=== PATIENT | male | born 1930 | race African-American/Black ===

== ENCOUNTER 2016-06-08 06:58 | Emergency (ER) | payer OTHER ==
[~2016-06-08] VITALS: Ht 185.4 cm; Wt 95.3 kg
[~2016-06-08 06:58] MED LIST: BACITRACIN15 GM TOPIC; BACTRIM DS TAB1 EAC1 ORAL; DOXYCYCLINE MO100 M2 PO; HYDROCHLOROTHIA25 MG ORAL; KERLIX1 EAC2 TP; LEVAQUIN500 MG ORAL; NKM; SILVADENE CREAM50 GM TOPIC; SILVADENE20 GM TP; [UNRECOGNIZED DRUG - SUPPLY] TP
--- NOTE | 2016-06-08 08:21 | Emergency Room Report ---
History of Present Illness General Chief Complaint: Lower Extremity Injury Source: Patient Present Illness HPI Patient presents with complaints of swelling to both of his feet Patient reports that he has a chronic problem with his legs However he would like to have his dressings changed Denies any fevers or chills denies any fall or trauma Denies any chest or shortness of breath He does not recall the exact time when his dressings were changed last Denies any pain at this time Allergies: Coded Allergies: No Known Allergies (Unverified , 10/27/12) Patient History Past Medical History: see triage record Pertinent Family History: none Reviewed Nursing Documentation: PMH: Agreed, PSxH: Agreed Nursing Documentation-PMH Past Medical History: No History, Except For Hx Cardiac Problems: Yes - Chronic lymphedema, Venous stasis ulcer Hx Hypertension: No Hx Pacemaker: No Hx Asthma: No Hx COPD: No Hx Diabetes: No Hx Cancer: No Hx Gastrointestinal Problems: No Hx Dialysis: No Hx Neurological Problems: No Hx Cerebrovascular Accident: No Hx Seizures: No Review of Systems All Other Systems: negative except mentioned in HPI Physical Exam Vital Signs Date Time Temp Pulse Resp B/P Pulse Ox O2 Delivery O2 Flow Rate FiO2 06/08/16 07:48 97.9 65 18 174/102 98 Room Air Sp02 EP Interpretation: reviewed, normal General Appearance: well appearing, no apparent distress Head: normocephalic, atraumatic Eyes: bilateral eye EOMI, bilateral eye PERRL ENT: hearing grossly normal, normal pharynx, TMs + canals normal, uvula midline Neck: full range of motion, supple, no meningismus, no bony tend Respiratory: lungs clear, normal breath sounds, no rhonchi, no respiratory distress, no retraction, no accessory muscle use Cardiovascular #1: normal peripheral pulses, regular rate, rhythm, no edema, no gallop, no JVD, no murmur Gastrointestinal: normal bowel sounds, non tender, soft, no mass, no organomegaly, non-distended, no guarding, no hernia, no pulsatile mass, no rebound Genitourinary: no CVA tenderness Musculoskeletal: other - Patient appears to have venous stasis ulcers, no obvious secondary erythema Neurologic: oriented x3, responsive, 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 nml as tested, motor strength/ tone normal, sensory intact Psychiatric: mood/affect normal Skin: other - Venous stasis ulcers, fairly chronic appearing Medical Decision Making Diagnostic Impression: Primary Impression: Dressing change Additional Impression: Venous stasis ulcer ER Course Patient had dressing changes performed Area appears improved patient was also asking regarding breakfast Had a discussion with them regarding continued close outpatient followup I have previously recommended admission for the patient however he has refused on multiple occasions Patient is very appropriately awake and alert and attentive And reports that he will have continued outpatient followup Last Vital Signs Date Time Temp Pulse Resp B/P Pulse Ox O2 Delivery O2 Flow Rate FiO2 06/08/16 07:48 97.9 65 18 174/102 98 Room Air Status: improved Disposition: HOME, SELF-CARE Condition: Improved Referrals: [facility],REFERRING (PCP) Patient Instructions: Stasis Dermatitis, Venous Stasis or Chronic Venous Insufficiency, Dressing Change Additional Instructions: Patient is provided with the discharge instructions notified to follow up with primary doctor in the next 2-3 days otherwise return to the er with any worsening symptoms. FLORIDA HARRINGTON D.O. Jun 08, 2016 08:21
[2016-06-08 08:39] VITALS: BP 80/80
== END 2016-06-08 09:17 | disposition home or self-care (01) ==
LOC: EMR 07:47
DX: Z48.00 Encounter for change or removal of nonsurgical wound dressing (principal); I89.0 Lymphedema, not elsewhere classified; I83.009 Varicose veins of unspecified lower extremity with ulcer of unspecified site; L97.909 Non-pressure chronic ulcer of unspecified part of unspecified lower leg with unspecified severity
CPT/HCPCS: 99282

== ENCOUNTER 2016-06-12 02:11 | Emergency (ER) | payer OTHER ==
[~2016-06-12] VITALS: Ht 185.4 cm; Wt 95.3 kg
[2016-06-12 02:30] VITALS: BP 122/67
--- NOTE | 2016-06-12 03:09 | Emergency Room Report ---
History of Present Illness General Chief Complaint: General Complaint Source: Patient Present Illness HPI 85 YO M with request for bandage change to ulcers from chronic venous stasis dermatitis. Denies fever/chills, pain. Was here recently for similar complaint / request. Patient states its difficult for him to followup with PMD. Ambulating with cane as per baseline. Denies numbness or weakness to lower extremities. Allergies: Coded Allergies: No Known Allergies (Unverified , 10/27/12) Patient History Past Medical History: other - chrnic venous stasis dermatitis Past Surgical History: none Social History: Denies: alcohol use, drug use, smoking Immunizations: UTD Reviewed Nursing Documentation: PMH: Agreed, PSxH: Agreed Nursing Documentation-PMH Past Medical History: No Stated History Hx Cardiac Problems: Yes - Chronic lymphedema, Venous stasis ulcer Hx Hypertension: No Hx Pacemaker: No Hx Asthma: No Hx COPD: No Hx Diabetes: No Hx Cancer: No Hx Gastrointestinal Problems: No Hx Dialysis: No Hx Neurological Problems: No Hx Cerebrovascular Accident: No Hx Seizures: No Review of Systems All Other Systems: negative except mentioned in HPI Physical Exam Vital Signs Date Time Temp Pulse Resp B/P Pulse Ox O2 Delivery O2 Flow Rate FiO2 06/12/16 02:17 98.1 76 16 120/64 96 Room Air Sp02 EP Interpretation: reviewed, normal General Appearance: normal inspection, well appearing, no apparent distress, alert Head: atraumatic ENT: normal ENT inspection, hearing grossly normal, normal voice Neck: normal inspection, full range of motion, supple, no bony tend Respiratory: normal inspection, lungs clear, normal breath sounds, no respiratory distress, no retraction, no wheezing Cardiovascular #1: regular rate, rhythm, no edema Gastrointestinal: normal inspection, normal bowel sounds, non tender, soft, no guarding, no hernia Genitourinary: no CVA tenderness Musculoskeletal: normal inspection, back normal, normal range of motion, Tasha' s Sign negative Neurologic: normal inspection, alert, responsive, speech normal Psychiatric: normal inspection, judgement/insight normal, mood/affect normal Skin: other - Bilateral lower extremities: hairless, shiny, hardened/ lichenified skin. Multiple areas of ulceration, weeping foul-smelling drainage. Nontender. No focal edema. No overyling erythema or sign of infection. Sensation intact. Motor strength 4/5 bilaterally. Medical Decision Making Diagnostic Impression: Primary Impression: Chronic cutaneous venous stasis ulcer ER Course Multiple ulcerations with underlying CVS dermatitis. VSS. Afebrile. No sign of infection Dressings changed by staff, wounds irrigated and rewrapped with xeroform and kerlex Patient given supplies and instructed how to change dressings at home DC Last Vital Signs Date Time Temp Pulse Resp B/P Pulse Ox O2 Delivery O2 Flow Rate FiO2 06/12/16 02:17 98.1 76 16 120/64 96 Room Air Status: improved Disposition: HOME, SELF-CARE Referrals: [facility],REFERRING (PCP) LUIS DEWITT M.D. Jun 12, 2016 03:09
[2016-06-12 03:16] VITALS: BP 118/70
== END 2016-06-12 03:16 | disposition home or self-care (01) ==
LOC: EMR 02:41
DX: I83.009 Varicose veins of unspecified lower extremity with ulcer of unspecified site (principal)
CPT/HCPCS: 99282

== ENCOUNTER 2016-06-18 22:35 | Emergency (ER) | payer OTHER ==
[~2016-06-18] VITALS: Ht 185.4 cm; Wt 95.3 kg
[2016-06-18 23:15] VITALS: BP 128/65
[2016-06-19] MEDS ORDERED: Bacitracin Oint UD TOPIC ONE (02:00)
[2016-06-19] MEDS ORDERED: BACITRACIN15 GM TOPIC (04:20)
[2016-06-19 04:34] VITALS: BP 136/67
--- NOTE | 2016-06-19 06:55 | Emergency Room Report ---
History of Present Illness General Chief Complaint: General Complaint Source: Patient Present Illness HPI Patient presents requesting dressings for legs. Has chronic ulcers. States they are basically unchanged. Some minimal drainage. Previously in wound care clinic. He states he doesn't want to go there anymore. Denies fever, chills, CP, SOB. Does have some exertional dyspnea. Chronic depression unchanged. 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 Nursing Documentation: PMH: Agreed, PSxH: Agreed Nursing Documentation-PMH Past Medical History: No History, Except For Hx Cardiac Problems: Yes - Chronic lymphedema, Venous stasis ulcer Hx Hypertension: No Hx Pacemaker: No Hx Asthma: No Hx COPD: No Hx Diabetes: No Hx Cancer: No Hx Gastrointestinal Problems: No Hx Dialysis: No Hx Neurological Problems: No Hx Cerebrovascular Accident: No Hx Seizures: No Review of Systems All Other Systems: negative except mentioned in HPI Physical Exam Vital Signs Date Time Temp Pulse Resp B/P Pulse Ox O2 Delivery O2 Flow Rate FiO2 06/18/16 22:53 98.1 65 16 130/62 96 Room Air Sp02 EP Interpretation: reviewed, normal General Appearance: no apparent distress, GCS 15 Head: normocephalic, atraumatic Eyes: bilateral eye PERRL, bilateral eye normal inspection ENT: moist mucus membranes Neck: supple Respiratory: lungs clear, normal breath sounds Cardiovascular #1: regular rate, rhythm, edema - brawney bilat Cardiovascular #2: 2+ radial (R) Gastrointestinal: normal inspection, normal bowel sounds, non tender, no mass, non-distended Musculoskeletal: back normal, gait/station normal - with walker, normal range of motion, no calf tenderness, pelvis stable, Tasha's Sign negative, inflammation, swelling Neurologic: alert, oriented x3, grossly normal Psychiatric: depressed affect Skin: warm/dry, other - venous ulcers bilat. Somewhat improved from my prior exam. Some eschar. No purulent drainage. Medical Decision Making Diagnostic Impression: Primary Impression: Encounter for dressing change or suture removal Additional Impressions: Venous stasis ulcers Refusal of care by patient ER Course Patient with request for dressings. Needs to have eval of labs for infection ( doubt), electrolyte balance, renal function. Patient refuses labs - states for samaritan reasons. Unable to place Kim boots. Antibiotic ointment and dressings applied. Patient stable for outpatient observation and treatment with the limitation of his refusing further evaluation. EKG Diagnostic Results Rate: tachycardiac ST Segments: no acute changes Rhythm Strip Diag. Results EP Interpretation: yes Rhythm: no PVC's, other - possible a flutter with NSSTTW changes, rate 111 Status: improved Disposition: HOME, SELF-CARE Condition: Improved Scripts Bacitracin (Bacitracin) 28.4 Gm Oint...g. 1 APPLIC TOPIC THREE TIMES A DAY, #30 GM Prov: Basim Correa M.D. 06/19/16 Referrals: [facility],REFERRING (PCP) Patient Instructions: Venous Stasis or Chronic Venous Insufficiency Additional Instructions: Follow up with your wound care MD. You refused to have us do labs tonight. Basim Correa M.D. Jun 19, 2016 06:55
--- NOTE | 2016-06-21 08:30 | Diagnostic Imaging Report ---
Indications: Chest pain Technique: Portable AP chest Findings: Comparison: 05/23/15 Cardiac silhouette remains normal in size. Pulmonary vasculature remains within normal limits. Lungs and pleura currently clear. Mild calcification of the aortic arch is again noted. IMPRESSION: No evidence of acute disease, Stable chronic changes as described
== END 2016-06-19 04:34 | disposition home or self-care (01) ==
LOC: EMR 23:20
DX: I83.009 Varicose veins of unspecified lower extremity with ulcer of unspecified site (principal); L97.919 Non-pressure chronic ulcer of unspecified part of right lower leg with unspecified severity; L97.929 Non-pressure chronic ulcer of unspecified part of left lower leg with unspecified severity; I89.0 Lymphedema, not elsewhere classified; Z48.00 Encounter for change or removal of nonsurgical wound dressing
CPT/HCPCS: 71010; 99283

== ENCOUNTER 2016-06-22 17:56 | Emergency (ER) | payer OTHER ==
[~2016-06-22] VITALS: Ht 185.4 cm; Wt 95.3 kg
[2016-06-22 18:20] VITALS: BP 162/65
--- NOTE | 2016-06-22 18:23 | Emergency Room Report ---
History of Present Illness General Chief Complaint: Skin Rash/Abscess Source: Patient Present Illness HPI 85 YOM multiple times visitor to ED for lower extremity dressing change presents with same. Denies fever/chills, abdominal pain, chest pain, SOB, diarrhea, nausea/vomiting. States has been prescribed Abx multiple times in the past but never had Rx filled - states he went to Pharm and they told him they couldnt give Rx until they spoke to the doctor. On patients recent visit, both myself and 2 RNs spent considerable time with patient, changing his dressings, giving him supples to do the same, and instructing him how to care for wounds and drainage. Allergies: Coded Allergies: No Known Allergies (Unverified , 10/27/12) Patient History Past Medical History: see triage record, old chart reviewed Past Surgical History: none Social History: Denies: alcohol use, drug use, smoking Immunizations: UTD Reviewed Nursing Documentation: PMH: Agreed, PSxH: Agreed Nursing Documentation-PMH Past Medical History: No History, Except For Hx Hypertension: No Hx Pacemaker: No Hx Asthma: No Hx COPD: No Hx Diabetes: No Hx Cancer: No Hx Gastrointestinal Problems: No Hx Dialysis: No Hx Neurological Problems: No Hx Cerebrovascular Accident: No Hx Seizures: No Review of Systems All Other Systems: negative except mentioned in HPI Physical Exam Vital Signs Date Time Temp Pulse Resp B/P Pulse Ox O2 Delivery O2 Flow Rate FiO2 06/22/16 18:07 98.4 84 17 162/65 98 Room Air Sp02 EP Interpretation: reviewed, normal General Appearance: normal inspection, well appearing, no apparent distress, alert Head: atraumatic ENT: normal ENT inspection, hearing grossly normal, normal voice Neck: normal inspection, full range of motion, supple, no bony tend Respiratory: normal inspection, lungs clear, normal breath sounds, no respiratory distress, no retraction, no wheezing Cardiovascular #1: regular rate, rhythm, no edema Gastrointestinal: normal inspection, normal bowel sounds, non tender, soft, no guarding, no hernia Genitourinary: no CVA tenderness Neurologic: normal inspection, alert, oriented x3, responsive, 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 Sensation intact. Patient able to move extremities. Appreciable difference of warmth to left leg vs right. Medical Decision Making Diagnostic Impression: Primary Impression: Encounter for dressing change or suture removal Additional Impressions: probable dementia Chronic cutaneous venous stasis ulcer Cellulitis Qualified Codes: L03.818 - Cellulitis of other sites ER Course 85 YOM with dressing change request for chronic venous stasis dermatitis ulcers. ?cellulitis. Vitals normal, afebrile. Apparently multiple attempts in past to tx with Abx, unsuccessful Dressings changed here Will cover with keflex Abx given appreciable diff in warmth of left lower extremity DC home Last Vital Signs Date Time Temp Pulse Resp B/P Pulse Ox O2 Delivery O2 Flow Rate FiO2 06/22/16 18:07 98.4 84 17 162/65 98 Room Air Status: improved Disposition: HOME, SELF-CARE Scripts Cephalexin* (KEFLEX*) 500 Mg Capsule 500 MG ORAL EVERY 6 HOURS for 7 Days, #28 CAP Prov: LUIS DEWITT M.D. 06/22/16 LUIS DEWITT M.D. Jun 22, 2016 18:23
[2016-06-22] MEDS ORDERED: CEPHALEXIN500 MG ORAL (18:32)
[2016-06-22 18:40] VITALS: BP 162/65
== END 2016-06-22 18:45 | disposition home or self-care (01) ==
LOC: EMR 18:43
DX: Z48.00 Encounter for change or removal of nonsurgical wound dressing (principal); I83.008 Varicose veins of unspecified lower extremity with ulcer other part of lower leg; L97.819 Non-pressure chronic ulcer of other part of right lower leg with unspecified severity; L97.829 Non-pressure chronic ulcer of other part of left lower leg with unspecified severity; L03.116 Cellulitis of left lower limb; L03.115 Cellulitis of right lower limb
CPT/HCPCS: 99282

== ENCOUNTER 2016-06-29 22:19 | Emergency (ER) | payer OTHER ==
[~2016-06-29] VITALS: Ht 185.4 cm; Wt 95.3 kg
[~2016-06-29 22:19] MED LIST changes: +CEPHALEXIN500 MG ORAL
[2016-06-29 22:44] VITALS: BP 116/72
--- NOTE | 2016-06-30 02:41 | Emergency Room Report ---
History of Present Illness General Chief Complaint: Skin Rash/Abscess Source: Patient Present Illness HPI 85 YOM presents again with requests for dressing changes. Denies fever/chills. Well known to ED staff for chonic venosus stasis ulcers and dermatitis. Patient was here Jun 18 and for same. Consistently refuses laboratory analysis. I Rxed him Keflex on for suspected Keflex which he did not fill. I and RNs have consistently changed dressings, provided him with materials to do the same, and instruction on how to do so but he refuses to care for own wounds and change dressings. Allergies: Coded Allergies: No Known Allergies (Unverified , 10/27/12) Patient History Past Medical History: see triage record, old chart reviewed Past Surgical History: none Pertinent Family History: none Social History: Denies: alcohol use, drug use, smoking Immunizations: UTD Reviewed Nursing Documentation: PMH: Agreed, PSxH: Agreed Nursing Documentation-PMH Past Medical History: No History, Except For Hx Hypertension: No Hx Pacemaker: No Hx Asthma: No Hx COPD: No Hx Diabetes: No Hx Cancer: No Hx Gastrointestinal Problems: No Hx Dialysis: No Hx Neurological Problems: No Hx Cerebrovascular Accident: No Hx Seizures: No Review of Systems All Other Systems: negative except mentioned in HPI Physical Exam Vital Signs Date Time Temp Pulse Resp B/P Pulse Ox O2 Delivery O2 Flow Rate FiO2 06/29/16 22:24 97.3 72 16 116/72 100 Room Air Sp02 EP Interpretation: reviewed, normal General Appearance: normal inspection, well appearing, no apparent distress, alert Head: atraumatic ENT: normal ENT inspection, hearing grossly normal, normal voice Neck: normal inspection, full range of motion, supple, no bony tend Respiratory: normal inspection, lungs clear, normal breath sounds, no respiratory distress, no retraction, no wheezing Cardiovascular #1: regular rate, rhythm, no edema Gastrointestinal: normal inspection, normal bowel sounds, non tender, soft, no guarding, no hernia Genitourinary: no CVA tenderness Musculoskeletal: normal inspection, back normal, normal range of motion, Tasha' s Sign negative Neurologic: normal inspection, alert, oriented x3, responsive, manager pediatric III-XII nml as tested, motor strength/tone normal, speech normal Psychiatric: normal inspection, judgement/insight normal, mood/affect normal Skin: other - Bilateral chronic venous stasis dermatitis with shiny, hairless legs, hardened skin. Appreciable warmth bilaterall. +1 pitting edema. No abscess or erythema or sign of infection Medical Decision Making Diagnostic Impression: Primary Impression: Chronic cutaneous venous stasis ulcer Additional Impressions: Encounter for dressing change or suture removal Refusal of care by patient ER Course Dressings changed again as per patient request. No acute sign of infection VSS. Afebrile. Low suspicion for systemic illness Likely malingering for jail DC home Last Vital Signs Date Time Temp Pulse Resp B/P Pulse Ox O2 Delivery O2 Flow Rate FiO2 06/29/16 22:44 97.3 80 16 116/72 100 Room Air Status: improved Disposition: HOME, SELF-CARE Referrals: NOT APPLICABLE THIS PATIENT,RE (PCP) LUIS DEWITT M.D. Jun 30, 2016 02:41
[2016-06-30 07:57] VITALS: BP 120/75
== END 2016-06-30 07:57 | disposition home or self-care (01) ==
LOC: EMR 23:34
DX: I83.008 Varicose veins of unspecified lower extremity with ulcer other part of lower leg (principal); Z48.00 Encounter for change or removal of nonsurgical wound dressing
CPT/HCPCS: 99282

== ENCOUNTER 2016-07-25 14:28 | Emergency (ER) | payer OTHER ==
[~2016-07-25] VITALS: Ht 185.4 cm; Wt 95.3 kg
[2016-07-25 15:16] VITALS: BP 194/91
[2016-07-25 16:46] VITALS: BP 184/81
--- NOTE | 2016-07-25 17:47 | Emergency Room Report ---
History of Present Illness General Chief Complaint: Wound Recheck/Suture Removal Source: Medical Record (PONCHO GONZALEZ) Present Illness HPI The patient is an 85-year-old male presenting for dressing change for chronic venous ulcers to both legs. The patient has been seen in this emergency department many times for the same complaint. The patient states that he last change the dressings 3 days prior. The patient denies any pain to this area and denies fever, chills, chest pain, shortness of breath (PONCHO GONZALEZ) Allergies: Coded Allergies: No Known Allergies (Unverified , 10/27/12) Patient History Past Medical History: see triage record Pertinent Family History: none Reviewed Nursing Documentation: PMH: Agreed, PSxH: Agreed (PONCHO GONZALEZ) Nursing Documentation-PMH Hx Hypertension: No Hx Pacemaker: No Hx Asthma: No Hx COPD: No Hx Diabetes: No Hx Cancer: No Hx Gastrointestinal Problems: No Hx Dialysis: No Hx Neurological Problems: No Hx Cerebrovascular Accident: No Hx Seizures: No (PONCHO GONZALEZ) Review of Systems All Other Systems: negative except mentioned in HPI (PONCHO GONZALEZ P.AJosselin) Physical Exam Vital Signs Date Time Temp Pulse Resp B/P Pulse Ox O2 Delivery O2 Flow Rate FiO2 07/25/16 14:30 97.2 54 16 194/91 100 Room Air Sp02 EP Interpretation: reviewed, normal General Appearance: no apparent distress, alert, GCS 15, non-toxic Head: normocephalic, atraumatic Musculoskeletal: back normal, gait/station normal, non-tender, no calf tenderness, swelling - 1+ pitting edema to bilateral lower legs Neurologic: alert, oriented x3, responsive, motor strength/tone normal, SLR negative, sensory intact Psychiatric: judgement/insight normal, memory normal, mood/affect normal, no suicidal/homicidal ideation Skin: other - There are bilateral shallow, irregularly shaped ulcers superior to ankles. Lymphatic: no adenopathy (PONCHO GONZALEZ P.AJosselin) Medical Decision Making PA Attestation Dr. Snow is my supervising physician. Patient management was discussed with my supervising physician (PONCHO GONZALEZAJosselin) Medicare Attestation The history of John Ames has been reviewed and management options for him have been examined and discussed by Kermit Snow. I have personally examined and interviewed the patient. (KERMIT SNOW M.D.) Diagnostic Impression: Primary Impression: Encounter for wound re-check Additional Impressions: Venous stasis ulcer Dressing change ER Course The patient is an 85-year-old male presenting for dressing change of venous ulcers Differential diagnosis considered: Penis ulcer, arterial ulcer, cellulitis, wound infection Physical exam: Afebrile. No apparent distress Bilateral legs: 1+ pitting edema. Shiny skin. Ulceration is shallow and irregular in shape. Nontender. Superior to ankles. Clear drainage. No surrounding erythema. No other discharge Xeroform is applied over the wounds. Curlex was then applied with overlying Wilbert wrap. The patient is advised he needs to see primary care physician in wound care for further care. No signs of infection. No antibiotics needed at this time ER precautions are given (PONCHO GONZALEZ) Last Vital Signs Date Time Temp Pulse Resp B/P Pulse Ox O2 Delivery O2 Flow Rate FiO2 07/25/16 16:46 54 16 184/81 95 Room Air 07/25/16 15:16 97.2 Status: improved (PONCHO GONZALEZ) Disposition: HOME, SELF-CARE Condition: Improved Referrals: NOT CHOSEN [facility]/,REFERRING (PCP) Patient Instructions: Venous Stasis or Chronic Venous Insufficiency, Wound Check Additional Instructions: I discussed my findings with the patient. All questions and concerns have been answered. Treatment and medication compliance have been addressed. I advised the patient that they need to follow up with PMD in 3-5 days. Return to ED if symptoms worsen, new symptoms arise, or if needed for any reason. Patient verbalized understanding of discharge instructions. Keep the wounds clean and dry. Please follow up with primary care doctor. PONCHO GONZALEZ Jul 25, 2016 17:47 KERMIT SNOW M.D. Jul 31, 2016 07:32
== END 2016-07-25 16:46 | disposition home or self-care (01) ==
LOC: EMR 14:40
DX: I87.8 Other specified disorders of veins (principal); L97.929 Non-pressure chronic ulcer of unspecified part of left lower leg with unspecified severity; L97.919 Non-pressure chronic ulcer of unspecified part of right lower leg with unspecified severity; Z48.00 Encounter for change or removal of nonsurgical wound dressing
CPT/HCPCS: 99282

== ENCOUNTER 2016-08-11 06:36 | Emergency (ER) | payer OTHER ==
[~2016-08-11] VITALS: Ht 185.4 cm; Wt 95.3 kg
[2016-08-11 07:08] VITALS: BP 163/84
[2016-08-11 07:38] VITALS: BP 158/98
--- NOTE | 2016-08-11 08:28 | Emergency Room Report ---
History of Present Illness General Chief Complaint: General Complaint Source: Patient Present Illness HPI 85-year-old male presents to ED for dressing changes on wounds to his legs. Patient states he's had these wounds for many years now. Patient is well known to [facility] and sent here multiple times for similar presentation. Patient states he only wants his dressings changed. does not want any additional interventions. Denies any pain. Denies fevers or chills. Denies any leg weakness. No other aggravating relieving factors. Denies any other associated symptoms Allergies: Coded Allergies: No Known Allergies (Unverified , 10/27/12) Patient History Past Medical History: none Past Surgical History: none Pertinent Family History: none Social History: Denies: alcohol use, drug use, smoking Immunizations: UTD Reviewed Nursing Documentation: PMH: Agreed, PSxH: Agreed Nursing Documentation-PMH Hx Hypertension: No Hx Pacemaker: No Hx Asthma: No Hx COPD: No Hx Diabetes: No Hx Cancer: No Hx Gastrointestinal Problems: No Hx Dialysis: No Hx Neurological Problems: No Hx Cerebrovascular Accident: No Hx Seizures: No Review of Systems All Other Systems: negative except mentioned in HPI Physical Exam Vital Signs Date Time Temp Pulse Resp B/P Pulse Ox O2 Delivery O2 Flow Rate FiO2 08/11/16 06:44 96.4 65 18 191/96 99 Room Air Sp02 EP Interpretation: reviewed, normal General Appearance: no apparent distress, alert, GCS 15, non-toxic Head: normocephalic Eyes: bilateral eye PERRL, bilateral eye normal inspection ENT: normal ENT inspection Neck: normal inspection Respiratory: chest non-tender, lungs clear, normal breath sounds, speaking full sentences Cardiovascular #1: regular rate, rhythm, no edema Gastrointestinal: normal bowel sounds, non tender, soft, non-distended, no guarding, no rebound Rectal: deferred Genitourinary: no CVA tenderness Musculoskeletal: swelling - 1+ pitting edema b/l LE Neurologic: alert, oriented x3, responsive, motor strength/tone normal, sensory intact, speech normal Psychiatric: normal inspection Skin: warm/dry, rash, other - There are bilateral shallow, irregularly shaped ulcers superior to ankles Lymphatic: normal inspection Medical Decision Making Diagnostic Impression: Primary Impression: Chronic cutaneous venous stasis ulcer ER Course Hospital Course 85-year-old male presents to ED for dressing changes to his legs. History of chronic venous stasis ulcers Clinical course Patient placed on stretcher. After initial history, physical exam reveals a elderly male in no acute distress. On exam there are multiple chronic venous stasis ulcers to bilateral legs. No fluctuance or discharge. No evidence of cellulitis. Patient appears clinically well. Nontoxic. Dressings changed Diagnosis - chronic cutaneous venous stasis ulcers stable and discharged to home. Instructed to followup with PMD. Instructed return to ED if symptoms recur or worsen Last Vital Signs Date Time Temp Pulse Resp B/P Pulse Ox O2 Delivery O2 Flow Rate FiO2 08/11/16 07:38 62 17 158/98 98 Room Air 08/11/16 06:44 96.4 Status: improved Disposition: HOME, SELF-CARE Condition: Stable Referrals: [facility],REFERRING (PCP) Patient Instructions: Venous Stasis or Chronic Venous Insufficiency MIKI SNOW M.D. Aug 11, 2016 08:28
== END 2016-08-11 07:42 | disposition home or self-care (01) ==
LOC: EMR 06:56
DX: I83.023 Varicose veins of left lower extremity with ulcer of ankle (principal); I83.013 Varicose veins of right lower extremity with ulcer of ankle
CPT/HCPCS: 99281

== ENCOUNTER 2016-08-22 06:28 | Emergency (ER) | payer MEDICARE, OTHER ==
[~2016-08-22] VITALS: Ht 185.4 cm; Wt 95.3 kg
[2016-08-22 06:45] VITALS: BP 165/70
--- NOTE | 2016-08-22 06:51 | Emergency Room Report ---
History of Present Illness General Chief Complaint: General Complaint Source: Patient Present Illness HPI Patient is a 85-year-old male who presented for wound check on his legs. The patient prior history of chronic venostasis. The patient had of some history of poorly healing wounds which has been seen multiple times at emergency department. Patient had no complaint of fever. He reported having no increase pain or trauma. Allergies: Coded Allergies: No Known Allergies (Unverified , 10/27/12) Patient History Reviewed Nursing Documentation: PMH: Agreed, PSxH: Agreed Nursing Documentation-PMH Hx Hypertension: No Hx Pacemaker: No Hx Asthma: No Hx COPD: No Hx Diabetes: No Hx Cancer: No Hx Gastrointestinal Problems: No Hx Dialysis: No Hx Neurological Problems: No Hx Cerebrovascular Accident: No Hx Seizures: No Review of Systems All Other Systems: negative except mentioned in HPI Physical Exam Vital Signs Date Time Temp Pulse Resp B/P Pulse Ox O2 Delivery O2 Flow Rate FiO2 08/22/16 06:37 96.4 47 16 165/70 95 Room Air General Appearance: well appearing, no apparent distress, alert, GCS 15 Head: normocephalic, atraumatic ENT: hearing grossly normal, normal voice Neck: full range of motion, supple Respiratory: no respiratory distress, speaking full sentences Cardiovascular #1: normal inspection Gastrointestinal: normal inspection Musculoskeletal: normal inspection, back normal, no calf tenderness Neurologic: normal inspection, alert, oriented x3, responsive, normal gait Psychiatric: mood/affect normal Skin: no rash, other - chronic venous stasis. small area to left leg with some transudate, no erythema Medical Decision Making Diagnostic Impression: Primary Impression: Encounter for wound re-check Additional Impression: Lymphedema of both lower extremities ER Course Patient presented for wound check. Differential diagnosis included was not limited to infected wound, nonhealed wound, neuroma, healed wound. Patient's benign exam and does not appear to require any further imaging or laboratory testing at this time the patient was a redressed and covered with sterile dressing. The patient is advised to follow up with primary care doctor in 1-2 days. Patient is advised to return if any worsening condition or if any changes in status that are concerning. Last Vital Signs Date Time Temp Pulse Resp B/P Pulse Ox O2 Delivery O2 Flow Rate FiO2 08/22/16 06:45 96.4 86 16 165/70 95 Room Air Status: improved Disposition: HOME, SELF-CARE Condition: Stable Bolivar,Osvaldo Aug 22, 2016 06:51
[2016-08-22] MEDS ORDERED: Bacitracin Oint UD TOPIC ONE (07:00)
[2016-08-22 08:07] VITALS: BP 157/89
== END 2016-08-22 08:15 | disposition home or self-care (01) ==
LOC: EMR 07:09
DX: I89.0 Lymphedema, not elsewhere classified (principal); S81.802D Unspecified open wound, left lower leg, subsequent encounter; S81.801D Unspecified open wound, right lower leg, subsequent encounter
CPT/HCPCS: 99282

== ENCOUNTER 2016-08-31 07:32 | Emergency (ER) | payer MEDICARE, OTHER ==
[~2016-08-31] VITALS: Ht 172.7 cm; Wt 81.6 kg
[2016-08-31 07:41] VITALS: BP 158/105
--- NOTE | 2016-08-31 07:54 | Emergency Room Report ---
History of Present Illness General Chief Complaint: Wound Recheck/Suture Removal Source: Patient, Medical Record Present Illness HPI The patient is an 86-year-old male presented for wound check. Patient's chronic nonhealing wounds to his lower extremities. Patient has been seen multiple times for similar type symptoms. Patient had prior history of chronic venous stasis changes. He denied any fever. The patient recent been seen for same. He presented for dressing change. Allergies: Coded Allergies: No Known Allergies (Unverified , 10/27/12) Patient History Past Medical History: see triage record Reviewed Nursing Documentation: PMH: Agreed, PSxH: Agreed Nursing Documentation-PMH Past Medical History: No History, Except For Hx Hypertension: No Hx Pacemaker: No Hx Asthma: No Hx COPD: No Hx Diabetes: No Hx Cancer: No Hx Gastrointestinal Problems: No Hx Dialysis: No Hx Neurological Problems: No Hx Cerebrovascular Accident: No Hx Seizures: No Review of Systems All Other Systems: negative except mentioned in HPI Physical Exam Vital Signs Date Time Temp Pulse Resp B/P Pulse Ox O2 Delivery O2 Flow Rate FiO2 08/31/16 07:41 97.5 75 16 158/105 94 Room Air General Appearance: well appearing, no apparent distress, alert, GCS 15, non- toxic Head: normocephalic, atraumatic ENT: hearing grossly normal, normal voice Neck: full range of motion, supple Respiratory: normal inspection, chest non-tender, no respiratory distress, speaking full sentences Gastrointestinal: normal inspection, normal bowel sounds, non tender, soft Musculoskeletal: back normal, digits/nails normal, no calf tenderness, swelling , other - no discharge or erythema Neurologic: normal inspection, alert, oriented x3, responsive, normal gait Psychiatric: mood/affect normal Skin: other - chronic venous stasis changees Medical Decision Making Diagnostic Impression: Primary Impression: Lymph edema Additional Impression: Chronic cutaneous venous stasis ulcer ER Course Patient presented for wound check.Patient presented for wound check. Differential diagnosis included was not limited to infected wound, nonhealed wound, neuroma, healed wound. Patient's benign exam and does not appear to require any further imaging or laboratory testing at this time. Patient's wounds no evidence of acute infection. Patient is advised followup with his primary care physician for reevaluation in the next few days. Patient is advised to return if he been having worsening pain fever or increased discharge from his wound. Last Vital Signs Date Time Temp Pulse Resp B/P Pulse Ox O2 Delivery O2 Flow Rate FiO2 08/31/16 07:41 97.5 16 158/105 94 Room Air 08/31/16 07:41 75 Status: improved Disposition: HOME, SELF-CARE Condition: Stable BolivarOsvaldo Aug 31, 2016 07:54
[2016-08-31] MEDS ORDERED: NIACIN 500 MG ORAL ONE (08:00)
[2016-08-31] MEDS ORDERED: Niacin 50mg tab ORAL ONE (08:15)
[2016-08-31] MEDS ORDERED: Ascorbic Acid 500mg tab ORAL ONE (09:00)
[2016-08-31] MEDS ORDERED: NIACIN100 MG ORAL (09:32)
[2016-08-31 09:39] VITALS: BP 129/68
== END 2016-08-31 10:21 | disposition home or self-care (01) ==
LOC: EMR 08:22
DX: I83.009 Varicose veins of unspecified lower extremity with ulcer of unspecified site (principal); L97.919 Non-pressure chronic ulcer of unspecified part of right lower leg with unspecified severity; L97.929 Non-pressure chronic ulcer of unspecified part of left lower leg with unspecified severity
CPT/HCPCS: 99282

== ENCOUNTER 2016-09-11 10:09 | Emergency (ER) | payer MEDICARE ==
[~2016-09-11] VITALS: Ht 172.7 cm; Wt 90.7 kg
[~2016-09-11 10:09] MED LIST changes: +NIACIN100 MG ORAL
[2016-09-11 10:45] VITALS: BP 122/75
[2016-09-11 11:45] VITALS: BP 122/75
--- NOTE | 2016-09-12 07:36 | Emergency Room Report ---
History of Present Illness General Chief Complaint: Wound Recheck/Suture Removal Source: Patient Present Illness HPI Patient present with request of wound check Patient has had multiple visits to our emergency department I have personally seen the patient several times I recommended highly for him to follow with primary physician and wound management However the patient repeatedly presents back to the emergency room Denies any fevers or chills denies any other discharge Denies any trauma Allergies: Coded Allergies: No Known Allergies (Unverified , 10/27/12) Patient History Past Medical History: see triage record Pertinent Family History: none Reviewed Nursing Documentation: PMH: Agreed, PSxH: Agreed Nursing Documentation-PMH Past Medical History: No History, Except For Hx Hypertension: No Hx Pacemaker: No Hx Asthma: No Hx COPD: No Hx Diabetes: No Hx Cancer: No Hx Gastrointestinal Problems: No Hx Dialysis: No Hx Neurological Problems: No Hx Cerebrovascular Accident: No Hx Seizures: No Review of Systems All Other Systems: negative except mentioned in HPI Physical Exam Vital Signs Date Time Temp Pulse Resp B/P Pulse Ox O2 Delivery O2 Flow Rate FiO2 09/11/16 10:36 97.7 86 20 122/75 97 Room Air Sp02 EP Interpretation: reviewed, normal General Appearance: no apparent distress Head: normocephalic, atraumatic Eyes: bilateral eye EOMI, bilateral eye PERRL ENT: hearing grossly normal, normal pharynx Neck: full range of motion, supple Respiratory: lungs clear Cardiovascular #1: regular rate, rhythm Gastrointestinal: non tender, soft Neurologic: alert, oriented x3, responsive, 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 as tested Skin: other - Venous stasis ulcers, lymphedema Lymphatic: other - Lymphedema bilaterally Procedures Additional Procedure Procedure Narrative Patient's lower extremity was cleansed and prepped, Vaseline dressing was placed over the open wounds, and Kerlix dressing over this Medical Decision Making Diagnostic Impression: Primary Impression: Encounter for wound re-check Additional Impressions: Lymph edema Venous stasis ulcer ER Course Patient has been encouraged highly to followup with primary physician I also recommended talking to our social work/case management it is having difficulty with this However the patient refuses, states that he has outpatient followup he needs to After the dressing changes patient was again encouraged to speak to case management however simply chuckles, and was thankful for the intervention Last Vital Signs Date Time Temp Pulse Resp B/P Pulse Ox O2 Delivery O2 Flow Rate FiO2 09/11/16 11:45 97.7 86 20 122/75 97 Room Air Disposition: HOME, SELF-CARE Condition: Improved Referrals: [facility],REFERRING (PCP) Patient Instructions: Wound Check Additional Instructions: Patient is provided with the discharge instructions notified to follow up with primary doctor in the next 2-3 days otherwise return to the er with any worsening symptoms. Please note that this report is being documented using DRAGON technology. This can lead to erroneous entry secondary to incorrect interpretation by the dictating instrument. FLORIDA HARRINGTON D.O. Sep 12, 2016 07:36
== END 2016-09-11 11:45 | disposition home or self-care (01) ==
LOC: EMR 11:15
DX: I87.8 Other specified disorders of veins (principal); I89.0 Lymphedema, not elsewhere classified
CPT/HCPCS: 99282

== ENCOUNTER 2016-09-16 06:21 | Emergency (ER) | payer MEDICARE ==
[~2016-09-16] VITALS: Ht 185.4 cm; Wt 95.3 kg
[2016-09-16 06:55] VITALS: BP 170/82
--- NOTE | 2016-09-16 07:35 | Emergency Room Report ---
History of Present Illness General Chief Complaint: Skin Rash/Abscess Source: Patient, Medical Record Present Illness HPI This patient has chronic venous stasis ulcers of his bilateral lower extremities. This is been ongoing for many years. Apparently, after chart review, I discovered that this patient is seen regularly here for dressing changes. He is also been offered wound care and instructed to followup with her primary care physician repeatedly. However, he is noncompliant with this regimen. I discussed this with him, he states that his primary care physician is too difficult to get to and that he has tried to go to the wound care clinic across the street and they wouldn't accept him. When I inquired why he had dirty P.J. pants with dirt covering his wounds, he states that it rained and his yard his muddy. He denies that he is homeless. Allergies: Coded Allergies: No Known Allergies (Unverified , 10/27/12) Patient History Past Medical History: see triage record, old chart reviewed, HTN, other - venous stasis ulcers, chronic wounds. Social History: Denies: alcohol use, drug use, smoking Reviewed Nursing Documentation: PMH: Agreed, PSxH: Agreed Nursing Documentation-PMH Hx Hypertension: No Hx Pacemaker: No Hx Asthma: No Hx COPD: No Hx Diabetes: No Hx Cancer: No Hx Gastrointestinal Problems: No Hx Dialysis: No Hx Neurological Problems: No Hx Cerebrovascular Accident: No Hx Seizures: No Review of Systems All Other Systems: negative except mentioned in HPI Physical Exam Vital Signs Date Time Temp Pulse Resp B/P Pulse Ox O2 Delivery O2 Flow Rate FiO2 09/16/16 06:45 97.9 88 22 170/82 96 Room Air Sp02 EP Interpretation: reviewed, normal General Appearance: no apparent distress, alert, GCS 15, non-toxic, other - + smell of urine, Poor hygiene, dirt on pants. Wet, dirty dressing on LLE ulcers , no dressing on RLE ulcers. Head: normocephalic, atraumatic Eyes: bilateral eye PERRL, bilateral eye normal inspection ENT: hearing grossly normal, normal pharynx, no angioedema, normal voice Neck: full range of motion, supple/symm/no masses Respiratory: chest non-tender, no respiratory distress, no retraction, no accessory muscle use, speaking full sentences Cardiovascular #1: regular rate, rhythm, no edema Gastrointestinal: normal inspection, non-distended Rectal: deferred Musculoskeletal: gait/station normal, normal range of motion, non-tender, other - Chronic venous stasis ulcers of BLE, thickened skin. RLE > LLE Neurologic: alert, oriented x3, responsive, motor strength/tone normal, sensory intact, speech normal Psychiatric: judgement/insight normal, memory normal, mood/affect normal, no suicidal/homicidal ideation Skin: other - See MSK exam Medical Decision Making Diagnostic Impression: Primary Impression: Lymphedema of both lower extremities Additional Impression: Venous stasis ulcer ER Course This patient presents with chronic venous stasis ulcers. Patient has been noncompliant with wound care and primary care physician followup. He presents for dressing change. There is no evidence of infection or cellulitis at this time. Further discussion with the patient and he reports that he has been unable to sit up wound care. I offered him delinquency prevention social worker evaluation for assistance. He agreed to this and was given resources to set up wound care. Regardless, the patient's dressings were changed. He was also educated on improved hygiene and better self wound care in between evaluations. He indicated understanding. The patient was given close return precautions and followup instructions. Last Vital Signs Date Time Temp Pulse Resp B/P Pulse Ox O2 Delivery O2 Flow Rate FiO2 09/16/16 06:55 97.9 88 22 170/82 96 Room Air Status: improved Disposition: HOME, SELF-CARE Condition: Stable TATY SAMPSON D.O. Sep 16, 2016 07:35
[2016-09-16 08:14] VITALS: BP 170/82
== END 2016-09-16 08:15 | disposition home or self-care (01) ==
LOC: EMR 06:55
DX: I83.029 Varicose veins of left lower extremity with ulcer of unspecified site (principal); I83.019 Varicose veins of right lower extremity with ulcer of unspecified site; I89.0 Lymphedema, not elsewhere classified; I10 Essential (primary) hypertension
CPT/HCPCS: 99281

== ENCOUNTER 2016-09-19 08:37 | Emergency (ER) | payer MEDICARE ==
[~2016-09-19] VITALS: Ht 185.4 cm; Wt 99.8 kg
[2016-09-19] MEDS ORDERED: NKM (08:50)
[2016-09-19 09:03] VITALS: BP 115/73
[2016-09-19 10:54] VITALS: BP 115/73
--- NOTE | 2016-09-19 11:24 | Emergency Room Report ---
History of Present Illness General Chief Complaint: Wound Recheck/Suture Removal Source: Patient Present Illness HPI [id number] walk-in for dressing change request. Patient well known to ED for frequent visits for wound dressing changes for chronic venous stasis ulcers. Was changed at hospital 2-3 days ago. Also states he tripped and fell yesterday , hit head, ?LOC. Didnt seek medical attention for this. Denies change in vision, blurry vision, headache, nausea/vomiting. Asymptomatic otherwise. Unknown last tetanus but "doesnt believe in vaccinations." Allergies: Coded Allergies: No Known Allergies (Unverified , 10/27/12) Patient History Past Medical History: see triage record, old chart reviewed Past Surgical History: none Pertinent Family History: none Social History: Denies: alcohol use, drug use, smoking Immunizations: UTD Reviewed Nursing Documentation: PMH: Agreed, PSxH: Agreed Nursing Documentation-PMH Hx Hypertension: No Hx Pacemaker: No Hx Asthma: No Hx COPD: No Hx Diabetes: No Hx Cancer: No Hx Gastrointestinal Problems: No Hx Dialysis: No Hx Neurological Problems: No Hx Cerebrovascular Accident: No Hx Seizures: No Review of Systems All Other Systems: negative except mentioned in HPI Physical Exam Vital Signs Date Time Temp Pulse Resp B/P Pulse Ox O2 Delivery O2 Flow Rate FiO2 09/19/16 08:42 97.2 72 14 115/73 97 Room Air Sp02 EP Interpretation: reviewed, normal General Appearance: normal inspection, well appearing, no apparent distress, alert, GCS 15, non-toxic Head: normocephalic, other - abrasion, midline upper forehead with hematoma Eyes: bilateral eye EOMI, bilateral eye PERRL ENT: normal ENT inspection, hearing grossly normal, normal voice Neck: normal inspection, full range of motion, supple, no bony tend Respiratory: normal inspection, lungs clear, normal breath sounds, no respiratory distress, no retraction, no wheezing Cardiovascular #1: regular rate, rhythm, no edema Gastrointestinal: normal inspection, normal bowel sounds, non tender, soft, no guarding, no hernia Genitourinary: no CVA tenderness Musculoskeletal: other - bilateral lower extremities: dressings in place. Left outer lower extremity: 1cm ulceration. No cellulitis. No calf ttp. Right lower extremity: weeping ulcers. No warmth or ttp or cellulitis Neurologic: normal inspection, alert, oriented x3, responsive, vp transportation III-XII nml as tested, motor strength/tone normal, speech normal Psychiatric: normal inspection, judgement/insight normal, mood/affect normal Skin: normal inspection, normal color, no rash Medical Decision Making Diagnostic Impression: Primary Impression: Encounter for dressing change or suture removal Additional Impressions: Fall Qualified Codes: W19.XXXA - Unspecified fall, initial encounter Contusion Qualified Codes: S00.93XA - Contusion of unspecified part of head, initial encounter ER Course Dressings changed. No sign of cellulitis or DVT suspected CT head negative for acute traumatic injury DC home Given fall precaution info Last Vital Signs Date Time Temp Pulse Resp B/P Pulse Ox O2 Delivery O2 Flow Rate FiO2 09/19/16 10:54 97.2 72 14 115/73 97 Room Air Status: improved Disposition: HOME, SELF-CARE Condition: Improved Referrals: [facility],REFERRING (PCP) Patient Instructions: Fall Prevention in the Home, [id number], Wound Check LUIS DEWITT M.D. Sep 19, 2016 11:24
--- NOTE | 2016-09-19 13:41 | Diagnostic Imaging Report ---
Indications: Fall, head trauma with laceration, pain Technique: Continuous helical CT imaging of the brain was performed with automatic exposure control on a Siemens sensation [address] scanner. Axial and coronal images were reconstructed at 5 mm slice thickness and interval. CTDI volume(s): 70 mGy Total DLP: 1383 mGy-cm Findings: Comparison: 05/23/15 Chronic microvascular ischemic changes in the bilateral cerebral periventricular deep white matter, diffuse atrophy are unchanged.. No evidence of mass or hemorrhage, other attenuation abnormality, mass effect, midline shift, hydrocephalus or increased intracranial pressure. Bone window images are unremarkable. Visualized paranasal sinuses and mastoid air cells are clear. Midline frontal scalp demonstrates mild swelling and increased attenuation with overlying skin irregularity. No associated gas or foreign body. IMPRESSION: Frontal scalp soft tissue injury No other evidence of acute injury or other acute intracranial pathology. Stable chronic age-related changes as described The CT scanner at [facility] is accredited by the [employer] and the scans are performed using protocols designed to limit radiation exposure to as low as reasonably achievable to attain images of sufficient resolution adequate for diagnostic evaluation.
== END 2016-09-19 10:55 | disposition home or self-care (01) ==
LOC: EMR 09:13
DX: S00.93XA Contusion of unspecified part of head, initial encounter (principal); Z48.00 Encounter for change or removal of nonsurgical wound dressing; W01.0XXA Fall on same level from slipping, tripping and stumbling without subsequent striking against object, initial encounter; Y92.9 Unspecified place or not applicable; Y99.8 Other external cause status
CPT/HCPCS: 70450; 99284

== ENCOUNTER 2016-09-24 17:36 | Emergency (ER) | payer MEDICARE ==
[~2016-09-24] VITALS: Ht 182.9 cm; Wt 90.7 kg
--- NOTE | 2016-09-24 18:27 | Emergency Room Report ---
History of Present Illness General Chief Complaint: Multiple Trauma/Fall Source: Patient Present Illness HPI 86 YO Male presents to the ED c/o right LE edema with chronic wounds. Pt reports 6/10 in severity pain. denies trauma or fall. Denies nausea, vomiting, fevers, chills, erythema. Patient reports weakness and fatigue. Patient is ambulatory. Denies numbness tingling or loss of sensation or gross motor movements of the extremities, incontinence of bowel or bladder. Denies CP, Palpitations, LOC, AMS, dizziness, Changes in Vision, Sensation, paresthesias, or a sudden severe headache. Allergies: Coded Allergies: No Known Allergies (Unverified , 10/27/12) Patient History Past Medical History: old chart reviewed Past Surgical History: none Pertinent Family History: none Reviewed Nursing Documentation: PMH: Agreed, PSxH: Agreed Nursing Documentation-PMH Past Medical History: No History, Except For Hx Hypertension: No Hx Pacemaker: No Hx Asthma: No Hx COPD: No Hx Diabetes: No Hx Cancer: No Hx Gastrointestinal Problems: No Hx Dialysis: No Hx Neurological Problems: No Hx Cerebrovascular Accident: No Hx Seizures: No Review of Systems All Other Systems: negative except mentioned in HPI Physical Exam Vital Signs Date Time Temp Pulse Resp B/P Pulse Ox O2 Delivery O2 Flow Rate FiO2 09/24/16 17:54 99.0 85 18 141/71 98 Room Air Sp02 EP Interpretation: reviewed, normal General Appearance: alert, GCS 15, non-toxic, mild distress, Chronically Ill Head: normocephalic, atraumatic Eyes: bilateral eye EOMI, bilateral eye PERRL ENT: no angioedema, normal voice, TMs + canals normal, uvula midline Neck: full range of motion, no bony tend, supple/symm/no masses Respiratory: lungs clear, normal breath sounds, speaking full sentences Cardiovascular #1: normal peripheral pulses, regular rate, rhythm, normal capillary refill, edema - unilateral lymphedema with chronic venous stasis ulcers of the right LE. 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 ulcers are consistent in appearance with previous visits, no increased temperature to palpation. Medical Decision Making PA Attestation Dr. Lutz is my supervising Physician whom patient management has been discussed with. Diagnostic Impression: Primary Impression: Lymphedema of both lower extremities Additional Impression: Encounter for wound re-check ER Course Pt. presents to the ED c/o right LE edema with chronic wounds. - pt. recently seen for wound care of chronic wounds and lymph edema of the right LE. -pt has hx of medication non-compliance and long standing hx of frequent visits to ED for wound care of chronic venous stasis ulcers. Ddx considered but are not limited to cellulitis, abscess, infestation, DVT, lymphedema Vital signs: are WNL, pt. is afebrile H&PE are most consistent with non infected or infested chronic venous stasis ulcers. ORDERS: none required at this time, the diagnosis is clinical ED INTERVENTIONS: -wound examined -Sterile dressing applied. d/w pt. to continue to look for signs of infection . - HCTZ PO for edema. DISCHARGE: At this time pt. is stable for d/c to home. Will provide printed patient care instructions, and any necessary prescriptions. Care plan and follow up instructions have been discussed with the patient prior to discharge. Last Vital Signs Date Time Temp Pulse Resp B/P Pulse Ox O2 Delivery O2 Flow Rate FiO2 09/24/16 17:54 99.0 85 18 141/71 98 Room Air Disposition: HOME, SELF-CARE Condition: Stable Scripts Hydrochlorothiazide* (HYDROCHLOROTHIAZIDE*) 25 Mg Tablet 25 MG ORAL DAILY for 7 Days, #7 TAB Prov: Meron Ross 09/24/16 Patient Instructions: Edema, [id number], Wound Care Additional Instructions: Take medications as directed. Follow up with PCP in 3-5 days Return sooner to ED if new symptoms occur, or current symptoms become worse. - Please note that this Emergency Department Report was dictated using writewithhouse fellow technology software, occasionally this can lead to erroneous entry secondary to interpretation by the dictation equipment. Meron Ross Sep 24, 2016 18:27
[2016-09-24] MEDS ORDERED: HYDROCHLOROTHIA25 MG ORAL (20:03)
[2016-09-24 23:17] VITALS: BP 139/76
[2016-09-24 23:18] VITALS: BP 141/71
== END 2016-09-24 23:18 | disposition home or self-care (01) ==
LOC: EMR 19:16
DX: I89.0 Lymphedema, not elsewhere classified (principal); I83.019 Varicose veins of right lower extremity with ulcer of unspecified site; L97.919 Non-pressure chronic ulcer of unspecified part of right lower leg with unspecified severity
CPT/HCPCS: 99283

== ENCOUNTER → 2016-09-30 | Emergency (ER) | payer MEDICARE ==
[~2016-09-30] VITALS: Ht 185.4 cm; Wt 95.3 kg
[2016-09-30 07:05] VITALS: BP 163/75
--- NOTE | 2016-09-30 07:57 | Emergency Room Report ---
History of Present Illness General Chief Complaint: Wound Recheck/Suture Removal Source: Patient Present Illness HPI Patient has a history of chronic lymphedema and venous stasis ulcers on bilateral lower extremities. He is well-known to [facility] and presents here regularly for wound care. He has been repeatedly instructed to go to the Wound Care clinic across the parking lot. He has no other complaints. Allergies: Coded Allergies: No Known Allergies (Unverified , 10/27/12) Patient History Past Medical History: see triage record, old chart reviewed, other - Venous stasis ulcers, dementia Social History: Denies: alcohol use, drug use, smoking Reviewed Nursing Documentation: PMH: Agreed, PSxH: Agreed Nursing Documentation-PMH Hx Hypertension: No Hx Pacemaker: No Hx Asthma: No Hx COPD: No Hx Diabetes: No Hx Cancer: No Hx Gastrointestinal Problems: No Hx Dialysis: No Hx Neurological Problems: No Hx Cerebrovascular Accident: No Hx Seizures: No Review of Systems All Other Systems: negative except mentioned in HPI Physical Exam Vital Signs Date Time Temp Pulse Resp B/P Pulse Ox O2 Delivery O2 Flow Rate FiO2 09/30/16 07:01 52 14 163/75 98 Room Air Sp02 EP Interpretation: reviewed, normal General Appearance: no apparent distress, alert, GCS 15, non-toxic Head: normocephalic, atraumatic Eyes: bilateral eye PERRL, bilateral eye normal inspection ENT: hearing grossly normal, normal pharynx, no angioedema, normal voice Neck: full range of motion, supple/symm/no masses Respiratory: no respiratory distress, no retraction, no accessory muscle use, speaking full sentences Rectal: deferred, other Musculoskeletal: gait/station normal, other - BLE lymphedema, Chronic venous stasis ulcers R>L. Neurologic: alert, oriented x3, responsive, motor strength/tone normal, sensory intact, speech normal Psychiatric: judgement/insight normal, memory normal, mood/affect normal, no suicidal/homicidal ideation Skin: warm/dry, other - See MSK exam Medical Decision Making Diagnostic Impression: Primary Impression: Encounter for dressing change or suture removal ER Course This 86-year-old male presents for wound dressing change. I did educate the patient is not getting proper wound care when he presents to the emergency department for his wound care. There is a wound care clinic across the street that he has been referred to repeatedly. Every Thursday from 8:30 AM to 2 PM every afternoon there is a walk-in clinic where he can receive 1 care. He is educated repeatedly on the location of this clinic as it is directly across the parking lot. The patient states that he is 78 years old and cannot remember to follow up instructions. However, he does present here repeatedly for wound care. He was again educated on the wound care clinic and given written instructions. Physical exam is consistent with chronic venous stasis and chronic venous stasis ulcers. He is able to make his own decisions but is not handling his medical care well. Likely there is a component of dementia. However it is not severe enough to call him greatly disabled. Social work has been contacted for this patient multiple times. The patient is given wound care precautions and followup instructions. Last Vital Signs Date Time Temp Pulse Resp B/P Pulse Ox O2 Delivery O2 Flow Rate FiO2 09/30/16 07:05 14 163/75 98 Room Air 09/30/16 07:01 52 Disposition: HOME, SELF-CARE Condition: Stable Referrals: [facility],REFERRING (PCP) Patient Instructions: Wound Check Additional Instructions: Please go to the wound care clinic as instructed on October 02 at 8:30 AM. TATY SAMPSON D.O. Sep 30, 2016 07:57
[2016-09-30 07:58] VITALS: BP 163/75
== END | disposition home or self-care (01) ==
LOC: EMR 07:29
DX: I83.009 Varicose veins of unspecified lower extremity with ulcer of unspecified site (principal); Z48.00 Encounter for change or removal of nonsurgical wound dressing; I87.8 Other specified disorders of veins; I89.0 Lymphedema, not elsewhere classified
CPT/HCPCS: 99281

== ENCOUNTER 2016-10-17 22:00 | Emergency (ER) | payer MEDICARE ==
[~2016-10-17] VITALS: Ht 185.4 cm; Wt 95.3 kg
[2016-10-17] MEDS ORDERED: Norco 5mg/325mg tab ORAL ONE (22:15)
[2016-10-17] MEDS ORDERED: IBUPROFEN600 MG ORAL (23:22)
--- NOTE | 2016-10-17 23:23 | Emergency Room Report ---
History of Present Illness General Chief Complaint: Upper Extremity Injury Source: Patient Present Illness HPI This is an 86-year-old male well-known to me. 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 His here today because he fell and has injury to his left ring finger. Onset just prior to arrival. No other injury. Did not pass out. Pain is 10 out of 10. There is deformity to the left ring finger. Allergies: Coded Allergies: No Known Allergies (Unverified , 10/27/12) Patient History Past Medical History: see triage record, old chart reviewed Past Surgical History: other Pertinent Family History: none Social History: Denies: drug use Immunizations: other Reviewed Nursing Documentation: PMH: Agreed, PSxH: Agreed Nursing Documentation-PMH Hx Hypertension: No Hx Pacemaker: No Hx Asthma: No Hx COPD: No Hx Diabetes: No Hx Cancer: No Hx Gastrointestinal Problems: No Hx Dialysis: No Hx Neurological Problems: No Hx Cerebrovascular Accident: No Hx Seizures: No Review of Systems Eye: Denies: blurred vision, eye pain ENT: Denies: ear pain, nose congestion, throat swelling Respiratory: Denies: cough, shortness of breath Cardiovascular: Denies: chest pain, palpitations Gastrointestinal: Denies: abdominal pain, diarrhea, nausea, vomiting Musculoskeletal: Reports: joint pain, joint swelling, Denies: back pain Skin: Denies: rash Neurological: Denies: headache, numbness Endocrine: Denies: increased thirst, increased urine Hematologic/Lymphatic: Denies: easy bruising All Other Systems: negative except mentioned in HPI Physical Exam Vital Signs Date Time Temp Pulse Resp B/P Pulse Ox O2 Delivery O2 Flow Rate FiO2 10/17/16 22:10 98.4 78 16 147/71 99 Room Air vitals unremarkable Sp02 EP Interpretation: reviewed, normal General Appearance: well appearing, no apparent distress, alert Head: normocephalic, atraumatic Eyes: bilateral eye EOMI, bilateral eye PERRL ENT: hearing grossly normal, normal pharynx Neck: full range of motion, supple, no meningismus Respiratory: chest non-tender, lungs clear, normal breath sounds Cardiovascular #1: regular rate, rhythm, no murmur Gastrointestinal: normal bowel sounds, non tender, no mass, no organomegaly, no bruit, non-distended Musculoskeletal: back normal, gait/station normal, other - Left ring finger: There is lateral deviation and swelling. Sensation normal. Unable to bend the finger at the PIP joint. Sensation normal. Psychiatric: mood/affect normal Skin: warm/dry Procedures Splinting Splinting : Consent: Verbal Location: Left ring finger Pre-Made Type: metal Pre-Proc Neuro Vasc Exam: normal Post-Proc Neuro Vasc Exam: normal Patient Tolerated: Well Complications: None Joint Reduction Joint Reduction : Consent: Verbal Joint Reduction Site: other - Left ring finger Procedural Sedation: No Reduction Attempts: One Pre-Procedure NV Exam: Yes Post-Procedure NV Exam: Yes Post Joint Reduction Film: joint reduced Patient Tolerated: Well Complications: None Progress With traction and manipulation, I reduced the joint without any difficulty. Patient tolerates procedure without a problem. Metal finger splint placed by technical support associate under my supervision. Splint check is neurovascularly intact. Medical Decision Making Diagnostic Impression: Primary Impression: Dislocation, finger, interphalangeal joint Qualified Codes: S63.289A - Dislocation of proximal interphalangeal joint of unspecified finger, initial encounter ER Course Patient presents with finger dislocation. Is reduced. We'll discharge home. Other X-Ray Diagnostic Results Other X-Ray Diagnostic Results : X-Ray Ordered: Left finger x-rays Date: October 17, 2016 Time: 23:22 EP Interpretation: Yes Findings: no fractures, other - A PIP joint dislocation with soft tissue swelling. Number of Views: 3 Last Vital Signs Date Time Temp Pulse Resp B/P Pulse Ox O2 Delivery O2 Flow Rate FiO2 10/17/16 22:10 98.4 78 16 147/71 99 Room Air Status: improved Disposition: HOME, SELF-CARE Condition: Stable Scripts Ibuprofen* (MOTRIN*) 600 Mg Tablet 600 MG ORAL THREE TIMES A DAY, #30 TAB 0 Refills Prov: RAFAEL PANCHAL M.D. 10/17/16 Referrals: [facility],REFERRING (PCP) Additional Instructions: Followup with your DrJosselin in 7 days. Return if worse. RAFAEL PANCHAL M.D. October 17, 2016 23:23
[2016-10-17 23:34] VITALS: BP 117/49
--- NOTE | 2016-10-18 10:25 | Diagnostic Imaging Report ---
Indication: Left finger pain Technique: Left fingers 3 views Comparison: None Findings: There is a fourth proximal interphalangeal joint dislocation. No gross fracture is seen. Impression: Fourth proximal interphalangeal joint dislocation.
== END 2016-10-18 01:30 | disposition home or self-care (01) ==
LOC: EMR 22:23
DX: S63.289A Dislocation of proximal interphalangeal joint of unspecified finger, initial encounter (principal); W19.XXXA Unspecified fall, initial encounter; Y93.9 Activity, unspecified; Y92.9 Unspecified place or not applicable
CPT/HCPCS: 29130

== ENCOUNTER 2016-10-20 08:07 | Emergency (ER) | payer MEDICARE ==
[~2016-10-20] VITALS: Ht 182.9 cm; Wt 81.6 kg
[~2016-10-20 08:07] MED LIST changes: +IBUPROFEN600 MG ORAL
--- NOTE | 2016-10-20 08:40 | Emergency Room Report ---
History of Present Illness General Chief Complaint: Wound Recheck/Suture Removal Source: Patient Present Illness HPI Patient presents requesting changing of his bilateral leg dressings Denies any fevers or chills Denies any increased swelling from previous Patient did not have any material for changing the dressing There is continued oozing on the dressings as previous denies any other fall or trauma denies any chest pressures or shortness of breath Allergies: Coded Allergies: No Known Allergies (Unverified , 10/27/12) Patient History Past Medical History: see triage record Pertinent Family History: none Reviewed Nursing Documentation: PMH: Agreed, PSxH: Agreed Nursing Documentation-PMH Past Medical History: No Stated History Hx Hypertension: No Hx Pacemaker: No Hx Asthma: No Hx COPD: No Hx Diabetes: No Hx Cancer: No Hx Gastrointestinal Problems: No Hx Dialysis: No Hx Neurological Problems: No Hx Cerebrovascular Accident: No Hx Seizures: No Review of Systems All Other Systems: negative except mentioned in HPI Physical Exam Vital Signs Date Time Temp Pulse Resp B/P Pulse Ox O2 Delivery O2 Flow Rate FiO2 10/20/16 08:16 97.7 73 18 131/68 98 Room Air Sp02 EP Interpretation: reviewed, normal General Appearance: well appearing, no apparent distress Head: normocephalic, atraumatic Eyes: bilateral eye EOMI, bilateral eye PERRL ENT: hearing grossly normal, normal pharynx Neck: full range of motion, supple Respiratory: lungs clear Cardiovascular #1: regular rate, rhythm Gastrointestinal: non tender, soft, no mass Musculoskeletal: swelling Neurologic: alert, oriented x3, responsive, 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 as tested Skin: other - Patient has bilateral lymphedema, there are venous stasis ulcers , appear to be secondary scabbing the foot itself is warm to touch with palpable pulses Lymphatic: other - As above Procedures Additional Procedure Procedure Narrative Previous dressings were removed from both lower extremity Area cleansed and prepped Vaseline dressing along with Kerlix applied Patient tolerated the procedure well Medical Decision Making Diagnostic Impression: Primary Impression: Lymphedema of both lower extremities Additional Impressions: Lymph edema Chronic cutaneous venous stasis ulcer Encounter for wound re-check ER Course Given the patient's presentation I have had previous concerns regarding the patient's findings He has been offered admission on multiple occasions patient continues to refuse this Patient reports that he has had previous wound care management at [place] but it is too far I again discussed with him that wound care management is extremely important Secondary infections can occur Patient is awake alert GCS 15 I did provide him with wound care management close to here And patient will continue outpatient followup Last Vital Signs Date Time Temp Pulse Resp B/P Pulse Ox O2 Delivery O2 Flow Rate FiO2 10/20/16 08:16 97.7 73 18 131/68 98 Room Air Status: improved Disposition: HOME, SELF-CARE Condition: Improved Referrals: NOT CHOSEN [facility],REFERRING (PCP) Additional Instructions: Patient is provided with the discharge instructions notified to follow up with primary doctor in the next 2-3 days otherwise return to the er with any worsening symptoms. Please note that this report is being documented using Appwapp technology. This can lead to erroneous entry secondary to incorrect interpretation by the dictating instrument. FLORIDA HARRINGTON D.O. October 20, 2016 08:40
[2016-10-20 09:00] VITALS: BP 131/68
[2016-10-20 09:09] VITALS: BP 131/68
== END 2016-10-20 09:23 | disposition home or self-care (01) ==
LOC: EMR 08:24
DX: I89.0 Lymphedema, not elsewhere classified (principal); I83.009 Varicose veins of unspecified lower extremity with ulcer of unspecified site; L97.919 Non-pressure chronic ulcer of unspecified part of right lower leg with unspecified severity
CPT/HCPCS: 99282

== ENCOUNTER 2016-10-30 08:09 | Emergency (ER) | payer MEDICARE ==
[~2016-10-30] VITALS: Ht 177.8 cm; Wt 81.6 kg
[2016-10-30 09:20] VITALS: BP 132/64
[2016-10-30 09:53] VITALS: BP 132/64
--- NOTE | 2016-10-31 21:48 | Emergency Room Report ---
History of Present Illness General Chief Complaint: Wound Recheck/Suture Removal Source: Patient Present Illness HPI 86-year-old male presents to ED for dressing changes. States needs changing of his dressings on his legs. Has history of chronic venous stasis ulcers. Patient is well-[place] to [facility] [place] been here multiple times for similar presentation. Patient denies any pain. Denies any fevers or chills. Is able to ambulate without difficulty. No other aggravating relieving factors. Denies any other associated symptoms Allergies: Coded Allergies: No Known Allergies (Unverified , 10/27/12) Patient History Past Medical History: none Past Surgical History: none Pertinent Family History: none Social History: Denies: alcohol use, drug use, smoking Immunizations: UTD Reviewed Nursing Documentation: PMH: Agreed, PSxH: Agreed Nursing Documentation-PMH Hx Hypertension: No Hx Pacemaker: No Hx Asthma: No Hx COPD: No Hx Diabetes: No Hx Cancer: No Hx Gastrointestinal Problems: No Hx Dialysis: No Hx Neurological Problems: No Hx Cerebrovascular Accident: No Hx Seizures: No Review of Systems All Other Systems: negative except mentioned in HPI Physical Exam Vital Signs Date Time Temp Pulse Resp B/P Pulse Ox O2 Delivery O2 Flow Rate FiO2 10/30/16 08:16 97.7 62 20 129/60 97 Room Air Sp02 EP Interpretation: reviewed, normal General Appearance: no apparent distress, alert, GCS 15, non-toxic Head: normocephalic, atraumatic Eyes: bilateral eye PERRL, bilateral eye normal inspection ENT: hearing grossly normal, normal pharynx, no angioedema, normal voice Neck: full range of motion, supple/symm/no masses Respiratory: chest non-tender, lungs clear, normal breath sounds, speaking full sentences Cardiovascular #1: regular rate, rhythm, no edema Cardiovascular #2: 2+ carotid (R), 2+ carotid (L), 2+ radial (R), 2+ radial (L) , 2+ dorsalis pedis (R), 2+ dorsalis pedis (L) Gastrointestinal: normal bowel sounds, non tender, soft, non-distended, no guarding, no rebound Rectal: deferred Genitourinary: normal inspection, no CVA tenderness Musculoskeletal: back normal, gait/station normal, normal range of motion, non- tender, swelling Neurologic: alert, oriented x3, responsive, motor strength/tone normal, sensory intact, speech normal Psychiatric: judgement/insight normal, memory normal, mood/affect normal, no suicidal/homicidal ideation Reflexes: 3+ bicep (R), 3+ bicep (L), 3+ tricep (R), 3+ tricep (L), 3+ knee (R) , 3+ knee (L) Skin: other - chronic venous stasis ulcers Lymphatic: no adenopathy Medical Decision Making Diagnostic Impression: Primary Impression: Dressing change Additional Impression: Chronic cutaneous venous stasis ulcer ER Course 86-year-old male presents ED requesting dressing changes of his chronic venous stasis ulcer Patient placed on stretcher. After initial history and physical, old dressings were removed. The wounds were chronic and showing no signs of acute infection. Pulses intact. wounds are irrigated and redressed Diagnosis-dressing change, chronic cutaneous venous stasis ulcer Stable discharged to home. Followup with PMD. Return to ED if symptoms recur or worsen Last Vital Signs Date Time Temp Pulse Resp B/P Pulse Ox O2 Delivery O2 Flow Rate FiO2 10/30/16 09:53 97.6 66 19 132/64 99 Room Air Status: improved Disposition: HOME, SELF-CARE Condition: Stable Referrals: [facility],REFERRING (PCP) Patient Instructions: Wound Check MIKI SNOW M.D. October 31, 2016 21:48
== END 2016-10-30 09:54 | disposition home or self-care (01) ==
LOC: EMR 09:03
DX: Z48.00 Encounter for change or removal of nonsurgical wound dressing (principal); I87.2 Venous insufficiency (chronic) (peripheral); L97.909 Non-pressure chronic ulcer of unspecified part of unspecified lower leg with unspecified severity
CPT/HCPCS: 99282

== ENCOUNTER 2016-11-04 05:46 | Emergency (ER) | payer MEDICARE ==
[~2016-11-04] VITALS: Ht 185.4 cm; Wt 95.3 kg
[2016-11-04] MEDS ORDERED: Bacitracin Oint UD TOPIC ONE (07:00)
--- NOTE | 2016-11-04 07:22 | Emergency Room Report ---
History of Present Illness General Chief Complaint: Lower Extremity Injury Source: Patient Present Illness HPI The patient walked into the emergency department requesting a dressing change. The patient has chronic venous stasis ulcers. He was seen last week in [facility] in the week before at [facility]. He denies any fevers. He denies taking any medication at this time and refuses to take medicine. There is no drainage from the lesions. He does have chronic swelling there. Patient also complaining about some bleeding from his left nose. It's intermittent. He states that when he was a child he had no states frequently. Is not swallowing blood. Sclerae from the left-hand side. There is no other bleeding problems. The patient denies shortness of breath, cough, sore throat, nausea, vomiting, diarrhea and dysuria. Something happened to his left ring finger. He lives state how this got injured but there is some tenderness there. 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 Nursing Documentation: PMH: Agreed, PSxH: Agreed Nursing Documentation-PMH Hx Hypertension: No Hx Pacemaker: No Hx Asthma: No Hx COPD: No Hx Diabetes: No Hx Cancer: No Hx Dialysis: No Hx Cerebrovascular Accident: No Hx Seizures: No Review of Systems All Other Systems: negative except mentioned in HPI Physical Exam Vital Signs Date Time Temp Pulse Resp B/P Pulse Ox O2 Delivery O2 Flow Rate FiO2 11/04/16 06:01 97.9 61 22 164/76 97 Room Air Sp02 EP Interpretation: reviewed, normal General Appearance: well appearing, no apparent distress, GCS 15, Chronically Ill Head: normocephalic, atraumatic Eyes: bilateral eye PERRL, bilateral eye normal inspection ENT: moist mucus membranes, other - old blood L anterior nare Neck: full range of motion, supple Respiratory: lungs clear, no respiratory distress, speaking full sentences Cardiovascular #1: regular rate, rhythm, normal capillary refill, edema - 3+ Cardiovascular #2: 2+ dorsalis pedis (R), 2+ dorsalis pedis (L) Musculoskeletal: no calf tenderness Neurologic: alert, normal gait, other - bunion deformity, L ring finger with tenderness Psychiatric: no suicidal/homicidal ideation, other - loquatious Skin: other - chronic statsis ulcers without erythema (much improved from last visit). Medical Decision Making Diagnostic Impression: Primary Impression: Chronic cutaneous venous stasis ulcer Additional Impression: Epistaxis ER Course The patient presents requesting dressing changes for his chronic venous stasis ulcers. He is refusing laboratory and medication at this time including Tylenol. Also complains about the from his nose. There is no active bleeding at this time. There is no lesion identified. The patient's legs will be washed and dressed with bacitracin. 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 The patient is stable for outpatient observation and treatment. Last Vital Signs Date Time Temp Pulse Resp B/P Pulse Ox O2 Delivery O2 Flow Rate FiO2 11/04/16 07:39 66 16 130/78 98 Room Air 11/04/16 06:01 97.9 Status: improved Disposition: HOME, SELF-CARE Condition: Improved Referrals: [facility],REFERRING (PCP) Basim Correa M.D. November 04, 2016 07:22
[2016-11-04 07:39] VITALS: BP 130/78
== END 2016-11-04 07:49 | disposition home or self-care (01) ==
LOC: EMR 06:41
DX: L97.909 Non-pressure chronic ulcer of unspecified part of unspecified lower leg with unspecified severity (principal); R04.0 Epistaxis; I87.8 Other specified disorders of veins; Z48.00 Encounter for change or removal of nonsurgical wound dressing
CPT/HCPCS: 99282

== ENCOUNTER 2016-11-10 05:48 | Emergency (ER) | payer MEDICARE ==
[~2016-11-10] VITALS: Ht 185.4 cm; Wt 95.3 kg
[2016-11-10 06:05] VITALS: BP 150/78
--- NOTE | 2016-11-10 06:13 | Emergency Room Report ---
History of Present Illness General Chief Complaint: Wound Recheck/Suture Removal Source: Patient Present Illness HPI Patient presents requesting a dressing change on his legs. The patient has chronic venous stasis ulcers. Denies any fevers, chest pain, cough, nausea, vomiting, diarrhea, dysuria. His tetanus is up to date according to him. In the past he's refused admission (as is refusing now). He's been seen at the wound care clinic. He's also complaining about a hernia on the left-hand side. States it has been there for several months. He states that it gets worse when he strains but is able to get it back into place. He is reluctant about seeing a surgeon about this. No SI or HI. Complains about spraying of his urine without dysuria. No URI, CP, cough. Allergies: Coded Allergies: No Known Allergies (Unverified , 10/27/12) Patient History Past Medical History: see triage record Social History Narrative retired [employer] Reviewed Nursing Documentation: PMH: Agreed, PSxH: Agreed Nursing Documentation-PMH Hx Hypertension: No Hx Pacemaker: No Hx Asthma: No Hx COPD: No Hx Diabetes: No Hx Cancer: No Hx Dialysis: No Hx Cerebrovascular Accident: No Hx Seizures: No Review of Systems All Other Systems: negative except mentioned in HPI Physical Exam Vital Signs Date Time Temp Pulse Resp B/P Pulse Ox O2 Delivery O2 Flow Rate FiO2 11/10/16 06:01 98.4 62 18 150/78 97 Room Air Sp02 EP Interpretation: reviewed, normal General Appearance: well appearing, no apparent distress, GCS 15 Head: normocephalic, atraumatic Eyes: bilateral eye PERRL, bilateral eye normal inspection ENT: hearing grossly normal, normal voice, moist mucus membranes Neck: full range of motion, supple Respiratory: no respiratory distress, speaking full sentences Cardiovascular #1: regular rate, rhythm, other - venous disease, edema Gastrointestinal: normal bowel sounds, non tender, soft, no organomegaly, non- distended, no guarding, no rebound, hernia - L inguinal Musculoskeletal: back normal, normal range of motion, swelling Neurologic: alert, oriented x3, grossly normal Psychiatric: mood/affect normal Skin: other - venous stasus ulcers with some skin breakdown, no erythema Procedures Additional Procedure Procedure Narrative reduced hernia with direct pressure. Tolerated well. Medical Decision Making Diagnostic Impression: Primary Impression: Chronic cutaneous venous stasis ulcer Additional Impression: Left inguinal hernia ER Course Patient presents for dressing change and also c/o L hernia. The wounds are not worsened. Dressings will be replaced (again refused outreach and education social worker and admission). Hernia not incarcerated (he refuses labs). Hernia reduced. Recommended surgery. Will consider. Patient stable for outpatient observation and treatment. Last Vital Signs Date Time Temp Pulse Resp B/P Pulse Ox O2 Delivery O2 Flow Rate FiO2 11/10/16 06:44 98.4 62 18 150/78 97 Room Air Status: improved Disposition: HOME, SELF-CARE Condition: Improved Scripts Bacitracin (Bacitracin) 28.4 Gm Oint...g. 1 APPLIC TOPIC BID, #20 GM Prov: Basim Correa M.D. 11/10/16 [Hernia support truss] No Conflict Check UN[facility] for hernia, #1 1 Refill Prov: Basim Correa M.D. 11/10/16 Basim Correa M.D. Nov 10, 2016 06:13
[2016-11-10] MEDS ORDERED: Bacitracin Oint UD TOPIC ONE (06:15)
[2016-11-10] MEDS ORDERED: [UNRECOGNIZED DRUG - SUPPLY] (06:22)
[2016-11-10] MEDS ORDERED: BACITRACIN15 GM TOPIC (06:22)
[2016-11-10 06:44] VITALS: BP 150/78
== END 2016-11-10 07:00 | disposition home or self-care (01) ==
LOC: EMR 06:28
DX: L97.909 Non-pressure chronic ulcer of unspecified part of unspecified lower leg with unspecified severity (principal); I87.8 Other specified disorders of veins; K40.90 Unilateral inguinal hernia, without obstruction or gangrene, not specified as recurrent; I83.009 Varicose veins of unspecified lower extremity with ulcer of unspecified site; Z48.00 Encounter for change or removal of nonsurgical wound dressing
CPT/HCPCS: 99284

== ENCOUNTER 2016-11-25 12:26 | Emergency (ER) | payer OTHER ==
[~2016-11-25] VITALS: Ht 185.4 cm; Wt 79.4 kg
[~2016-11-25 12:26] MED LIST changes: +[UNRECOGNIZED DRUG - SUPPLY]
[2016-11-25] MEDS ORDERED: Bacitracin Oint UD TOPIC ONE (13:00)
--- NOTE | 2016-11-25 13:36 | Emergency Room Report ---
History of Present Illness General Chief Complaint: Lower Extremity Injury Source: Patient Present Illness HPI 86-year-old male presents emergency department for wound dressing change of chronic venous stasis ulcer of the right leg. Patient reports 6/10 in severity localized pain exacerbated with walking. Patient denies erythema increased temperature or fevers. Patient states that his wound is improving things to emergency department visits and reports that he recently had dressing change at [facility]. Patient states he is up-to-date with vaccinations denies new lesions, recent trauma or fall. Patient denies chest pain, shortness of breath , abdominal pain or headaches. pt. states he was recently living at a detention but he left because he did not like it there. Allergies: Coded Allergies: No Known Allergies (Unverified , 10/27/12) Patient History Past Medical History: see triage record Past Surgical History: none Pertinent Family History: none Immunizations: UTD Reviewed Nursing Documentation: PMH: Agreed, PSxH: Agreed Nursing Documentation-PMH Past Medical History: No Stated History Review of Systems All Other Systems: negative except mentioned in HPI Physical Exam Vital Signs Date Time Temp Pulse Resp B/P Pulse Ox O2 Delivery O2 Flow Rate FiO2 11/25/16 12:19 98.1 70 20 95/52 96 Room Air Sp02 EP Interpretation: reviewed, normal General Appearance: no apparent distress, alert, GCS 15, non-toxic Head: normocephalic, atraumatic Eyes: bilateral eye PERRL, bilateral eye normal inspection ENT: hearing grossly normal, normal pharynx, no angioedema, normal voice Neck: full range of motion, supple/symm/no masses Respiratory: lungs clear, normal breath sounds, speaking full sentences Cardiovascular #1: regular rate, rhythm, edema - chronic non-pitting bilateral LE edema Cardiovascular #2: 1+ dorsalis pedis (R), 1+ dorsalis pedis (L) Musculoskeletal: back normal, gait/station normal - Pt. is able to ambulate despite arriving via ambulance, normal range of motion, non-tender Neurologic: alert, oriented x3, responsive, motor strength/tone normal, sensory intact, speech normal Psychiatric: judgement/insight normal, memory normal, mood/affect normal Skin: normal color, no rash, warm/dry, well hydrated, other - healing venous stasis ulcers to the bilateral anterior LE's, no erythema or increased temperature to palpation Lymphatic: no adenopathy Medical Decision Making PA Attestation Dr. Correa is my supervising Physician whom patient management has been discussed with. Diagnostic Impression: Primary Impression: Chronic cutaneous venous stasis ulcer ER Course 86-year-old male presents emergency department for wound dressing change of chronic venous stasis ulcer of the right leg. Patient reports 6/10 in severity localized pain exacerbated with walking. Patient denies erythema increased temperature or fevers. Patient states that his wound is improving things to emergency department visits and reports that he recently had dressing change at [facility]. Patient states he is up-to-date with vaccinations denies new lesions, recent trauma or fall. Patient denies chest pain, shortness of breath , abdominal pain or headaches. pt. states he was recently living at a detention but he left because he did not like it there. Ddx considered but are not limited to cellulitis, venous-stasis ulcers, PAD, gout. Vital signs: are WNL, pt. is afebrile H&PE are most consistent with healing venous stasis ulcers, no evidence of secondary infection at this time. Ulcers are much improved from previous visit where I examined this patient. ORDERS: none required at this time, the diagnosis is clinical. ED INTERVENTIONS: - Wound care, and bacitracin applied by RN. - Pt is given food, and list of transitional housing. - pt. declines offer for socially responsible investment adviser. DISCHARGE: At this time pt. is stable for d/c to home. Will provide printed patient care instructions, and any necessary prescriptions. Care plan and follow up instructions have been discussed with the patient prior to discharge. Last Vital Signs Date Time Temp Pulse Resp B/P Pulse Ox O2 Delivery O2 Flow Rate FiO2 11/25/16 12:19 98.1 70 20 95/52 96 Room Air Disposition: HOME, SELF-CARE Condition: Stable Scripts Bacitracin/Polymyxin B Sulfate (BACITRACIN-POLYMYXIN OINTMENT) 28.35 Gm Oint...g. 1 APPLIC TP BID, #28.3 GM Prov: Meron Ross 11/25/16 Patient Instructions: Wound Care Additional Instructions: Take medications as directed. Follow up with PCP in 3-5 days Return sooner to ED if new symptoms occur, or current symptoms become worse. - Please note that this Emergency Department Report was dictated using [employer] desk support technology software, occasionally this can lead to erroneous entry secondary to interpretation by the dictation equipment. Meron Ross Nov 25, 2016 13:36
[2016-11-25] MEDS ORDERED: BACITRACIN-P28.35 GM TP (13:37)
[2016-11-25 14:01] VITALS: BP 97/52
== END 2016-11-25 14:30 | disposition home or self-care (01) ==
LOC: EDBD 12:26 → EDUNIT# 12:26 → EMR 13:40
DX: I83.009 Varicose veins of unspecified lower extremity with ulcer of unspecified site (principal); L97.919 Non-pressure chronic ulcer of unspecified part of right lower leg with unspecified severity; L97.929 Non-pressure chronic ulcer of unspecified part of left lower leg with unspecified severity; R60.0 Localized edema
CPT/HCPCS: 99283

== ENCOUNTER 2016-11-28 06:06 | Emergency (ER) | payer MEDICARE ==
[~2016-11-28] VITALS: Ht 185.4 cm; Wt 95.3 kg
[~2016-11-28 06:06] MED LIST changes: +BACITRACIN-P28.35 GM TP
[2016-11-28 06:33] VITALS: BP 178/82
--- NOTE | 2016-11-28 06:50 | Emergency Room Report ---
History of Present Illness General Chief Complaint: Wound Recheck/Suture Removal Source: Patient Present Illness HPI This patient is well-known to [facility]. He has a history of chronic venous stasis ulcers. He has chronic wounds on his legs. He has been given multiple resources and wound care options repeatedly. He refuses to see the wound care clinic. He presents for dressing change. He has no other complaints. Allergies: Coded Allergies: No Known Allergies (Unverified , 10/27/12) Patient History Past Medical History: see triage record Social History: Denies: alcohol use, drug use, smoking Reviewed Nursing Documentation: PMH: Agreed, PSxH: Agreed Nursing Documentation-PMH Hx Hypertension: No Hx Pacemaker: No Hx Asthma: No Hx COPD: No Hx Diabetes: No Hx Cancer: No Hx Dialysis: No Hx Cerebrovascular Accident: No Hx Seizures: No Review of Systems All Other Systems: negative except mentioned in HPI Physical Exam Vital Signs Date Time Temp Pulse Resp B/P Pulse Ox O2 Delivery O2 Flow Rate FiO2 11/28/16 06:16 97.5 59 16 178/82 97 Room Air Sp02 EP Interpretation: reviewed, normal General Appearance: no apparent distress, alert, GCS 15, non-toxic, other - Poor hygiene Head: normocephalic, atraumatic Eyes: bilateral eye PERRL, bilateral eye normal inspection ENT: hearing grossly normal, normal pharynx, no angioedema, normal voice Neck: full range of motion, supple/symm/no masses Respiratory: no respiratory distress, no retraction, no accessory muscle use, speaking full sentences Gastrointestinal: normal inspection Rectal: deferred Musculoskeletal: back normal, gait/station normal, normal range of motion, other - Chronic ulcers and skin inflammation and thickening BLE Neurologic: alert, oriented x3, responsive, motor strength/tone normal, sensory intact, speech normal Psychiatric: memory normal, mood/affect normal, no suicidal/homicidal ideation Skin: well hydrated, other - See MSK exam Medical Decision Making Diagnostic Impression: Primary Impression: Encounter for dressing change or suture removal ER Course The patient's chronic venous stasis ulcers were redressed. The patient was educated extensively on the importance of regular wound care by 1 care nurse. Again, he was educated on the wound care clinic across a parking lot here at [facility]. He was educated not to use the EMS system to come to the emergency department for nonemergency issues. He indicated understanding. Last Vital Signs Date Time Temp Pulse Resp B/P Pulse Ox O2 Delivery O2 Flow Rate FiO2 11/28/16 06:33 97.5 59 16 178/82 97 Room Air Condition: Stable TATY SAMPSON D.O. Nov 28, 2016 06:50
[2016-11-28 07:46] VITALS: BP 165/71
== END 2016-11-28 07:42 | disposition home or self-care (01) ==
LOC: EMR 06:48
DX: I83.009 Varicose veins of unspecified lower extremity with ulcer of unspecified site (principal)
CPT/HCPCS: 99281

== ENCOUNTER 2016-12-05 05:40 | Emergency (ER) | payer MEDICARE ==
[~2016-12-05] VITALS: Ht 185.4 cm; Wt 95.3 kg
--- NOTE | 2016-12-05 06:13 | Emergency Room Report ---
History of Present Illness General Chief Complaint: Wound Recheck/Suture Removal Source: Patient, Medical Record Present Illness HPI Is an 86-year-old homeless male who has a history of hypertension for she's not in any medication. He also has history of chronic lymphedema. He presents with chief complaint of dressing change. His been on chronic issue with him. I seen him several times for same complaint. He usually go to this hospital and other surrounding hospital for the same treatment. Denies any fever chills denies any nausea vomiting. No other complaint. Allergies: Coded Allergies: No Known Allergies (Unverified , 10/27/12) Patient History Past Medical History: see triage record, old chart reviewed Past Surgical History: other Pertinent Family History: none Social History: Denies: smoking Immunizations: other Reviewed Nursing Documentation: PMH: Agreed, PSxH: Agreed Nursing Documentation-PMH Hx Hypertension: No Hx Pacemaker: No Hx Asthma: No Hx COPD: No Hx Diabetes: No Hx Cancer: No Hx Dialysis: No Hx Cerebrovascular Accident: No Hx Seizures: No Review of Systems Eye: Denies: blurred vision, eye pain ENT: Denies: ear pain, nose congestion, throat swelling Respiratory: Denies: cough, shortness of breath Cardiovascular: Denies: chest pain, palpitations Gastrointestinal: Denies: abdominal pain, diarrhea, nausea, vomiting Musculoskeletal: Denies: back pain, joint pain Skin: Denies: rash Neurological: Denies: headache, numbness Endocrine: Denies: increased thirst, increased urine Hematologic/Lymphatic: Denies: easy bruising All Other Systems: negative except mentioned in HPI Physical Exam Vital Signs Date Time Temp Pulse Resp B/P Pulse Ox O2 Delivery O2 Flow Rate FiO2 12/05/16 05:56 97.3 60 16 163/81 97 Room Air vitals with hypertension Sp02 EP Interpretation: reviewed, normal General Appearance: well appearing, no apparent distress, alert Head: normocephalic, atraumatic Eyes: bilateral eye EOMI, bilateral eye PERRL ENT: hearing grossly normal, normal pharynx Neck: full range of motion, supple, no meningismus Respiratory: chest non-tender, lungs clear, normal breath sounds Cardiovascular #1: regular rate, rhythm, no murmur Gastrointestinal: normal bowel sounds, non tender, no mass, no organomegaly, no bruit, non-distended Musculoskeletal: back normal, gait/station normal, normal range of motion, other - Patient with chronic lymphedema. He has ulceration to both lower extremities. No Evidence of infection. These ulcerations looked much better than before. During the process of healing well. No drainage. Psychiatric: mood/affect normal Skin: warm/dry Medical Decision Making Diagnostic Impression: Primary Impression: Encounter for wound re-check Additional Impressions: Chronic cutaneous venous stasis ulcer Dressing change ER Course Patient here for wound check and dressing change. This is one of the best his wounds have looked to me. No evidence of infection or drainage. New dressing placed. We'll discharge home. Patient refused any placement to long term or [facility]. Last Vital Signs Date Time Temp Pulse Resp B/P Pulse Ox O2 Delivery O2 Flow Rate FiO2 12/05/16 05:56 97.3 60 16 163/81 97 Room Air Status: improved Disposition: HOME, SELF-CARE Condition: Stable Additional Instructions: followup with your DrJosselin in 7 days. Return if symptom worsen. RAFAEL PANCHAL M.D. Dec 05, 2016 06:13
[2016-12-05] MEDS ORDERED: [UNRECOGNIZED DRUG - SUPPLY] (06:47)
[2016-12-05] MEDS ORDERED: BACITRACIN15 GM TOPIC (06:47)
[2016-12-05 06:55] VITALS: BP 163/81
[2016-12-05 06:56] VITALS: BP 163/81
== END 2016-12-05 06:58 | disposition home or self-care (01) ==
LOC: EMR 06:05
DX: Z48.00 Encounter for change or removal of nonsurgical wound dressing (principal); I83.018 Varicose veins of right lower extremity with ulcer other part of lower leg; I83.028 Varicose veins of left lower extremity with ulcer other part of lower leg; L97.819 Non-pressure chronic ulcer of other part of right lower leg with unspecified severity; L97.829 Non-pressure chronic ulcer of other part of left lower leg with unspecified severity
CPT/HCPCS: 99281

== ENCOUNTER 2016-12-07 06:40 | Emergency (ER) | payer MEDICARE ==
[~2016-12-07] VITALS: Ht 185.4 cm; Wt 95.3 kg
[2016-12-07 07:15] VITALS: BP 145/71
--- NOTE | 2016-12-07 07:22 | Emergency Room Report ---
History of Present Illness General Chief Complaint: Wound Recheck/Suture Removal Source: Patient Present Illness HPI 86YOM here for wound check and dressing change of known chronic venous stasis dermatitis and resulting ulcers. Last here December 05 (3 days ago). Denies fever/ chills, pain, rash to area. Has no other complaints. Has been seen by me and other ER MDs multiple times here for similar complaint Undomiciled, poor PMD followup Allergies: Coded Allergies: No Known Allergies (Unverified , 10/27/12) Patient History Past Medical History: see triage record, old chart reviewed Past Surgical History: none Pertinent Family History: none Social History: Denies: alcohol use, drug use, smoking Immunizations: UTD Reviewed Nursing Documentation: PMH: Agreed, PSxH: Agreed Nursing Documentation-PMH Past Medical History: No History, Except For Hx Hypertension: No Hx Pacemaker: No Hx Asthma: No Hx COPD: No Hx Diabetes: No Hx Cancer: No Hx Dialysis: No Hx Cerebrovascular Accident: No Hx Seizures: No Review of Systems All Other Systems: negative except mentioned in HPI Physical Exam Vital Signs Date Time Temp Pulse Resp B/P Pulse Ox O2 Delivery O2 Flow Rate FiO2 12/07/16 06:47 97.5 58 16 145/71 98 Room Air Sp02 EP Interpretation: reviewed, normal General Appearance: normal inspection, well appearing, no apparent distress, alert, GCS 15, non-toxic Head: normocephalic, atraumatic Eyes: bilateral eye EOMI, bilateral eye PERRL ENT: normal ENT inspection, hearing grossly normal, normal voice Neck: normal inspection, full range of motion, supple, no bony tend Respiratory: normal inspection, lungs clear, normal breath sounds, no respiratory distress, no retraction, no wheezing Cardiovascular #1: regular rate, rhythm, no edema Gastrointestinal: normal inspection, normal bowel sounds, non tender, soft, no guarding, no hernia Genitourinary: no CVA tenderness Musculoskeletal: normal inspection, back normal, normal range of motion, Tasha' s Sign negative Neurologic: normal inspection, alert, oriented x3, responsive, collector of internal revenue III-XII nml as tested, speech normal Psychiatric: normal inspection, judgement/insight normal, mood/affect normal Skin: other - Bilateral chronic venous stasis - shiny, hairless, hardened skin. Right lower extremity wrapped with plastic bag and tissue paper. There is a bleeding anterior rain ulcer. Left lower extremity much better - wrapped in kerlex, no bleeding or oozing wounds. Medical Decision Making Diagnostic Impression: Primary Impression: Encounter for wound re-check Additional Impressions: Encounter for dressing change or suture removal Chronic cutaneous venous stasis ulcer ER Course Dressings changed Right lower extremity with xeroform applied over bleeding/open ulcer Both rewrapped with kerlex Patient given enough supplies for changing himself outside of ED DC Last Vital Signs Date Time Temp Pulse Resp B/P Pulse Ox O2 Delivery O2 Flow Rate FiO2 12/07/16 06:47 97.5 58 16 145/71 98 Room Air Status: improved Disposition: HOME, SELF-CARE LUIS DEWITT M.D. Dec 07, 2016 07:22
[2016-12-07 07:42] VITALS: BP 145/71
== END 2016-12-07 08:00 | disposition home or self-care (01) ==
LOC: EMR 07:00
DX: I83.009 Varicose veins of unspecified lower extremity with ulcer of unspecified site (principal); Z48.00 Encounter for change or removal of nonsurgical wound dressing; I87.8 Other specified disorders of veins
CPT/HCPCS: 99282

== ENCOUNTER 2016-12-16 06:27 | Emergency (ER) | payer MEDICARE ==
[~2016-12-16] VITALS: Ht 185.4 cm; Wt 95.3 kg
--- NOTE | 2016-12-16 06:42 | Emergency Room Report ---
History of Present Illness General Chief Complaint: To Be Triaged Source: Patient Present Illness HPI Patient presents requesting dressing change. H/O chronic venous stasis ulcers. Denies any significant changes No fevers. Did not fill rx for bacitracin or hernia truss. No chest pain, NVD, dysuria, headache, depression. 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 Nursing Documentation: PMH: Agreed, PSxH: Agreed Nursing Documentation-PMH Hx Hypertension: No Hx Pacemaker: No Hx Asthma: No Hx COPD: No Hx Diabetes: No Hx Cancer: No Hx Dialysis: No Hx Cerebrovascular Accident: No Hx Seizures: No Review of Systems All Other Systems: negative except mentioned in HPI Physical Exam Vital Signs Date Time Temp Pulse Resp B/P Pulse Ox O2 Delivery O2 Flow Rate FiO2 12/16/16 06:59 97.7 54 16 148/79 100 Room Air General Appearance: well appearing, no apparent distress Head: normocephalic, atraumatic Eyes: bilateral eye other - arcus ENT: hearing grossly normal, normal voice Neck: full range of motion, supple Respiratory: no respiratory distress, speaking full sentences Musculoskeletal: no calf tenderness Neurologic: alert, normal gait - wide based and small steps Psychiatric: mood/affect normal Skin: other - venous stasis ulcers, medial r lower leg with some eschar Medical Decision Making Diagnostic Impression: Primary Impression: Venous stasis ulcer ER Course Patient here for dressing change. No evidence of acute infection. Patient again refuses w/u. Will change the dressings. Patient stable for outpatient observation and treatment. Last Vital Signs Date Time Temp Pulse Resp B/P Pulse Ox O2 Delivery O2 Flow Rate FiO2 12/16/16 08:02 97.7 54 16 148/79 100 Room Air Status: improved Disposition: HOME, SELF-CARE Condition: Improved Basim Correa M.D. Dec 16, 2016 06:42
[2016-12-16 07:25] VITALS: BP 148/79
[2016-12-16] MEDS ORDERED: Bacitracin Oint UD TOPIC ONE (07:45)
[2016-12-16 08:02] VITALS: BP 148/79
== END 2016-12-16 08:04 | disposition home or self-care (01) ==
LOC: EMR 07:23
DX: I83.018 Varicose veins of right lower extremity with ulcer other part of lower leg (principal); Z48.00 Encounter for change or removal of nonsurgical wound dressing
CPT/HCPCS: 99282

== ENCOUNTER 2016-12-28 11:13 | Emergency (ER) | payer MEDICARE ==
[~2016-12-28] VITALS: Ht 185.4 cm; Wt 105.7 kg
[2016-12-28 11:13] VITALS: BP 114/65
[2016-12-28 14:50] VITALS: BP 114/65
--- NOTE | 2016-12-28 17:33 | Emergency Room Report ---
History of Present Illness General Chief Complaint: Pain Source: Patient Present Illness HPI 86YOM BIBEMS for dressing change. Well known to ED for multiple visits for similar Known chronic venous stasis dermatitis, ulcers Denies fever/chills, pus drainage Denies acute trauma Requesting food, complaining of "fly in the ER" Allergies: Coded Allergies: No Known Allergies (Unverified , 10/27/12) Patient History Past Medical History: see triage record, old chart reviewed Past Surgical History: none Pertinent Family History: none Social History: Denies: alcohol use, drug use, smoking Immunizations: UTD Reviewed Nursing Documentation: PMH: Agreed, PSxH: Agreed Nursing Documentation-PMH Hx Hypertension: No Hx Pacemaker: No Hx Asthma: No Hx COPD: No Hx Diabetes: No Hx Cancer: No Hx Dialysis: No Hx Cerebrovascular Accident: No Hx Seizures: No Review of Systems All Other Systems: negative except mentioned in HPI Physical Exam Vital Signs Date Time Temp Pulse Resp B/P Pulse Ox O2 Delivery O2 Flow Rate FiO2 12/28/16 11:12 98.8 80 16 114/65 97 Room Air Sp02 EP Interpretation: reviewed, normal General Appearance: normal inspection, well appearing, no apparent distress, alert, GCS 15, non-toxic Head: normocephalic, atraumatic Eyes: bilateral eye EOMI, bilateral eye PERRL ENT: normal ENT inspection, hearing grossly normal, normal voice Neck: normal inspection, full range of motion, supple, no bony tend Respiratory: normal inspection, lungs clear, normal breath sounds, no respiratory distress, no retraction, no wheezing Cardiovascular #1: regular rate, rhythm, no edema Gastrointestinal: normal inspection, normal bowel sounds, non tender, soft, no guarding, no hernia Genitourinary: no CVA tenderness Musculoskeletal: normal inspection, back normal, normal range of motion, Tasha' s Sign negative Neurologic: normal inspection, alert, oriented x3, responsive, ultrasound applications specialist III-XII nml as tested, motor strength/tone normal, speech normal Psychiatric: normal inspection, judgement/insight normal, mood/affect normal Skin: normal inspection, normal color, no rash Medical Decision Making Diagnostic Impression: Primary Impression: Lymphedema of both lower extremities ER Course VSS. Afebrile No sign of infection Patient given shower Dressings changed Given food DC Last Vital Signs Date Time Temp Pulse Resp B/P Pulse Ox O2 Delivery O2 Flow Rate FiO2 7/23/17 14:50 98.8 80 16 114/65 97 Room Air Status: improved Disposition: HOME, SELF-CARE Condition: Improved Referrals: [facility],REFERRING (PCP) Patient Instructions: Dressing Change LUIS DEWITT M.D. Dec 28, 2016 17:33
== END 2016-12-28 14:52 | disposition home or self-care (01) ==
LOC: EDBD 11:13 → EMR 11:40
DX: I89.0 Lymphedema, not elsewhere classified (principal); I87.8 Other specified disorders of veins
CPT/HCPCS: 99282

== ENCOUNTER 2017-01-01 12:10 | Emergency (ER) | payer MEDICARE ==
[~2017-01-01] VITALS: Ht 180.3 cm; Wt 81.6 kg
[2017-01-01 12:34] VITALS: BP 118/67
[2017-01-01] MEDS: Silver Sulfadiazine Cream 25gm TOPIC ONE (12:54)
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
[2017-01-01 14:25] VITALS: BP 118/67
== END 2017-01-01 14:25 | disposition home or self-care (01) ==
LOC: EMR 12:48
DX: T22.20XA Burn of second degree of shoulder and upper limb, except wrist and hand, unspecified site, initial encounter (principal); T31.0 Burns involving less than 10% of body surface; X08.8XXA Exposure to other specified smoke, fire and flames, initial encounter; Y92.89 Other specified places as the place of occurrence of the external cause; I87.8 Other specified disorders of veins; I83.018 Varicose veins of right lower extremity with ulcer other part of lower leg; I83.028 Varicose veins of left lower extremity with ulcer other part of lower leg; L97.819 Non-pressure chronic ulcer of other part of right lower leg with unspecified severity; L97.829 Non-pressure chronic ulcer of other part of left lower leg with unspecified severity
CPT/HCPCS: 99282

== ENCOUNTER 2017-01-05 00:36 | Emergency (ER) | payer MEDICARE ==
[~2017-01-05] VITALS: Ht 185.4 cm; Wt 95.3 kg
[2017-01-05 00:52] VITALS: BP 145/78
--- NOTE | 2017-01-05 02:06 | Emergency Room Report ---
History of Present Illness General Chief Complaint: Wound Recheck/Suture Removal Source: Patient, Medical Record Present Illness HPI This is an 86-year-old male who is homeless but tonight. He has a history of lymphedema and been to this ER multiple times in the past. He also goes to surrounding ER. He presents with chief complaint of the wound check and dressing change. There is no fever or chills. No drainage. Pain is the same. No other complaint. Allergies: Coded Allergies: No Known Allergies (Unverified , 10/27/12) Patient History Past Medical History: see triage record, old chart reviewed Past Surgical History: other Pertinent Family History: none Social History: Denies: smoking Immunizations: other Reviewed Nursing Documentation: PMH: Agreed, PSxH: Agreed Nursing Documentation-PMH Hx Hypertension: No Hx Pacemaker: No Hx Asthma: No Hx COPD: No Hx Diabetes: No Hx Cancer: No Hx Dialysis: No Hx Cerebrovascular Accident: No Hx Seizures: No Review of Systems Eye: Denies: blurred vision, eye pain ENT: Denies: ear pain, nose congestion, throat swelling Respiratory: Denies: cough, shortness of breath Cardiovascular: Denies: chest pain, palpitations Gastrointestinal: Denies: abdominal pain, diarrhea, nausea, vomiting Musculoskeletal: Denies: back pain, joint pain Skin: Denies: rash Neurological: Denies: headache, numbness Endocrine: Denies: increased thirst, increased urine Hematologic/Lymphatic: Denies: easy bruising All Other Systems: negative except mentioned in HPI Physical Exam Vital Signs Date Time Temp Pulse Resp B/P Pulse Ox O2 Delivery O2 Flow Rate FiO2 01/05/17 00:48 98.2 72 18 145/78 99 Room Air vitals unremarkable Sp02 EP Interpretation: reviewed, normal General Appearance: well appearing, no apparent distress, alert Head: normocephalic, atraumatic Eyes: bilateral eye EOMI, bilateral eye PERRL ENT: hearing grossly normal, normal pharynx Neck: full range of motion, supple, no meningismus Respiratory: chest non-tender, lungs clear, normal breath sounds Cardiovascular #1: regular rate, rhythm, no murmur Gastrointestinal: normal bowel sounds, non tender, no mass, no organomegaly, no bruit, non-distended Musculoskeletal: back normal, normal range of motion, other - Lower extremities with chronic lymphedema an ulceration. This is worse on the right side. There is no abscess. No drainage. Neurologic: alert, oriented x3 Psychiatric: mood/affect normal Skin: warm/dry Medical Decision Making Diagnostic Impression: Primary Impression: Encounter for wound re-check Additional Impressions: Encounter for dressing change or suture removal Chronic cutaneous venous stasis ulcer Lymphedema of both lower extremities ER Course Patient here for the same thing as before. No evidence of infection. New dressing done. We'll discharge in the morning. Last Vital Signs Date Time Temp Pulse Resp B/P Pulse Ox O2 Delivery O2 Flow Rate FiO2 01/05/17 00:52 98.2 18 145/78 99 Room Air 01/05/17 00:48 72 Status: improved Disposition: HOME, SELF-CARE Condition: Stable Referrals: NOT CHOSEN [facility]/,REFERRING (PCP) Patient Instructions: Wound Check Additional Instructions: Followup with your DrJosselin in 7 days. Return if symptom worsen. RAFAEL PANCHAL M.D. Jan 05, 2017 02:06
[2017-01-05 06:28] VITALS: BP 138/75
== END 2017-01-05 06:20 | disposition home or self-care (01) ==
LOC: EMR 01:00
DX: I83.009 Varicose veins of unspecified lower extremity with ulcer of unspecified site (principal); I87.8 Other specified disorders of veins; L97.919 Non-pressure chronic ulcer of unspecified part of right lower leg with unspecified severity; L97.929 Non-pressure chronic ulcer of unspecified part of left lower leg with unspecified severity; I89.0 Lymphedema, not elsewhere classified; Z48.00 Encounter for change or removal of nonsurgical wound dressing
CPT/HCPCS: 99282

== ENCOUNTER 2017-01-13 13:33 | Emergency (ER) | payer MEDICARE, OTHER ==
[~2017-01-13] VITALS: Ht 180.3 cm; Wt 95.3 kg
[2017-01-13 15:06] VITALS: BP 118/54
[2017-01-13 15:09] VITALS: BP 118/54
--- NOTE | 2017-01-13 16:55 | Emergency Room Report ---
History of Present Illness General Chief Complaint: General Complaint Source: Patient Present Illness HPI 86-year-old male presents ED for evaluation. Patient is here for dressing changes. Has chronic cutaneous ulcers to both legs. Has been here many times for similar presentation. Patient showing no signs of distress. Denies any pain. Denies any fevers or chills. Denies any discharge. No other aggravating relieving factors. Denies any other associated symptoms Allergies: Coded Allergies: No Known Allergies (Unverified , 10/27/12) Patient History Past Medical History: none Past Surgical History: none Pertinent Family History: none Social History: Denies: alcohol use, drug use, smoking Immunizations: UTD Reviewed Nursing Documentation: PMH: Agreed, PSxH: Agreed Nursing Documentation-PMH Hx Hypertension: No Hx Pacemaker: No Hx Asthma: No Hx COPD: No Hx Diabetes: No Hx Cancer: No Hx Dialysis: No Hx Cerebrovascular Accident: No Hx Seizures: No Review of Systems All Other Systems: negative except mentioned in HPI Physical Exam Vital Signs Date Time Temp Pulse Resp B/P Pulse Ox O2 Delivery O2 Flow Rate FiO2 01/13/17 13:42 98.6 80 16 118/54 96 Room Air Sp02 EP Interpretation: reviewed, normal General Appearance: no apparent distress, alert, GCS 15, non-toxic Head: normocephalic Eyes: bilateral eye PERRL, bilateral eye normal inspection ENT: normal ENT inspection Neck: normal inspection Respiratory: normal inspection Cardiovascular #1: normal inspection Gastrointestinal: normal inspection Rectal: deferred Genitourinary: no CVA tenderness Musculoskeletal: swelling Neurologic: alert, oriented x3, responsive, motor strength/tone normal, sensory intact, speech normal Psychiatric: normal inspection Skin: other - chronic bilateral cutaneous ulcers Lymphatic: normal inspection Medical Decision Making Diagnostic Impression: Primary Impression: Dressing change ER Course Hospital Course 86-year-old M presents to ED for wound check/dressing change. h/o bilateral ulcers Clinical course Patient placed on stretcher. Her is evidence of chronic bilateral cutaneous ulcers to both legs. No active discharge or infection. Dressings applied. Patient is stable for discharge Diagnosis - dressing change Stable and discharged to home. followup with PMD. Return to ED if any signs of infection develop Last Vital Signs Date Time Temp Pulse Resp B/P Pulse Ox O2 Delivery O2 Flow Rate FiO2 01/13/17 15:09 98.6 80 16 118/54 96 Room Air Status: improved Disposition: HOME, SELF-CARE Condition: Stable Referrals: [facility],REFERRING (PCP) Patient Instructions: Dressing Change MIKI SNOW M.D. Jan 13, 2017 16:55
== END 2017-01-13 14:50 | disposition home or self-care (01) ==
LOC: EDBD 13:33 → EMR 14:18
DX: Z48.00 Encounter for change or removal of nonsurgical wound dressing (principal); L97.924 Non-pressure chronic ulcer of unspecified part of left lower leg with necrosis of bone; L97.919 Non-pressure chronic ulcer of unspecified part of right lower leg with unspecified severity
CPT/HCPCS: 99283

== ENCOUNTER 2017-01-16 13:25 | Inpatient (IN) | payer MEDICARE ==
[~2017-01-16] VITALS: Ht 177.8 cm; Wt 81.6 kg
[2017-01-16 15:38] LABS: MEAN CORPUSCULAR HEMOGLOBIN 29.7 PG (27.0-31.0); MEAN CORPUSCULAR HGB CONC 30.7 G/DL (32.0-36.0); MEAN CORPUSCULAR VOLUME 97 FL (80-99); MEAN PLATELET VOLUME 5.7 FL (6.5-10.1); PLATELET COUNT 287 K/UL (150-450); RED BLOOD COUNT 3.68 M/UL (4.70-6.10)
[2017-01-16 15:45] LABS: WHITE BLOOD COUNT 26.7 K/UL (4.8-10.8)
[2017-01-16 15:48] LABS: ALANINE AMINOTRANSFERASE 83 U/L (3-41); ALBUMIN/GLOBULIN RATIO 0.4 (1.0-2.7); ANION GAP 17 (5-15); ASPARTATE AMINO TRANSFERASE 292 U/L (5-40); CALCIUM 8.8 mg/dL (8.6-10.2); CARBON DIOXIDE 20 mEQ/L (20-30); CHLORIDE 93 mEQ/L (98-107); HEMOLYSIS 6; POTASSIUM 4.7 mEQ/L (3.4-4.9); SODIUM 130 mEQ/L (135-145); TOTAL PROTEIN 7.8 g/dL (6.6-8.7)
[2017-01-16 15:57] LABS: INR 1.2 (0.9-1.1); PROTHROMBIN TIME 12.5 SEC (9.30-11.50)
[2017-01-16] MEDS ORDERED: Vancomycin 1.5gm/D5W 250ml 250 ML IVPB ONE (16:00)
[2017-01-16] MEDS ORDERED: metroNIDAZOLE 500mg 100 ML IVPB ONE (16:00)
[2017-01-16] MEDS ORDERED: Piperacillin/Tazobactam 3.375 GM in NS 110 ML IVPB ONE (16:00)
[2017-01-16 16:10] LABS: BILIRUBIN,DIRECT 0.9 mg/dL (0.1-0.3)
[2017-01-16 16:29] LABS: ANISOCYTOSIS 1+; BAND NEUTROPHILS % (MANUAL) 4 % (0-8); LYMPHOCYTES % (MANUAL) 7 % (20-45); NEUTROPHILS % (MANUAL) 85 % (45-75); TOTAL CELLS COUNTED 100
[2017-01-16 16:30] LABS: BASOPHILS % (MANUAL) 0 % (0-2); EOSINOPHILS % (MANUAL) 0 % (0-3); HYPOCHROMASIA 1+; PLATELET ESTIMATE ADEQUATE; PLATELET MORPHOLOGY NORMAL
[2017-01-16] MEDS ORDERED: Hydrogen Peroxide 473ml Bottle TOPIC ONE (17:29)
[2017-01-16] MEDS ORDERED: Zosyn 3.375gm inj ONE (17:30)
[2017-01-16 18:40] VITALS: BP 126/75
--- NOTE | 2017-01-16 19:07 | Emergency Room Report ---
History of Present Illness General Chief Complaint: General Complaint Present Illness HPI The patient is an 86-year-old male with a history of chronic venous stasis ulcers to bilateral legs brought in by ambulance for leg wounds and inability to care for himself. He has been seen in this emergency department all couple times in the recent past for dressing changes. These ulcers have occasionally become infected and the patient has had to be placed on antibiotics. He states that he does not want to be in the hospital and denies any pain at this time. He denies fever or chills (PONCHO GONZALEZ P.A.) Allergies: Coded Allergies: No Known Allergies (Unverified , 10/27/12) Patient History Past Medical History: see triage record Pertinent Family History: none Reviewed Nursing Documentation: PMH: Agreed, PSxH: Agreed (PONCHO GONZALEZ P.A.) Reviewed Nursing Documentation: PMH: Agreed, PSxH: Agreed (Basim Correa M.D.) Nursing Documentation-PMH Hx Hypertension: No Hx Pacemaker: No Hx Asthma: No Hx COPD: No Hx Diabetes: No Hx Cancer: No Hx Dialysis: No Hx Cerebrovascular Accident: No Hx Seizures: No (PONCHO GONZALEZ P.A.) Review of Systems All Other Systems: negative except mentioned in HPI (PONCHO GONZALEZ P.A.) Physical Exam Vital Signs Date Time Temp Pulse Resp B/P Pulse Ox O2 Delivery O2 Flow Rate FiO2 01/16/17 13:26 97.3 95 20 108/56 97 Room Air Sp02 EP Interpretation: reviewed, normal General Appearance: no apparent distress, alert, GCS 15, non-toxic Head: normocephalic, atraumatic Eyes: bilateral eye PERRL, bilateral eye normal inspection ENT: hearing grossly normal, normal pharynx, no angioedema, normal voice Neck: full range of motion, supple/symm/no masses Respiratory: chest non-tender, lungs clear, normal breath sounds, speaking full sentences Cardiovascular #1: regular rate, rhythm, no edema Musculoskeletal: back normal, normal range of motion, no calf tenderness, swelling - bilat lower legs, tender - TTP over bilat lower legs Neurologic: alert, oriented x3, responsive, sensory intact Psychiatric: judgement/insight normal, memory normal, mood/affect normal, no suicidal/homicidal ideation Skin: other - bilat venous ulcer of lower legs with drainage. There is surrounding erythema. TTP. R leg ulceration appears deeper than previous visits Lymphatic: no adenopathy (PONCHO GONZALEZ) Medical Decision Making PA Attestation Dr. Correa is my supervising physician. Patient management was discussed with my supervising physician (PONCHO GONZALEZ) Diagnostic Impression: Primary Impression: Cellulitis of right leg Additional Impressions: Probable osteomyelitis Chronic cutaneous venous stasis ulcer ER Course The patient is an 86-year-old male with a history of chronic lower leg ulcers presenting for possible infection Differential diagnosis considered but not limited to: venous ulcer, arterial ulcer, wound infection, osteomyelitis, cellulitis, among others PE: afebrile Skin consistent with infection. Skin is hot to the touch. There is surrounding erythema and discharge of the lower leg ulcers. TTP. Diffuse edema CBC shows significant leukocytosis with left shift ESR elevated BUN/Cr elevated UA consistent with UTI Xray of R leg shows signs consistent with osteomyelitis He is started on IV antibiotics and will be admitted in serious but stable condition. Dr. Correa has spoken with admitting doctor. Laboratory Tests Test 01/16/17 15:15 01/16/17 18:37 01/16/17 18:51 White Blood Count 26.7 K/UL (4.8-10.8) *H Red Blood Count 3.68 M/UL (4.70-6.10) L Hemoglobin 10.9 G/DL (14.2-18.0) L Hematocrit 35.6 % (42.0-52.0) L Mean Corpuscular Volume 97 FL (80-99) Mean Corpuscular Hemoglobin 29.7 PG (27.0-31.0) Mean Corpuscular Hemoglobin Concent 30.7 G/DL (32.0-36.0) L Red Cell Distribution Width 15.0 % (11.6-14.8) H Platelet Count 287 K/UL (150-450) Mean Platelet Volume 5.7 FL (6.5-10.1) L Neutrophils (%) (Auto) % (45.0-75.0) Lymphocytes (%) (Auto) % (20.0-45.0) Monocytes (%) (Auto) % (1.0-10.0) Eosinophils (%) (Auto) % (0.0-3.0) Basophils (%) (Auto) % (0.0-2.0) Differential Total Cells Counted 100 Neutrophils % (Manual) 85 % (45-75) H Lymphocytes % (Manual) 7 % (20-45) L Monocytes % (Manual) 4 % (1-10) Eosinophils % (Manual) 0 % (0-3) Basophils % (Manual) 0 % (0-2) Band Neutrophils 4 % (0-8) Platelet Estimate Adequate Platelet Morphology Normal Hypochromasia 1+ Anisocytosis 1+ Erythrocyte Sedimentation Rate 84 MM/HR (0-30) H Prothrombin Time 12.5 SEC (9.30-11.50) H Prothrombin Time INR 1.2 (0.9-1.1) H PTT 38 SEC (23-33) H Sodium Level 130 mEQ/L (135-145) L Potassium Level 4.7 mEQ/L (3.4-4.9) Chloride Level 93 mEQ/L (98-107) L Carbon Dioxide Level 20 mEQ/L (20-30) Anion Gap 17 (5-15) H Blood Urea Nitrogen 57 mg/dL (7-23) H Creatinine 3.0 mg/dL (0.7-1.2) H Estimate Glomerular Filtration Rate mL/min (>60) Glucose Level 81 mg/dL (74-106) Calcium Level 8.8 mg/dL (8.6-10.2) Total Bilirubin 2.1 mg/dL (0.0-1.2) H Direct Bilirubin 0.9 mg/dL (0.1-0.3) H Aspartate Amino Transferase (AST) 292 U/L (5-40) H Alanine Aminotransferase (ALT) 83 U/L (3-41) H Alkaline Phosphatase 96 U/L (40-129) Total Protein 7.8 g/dL (6.6-8.7) Albumin 2.4 g/dL (3.5-5.2) L Globulin 5.4 g/dL Albumin/Globulin Ratio 0.4 (1.0-2.7) L Urine Color Brown Urine Appearance Slightly cloudy Urine pH 5 (4.5-8.0) Urine Specific Henderson 1.015 (1.005-1.035) Urine Protein 2+ (NEGATIVE) H Urine Glucose (UA) Negative (NEGATIVE) Urine Ketones Negative (NEGATIVE) Urine Occult Blood 5+ (NEGATIVE) H Urine Nitrite Positive (NEGATIVE) H Urine Bilirubin 1+ (NEGATIVE) H Urine Ictotest Negative Urine Urobilinogen 4 MG/DL (0.0-1.0) H Urine Leukocyte Esterase 3+ (NEGATIVE) H Urine RBC 10-15 /HPF (0 - 0) H Urine WBC 5-10 /HPF (0 - 0) H Urine Squamous Epithelial Cells None /LPF (NONE/OCC) Urine Amorphous Sediment Few /LPF (NONE) H Urine Bacteria Few /HPF (NONE) Urine Opiates Screen Negative (NEGATIVE) Urine Barbiturates Screen Negative (NEGATIVE) Phencyclidine (PCP) Screen Negative (NEGATIVE) Urine Amphetamines Screen Negative (NEGATIVE) Urine Benzodiazepines Screen Negative (NEGATIVE) Urine Cocaine Screen Negative (NEGATIVE) Urine Marijuana (THC) Screen Negative (NEGATIVE) Lactic Acid Level 2.10 mmol/L (0.66-2.22) Lab Results Impression CBC shows significant leukocytosis with left shift ESR elevated BUN/Cr elevated UA consistent with UTI (PONCHO GONZALEZ) ER Course I agree with the above assessment by Mr. Gonzalez. The patient is well-known to me and today appears much sicker than usual. He has foul-smelling drainage from his right leg wounds. This required further evaluation. Evaluation reveals leukocytosis. X-rays suggest osteomyelitis. Antibiotics are begun. The patient is resistant to this he treatment however was convinced to go treatment at this time. He states he is a [employer]. Does not seem to understand risk of amputation or . I discussed the patient with Dr. Rogers who accepts the patient in transfer to [facility]. The patient is improved here but serious. Stable for transfer. Patient refusing to be transferred (because of [facility] hospital). Wants us to call [employer]. I have called Dr. Rogers and stated the patient will be admitted here. (Also over time limit.) Contacted Dr. Reyna. Also ordered Vacuum System Tester and Dr. Pantoja consult for competency. (Basim Correa M.D.) Other X-Ray Diagnostic Results Other X-Ray Diagnostic Results : X-Ray ordered: R leg # of Views/Limited Vs Complete: 4 View Indication: Pain EP Interpretation: Yes Interpretation: no dislocation, no fractures Impression: Other - osteomyelitis Interpreting ER Provider: Dr. Correa PA Scribe Text I am acting as scribe for my supervising physician. My supervising physician's interpretation of the R leg xrays are there are signs consistent with osteomyelitis (PONCHO GONZALEZ) Last Vital Signs Date Time Temp Pulse Resp B/P Pulse Ox O2 Delivery O2 Flow Rate FiO2 01/16/17 13:26 97.3 95 20 108/56 97 Room Air Status: improved (PONCHO GONZALEZ) Status: improved (Basim Correa M.D.) Disposition: ADMITTED INPATIENT Condition: Serious Referrals: [facility],REFERRING (PCP) PONCHO GONZALEZ Jan 16, 2017 19:07 Basim Correa M.D. Jan 16, 2017 19:28
[2017-01-16 19:12] LABS: APPEARANCE,URINE SLIGHTLY CLOUDY; KETONES,URINE NEGATIVE (NEGATIVE); LEUKOCYTE ESTERASE ,URINE 3+ (NEGATIVE); NITRITE,URINE POSITIVE (NEGATIVE); PH,URINE 5 (4.5-8.0); PROTEIN,URINE 2+ (NEGATIVE); UROBILINOGEN,URINE 4 MG/DL (0.0-1.0)
[2017-01-16 19:23] LABS: REFLEX LACTIC ACID YES OR NO YES
[2017-01-16 19:35] LABS: AMORPHOUS SEDIMENT,UR FEW /LPF; BACTERIA,URINE FEW /HPF; ICTOTEST NEGATIVE
[2017-01-16 19:48] VITALS: BP 128/89
[2017-01-17] VITALS: BP 118/66
[2017-01-17] MEDS ORDERED: Piperacillin/Tazobactam 3.375 GM in D5W 110 ML IVPB SCH ×2
[2017-01-17] MEDS ORDERED: Zosyn 2.25gm inj ONE (02:43)
[2017-01-17] MEDS: Zosyn 2.25 gm in D5W 55ml IV SCH ×2 (02:49→09:12)
[2017-01-17 04:00] VITALS: BP 120/71
[2017-01-17 07:15] LABS: MEAN CORPUSCULAR HEMOGLOBIN 31.4 PG (27.0-31.0); MEAN CORPUSCULAR HGB CONC 32.7 G/DL (32.0-36.0); MEAN CORPUSCULAR VOLUME 96 FL (80-99); MEAN PLATELET VOLUME 5.8 FL (6.5-10.1); PLATELET COUNT 271 K/UL (150-450); RED BLOOD COUNT 2.84 M/UL (4.70-6.10); RED CELL DISTRIBUTION WIDTH 14.7 % (11.6-14.8)
[2017-01-17 07:38] LABS: WHITE BLOOD COUNT 27.7 K/UL (4.8-10.8)
[2017-01-17 08:00] VITALS: BP 103/57
[2017-01-17] MEDS: Heparin 5000 units/ml inj SUBQ SCH ×2 (09:00→21:00)
[2017-01-17 10:17] LABS: ANION GAP 14 (5-15); BAND NEUTROPHILS % (MANUAL) 5 % (0-8); BASOPHILS % (MANUAL) 0 % (0-2); CALCIUM 8.6 mg/dL (8.6-10.2); CARBON DIOXIDE 24 mEQ/L (20-30); CHLORIDE 95 mEQ/L (98-107); CREATININE 2.3 mg/dL (0.7-1.2); EOSINOPHILS % (MANUAL) 0 % (0-3); HEMOLYSIS 0; HYPOCHROMASIA 1+; LYMPHOCYTES % (MANUAL) 3 % (20-45); NEUTROPHILS % (MANUAL) 91 % (45-75); PLATELET ESTIMATE ADEQUATE; PLATELET MORPHOLOGY NORMAL; POTASSIUM 3.7 mEQ/L (3.4-4.9); SODIUM 133 mEQ/L (135-145); TOTAL CELLS COUNTED 100
[2017-01-17 12:00] VITALS: BP 97/56
[2017-01-17 16:00] VITALS: BP 112/63
[2017-01-17] MEDS ORDERED: Tubing IV Secondary IV ONE (16:52)
[2017-01-17 20:00] VITALS: BP 96/51
[2017-01-17] MEDS: Zosyn 3.375gm q8h **Extended infusion IVPB SCH ×4 (22:00→22:11)
--- NOTE | 2017-01-18 02:32 | History and Physical Report ---
DATE OF ADMISSION: 01/16/2017 REASON FOR CONSULTATION: Cellulitis. HISTORY: The patient is an 86-year-old male with history of chronic venous stasis brought in for leg wound due to inability to care for self. The patient has been to the emergency room several times for dressing changes, placed on antibiotics, and now will be admitted. The patient denied any fever or chills. PAST MEDICAL HISTORY: As above. The patient denied any cardiopulmonary issues. MEDICATIONS: Reviewed. ALLERGIES: Reviewed. PHYSICAL EXAMINATION: GENERAL: The patient is a well-developed male, otherwise comfortable. VITAL SIGNS: Stable. LUNGS: Clear. CARDIAC: Normal S1 and S2. Regular rate and rhythm. ABDOMEN: Soft and nontender. EXTREMITIES: No changes with exception of bilateral venous ulcers and and lower legs drainage, surrounding erythema, right leg ulceration. LABORATORY AND DIAGNOSTIC DATA: The patient's laboratory data otherwise reviewed. White cell count 27.7, hemoglobin 8.9, and hematocrit 27.3. Chemistry is noted and reviewed. Sodium is 130. Liver enzymes are somewhat elevated. IMPRESSION: 1. Lower extremity cellulitis, concern for deeper wound infection. 2. Leukocytosis, evidence of hyponatremia, evidence of transaminitis of unclear etiology. RECOMMENDATIONS: IV antibiotics. ID evaluation. DVT prophylaxis. Wound care. Discharge when the patient is improved. Luca Reyna M.D. DR: CHRISTY JOB#: [id number] CC:
[2017-01-18 04:00] VITALS: BP 108/58
[2017-01-18] MEDS: Zosyn 3.375gm q8h **Extended infusion IVPB SCH ×2 (06:00)
--- NOTE | 2017-01-18 08:27 | General Progress Note ---
Assessment/Plan Assessment/Plan IMPRESSION: 1. Lower extremity cellulitis, concern for deeper wound infection. 2. Leukocytosis, evidence of hyponatremia, evidence of transaminitis of unclear etiology. PLAN care noted IV antibiotics wound care ID evaluation and clearance routine care check cultures impression, plan, and exam edited and reviewed in detail care discussed with RN Subjective Allergies: Coded Allergies: No Known Allergies (Unverified , 10/27/12) Subjective overall same awaiting ID evaluation Objective Last 24 Hour Vital Signs Date Time Temp Pulse Resp B/P Pulse Ox O2 Delivery O2 Flow Rate FiO2 01/18/17 04:00 98.5 55 18 108/58 97 Room Air 01/17/17 20:00 98.2 110 18 96/51 97 Room Air 01/17/17 16:00 98.4 71 20 112/63 92 Room Air 01/17/17 12:00 98.1 72 20 97/56 97 Room Air Intake and Output 01/17/17 01/18/17 19:00 07:00 Intake Total 360 ml Output Total 100 ml Balance 360 ml -100 ml Intake Oral 360 ml Output Urine Total 100 ml # Voids 1 1 # Bowel Movements 1 Height (Feet): 5 Height (Inches): 10.00 Weight (Pounds): 180 Objective GENERAL: The patient is a well-developed male, otherwise comfortable. LUNGS: Clear. CARDIAC: Normal S1 and S2. Regular rate and rhythm. ABDOMEN: Soft and nontender. EXTREMITIES: No changes with exception of bilateral venous ulcers and and lower legs drainage, surrounding erythema, right leg ulceration. no significant change TRINITY MUNROE Jan 18, 2017 08:27
[2017-01-18 08:29] VITALS: BP 96/47
[2017-01-18] MEDS: Heparin 5000 units/ml inj SUBQ SCH ×2 (09:00→21:01)
[2017-01-18] MEDS: Augmentin 875mg Tab ORAL SCH ×2 (09:49→21:01)
[2017-01-18] MEDS: Hydrogen Peroxide 473ml Bottle TOPIC SCH ×2 (10:01→22:50)
[2017-01-18 11:51] VITALS: BP 108/58
[2017-01-18 16:00] VITALS: BP 136/68
--- NOTE | 2017-01-18 16:45 | Consultation ---
DATE OF CONSULTATION: 01/18/2017 INFECTIOUS DISEASE CONSULTATION This consult is for coverage of Dr. Christianson. PRIMARY ATTENDING PHYSICIAN: Luca Reyna M.D. REASON FOR CONSULT: Cellulitis of lower extremities. HISTORY OF PRESENT ILLNESS: This 86-year-old male admitted on 01/16/2017 from home because of ulcers in lower extremities, more in the right side and significant leukocytosis. He was found to have acute renal failure. The patient is noncompliant and does not want to take IV antibiotic. PAST MEDICAL HISTORY: Insignificant except ulcers in lower extremities, likely stasis dermatitis. SOCIAL HISTORY: The patient is single. Denies alcohol, drug abuse, or smoking. Cannot take care of himself recently. ALLERGIES: No known drug allergies. MEDICATIONS: Zosyn, vancomycin, heparin, and Tylenol. REVIEW OF SYSTEMS: He has some pain in lower extremities. Denies fever, chills, coughing, or problem passing urine. PHYSICAL EXAMINATION: VITAL SIGNS: Temperature 98.5, pulse 55, and blood pressure 108/58. GENERAL APPEARANCE: No acute distress, seems to be well developed. HEAD AND NECK: Ruso conjunctivae. Has poor dentition. No oral lesion. HEART: S1 and S2, regular. LUNGS: Clear. ABDOMEN: Soft. EXTREMITIES: Chronic skin changes. Lower extremities have ulcers especially in the right leg, has myiasis of the wound in the right leg near ankle. LABORATORY DATA: WBCs 27.7, hemoglobin 8.9, hematocrit 27.3, and platelets are 271,000. Sodium 133, potassium 3.7, chloride 95, bicarbonate 24, BUN 49, creatinine 2.3, and glucose is 47. IMPRESSION: 1. Right leg cellulitis and myiasis, likely secondary to infected stasis ulcers. 2. Significant leukocytosis. 3. The patient seems to have acute renal failure. 4. Anemia. 5. Transaminitis. RECOMMENDATION: The patient agrees to take p.o. antibiotic. We will start on p.o. Augmentin and doxycycline. Suggest wound dressing with petroleum jelly. Suggest hydration. The patient had a CT scan of the abdomen and pelvis in May 2017 that showed left internal hernia containing the bowel. At the end of my exam, I thank Dr. Reyna for involving me in the care of this patient. Dwight Alvarado M.D. DR: SEAN JOB#: [id number] CC:
[2017-01-18 20:00] VITALS: BP 110/53
[2017-01-19] VITALS: BP 112/60
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
[2017-01-19 04:00] VITALS: BP 107/62
[2017-01-19 07:41] LABS: MEAN CORPUSCULAR HEMOGLOBIN 31.2 PG (27.0-31.0); MEAN CORPUSCULAR HGB CONC 31.5 G/DL (32.0-36.0); MEAN CORPUSCULAR VOLUME 99 FL (80-99); MEAN PLATELET VOLUME 5.1 FL (6.5-10.1); PLATELET COUNT 266 K/UL (150-450); RED BLOOD COUNT 2.84 M/UL (4.70-6.10); RED CELL DISTRIBUTION WIDTH 15.5 % (11.6-14.8)
[2017-01-19 07:53] LABS: WHITE BLOOD COUNT 22.8 K/UL (4.8-10.8)
[2017-01-19 08:15] VITALS: BP 112/61
--- NOTE | 2017-01-19 08:26 | Diagnostic Imaging Report ---
Indication: Pain Comparison: None Findings: Two views of the right tibia and fibula were obtained. There is subcutaneous edema present. There is generalized periosteal reaction involving the shaft of the tibia and fibula nature which is not known. This could have an inflammatory basis or due to chronic stasis. These correlate clinically. No fracture is seen. Impression: Soft tissue swelling and periostitis.
--- NOTE | 2017-01-19 08:40 | General Progress Note ---
Assessment/Plan Assessment/Plan IMPRESSION: 1. Lower extremity cellulitis, concern for deeper wound infection. 2. Leukocytosis, evidence of hyponatremia, evidence of transaminitis of unclear etiology. PLAN care noted IV antibiotics wound care ID evaluation and clearance routine care check cultures still not ready for dc with elevated wbc impression, plan, and exam edited and reviewed in detail care discussed with RN Subjective Allergies: Coded Allergies: No Known Allergies (Unverified , 10/27/12) Subjective overall same noted ID evaluation Objective Last 24 Hour Vital Signs Date Time Temp Pulse Resp B/P Pulse Ox O2 Delivery O2 Flow Rate FiO2 01/19/17 08:15 97.3 63 21 112/61 98 Room Air 01/19/17 04:00 97.5 61 18 107/62 99 Room Air 01/19/17 00:00 97.1 70 18 112/60 Room Air 01/18/17 20:00 97.9 66 18 110/53 Room Air 01/18/17 16:00 97.3 59 20 136/68 98 Room Air 01/18/17 11:51 97.0 61 20 108/58 97 Room Air Intake and Output 01/18/17 01/19/17 19:00 07:00 Intake Total 360 ml 360 ml Output Total 400 ml 600 ml Balance -40 ml -240 ml Intake Oral 360 ml 360 ml Output Urine Total 400 ml 600 ml # Voids 3 Laboratory Tests 01/19/17 06:20: White Blood Count 22.8*H, Red Blood Count 2.84L, Hemoglobin 8.9L, Hematocrit 28.1L, Mean Corpuscular Volume 99, Mean Corpuscular Hemoglobin 31.2H, Mean Corpuscular Hemoglobin Concent 31.5L, Red Cell Distribution Width 15.5H, Platelet Count 266, Mean Platelet Volume 5.1L, Neutrophils (%) (Auto) , Lymphocytes (%) (Auto) , Monocytes (%) (Auto) , Eosinophils (%) (Auto) , Basophils (%) (Auto) , Neutrophils % (Manual) [Pending], Lymphocytes % (Manual) [Pending], Platelet Estimate [Pending], Platelet Morphology [Pending], Random Vancomycin Level 3.6 Height (Feet): 5 Height (Inches): 10.00 Weight (Pounds): 180 Objective GENERAL: The patient is a well-developed male, otherwise comfortable. LUNGS: Clear. CARDIAC: Normal S1 and S2. Regular rate and rhythm. ABDOMEN: Soft and nontender. EXTREMITIES: No changes with exception of bilateral venous ulcers and and lower legs drainage, surrounding erythema, right leg ulceration. no significant change TRINITY MUNROE Jan 19, 2017 08:40
[2017-01-19] MEDS: Augmentin 875mg Tab ORAL SCH ×2 (09:00→20:55)
[2017-01-19] MEDS: Heparin 5000 units/ml inj SUBQ SCH ×2 (09:00→20:57)
[2017-01-19 09:59] LABS: BAND NEUTROPHILS % (MANUAL) 3 % (0-8); BASOPHILS % (MANUAL) 0 % (0-2); EOSINOPHILS % (MANUAL) 1 % (0-3); LYMPHOCYTES % (MANUAL) 4 % (20-45); NEUTROPHILS % (MANUAL) 87 % (45-75); PLATELET ESTIMATE ADEQUATE; PLATELET MORPHOLOGY NORMAL; TOTAL CELLS COUNTED 100
--- NOTE | 2017-01-19 10:32 | Infectious Diseases Prog Note ---
Assessment/Plan Assessment/Plan antibiotics : augmentin, doxycycline A 1. right leg cellulitis 2. renal failure improving 3. leucocytosis improving P 1. continue augmentin, doxycycline 2. will follow up cultures Subjective ROS Limited/Unobtainable: Yes Allergies: Coded Allergies: No Known Allergies (Unverified , 10/27/12) Objective Vital Signs Last 24 Hour Vital Signs Date Time Temp Pulse Resp B/P Pulse Ox O2 Delivery O2 Flow Rate FiO2 01/19/17 08:15 97.3 63 21 112/61 98 Room Air 01/19/17 04:00 97.5 61 18 107/62 99 Room Air 01/19/17 00:00 97.1 70 18 112/60 Room Air 01/18/17 20:00 97.9 66 18 110/53 Room Air 01/18/17 16:00 97.3 59 20 136/68 98 Room Air 01/18/17 11:51 97.0 61 20 108/58 97 Room Air Height (Feet): 5 Height (Inches): 10.00 Weight (Pounds): 180 Respiratory/Chest: lungs clear Cardiovascular: normal rate, regular rhythm, no gallop/murmur Abdomen: soft, non tender Microbiology Date/Time Source Procedure Growth Status 01/16/17 15:20 Blood Blood Culture - Preliminary NO GROWTH AFTER 48 HOURS Resulted 01/16/17 15:15 Blood Blood Culture - Preliminary NO GROWTH AFTER 48 HOURS Resulted 01/17/17 00:20 Nasal Nares Left MRSA Culture - Final NO METHICILLIN RESISTANT STAPH AUREUS... Complete 01/17/17 00:20 Rectum VRE Culture - Final NO VANCOMYCIN RESISTANT ENTEROCOCCUS ... Complete 01/17/17 00:15 Leg Right Gram Stain - Final Resulted 01/17/17 00:15 Leg Right Wound Culture - Preliminary Resulted Laboratory Tests Test 01/19/17 06:20 White Blood Count 22.8 K/UL (4.8-10.8) *H Red Blood Count 2.84 M/UL (4.70-6.10) L Hemoglobin 8.9 G/DL (14.2-18.0) L Hematocrit 28.1 % (42.0-52.0) L Mean Corpuscular Volume 99 FL (80-99) Mean Corpuscular Hemoglobin 31.2 PG (27.0-31.0) H Mean Corpuscular Hemoglobin Concent 31.5 G/DL (32.0-36.0) L Red Cell Distribution Width 15.5 % (11.6-14.8) H Platelet Count 266 K/UL (150-450) Mean Platelet Volume 5.1 FL (6.5-10.1) L Neutrophils (%) (Auto) % (45.0-75.0) Lymphocytes (%) (Auto) % (20.0-45.0) Monocytes (%) (Auto) % (1.0-10.0) Eosinophils (%) (Auto) % (0.0-3.0) Basophils (%) (Auto) % (0.0-2.0) Differential Total Cells Counted 100 Neutrophils % (Manual) 87 % (45-75) H Lymphocytes % (Manual) 4 % (20-45) L Monocytes % (Manual) 5 % (1-10) Eosinophils % (Manual) 1 % (0-3) Basophils % (Manual) 0 % (0-2) Band Neutrophils 3 % (0-8) Platelet Estimate Adequate Platelet Morphology Normal Random Vancomycin Level 3.6 ug/mL KASSIDY PEDRO Jan 19, 2017 10:32
[2017-01-19] MEDS: Hydrogen Peroxide 473ml Bottle TOPIC SCH ×2 (10:45→20:29)
--- NOTE | 2017-01-19 14:09 | Wound Care Consultation ---
Wound Assessment Wound Assessment #1: Wound Number: #1 Wound Present on Admission: Yes New Wound: No Status Change of Wound: No Wound Location Body Site Modif: left, mid Wound Location Body Site: buttocks Wound Type: pressure ulcer Danielito Test: Does not Danielito Pressure Ulcer Stage: II Wound Thickness: Partial Thickness Wound Length: 2.0 Wound Width: 2.0 Wound Depth: 0.2 Percent of Wound [place]/Red: 100 Wound Drainage Description: Serosanguineous Wound Drainage Amount: Scant Wound Drainage Odor: None/Absent Tissue Surrounding Wound: Macerated Wound General Appearance: Reddened Wound Assessment #2: Wound Number: #2 Wound Present on Admission: Yes New Wound: No Status Change of Wound: No Wound Location Body Site Modif: left, lower Wound Location Body Site: leg Wound Type: vascular issue w/vascular changes - Open wound. Danielito Test: Does not Danielito Wound Thickness: Full Thickness Wound Length: 10.0 Wound Width: 5.5 Wound Depth: 0.3 Percent of Wound [place]/Red: 90 Percent of Wound Bed Yellow/Wh: 10 Wound Drainage Description: Serosanguineous Wound Drainage Amount: Scant Wound Drainage Odor: None/Absent Tissue Surrounding Wound: Macerated Wound General Appearance: Reddened, Draining Wound Assessment #3: Wound Number: #3 Wound Present on Admission: Yes New Wound: No Status Change of Wound: No Wound Location Body Site Modif: right, upper Wound Location Body Site: leg Wound Type: vascular issue w/vascular changes - open wounds noted scattered through entire circumference of lower leg. Danielito Test: Does not Danielito Wound Thickness: Full Thickness Percent of Wound [place]/Red: 50 Percent of Wound Bed Yellow/Wh: 50 Wound Drainage Description: Serosanguineous Wound Drainage Amount: Moderate Wound Drainage Odor: None/Absent Tissue Surrounding Wound: Macerated Wound General Appearance: Reddened, Draining Wound Comment #1 Left buttocks pressure ulcer stage 2 #2 Left lower leg chronic venous stasis ulcer. #3 Right lower leg chronic venous stasis ulcer. Recommendation. - Local wound care as recommended by MD. - Keep clean and dry. - Turn and reposition. - Optimize nutrition. - Offload affected sites. - Assess and notify MD for any changes of condition to skin. - pressure reducing mattress APOLONIA. MADISON PERALTA Jan 19, 2017 14:09
[2017-01-19 15:43] VITALS: BP 111/60
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
[2017-01-19 20:00] VITALS: BP 118/59
[2017-01-20] VITALS: BP 107/96
[2017-01-20 04:00] VITALS: BP 120/54
[2017-01-20 08:51] VITALS: BP 122/58
[2017-01-20] MEDS: Heparin 5000 units/ml inj SUBQ SCH ×2 (09:00→20:44)
[2017-01-20] MEDS: Hydrogen Peroxide 473ml Bottle TOPIC SCH ×2 (09:00→18:37)
[2017-01-20] MEDS: Augmentin 875mg Tab ORAL SCH ×2 (09:00→20:45)
[2017-01-20 12:41] VITALS: BP 123/63
--- NOTE | 2017-01-20 13:32 | Infectious Diseases Prog Note ---
Assessment/Plan Assessment/Plan A: 1. right leg cellulitis 2. renal failure improving 3. leucocytosis improving 4. Myasis P 1. continue Augmentin, doxycycline 2. will follow up cultures 3. R leg MRI to R/O osteomyelitis Subjective ROS Limited/Unobtainable: No Constitutional: Reports: no symptoms, other - feels better Respiratory: Reports: no symptoms Gastrointestinal/Abdominal: Reports: no symptoms Genitourinary: Reports: no symptoms Musculoskeletal: Reports: other - in right leg, pain Allergies: Coded Allergies: No Known Allergies (Unverified , 10/27/12) Objective Vital Signs Last 24 Hour Vital Signs Date Time Temp Pulse Resp B/P Pulse Ox O2 Delivery O2 Flow Rate FiO2 01/20/17 12:41 97.7 65 20 123/63 95 Room Air 01/20/17 08:51 97.2 59 20 122/58 95 Room Air 01/20/17 04:00 97.8 66 20 120/54 96 Room Air 01/20/17 00:00 97.9 81 20 107/96 96 Room Air 01/19/17 20:00 97.5 100 20 118/59 100 Room Air 01/19/17 15:43 98.0 66 20 111/60 97 Room Air Height (Feet): 5 Height (Inches): 10.00 Weight (Pounds): 180 General Appearance: no acute distress HEENT: mucous membranes moist Respiratory/Chest: lungs clear Cardiovascular: normal rate Abdomen: soft, non tender Extremities: no edema, other - ulcers more in R leg Neurologic/Psychiatric: alert, responsive Current Medications Medications (Trade) Dose Ordered Sig/Shannon Route PRN Reason Start Time Stop Time Status Last Admin Dose Admin Acetaminophen (Tylenol) 650 mg Q4H PRN ORAL Mild Pain/Temp > 100.5 01/16/17 23:00 02/15/17 22:59 Amoxicillin/ Clavulanate Potassium (Augmentin) 875 mg EVERY 12 HOURS ORAL 01/18/17 10:00 01/25/17 09:59 01/19/17 20:55 Doxycycline Monohydrate (Vibramycin) 100 mg EVERY 12 HOURS ORAL 01/18/17 10:00 01/25/17 09:59 01/18/17 21:01 Heparin Sodium (Porcine) (Heparin 5000 units/ml) 5,000 units EVERY 12 HOURS SUBQ 01/17/17 09:00 02/16/17 08:59 01/18/17 21:01 Hydrogen Peroxide (Hydrogen Peroxide) 1 applic EVERY 12 HOURS TOPIC 01/18/17 10:30 02/17/17 10:29 01/19/17 20:29 Risperidone (RisperDAL) 1 mg BEDTIME ORAL 01/18/17 21:00 02/17/17 20:59 01/18/17 21:02 ADDI BOLANOS Jan 20, 2017 13:32
--- NOTE | 2017-01-20 14:15 | General Progress Note ---
Assessment/Plan Assessment/Plan IMPRESSION: 1. Lower extremity cellulitis, concern for deeper wound infection. 2. Leukocytosis, evidence of hyponatremia, evidence of transaminitis of unclear etiology. PLAN care noted IV antibiotics wound care ID evaluation and clearance routine care check cultures still not ready for dc with elevated wbc; will recheck impression, plan, and exam edited and reviewed in detail care discussed with RN Subjective Allergies: Coded Allergies: No Known Allergies (Unverified , 10/27/12) Subjective overall same noted ID evaluation still with significant leukocytosis Objective Last 24 Hour Vital Signs Date Time Temp Pulse Resp B/P Pulse Ox O2 Delivery O2 Flow Rate FiO2 01/20/17 12:41 97.7 65 20 123/63 95 Room Air 01/20/17 08:51 97.2 59 20 122/58 95 Room Air 01/20/17 04:00 97.8 66 20 120/54 96 Room Air 01/20/17 00:00 97.9 81 20 107/96 96 Room Air 01/19/17 20:00 97.5 100 20 118/59 100 Room Air 01/19/17 15:43 98.0 66 20 111/60 97 Room Air Intake and Output 01/19/17 01/20/17 19:00 07:00 Intake Total 1130 ml Output Total 925 ml 800 ml Balance 205 ml -800 ml Intake Oral 1130 ml Output Urine Total 925 ml 800 ml Height (Feet): 5 Height (Inches): 10.00 Weight (Pounds): 180 Objective GENERAL: The patient is a well-developed male, otherwise comfortable. LUNGS: Clear. CARDIAC: Normal S1 and S2. Regular rate and rhythm. ABDOMEN: Soft and nontender. EXTREMITIES: No changes with exception of bilateral venous ulcers and and lower legs drainage, surrounding erythema, right leg ulceration. no significant change TRINITY MUNROE Jan 20, 2017 14:15
--- NOTE | 2017-01-20 15:29 | Geriatric Progress Note ---
Assessment/Plan Assessment/Plan cognitive impairment, delirium, pt lacks capacity -cont current treatment Subjective Constitutional: Reports: malaise, weakness Mood/Memory: Reports: anxiety, depressed feelings, emotional problems Psychiatric: Reports: hallucinations Geriatric Geriatric Last 24 Hour Vital Signs Date Time Temp Pulse Resp B/P Pulse Ox O2 Delivery O2 Flow Rate FiO2 01/20/17 12:41 97.7 65 20 123/63 95 Room Air 01/20/17 08:51 97.2 59 20 122/58 95 Room Air 01/20/17 04:00 97.8 66 20 120/54 96 Room Air 01/20/17 00:00 97.9 81 20 107/96 96 Room Air 01/19/17 20:00 97.5 100 20 118/59 100 Room Air 01/19/17 15:43 98.0 66 20 111/60 97 Room Air Intake and Output 01/19/17 01/20/17 19:00 07:00 Intake Total 1130 ml Output Total 925 ml 800 ml Balance 205 ml -800 ml Intake Oral 1130 ml Output Urine Total 925 ml 800 ml Current Medications Medications (Trade) Dose Ordered Sig/Shannon Route PRN Reason Start Time Stop Time Status Last Admin Dose Admin Acetaminophen (Tylenol) 650 mg Q4H PRN ORAL Mild Pain/Temp > 100.5 01/16/17 23:00 02/15/17 22:59 Amoxicillin/ Clavulanate Potassium (Augmentin) 875 mg EVERY 12 HOURS ORAL 01/18/17 10:00 01/25/17 09:59 01/19/17 20:55 Doxycycline Monohydrate (Vibramycin) 100 mg EVERY 12 HOURS ORAL 01/18/17 10:00 01/25/17 09:59 01/18/17 21:01 Heparin Sodium (Porcine) (Heparin 5000 units/ml) 5,000 units EVERY 12 HOURS SUBQ 01/17/17 09:00 02/16/17 08:59 01/18/17 21:01 Hydrogen Peroxide (Hydrogen Peroxide) 1 applic EVERY 12 HOURS TOPIC 01/18/17 10:30 02/17/17 10:29 01/19/17 20:29 Risperidone (RisperDAL) 1 mg BEDTIME ORAL 01/18/17 21:00 02/17/17 20:59 01/18/17 21:02 Height (Feet): 5 Height (Inches): 10.00 Weight (Pounds): 180 General Appearance: alert, good eye contact, appears stated age, cachetic Neurologic: alert, responsive Psychiatric Behavior: cooperative Language/Speech: intact Orientation: person, place Affect: appropriate Insight: Jovaan Felder M.D. Jan 20, 2017 15:29
[2017-01-20 16:01] VITALS: BP 117/67
[2017-01-21 00:12] VITALS: BP 144/80
[2017-01-21 04:17] VITALS: BP 137/79
[2017-01-21 08:30] VITALS: BP 128/58
[2017-01-21] MEDS: Hydrogen Peroxide 473ml Bottle TOPIC SCH ×2 (09:00→21:54)
[2017-01-21] MEDS: Augmentin 875mg Tab ORAL SCH ×2 (09:00→21:00)
[2017-01-21] MEDS: Heparin 5000 units/ml inj SUBQ SCH ×2 (09:00→21:00)
--- NOTE | 2017-01-21 09:36 | Diagnostic Imaging Report ---
Indication: 86-year-old male inpatient with nonhealing ulcer right lower leg, possible osteomyelitis Technique: Sagittal and axial T1 and STIR images obtained of the distal right leg Comparison: Plain radiographic 2016 Findings: A marker willis the presence of a soft tissue ulcer in the medial distal leg there is a very superficial soft tissue defect, which measures approximately 3 cm in diameter, involves only the dermis and superficial fat. The soft tissue in this area is not particularly edematous. There is some edema of the fat and underlying musculature laterally. No underlying bone marrow abnormality to suggest osteomyelitis is evident. Extensive there are post veins are demonstrated. There may be a small ankle joint effusion Impression: Superficial medial right leg soft tissue ulcer demonstrated, corresponding to described clinical abnormality No underlying marrow signal changes to suggest acute osteomyelitis. Lateral subcutaneous fat edema with some underlying muscular edema. Nonspecific, could indicate cellulitis and myositis Extensive venous varicosities Possible minimal ankle joint effusion
--- NOTE | 2017-01-21 10:53 | General Progress Note ---
Assessment/Plan Assessment/Plan IMPRESSION: 1. Lower extremity cellulitis, concern for deeper wound infection. 2. Leukocytosis, evidence of hyponatremia, evidence of transaminitis of unclear etiology. PLAN care noted IV antibiotics reviewed wound care ID evaluation and clearance routine care check cultures still not ready for dc with elevated wbc; will recheck but patient refusing impression, plan, and exam edited and reviewed in detail care discussed with RN Subjective Allergies: Coded Allergies: No Known Allergies (Unverified , 10/27/12) Subjective overall same noted ID evaluation still with significant leukocytosis Objective Last 24 Hour Vital Signs Date Time Temp Pulse Resp B/P Pulse Ox O2 Delivery O2 Flow Rate FiO2 01/21/17 08:30 96.9 62 20 128/58 Room Air 01/21/17 04:17 98.1 82 20 137/79 96 Room Air 01/21/17 00:12 98.1 84 20 144/80 96 Room Air 01/20/17 16:01 97.7 71 20 117/67 97 Room Air 01/20/17 12:41 97.7 65 20 123/63 95 Room Air Intake and Output 01/20/17 01/21/17 19:00 07:00 Intake Total 360 ml 480 ml Output Total 720 ml 400 ml Balance -360 ml 80 ml Intake Oral 360 ml 480 ml Output Urine Total 720 ml 400 ml # Voids 3 3 Height (Feet): 5 Height (Inches): 10.00 Weight (Pounds): 180 Objective GENERAL: The patient is a well-developed male, otherwise comfortable. LUNGS: Clear. CARDIAC: Normal S1 and S2. Regular rate and rhythm. ABDOMEN: Soft and nontender. EXTREMITIES: No changes with exception of bilateral venous ulcers and and lower legs drainage, surrounding erythema, right leg ulceration. no significant change TRINITY MUNROE Jan 21, 2017 10:53
[2017-01-21 11:52] VITALS: BP 118/60
--- NOTE | 2017-01-21 12:20 | Infectious Diseases Prog Note ---
Assessment/Plan Assessment/Plan antibiotics : augmentin, doxycycline A 1. right leg cellulitis 2. renal failure improving 3. leucocytosis improving 4. myasis P 1. continue augmentin, doxycycline 2. will follow up cultures Subjective ROS Limited/Unobtainable: Yes Allergies: Coded Allergies: No Known Allergies (Unverified , 10/27/12) Objective Vital Signs Last 24 Hour Vital Signs Date Time Temp Pulse Resp B/P Pulse Ox O2 Delivery O2 Flow Rate FiO2 01/21/17 11:52 96.9 65 20 118/60 99 Room Air 01/21/17 08:30 96.9 62 20 128/58 Room Air 01/21/17 04:17 98.1 82 20 137/79 96 Room Air 01/21/17 00:12 98.1 84 20 144/80 96 Room Air 01/20/17 16:01 97.7 71 20 117/67 97 Room Air 01/20/17 12:41 97.7 65 20 123/63 95 Room Air Height (Feet): 5 Height (Inches): 10.00 Weight (Pounds): 180 Respiratory/Chest: lungs clear Cardiovascular: normal rate, regular rhythm, no gallop/murmur Abdomen: soft, non tender Extremities: other - + edema KASSIDY PEDRO Jan 21, 2017 12:20
[2017-01-21 16:00] VITALS: BP 116/68
[2017-01-21 20:34] VITALS: BP 128/66
[2017-01-22 00:12] VITALS: BP 126/64
[2017-01-22 03:54] VITALS: BP 129/71
--- NOTE | 2017-01-22 06:45 | Progress Note ---
DATE: 01/21/2017 SUBJECTIVE: The patient is doing well now, stable at baseline. He is still confused, has psychomotor retardation, waxing and waning consciousness. The patient is unable to feed self, however, insists to feed himself. He is illogical. The patient is having . Information was given to him in regards to his medical condition. MENTAL STATUS EXAMINATION: The patient is confused, however, oriented to self. Mood is neutral. At times, irritable. Affect is constricted. Congruent mood. Thought process, there is a paucity of thought content. ASSESSMENT: Cognitive impairment, delirium. PLAN: 1. The patient will be continued on current medication. 2. We will continue to follow and readjust the medications. Jovana Pantoja M.D. DR: NUZHAT JOB#: [id number] CC:
[2017-01-22] MEDS: Augmentin 875mg Tab ORAL SCH (09:00)
[2017-01-22] MEDS: Heparin 5000 units/ml inj SUBQ SCH ×2 (09:00→21:00)
[2017-01-22 09:01] VITALS: BP 127/58
[2017-01-22] MEDS: Hydrogen Peroxide 473ml Bottle TOPIC SCH ×2 (09:13→21:00)
[2017-01-22 12:37] VITALS: BP 127/66
--- NOTE | 2017-01-22 12:46 | Physician Query ---
PLEASE COMPLETE DOCUMENT BEFORE SIGNING Dear Dr. Luca Reyna Date: January Transplant Case Manager/CDS Name: SWETA Berry Transplant Case Manager / CDS Phone # Exercise your independent professional judgment when responding to the query. Questions asked do not imply a particular answer is desired or expected. We greatly appreciate your clarification on this issue. CLINICAL DOCUMENTATION STATES: "Leukocytosis" documented in the assessment of Dr. Luca Reyna. CLINICAL FINDINGS SHOW: WBC= 26.7, 27.7, 22.8 Please clarify if you mean: [] SIRS (Systemic Inflammatory Response Syndrome) [] SIRS w/ Organ Dysfunction [] Sepsis [] Sepsis w/ Organ Dysfunction [] Septic Shock [X] Not Applicable [] Other Condition Present on Admission: [] Yes [] No []Clinically Undeterminable Please also document in your Progress Notes and/or Discharge Summary and indicate if the condition was present on admission. Luca Reyna MD Date/Time [facility]
--- NOTE | 2017-01-22 12:52 | Infectious Diseases Prog Note ---
Assessment/Plan Assessment/Plan A: 1. right leg cellulitis, Proteus, E. coli, MRSA in cultures 2. renal failure improving 3. leucocytosis improving 4. Myasis P 1. change Augmentin to Cipro, Continue doxycycline 2. will follow up cultures Subjective ROS Limited/Unobtainable: Yes Allergies: Coded Allergies: No Known Allergies (Unverified , 10/27/12) Objective Vital Signs Last 24 Hour Vital Signs Date Time Temp Pulse Resp B/P Pulse Ox O2 Delivery O2 Flow Rate FiO2 01/22/17 12:37 97.9 60 18 127/66 98 Nasal Cannula 01/22/17 09:01 97.7 59 18 127/58 97 Room Air 01/22/17 03:54 98.4 68 19 129/71 99 Room Air 01/22/17 00:12 97.5 64 20 126/64 98 Room Air 01/21/17 20:34 97.7 70 20 128/66 96 Room Air 01/21/17 16:00 97.0 71 19 116/68 95 Room Air Height (Feet): 5 Height (Inches): 10.00 Weight (Pounds): 180 General Appearance: no acute distress HEENT: mucous membranes moist Respiratory/Chest: lungs clear Cardiovascular: normal rate Abdomen: soft, non tender Extremities: no edema Skin: ulcers, other - in right leg Neurologic/Psychiatric: other - sleeping Current Medications Medications (Trade) Dose Ordered Sig/Shannon Route PRN Reason Start Time Stop Time Status Last Admin Dose Admin Acetaminophen (Tylenol) 650 mg Q4H PRN ORAL Mild Pain/Temp > 100.5 01/16/17 23:00 02/15/17 22:59 Amoxicillin/ Clavulanate Potassium (Augmentin) 875 mg EVERY 12 HOURS ORAL 01/18/17 10:00 01/25/17 09:59 01/19/17 20:55 Doxycycline Monohydrate (Vibramycin) 100 mg EVERY 12 HOURS ORAL 01/18/17 10:00 01/25/17 09:59 01/18/17 21:01 Heparin Sodium (Porcine) (Heparin 5000 units/ml) 5,000 units EVERY 12 HOURS SUBQ 01/17/17 09:00 02/16/17 08:59 01/18/17 21:01 Hydrogen Peroxide (Hydrogen Peroxide) 1 applic EVERY 12 HOURS TOPIC 01/18/17 10:30 02/17/17 10:29 01/22/17 09:13 Risperidone (RisperDAL) 1 mg BEDTIME ORAL 01/18/17 21:00 02/17/17 20:59 01/18/17 21:02 ADDI BOLANOS Jan 22, 2017 12:52
--- NOTE | 2017-01-22 13:09 | General Progress Note ---
Assessment/Plan Assessment/Plan IMPRESSION: 1. Lower extremity cellulitis, concern for deeper wound infection. 2. Leukocytosis, evidence of hyponatremia, evidence of transaminitis of unclear etiology. PLAN care noted IV antibiotics discontinued wound care needed ID evaluation and clearance routine care check cultures still not ready for dc with elevated wbc; noncompliant with care will reattempt another cbc prior to dc impression, plan, and exam edited and reviewed in detail care discussed with RN Subjective Allergies: Coded Allergies: No Known Allergies (Unverified , 10/27/12) Subjective overall same noted ID evaluation still with significant leukocytosis but placed on antibiotics Objective Last 24 Hour Vital Signs Date Time Temp Pulse Resp B/P Pulse Ox O2 Delivery O2 Flow Rate FiO2 01/22/17 12:37 97.9 60 18 127/66 98 Nasal Cannula 01/22/17 09:01 97.7 59 18 127/58 97 Room Air 01/22/17 03:54 98.4 68 19 129/71 99 Room Air 01/22/17 00:12 97.5 64 20 126/64 98 Room Air 01/21/17 20:34 97.7 70 20 128/66 96 Room Air 01/21/17 16:00 97.0 71 19 116/68 95 Room Air Intake and Output 01/21/17 01/22/17 19:00 07:00 Intake Total 960 ml 500 ml Output Total 580 ml 700 ml Balance 380 ml -200 ml Intake Oral 960 ml 500 ml Output Urine Total 580 ml 700 ml # Voids 3 Height (Feet): 5 Height (Inches): 10.00 Weight (Pounds): 180 Objective GENERAL: The patient is a well-developed male, otherwise comfortable. LUNGS: Clear. CARDIAC: Normal S1 and S2. Regular rate and rhythm. ABDOMEN: Soft and nontender. EXTREMITIES: No changes with exception of bilateral venous ulcers and and lower legs drainage, surrounding erythema, right leg ulceration. no significant change TRINITY MUNROE Jan 22, 2017 13:09
--- NOTE | 2017-01-22 16:26 | General Progress Note ---
Assessment/Plan Status: stable Subjective Constitutional: Reports: weakness Neurologic/Psychiatric: Reports: anxiety, depressed, emotional problems Allergies: Coded Allergies: No Known Allergies (Unverified , 10/27/12) All Systems: reviewed and negative except above Objective Last 24 Hour Vital Signs Date Time Temp Pulse Resp B/P Pulse Ox O2 Delivery O2 Flow Rate FiO2 01/22/17 12:37 97.9 60 18 127/66 98 Nasal Cannula 01/22/17 09:01 97.7 59 18 127/58 97 Room Air 01/22/17 03:54 98.4 68 19 129/71 99 Room Air 01/22/17 00:12 97.5 64 20 126/64 98 Room Air 01/21/17 20:34 97.7 70 20 128/66 96 Room Air Intake and Output 01/21/17 01/22/17 19:00 07:00 Intake Total 960 ml 500 ml Output Total 580 ml 700 ml Balance 380 ml -200 ml Intake Oral 960 ml 500 ml Output Urine Total 580 ml 700 ml # Voids 3 Height (Feet): 5 Height (Inches): 10.00 Weight (Pounds): 180 General Appearance: no apparent distress, alert, confused, thin Neurologic: alert, responsive, disoriented, depressed affect Jovana aPntoja M.D. Jan 22, 2017 16:26
[2017-01-22 16:54] VITALS: BP 149/61
[2017-01-23 00:05] VITALS: BP 119/62
[2017-01-23 04:28] VITALS: BP 96/51
--- NOTE | 2017-01-23 08:36 | General Progress Note ---
Assessment/Plan Assessment/Plan IMPRESSION: 1. Lower extremity cellulitis, concern for deeper wound infection. 2. Leukocytosis, evidence of hyponatremia, evidence of transaminitis of unclear etiology. PLAN care noted IV antibiotics discontinued wound care needed ID evaluation and clearance routine care check cultures dc today as patient refusing care impression, plan, and exam edited and reviewed in detail care discussed with RN Subjective Allergies: Coded Allergies: No Known Allergies (Unverified , 10/27/12) Subjective refusing care on po antibiotics Objective Last 24 Hour Vital Signs Date Time Temp Pulse Resp B/P Pulse Ox O2 Delivery O2 Flow Rate FiO2 01/23/17 04:28 97.5 59 20 96/51 97 Room Air 01/23/17 00:05 98.1 66 20 119/62 97 Room Air 01/22/17 16:54 98.1 59 18 149/61 Room Air 01/22/17 12:37 97.9 60 18 127/66 98 Nasal Cannula 01/22/17 09:01 97.7 59 18 127/58 97 Room Air Height (Feet): 5 Height (Inches): 10.00 Weight (Pounds): 180 Objective GENERAL: The patient is a well-developed male, otherwise comfortable. LUNGS: Clear. CARDIAC: Normal S1 and S2. Regular rate and rhythm. ABDOMEN: Soft and nontender. EXTREMITIES: No changes with exception of bilateral venous ulcers and and lower legs drainage, surrounding erythema, right leg ulceration. no significant change TRINITY MUNROE Jan 23, 2017 08:36
[2017-01-23 08:47] VITALS: BP 102/57
[2017-01-23] MEDS: Heparin 5000 units/ml inj SUBQ SCH ×2 (09:00→21:00)
[2017-01-23] MEDS: Hydrogen Peroxide 473ml Bottle TOPIC SCH ×2 (10:24→21:00)
--- NOTE | 2017-01-23 10:30 | Infectious Diseases Prog Note ---
Assessment/Plan Assessment/Plan antibiotics : ciprofloxacin, doxycycline A 1. right leg cellulitis improving 2. renal failure improving 3. leucocytosis improving 4. myasis P 1. d/c ciprofloxacin doxycycline as patient does is refusing antibiotics Subjective ROS Limited/Unobtainable: Yes Allergies: Coded Allergies: No Known Allergies (Unverified , 10/27/12) Objective Vital Signs Last 24 Hour Vital Signs Date Time Temp Pulse Resp B/P Pulse Ox O2 Delivery O2 Flow Rate FiO2 01/23/17 08:47 97.2 63 20 102/57 99 Room Air 01/23/17 04:28 97.5 59 20 96/51 97 Room Air 01/23/17 00:05 98.1 66 20 119/62 97 Room Air 01/22/17 16:54 98.1 59 18 149/61 Room Air 01/22/17 12:37 97.9 60 18 127/66 98 Nasal Cannula Height (Feet): 5 Height (Inches): 10.00 Weight (Pounds): 180 Respiratory/Chest: lungs clear Cardiovascular: normal rate, regular rhythm, no gallop/murmur Abdomen: soft, non tender Extremities: other - Right leg swelling, erythema decreased KASSIDY PEDRO Jan 23, 2017 10:30
[2017-01-23 11:49] VITALS: BP 138/62
[2017-01-23 16:00] VITALS: BP 124/89
[2017-01-24] VITALS: BP 137/59
[2017-01-24 04:00] VITALS: BP 141/62
[2017-01-24] MEDS: Heparin 5000 units/ml inj SUBQ SCH ×2 (08:13→21:00)
--- NOTE | 2017-01-24 08:18 | General Progress Note ---
Assessment/Plan Assessment/Plan IMPRESSION: 1. Lower extremity cellulitis, concern for deeper wound infection. 2. Leukocytosis, evidence of hyponatremia, evidence of transaminitis of unclear etiology. PLAN care noted cleared by ID dc to home impression, plan, and exam edited and reviewed in detail care discussed with RN Subjective Allergies: Coded Allergies: No Known Allergies (Unverified , 10/27/12) Subjective refusing care on po antibiotics Objective Last 24 Hour Vital Signs Date Time Temp Pulse Resp B/P Pulse Ox O2 Delivery O2 Flow Rate FiO2 01/24/17 04:00 98.6 75 20 141/62 97 Room Air 01/24/17 00:00 97.7 60 18 137/59 100 Room Air 01/23/17 16:00 97.5 65 16 124/89 100 Room Air 01/23/17 11:49 97.2 58 19 138/62 98 Room Air 01/23/17 08:47 97.2 63 20 102/57 99 Room Air Intake and Output 01/23/17 01/24/17 18:59 06:59 Intake Total 500 ml 250 ml Output Total 1200 ml 950 ml Balance -700 ml -700 ml Intake Oral 500 ml 250 ml Output Urine Total 1200 ml 950 ml # Voids 6 # Bowel Movements 1 Height (Feet): 5 Height (Inches): 10.00 Weight (Pounds): 180 Objective GENERAL: The patient is a well-developed male, otherwise comfortable. LUNGS: Clear. CARDIAC: Normal S1 and S2. Regular rate and rhythm. ABDOMEN: Soft and nontender. EXTREMITIES: No changes with exception of bilateral venous ulcers and and lower legs drainage, surrounding erythema, right leg ulceration. no significant change TRINITY MUNROE Jan 24, 2017 08:18
[2017-01-24] MEDS: Hydrogen Peroxide 473ml Bottle TOPIC SCH ×2 (09:00→21:00)
--- NOTE | 2017-01-24 11:12 | Infectious Diseases Prog Note ---
Assessment/Plan Assessment/Plan antibiotics : none A 1. right leg cellulitis improving 2. renal failure improving 3. leucocytosis improving 4. myasis P 1. patient is refusing antibiotics 2. d/c planned Subjective ROS Limited/Unobtainable: Yes Allergies: Coded Allergies: No Known Allergies (Unverified , 10/27/12) Objective Vital Signs Last 24 Hour Vital Signs Date Time Temp Pulse Resp B/P Pulse Ox O2 Delivery O2 Flow Rate FiO2 01/24/17 04:00 98.6 75 20 141/62 97 Room Air 01/24/17 00:00 97.7 60 18 137/59 100 Room Air 01/23/17 16:00 97.5 65 16 124/89 100 Room Air 01/23/17 11:49 97.2 58 19 138/62 98 Room Air Height (Feet): 5 Height (Inches): 10.00 Weight (Pounds): 180 Respiratory/Chest: lungs clear Cardiovascular: normal rate, regular rhythm, no gallop/murmur Abdomen: soft, non tender Extremities: other - right leg edema KASSIDY PEDRO Jan 24, 2017 11:12
[2017-01-24 20:00] VITALS: BP 119/46
--- NOTE | 2017-01-24 22:30 | Progress Note ---
DATE: 01/24/2017 SUBJECTIVE: The patient is calm and cooperative. His mental status is unchanged since previous encounter. The patient needs assistance to eat. Anxiety and agitation are decreased. MENTAL STATUS EXAMINATION: The patient is alert and oriented times self. Mood is neutral. Affect is constricted, congruent with mood. Thought process is concrete. Thought content, there is no suicidal or homicidal ideation. Cognition is impaired. ASSESSMENT: 1. Cognitive impairment. 2. Delirium. PLAN: The patient will be continued on current medications. Provide the patient with supportive therapy and reality orientation. Jovana Pantoja M.D. DR: Tara JOB#: [id number] CC:
[2017-01-25 04:00] VITALS: BP 99/61
[2017-01-25 08:13] VITALS: BP 94/53
--- NOTE | 2017-01-25 08:25 | General Progress Note ---
Assessment/Plan Assessment/Plan IMPRESSION: 1. Lower extremity cellulitis, concern for deeper wound infection. 2. Leukocytosis, evidence of hyponatremia, evidence of transaminitis of unclear etiology. PLAN care noted cleared by ID dc to SNF impression, plan, and exam edited and reviewed in detail care discussed with RN Subjective Allergies: Coded Allergies: No Known Allergies (Unverified , 10/27/12) Subjective refusing care on po antibiotics and refusing care per CM - needs SNF Objective Last 24 Hour Vital Signs Date Time Temp Pulse Resp B/P Pulse Ox O2 Delivery O2 Flow Rate FiO2 01/25/17 08:13 97.7 90 20 94/53 98 Room Air 01/25/17 04:00 97.9 89 18 99/61 93 Room Air 01/24/17 20:00 97.9 69 18 119/46 98 Room Air Intake and Output 01/24/17 01/25/17 19:00 07:00 Intake Total 840 ml 840 ml Output Total 600 ml 1100 ml Balance 240 ml -260 ml Intake Oral 840 ml 840 ml Output Urine Total 600 ml 1100 ml Height (Feet): 5 Height (Inches): 10.00 Weight (Pounds): 180 Objective GENERAL: The patient is a well-developed male, otherwise comfortable. LUNGS: Clear. CARDIAC: Normal S1 and S2. Regular rate and rhythm. ABDOMEN: Soft and nontender. EXTREMITIES: No changes with exception of bilateral venous ulcers and and lower legs drainage, surrounding erythema, right leg ulceration. no significant change TRINITY MUNROE Jan 25, 2017 08:25
[2017-01-25] MEDS: Heparin 5000 units/ml inj SUBQ SCH ×2 (08:26→21:00)
[2017-01-25] MEDS: Hydrogen Peroxide 473ml Bottle TOPIC SCH ×2 (09:00→21:00)
--- NOTE | 2017-01-25 10:07 | Infectious Diseases Prog Note ---
Assessment/Plan Assessment/Plan A: 1. right leg cellulitis,patient refuses antibiotics 2. renal failure improving 3. leucocytosis improving 4. Myasis 5. leg ulcers improving P 1. agree with discharge plan Subjective Respiratory: Reports: no symptoms Gastrointestinal/Abdominal: Reports: no symptoms Skin: Reports: ulcer Allergies: Coded Allergies: No Known Allergies (Unverified , 10/27/12) Objective Vital Signs Last 24 Hour Vital Signs Date Time Temp Pulse Resp B/P Pulse Ox O2 Delivery O2 Flow Rate FiO2 01/25/17 08:13 97.7 90 20 94/53 98 Room Air 01/25/17 04:00 97.9 89 18 99/61 93 Room Air 01/24/17 20:00 97.9 69 18 119/46 98 Room Air Height (Feet): 5 Height (Inches): 10.00 Weight (Pounds): 180 General Appearance: no acute distress HEENT: mucous membranes moist Respiratory/Chest: lungs clear Cardiovascular: normal rate Abdomen: soft, non tender Extremities: other - mild edema Skin: ulcers, other - in right legs are healing Neurologic/Psychiatric: alert, responsive Current Medications Medications (Trade) Dose Ordered Sig/Shannon Route PRN Reason Start Time Stop Time Status Last Admin Dose Admin Acetaminophen (Tylenol) 650 mg Q4H PRN ORAL Mild Pain/Temp > 100.5 01/16/17 23:00 02/15/17 22:59 Heparin Sodium (Porcine) (Heparin 5000 units/ml) 5,000 units EVERY 12 HOURS SUBQ 01/17/17 09:00 02/16/17 08:59 01/18/17 21:01 Hydrogen Peroxide (Hydrogen Peroxide) 1 applic EVERY 12 HOURS TOPIC 01/18/17 10:30 02/17/17 10:29 01/23/17 21:00 Risperidone (RisperDAL) 1 mg BEDTIME ORAL 01/18/17 21:00 02/17/17 20:59 01/18/17 21:02 ADDI BOLANOS Jan 25, 2017 10:07
[2017-01-25 11:59] VITALS: BP 120/53
[2017-01-25 16:00] VITALS: BP 98/67
--- NOTE | 2017-01-25 18:42 | General Progress Note ---
Assessment/Plan Status: stable, progressing Subjective Constitutional: Reports: malaise, weakness Neurologic/Psychiatric: Reports: anxiety, depressed, emotional problems Allergies: Coded Allergies: No Known Allergies (Unverified , 10/27/12) Objective Last 24 Hour Vital Signs Date Time Temp Pulse Resp B/P Pulse Ox O2 Delivery O2 Flow Rate FiO2 01/25/17 16:00 97.9 98 21 98/67 98 Room Air 01/25/17 11:59 97.3 92 21 120/53 97 Room Air 01/25/17 08:13 97.7 90 20 94/53 98 Room Air 01/25/17 04:00 97.9 89 18 99/61 93 Room Air 01/24/17 20:00 97.9 69 18 119/46 98 Room Air Intake and Output 01/24/17 01/25/17 19:00 07:00 Intake Total 840 ml 840 ml Output Total 600 ml 1100 ml Balance 240 ml -260 ml Intake Oral 840 ml 840 ml Output Urine Total 600 ml 1100 ml Height (Feet): 5 Height (Inches): 10.00 Weight (Pounds): 180 General Appearance: no apparent distress, alert, confused, thin Neurologic: alert, responsive, disoriented, depressed affect Jovana Pantoja M.D. Jan 25, 2017 18:42
[2017-01-25 20:00] VITALS: BP 94/63
[2017-01-26] VITALS: BP 116/51
[2017-01-26 04:00] VITALS: BP 119/69
[2017-01-26] MEDS: Heparin 5000 units/ml inj SUBQ SCH ×2 (09:00→20:00)
--- NOTE | 2017-01-26 12:12 | Infectious Diseases Prog Note ---
Assessment/Plan Assessment/Plan antibiotics : none A 1. right leg cellulitis improving 2. renal failure improving 3. leucocytosis improving 4. myasis P 1. patient is refusing antibiotics 2. d/c planned Subjective ROS Limited/Unobtainable: Yes Allergies: Coded Allergies: No Known Allergies (Unverified , 10/27/12) Objective Vital Signs Last 24 Hour Vital Signs Date Time Temp Pulse Resp B/P Pulse Ox O2 Delivery O2 Flow Rate FiO2 01/26/17 04:00 98.6 68 18 119/69 99 Room Air 01/26/17 00:00 98.2 67 20 116/51 100 Room Air 01/25/17 20:00 97.2 67 19 94/63 98 Room Air 01/25/17 16:00 97.9 98 21 98/67 98 Room Air Height (Feet): 5 Height (Inches): 10.00 Weight (Pounds): 180 Respiratory/Chest: lungs clear Cardiovascular: normal rate, regular rhythm, no gallop/murmur Abdomen: soft, non tender Extremities: other - + edema KASSIDY PEDRO Jan 26, 2017 12:12
--- NOTE | 2017-01-26 12:31 | Wound Care Consultation ---
Wound Assessment Wound Assessment #1: Wound Present on Admission: Yes New Wound: No Status Change of Wound: No Wound Location Body Site Modif: right, lower Wound Location Body Site: leg Wound Type: vascular issue w/vascular changes - open wounds noted scattered through entire circumference of lower leg. Danielito Test: Does not Danielito Wound Thickness: Full Thickness Percent of Wound [place]/Red: 50 Percent of Wound Bed Yellow/Wh: 50 Wound Drainage Description: Serosanguineous Wound Drainage Amount: Moderate Wound Drainage Odor: None/Absent Tissue Surrounding Wound: Macerated Wound General Appearance: Reddened, Draining Wound Assessment #2: Wound Number: #2 Wound Present on Admission: Yes New Wound: No Status Change of Wound: No Wound Location Body Site Modif: left, mid Wound Location Body Site: buttocks Wound Type: pressure ulcer Danielito Test: Does not Danielito Pressure Ulcer Stage: II Wound Thickness: Partial Thickness Wound Length: 2.0 Wound Width: 2.0 Wound Depth: 0.2 Percent of Wound [place]/Red: 100 Wound Drainage Amount: Scant Wound Drainage Odor: None/Absent Tissue Surrounding Wound: Macerated Wound General Appearance: Reddened Wound Assessment #3: Wound Number: #3 Wound Present on Admission: Yes New Wound: No Status Change of Wound: No Wound Location Body Site Modif: left, lower Wound Location Body Site: leg Wound Type: vascular issue w/vascular changes - open wound Danielito Test: Does not Danielito Wound Thickness: Full Thickness Wound Length: 10.0 Wound Width: 5.5 Wound Depth: 0.3 Percent of Wound [place]/Red: 90 Percent of Wound Bed Yellow/Wh: 10 Wound Drainage Description: Serosanguineous Wound Drainage Amount: Scant Wound Drainage Odor: None/Absent Tissue Surrounding Wound: Macerated Wound General Appearance: Reddened, Draining Wound Assessment #4: Wound Number: #4 Wound Present on Admission: No New Wound: Yes Status Change of Wound: No Wound Location Body Site Modif: mid, lateral Wound Location Body Site: thigh Wound Type: scar Danielito Test: Does not Danielito Wound Thickness: Partial Thickness - scar tissue Percent of Wound [place]/Red: 100 Wound Drainage Amount: None Wound Drainage Odor: None/Absent Tissue Surrounding Wound: Intact Wound General Appearance: Asymptomatic Wound Comment #1 Left buttocks pressure ulcer stage 2. Resolving #2 Left lower leg chronic venous stasis ulcer. #3 Right lower leg chronic venous stasis ulcer. #4 Left mid lateral thigh with partial thickness scar tissue Recommendation. - Local wound care as recommended by MD. - Keep clean and dry. - Turn and reposition. - Optimize nutrition. - Offload affected sites. - Assess and notify MD for any changes of condition to skin. - pressure reducing mattress SPR. CAMDEN SAWYER RN Jan 26, 2017 12:31
[2017-01-26] MEDS: Hydrogen Peroxide 473ml Bottle TOPIC SCH ×2 (13:41→21:00)
[2017-01-26 16:13] VITALS: BP 103/49
[2017-01-26 16:15] VITALS: BP 103/49
--- NOTE | 2017-01-26 18:01 | General Progress Note ---
Assessment/Plan Assessment/Plan IMPRESSION: 1. Lower extremity cellulitis, concern for deeper wound infection. 2. Leukocytosis, evidence of hyponatremia, evidence of transaminitis of unclear etiology. PLAN care noted cleared by ID dc to SNF impression, plan, and exam edited and reviewed in detail care discussed with RN Subjective Allergies: Coded Allergies: No Known Allergies (Unverified , 10/27/12) Subjective refusing care on po antibiotics and refusing care per CM - needs SNF Objective Last 24 Hour Vital Signs Date Time Temp Pulse Resp B/P Pulse Ox O2 Delivery O2 Flow Rate FiO2 01/26/17 16:15 97.0 63 20 103/49 100 Room Air 01/26/17 16:13 97.8 63 18 103/49 99 Room Air 01/26/17 04:00 98.6 68 18 119/69 99 Room Air 01/26/17 00:00 98.2 67 20 116/51 100 Room Air 01/25/17 20:00 97.2 67 19 94/63 98 Room Air Intake and Output 01/25/17 01/26/17 19:00 07:00 Intake Total 720 ml Output Total 1400 ml 800 ml Balance -680 ml -800 ml Intake Oral 720 ml Output Urine Total 1400 ml 800 ml Height (Feet): 5 Height (Inches): 10.00 Weight (Pounds): 180 Objective GENERAL: The patient is a well-developed male, otherwise comfortable. LUNGS: Clear. CARDIAC: Normal S1 and S2. Regular rate and rhythm. ABDOMEN: Soft and nontender. EXTREMITIES: No changes with exception of bilateral venous ulcers and and lower legs drainage, surrounding erythema, right leg ulceration. no significant change TRINITY MUNROE Jan 26, 2017 18:01
--- NOTE | 2017-01-26 22:15 | Progress Note ---
DATE: 01/26/2017 SUBJECTIVE: The patient is doing well. No behavior issues. In no acute distress. He is weak and has episodes of confusion, not engaged during the evaluation. The patient's cellulitis is improving and the patient still has been noncompliant with the antibiotics and issues of tears at times. MENTAL STATUS EXAMINATION: The patient is alert and oriented x self and place. Mood is neutral to anxious. Affect is flat. Congruent with mood. Thought process is concrete. Thought content, there is no suicidal or homicidal ideations. ASSESSMENT: Cognitive impairment. PLAN: The patient will be discharged when medically cleared. Jovana Pantoja M.D. DR: NUZHAT JOB#: [id number] CC:
--- NOTE | 2017-01-27 08:43 | General Progress Note ---
Assessment/Plan Assessment/Plan IMPRESSION: 1. Lower extremity cellulitis, concern for deeper wound infection. 2. Leukocytosis, evidence of hyponatremia, evidence of transaminitis of unclear etiology. PLAN care noted cleared by ID dc to SNF impression, plan, and exam edited and reviewed in detail care discussed with RN Subjective Allergies: Coded Allergies: No Known Allergies (Unverified , 10/27/12) Subjective refusing care on po antibiotics and refusing care per CM - needs SNF Objective Last 24 Hour Vital Signs Date Time Temp Pulse Resp B/P Pulse Ox O2 Delivery O2 Flow Rate FiO2 01/26/17 16:15 97.0 63 20 103/49 100 Room Air 01/26/17 16:13 97.8 63 18 103/49 99 Room Air Intake and Output 01/26/17 01/27/17 19:00 07:00 Intake Total 740 ml Output Total 500 ml Balance 240 ml Intake Oral 740 ml Output Urine Total 500 ml # Voids 1 2 # Bowel Movements 2 Height (Feet): 5 Height (Inches): 10.00 Weight (Pounds): 180 Objective GENERAL: The patient is a well-developed male, otherwise comfortable. LUNGS: Clear. CARDIAC: Normal S1 and S2. Regular rate and rhythm. ABDOMEN: Soft and nontender. EXTREMITIES: No changes with exception of bilateral venous ulcers and and lower legs drainage, surrounding erythema, right leg ulceration. no significant change TRINITY MUNROE Jan 27, 2017 08:42
[2017-01-27 08:55] VITALS: BP 111/56
[2017-01-27] MEDS: Heparin 5000 units/ml inj SUBQ SCH ×2 (09:00→20:36)
[2017-01-27] MEDS: Hydrogen Peroxide 473ml Bottle TOPIC SCH ×2 (10:51→20:36)
[2017-01-27 12:33] VITALS: BP 119/66
--- NOTE | 2017-01-27 13:08 | Infectious Diseases Prog Note ---
Assessment/Plan Assessment/Plan A: 1. right leg cellulitis,patient refuses antibiotics 2. renal failure improving 3. leucocytosis improving 4. Myasis 5. leg ulcers improving P 1. agree with discharge plan Subjective ROS Limited/Unobtainable: Yes Neurologic: Reports: confusion Allergies: Coded Allergies: No Known Allergies (Unverified , 10/27/12) Objective Vital Signs Last 24 Hour Vital Signs Date Time Temp Pulse Resp B/P Pulse Ox O2 Delivery O2 Flow Rate FiO2 01/27/17 12:33 96.8 61 20 119/66 95 Room Air 61 61 01/27/17 08:55 97.2 67 20 111/56 94 Room Air 67 67 01/26/17 16:15 97.0 63 20 103/49 100 Room Air 01/26/17 16:13 97.8 63 18 103/49 99 Room Air Height (Feet): 5 Height (Inches): 10.00 Weight (Pounds): 180 General Appearance: no acute distress HEENT: mucous membranes moist Respiratory/Chest: lungs clear Cardiovascular: normal rate Abdomen: soft, non tender Extremities: no edema Skin: ulcers, other - in legs Neurologic/Psychiatric: alert, responsive Current Medications Medications (Trade) Dose Ordered Sig/Shannon Route PRN Reason Start Time Stop Time Status Last Admin Dose Admin Acetaminophen (Tylenol) 650 mg Q4H PRN ORAL Mild Pain/Temp > 100.5 01/16/17 23:00 02/15/17 22:59 Heparin Sodium (Porcine) (Heparin 5000 units/ml) 5,000 units EVERY 12 HOURS SUBQ 01/17/17 09:00 02/16/17 08:59 01/18/17 21:01 Hydrogen Peroxide (Hydrogen Peroxide) 1 applic EVERY 12 HOURS TOPIC 01/18/17 10:30 02/17/17 10:29 01/27/17 10:51 Risperidone (RisperDAL) 1 mg BEDTIME ORAL 01/18/17 21:00 02/17/17 20:59 01/18/17 21:02 ADDI BOLANOS Jan 27, 2017 13:08
[2017-01-27 16:04] VITALS: BP 112/63
--- NOTE | 2017-01-27 17:00 | Progress Note ---
DATE: 01/27/2017 SUBJECTIVE: The patient is doing well. The patient is in no acute distress. Unchanged from previous encounter. The patient is calm. Remains uncooperative with some care. MENTAL STATUS EXAMINATION: The patient is alert and oriented times self. Mood is neutral. Affect is blunted. Congruent with mood and appropriate. Thought process, there is a paucity of thought content. Thought content, no suicidal or homicidal ideation. ASSESSMENT: 1. Cognitive impairment. 2. Encephalopathy. PLAN: We will continue to follow the patient. Provide the patient with supportive therapy and reality orientation. Jovana Pantoja M.D. DR: WIN JOB#: [id number] CC:
[2017-01-27 19:55] VITALS: BP 121/63
[2017-01-27 23:52] VITALS: BP 114/57
[2017-01-28 04:00] VITALS: BP 118/60
[2017-01-28] MEDS: Heparin 5000 units/ml inj SUBQ SCH (09:00)
[2017-01-28] MEDS: Hydrogen Peroxide 473ml Bottle TOPIC SCH (09:00)
--- NOTE | 2017-01-28 09:22 | General Progress Note ---
Assessment/Plan Assessment/Plan IMPRESSION: 1. Lower extremity cellulitis, concern for deeper wound infection. 2. Leukocytosis, evidence of hyponatremia, evidence of transaminitis of unclear etiology. PLAN care noted cleared by ID dc to SNF impression, plan, and exam edited and reviewed in detail care discussed with RN Subjective Allergies: Coded Allergies: No Known Allergies (Unverified , 10/27/12) Subjective awaiting SNF Objective Last 24 Hour Vital Signs Date Time Temp Pulse Resp B/P (MAP) Pulse Ox O2 Delivery O2 Flow Rate FiO2 01/28/17 04:00 97.8 64 18 118/60 96 Room Air 01/27/17 23:52 96.5 67 20 114/57 98 Room Air 67 67 01/27/17 19:55 98.1 62 20 121/63 91 Room Air 62 62 01/27/17 16:04 97.0 65 20 112/63 95 Room Air 65 01/27/17 12:33 96.8 61 20 119/66 95 Room Air 61 61 Height (Feet): 5 Height (Inches): 10.00 Weight (Pounds): 180 Objective GENERAL: The patient is a well-developed male, otherwise comfortable. LUNGS: Clear. CARDIAC: Normal S1 and S2. Regular rate and rhythm. ABDOMEN: Soft and nontender. EXTREMITIES: No changes with exception of bilateral venous ulcers and and lower legs drainage, surrounding erythema, right leg ulceration. no significant change TRINITY MUNROE Jan 28, 2017 09:22
--- NOTE | 2017-01-28 22:57 | General Progress Note ---
Assessment/Plan Status: stable, progressing Assessment/Plan stable cont current care Subjective Constitutional: Reports: malaise Neurologic/Psychiatric: Reports: anxiety, depressed, emotional problems Allergies: Coded Allergies: No Known Allergies (Unverified , 10/27/12) Objective Last 24 Hour Vital Signs Date Time Temp Pulse Resp B/P (MAP) Pulse Ox O2 Delivery O2 Flow Rate FiO2 01/28/17 04:00 97.8 64 18 118/60 96 Room Air 01/27/17 23:52 96.5 67 20 114/57 98 Room Air 67 67 Height (Feet): 5 Height (Inches): 10.00 Weight (Pounds): 180 General Appearance: no apparent distress, alert, confused, thin Neurologic: alert, oriented x 3, responsive, depressed affect Jovana Pantoja M.D. Jan 28, 2017 22:57
--- NOTE | 2017-01-30 14:54 | Discharge Summary ---
Discharge Summary Hospital Course Date of Admission Jan 16, 2017 at 21:00 Date of Discharge Jan 28, 2017 at 10:45 Admitting Diagnosis bilateral lower ectrimity cellulities HPI John Ames is a 86 year old male who was admitted on Jan 16, 2017 at 21:00 for Bilateral Lower Extremity Cellulities Hospital Course [id number] Discharge Discharge Disposition Patient left AMA Discharge Diagnoses: Althea Medellin NP Jan 30, 2017 14:54
--- NOTE | 2017-01-31 07:15 | Discharge Summary 2 SIG ---
DATE OF ADMISSION: 01/16/2017 DATE OF DISCHARGE: 01/28/2017 CONSULTANTS: 1. Jovana Pantoja M.D. 2. Clarence Christianson M.D. BRIEF HOSPITAL COURSE: The patient is an 86-year-old male with history of chronic venous stasis, who was brought in for leg wound due to inability to care for self. He has been at emergency department in the past for dressing changes and occasionally was placed on antibiotics. On evaluation at ED, CBC showed significant leukocytosis with left shift. WBC was elevated to 26.7 and neutrophil was 85%. Creatinine was elevated to 2.0 and BUN 57. ESR was 84. Urinalysis was consistent with urine infection. X-ray of the right leg showed signs consistent with osteomyelitis. The patient was then admitted as he will need IV antibiotics. There was also evidence of hyponatremia and evidence of transaminitis of unclear etiology. He was started on Augmentin and doxycycline. The patient agreed to take p.o. antibiotics. MRI of the tibia and fibula showed superficial medial right leg soft tissue ulcer, but no findings to suggest acute osteomyelitis. He had been noncompliant with medications and was disoriented. He was seen by Dr. Pantoja and was assessed to lack the capacity to make medical decisions. He was diagnosed to have delirium due to general medical condition and was started on Risperdal 1 mg at bedtime. He was provided with wound care for chronic leg venous stasis ulcer and stage II pressure ulcer on the left buttock. WBC was elevated. Need to recheck laboratories, however the patient had been refusing. Wound cultures showed growth of Proteus, E. coli, and MRSA. Augmentin was changed to ciprofloxacin and was continued on doxycycline. The patient refused IV Zosyn. The patient continued refusing care. IV antibiotics were discontinued. The patient was cleared for discharge and was referred to multiple SNF. Renal function and leukocytosis, improving. Order for discharge was placed and the patient filed appeal with [facility]. information systems planner was able to find placement, however, the patient refused to discuss discharge plan and left against AMA. FINAL DIAGNOSES: 1. Lower extremity cellulitis, concern for deep wound infection. 2. Leukocytosis. 3. Evidence of hyponatremia. 4. Evidence of transaminitis of unclear etiology. 5. Delirium due to general medical condition. 6. Noncompliance. DISPOSITION: The patient left against medical advice. Luca Reyna M.D. I have been assigned to dictate discharge summary on this account and I was not involved in the patient's management. Althea Medellin N.P. DR: Partha JOB#: [id number] CC:
== END 2017-01-28 10:45 | disposition left against medical advice (07) | DRG 603 ==
LOC: EDBD 13:25 → EMR 14:00 → EDBEDREQ 14:19 → 4E 21:00 → EDBEDREQ 21:42 → 4W 01-17 16:45
DX: L03.116 Cellulitis of left lower limb (principal); N17.9 Acute kidney failure, unspecified; L89.322 Pressure ulcer of left buttock, stage 2; E87.1 Hypo-osmolality and hyponatremia; F05 Delirium due to known physiological condition; I87.2 Venous insufficiency (chronic) (peripheral); B87.0 Cutaneous myiasis; N39.0 Urinary tract infection, site not specified; L03.115 Cellulitis of right lower limb; R74.0 Nonspecific elevation of levels of transaminase and lactic acid dehydrogenase [LDH]; Z91.19 Patient's noncompliance with other medical treatment and regimen; D64.9 Anemia, unspecified; B96.4 Proteus (mirabilis) (morganii) as the cause of diseases classified elsewhere; B96.20 Unspecified Escherichia coli [E. coli] as the cause of diseases classified elsewhere; B95.62 Methicillin resistant Staphylococcus aureus infection as the cause of diseases classified elsewhere
CPT/HCPCS: 36415; 80048; 80053; 80202; 80300; 81003; 82248; 83605; 85007; 85025; 85610; 85651; 85730; 86140; 87040; 87070; 87081; 87181; 87205

== ENCOUNTER 2017-01-29 14:33 | Emergency (ER) | payer MEDICARE ==
[~2017-01-29] VITALS: Ht 188 cm; Wt 81.6 kg
--- NOTE | 2017-01-29 15:45 | Emergency Room Report ---
History of Present Illness General Chief Complaint: General Complaint Present Illness HPI 86 YO Male Pt was brought into the ED after leaving AMA from upstairs for inability to care for himself. pt. is verbally aggressive with staff. And is well known to the ED. upon evaluation pt. states he Does not need medical attention, and that there is nothing we can do for him here. Pt. states multiple times that he wants to leave. Pt. refuses to answer HPI or ROS questions. Allergies: Coded Allergies: No Known Allergies (Unverified , 10/27/12) Patient History Past Medical History: see triage record Past Surgical History: none Pertinent Family History: none Immunizations: UTD Reviewed Nursing Documentation: PMH: Agreed, PSxH: Agreed Nursing Documentation-PMH Hx Hypertension: No Hx Pacemaker: No Hx Asthma: No Hx COPD: No Hx Diabetes: No Hx Cancer: No Hx Dialysis: No Hx Cerebrovascular Accident: No Hx Seizures: No Review of Systems All Other Systems: limited - por pt. cooperation Physical Exam Vital Signs Date Time Temp Pulse Resp B/P (MAP) Pulse Ox O2 Delivery O2 Flow Rate FiO2 01/29/17 14:35 97.3 85 18 79/53 96 Room Air Sp02 EP Interpretation: reviewed, normal Skin: other - the left leg has healing venous stasis ulcers, almost completely healed at this time, no evidence of cellulitis, pt. will not allow removal of the dressings on the right leg to examen the right lower extremity. Medical Decision Making PA Attestation Dr. Clancy is my supervising Physician whom patient management has been discussed with. Diagnostic Impression: Primary Impression: Chronic cutaneous venous stasis ulcer ER Course 86 YO Male Pt was brought into the ED after leaving AMA from upstairs for inability to care for himself. pt. is verbally aggressive with staff. And is well known to the ED. upon evaluation pt. states he Does not need medical attention, and that there is nothing we can do for him here. Pt. states multiple times that he wants to leave. Pt. refuses to answer HPI or ROS questions. Consulted with social media specialist who also known this pt. well. it was determined that we will attempt to obtain PET eval and pt. placed on hold for gravely disabled and unable to care for himself. PET eval wants pt. to be medically cleared first. Pt. refusing Labs, urine and repeat vital signs. Pt. is refusing thorough physical exam. At this time supervising physician and Myself attempted to reason with the pt. He continues to want to leave, and not allow medical examinations. It has been determined that this pt. is A &O x 4, and memory is intact. He is well known to this Emergency Department, and his current mental status is consistent with is usual baseline during previous department visits. At this time we cannot hold this pt. against his will nor force him to receive blood draw. Pt. will not give verbal consent to continue treatment or evaluation. There is no emergent indication to neglect this pt. wishes at this time. Pt. will be D/C with ED return precautions. as well as list of resources which he has received in the past. the Pt. was highly encouraged by multiple staff members to return at anytime so that we can continue to properly care for him. Last Vital Signs Date Time Temp Pulse Resp B/P (MAP) Pulse Ox O2 Delivery O2 Flow Rate FiO2 01/29/17 14:35 97.3 85 18 79/53 96 Room Air Disposition: HOME, SELF-CARE Condition: Stable Scripts No Active Prescriptions or Reported Meds Patient Instructions: Venous Stasis or Chronic Venous Insufficiency Additional Instructions: Take medications as directed. Follow up with a Primary Care Provider in 3-5 days, even if your symptoms have resolved. --Please review list of primary care clinics, if you do not already have a primary care provider Return sooner to ED if new symptoms occur, or current symptoms become worse. - Please note that this Emergency Department Report was dictated using [employer] meteorologist technology software, occasionally this can lead to erroneous entry secondary to interpretation by the dictation equipment. Meron Ross Jan 29, 2017 15:45
[2017-01-29 18:11] VITALS: BP 101/63
== END 2017-01-29 18:14 | disposition home or self-care (01) ==
LOC: EMR 15:17
DX: I83.029 Varicose veins of left lower extremity with ulcer of unspecified site (principal); R45.1 Restlessness and agitation
CPT/HCPCS: 99282

== ENCOUNTER 2017-05-21 16:31 | Emergency (ER) | payer MEDICARE ==
[~2017-05-21] VITALS: Ht 182.9 cm; Wt 81.6 kg
[2017-05-21 17:05] VITALS: BP 134/72
[2017-05-21] MEDS ORDERED: Acetaminophen 500mg (ES) tab PO ONE (17:15)
[2017-05-21] MEDS ORDERED: TYLENOL EXTRA500 MG ORAL (17:38)
--- NOTE | 2017-05-21 18:05 | Emergency Room Report ---
History of Present Illness General Chief Complaint: Multiple Trauma/Fall Source: Medical Record Present Illness HPI 86-year-old male presents ED for evaluation. Brought in by EMS status post fall. States he fell 4 days ago and landed on his right side. Denies hitting his head or LOC. Patient presents complaining of right shoulder pain. Denies any hip pain or back pain. pain is throbbing, 6/10, nonradiating. Denies any other injuries. No other aggravating relieving factors. Denies any other associated symptoms Allergies: Coded Allergies: No Known Allergies (Unverified , 10/27/12) Patient History Past Medical History: none Past Surgical History: none Pertinent Family History: none Social History: Denies: smoking, alcohol use, drug use Immunizations: UTD Reviewed Nursing Documentation: PMH: Agreed, PSxH: Agreed Nursing Documentation-PMH Past Medical History: No History, Except For Hx Hypertension: No Hx Pacemaker: No Hx Asthma: No Hx COPD: No Hx Diabetes: No Hx Cancer: No Hx Dialysis: No Hx Cerebrovascular Accident: No Hx Seizures: No Review of Systems All Other Systems: negative except mentioned in HPI Physical Exam Vital Signs Date Time Temp Pulse Resp B/P (MAP) Pulse Ox O2 Delivery O2 Flow Rate FiO2 05/21/17 16:28 97.3 82 16 154/76 99 Room Air Sp02 EP Interpretation: reviewed, normal General Appearance: no apparent distress, alert, GCS 15, non-toxic Head: normocephalic, atraumatic Eyes: bilateral eye normal inspection, bilateral eye PERRL ENT: hearing grossly normal, normal pharynx, no angioedema, normal voice Neck: full range of motion, supple/symm/no masses Respiratory: chest non-tender, lungs clear, normal breath sounds, speaking full sentences Cardiovascular #1: regular rate, rhythm, no edema Cardiovascular #2: 2+ carotid (R), 2+ carotid (L), 2+ radial (R), 2+ radial (L) , 2+ dorsalis pedis (R), 2+ dorsalis pedis (L) Gastrointestinal: normal bowel sounds, non tender, soft, non-distended, no guarding, no rebound Rectal: deferred Genitourinary: normal inspection, no CVA tenderness Musculoskeletal: back normal, gait/station normal, decreased range of motion, tender - R shoulder Neurologic: alert, oriented x3, responsive, motor strength/tone normal, sensory intact, speech normal Psychiatric: judgement/insight normal, memory normal, mood/affect normal, no suicidal/homicidal ideation Reflexes: 3+ bicep (R), 3+ bicep (L), 3+ tricep (R), 3+ tricep (L), 3+ knee (R) , 3+ knee (L) Skin: normal color, no rash, warm/dry, well hydrated Lymphatic: no adenopathy Procedures Splinting Splinting : Consent: Verbal Pre-Made Type: R shoulder sling Pre-Proc Neuro Vasc Exam: normal Post-Proc Neuro Vasc Exam: normal Patient Tolerated: Well Complications: None Medical Decision Making Diagnostic Impression: Primary Impression: Shoulder contusion Qualified Codes: S40.011A - Contusion of right shoulder, initial encounter Additional Impression: Fall Qualified Codes: W19.XXXA - Unspecified fall, initial encounter ER Course Hospital Course 86-year-old M presents to ED complaining of R shoulder pain s/p trip and fall Differential diagnoses include: Fracture, dislocation, sprain, contusion Clinical course Patient placed on stretcher. After initial history and physical, I ordered pain medications and Xrays of R shoulder Xrays prelim read shows no acute fracture/dislocation. placed in shoulder sling Diagnosis -shoulder contusion, fall Stable and discharged to home with prescription for tylenol. apply ice, keep elevated. weight bear as tolerated. Followup with PMD. Return to ED if symptoms recur or worsen Other X-Ray Diagnostic Results Other X-Ray Diagnostic Results : X-Ray ordered: R shoulder # of Views/Limited Vs Complete: 3 View Indication: Pain EP Interpretation: Yes Interpretation: no dislocation, no soft tissue swelling, no fractures Impression: No acute disease Electronically Signed by: Electronically signed by Kermit Verdugo MD Last Vital Signs Date Time Temp Pulse Resp B/P (MAP) Pulse Ox O2 Delivery O2 Flow Rate FiO2 05/21/17 16:28 97.3 82 16 154/76 99 Room Air Status: improved Disposition: HOME, SELF-CARE Condition: Stable Scripts Acetaminophen* (TYLENOL EXTRA STRENGTH*) 500 Mg Tablet 500 MG ORAL Q8H Y for Prn Headache/Temp > 101, #30 TAB 0 Refills Prov: KERMIT VERDGUO M.D. 05/21/17 Patient Instructions: Shoulder Pain, [id number] KERMIT VERDUGO M.D. May 21, 2017 18:05
[2017-05-21 18:42] VITALS: BP 120/100
[2017-05-21 19:49] VITALS: BP 134/72
--- NOTE | 2017-05-22 09:09 | Diagnostic Imaging Report ---
Indication: Reason For Exam: PAIN Technique: 3 views of the left shoulder Comparison: None Findings: No acute fractures or dislocations. Joint spaces are preserved. Impression: Negative
== END 2017-05-21 19:35 | disposition home or self-care (01) ==
LOC: EDBD 16:31 → EMR 17:27
DX: S40.011A Contusion of right shoulder, initial encounter (principal); W19.XXXA Unspecified fall, initial encounter; Y92.89 Other specified places as the place of occurrence of the external cause
CPT/HCPCS: 99283

== ENCOUNTER 2017-08-15 05:44 | Emergency (ER) | payer MEDICARE, OTHER ==
[~2017-08-15] VITALS: Ht 182.9 cm; Wt 90.7 kg
[~2017-08-15 05:44] MED LIST changes: +TYLENOL EXTRA500 MG ORAL
[2017-08-15 06:07] VITALS: BP 177/86
[2017-08-15 06:45] VITALS: BP 177/86
--- NOTE | 2017-08-15 21:23 | Emergency Room Report ---
History of Present Illness General Chief Complaint: General Complaint Source: Patient Present Illness HPI 86-year-old male presents ED for evaluation. Patient is here for dressing changes on his legs. History of bilateral cellulitis to the legs. Patient is well-known to [facility] [place] has been here multiple times for this similar reason. Denies any pain. Denies any fevers or chills. No other aggravating or relieving factors. Denies any other associated symptoms Allergies: Coded Allergies: No Known Allergies (Unverified , 10/27/12) Patient History Past Medical History: none Past Surgical History: none Pertinent Family History: none Social History: Denies: smoking, alcohol use, drug use Immunizations: UTD Reviewed Nursing Documentation: PMH: Agreed, PSxH: Agreed Nursing Documentation-PMH Hx Hypertension: No Hx Pacemaker: No Hx Asthma: No Hx COPD: No Hx Diabetes: No Hx Cancer: No Hx Dialysis: No Hx Cerebrovascular Accident: No Hx Seizures: No Review of Systems All Other Systems: negative except mentioned in HPI Physical Exam Vital Signs Date Time Temp Pulse Resp B/P (MAP) Pulse Ox O2 Delivery O2 Flow Rate FiO2 08/15/17 05:48 96.0 57 16 177/86 98 Room Air 96.1 Sp02 EP Interpretation: reviewed, normal General Appearance: no apparent distress, alert, GCS 15, non-toxic Head: normocephalic, atraumatic Eyes: bilateral eye normal inspection, bilateral eye PERRL ENT: hearing grossly normal, normal pharynx, no angioedema, normal voice Neck: full range of motion, supple/symm/no masses Respiratory: chest non-tender, lungs clear, normal breath sounds, speaking full sentences Cardiovascular #1: regular rate, rhythm, no edema Cardiovascular #2: 2+ carotid (R), 2+ carotid (L), 2+ radial (R), 2+ radial (L) , 2+ dorsalis pedis (R), 2+ dorsalis pedis (L) Gastrointestinal: normal bowel sounds, non tender, soft, non-distended, no guarding, no rebound Rectal: deferred Genitourinary: normal inspection, no CVA tenderness Musculoskeletal: back normal, gait/station normal, normal range of motion, non- tender Neurologic: alert, oriented x3, responsive, motor strength/tone normal, sensory intact, speech normal Psychiatric: judgement/insight normal, memory normal, mood/affect normal, no suicidal/homicidal ideation Reflexes: 3+ bicep (R), 3+ bicep (L), 3+ tricep (R), 3+ tricep (L), 3+ knee (R) , 3+ knee (L) Skin: other - chronic cutaneous cellulitis bilateral LEs Lymphatic: no adenopathy Medical Decision Making Diagnostic Impression: Primary Impression: Encounter for dressing change or suture removal ER Course Hospital Course 86-year-old male presents ED for dressing changes of his legs Clinical course Patient placed on stretcher. On and there is chronic cutaneous cellulitis of both extremities. Unchanged from prior exams. Patient well known to myself and staff dressings changed. patient stable for discharge Diagnosis - encounter for dressing change or suture removal Stable and discharged to home. Followup with PMD. Return to ED if any signs of infection develop Last Vital Signs Date Time Temp Pulse Resp B/P (MAP) Pulse Ox O2 Delivery O2 Flow Rate FiO2 08/15/17 06:45 57 16 177/86 98 08/15/17 06:07 96.1 Room Air 96.1 Status: improved Disposition: HOME, SELF-CARE Condition: Improved Referrals: NON PHYSICIAN (PCP) Patient Instructions: Dressing Change MIKI SNOW M.D. Aug 15, 2017 21:23
== END 2017-08-15 06:45 | disposition home or self-care (01) ==
LOC: EMR 06:20
DX: Z48.00 Encounter for change or removal of nonsurgical wound dressing (principal); L03.116 Cellulitis of left lower limb; L03.115 Cellulitis of right lower limb
CPT/HCPCS: 99281

== ENCOUNTER 2017-08-20 04:08 | Emergency (ER) | payer OTHER ==
[~2017-08-20] VITALS: Ht 170.2 cm; Wt 68.0 kg
--- NOTE | 2017-08-20 04:26 | Emergency Room Report ---
History of Present Illness General Chief Complaint: Wound Recheck/Suture Removal Source: Patient Present Illness HPI Patient is 86-year-old male who presented for wound check after recent dressing change. Patient had prior history of chronic venostasis ulcers. He had previous visit up few days ago when he had his dressings last change. Patient had a remote history of fall Allergies: Coded Allergies: No Known Allergies (Unverified , 08/20/17) Patient History Past Medical History: see triage record Reviewed Nursing Documentation: PMH: Agreed, PSxH: Agreed Nursing Documentation-PMH Past Medical History: No History, Except For Hx Hypertension: No Hx Pacemaker: No Hx Asthma: No Hx COPD: No Hx Diabetes: No Hx Cancer: No Hx Dialysis: No Hx Cerebrovascular Accident: No Hx Seizures: No Review of Systems All Other Systems: negative except mentioned in HPI Physical Exam Vital Signs Date Time Temp Pulse Resp B/P (MAP) Pulse Ox O2 Delivery O2 Flow Rate FiO2 08/20/17 04:12 97.3 58 16 160/75 95 Room Air 97.3 General Appearance: well appearing, no apparent distress, alert, GCS 15, Chronically Ill Head: normocephalic, atraumatic ENT: hearing grossly normal, normal voice Neck: full range of motion, supple Respiratory: no respiratory distress, speaking full sentences Musculoskeletal: no calf tenderness Neurologic: normal inspection, alert, oriented x3, responsive, normal gait Psychiatric: mood/affect normal Skin: no rash Medical Decision Making Diagnostic Impression: Primary Impression: Venous stasis ulcer Additional Impression: Lymphedema of both lower extremities ER Course Patient presented for wound check. Differential diagnosis included was not limited to infected wound, nonhealed wound, neuroma, healed wound. Patient has a prior chronic wound. This does not appear to be worse than baseline. The patient was noted to have brisk pulses to his extremities and good perfusion. The patient dressings are changed. He is advised to follow-up with wound care center.Patient was advised to return if there is any worsening of condition or if any other concerns. Last Vital Signs Date Time Temp Pulse Resp B/P (MAP) Pulse Ox O2 Delivery O2 Flow Rate FiO2 08/20/17 04:12 97.3 58 16 160/75 95 Room Air 97.3 Status: improved Disposition: HOME, SELF-CARE Condition: Stable Osvaldo Lutz Aug 20, 2017 04:26
[2017-08-20 05:30] VITALS: BP 160/75
[2017-08-20] MEDS: Acetaminophen 500mg (ES) tab ORAL ONE (06:35)
== END 2017-08-20 07:23 | disposition home or self-care (01) ==
LOC: EMR 04:18
DX: I83.009 Varicose veins of unspecified lower extremity with ulcer of unspecified site (principal); L97.909 Non-pressure chronic ulcer of unspecified part of unspecified lower leg with unspecified severity; I89.0 Lymphedema, not elsewhere classified
CPT/HCPCS: 99282

== ENCOUNTER 2017-08-26 01:55 | Emergency (ER) | payer OTHER ==
[~2017-08-26] VITALS: Ht 185.4 cm; Wt 95.3 kg
[2017-08-26] MEDS ORDERED: NKM (02:11)
[2017-08-26 02:30] VITALS: BP 136/75
[2017-08-26] MEDS ORDERED: TYLENOL EXTRA500 MG ORAL (04:20)
[2017-08-26 05:15] VITALS: BP 141/84
[2017-08-26 05:25] VITALS: BP 141/84
--- NOTE | 2017-08-26 12:05 | Diagnostic Imaging Report ---
Indications: Low back pain, status post fall 10 days ago Technique: Spiral acquisitions obtained through the lumbar spine. Multiplanar reconstructions were generated. No IV contrast utilized. Total dose length product 561.1 mGycm. CTDIvol(s) 14.79 mGy. Dose reduction achieved using automated exposure control Comparison: none Findings: There is mild lumbar scoliotic deformity which may at least in part be an artifact of positioning. Bony alignment is normal otherwise. No acute fractures. No dislocations. There is extensive bilateral facet arthrosis. There is extensive new bone adjacent to the right-sided posterior elements. Suspected this represents proliferative change, but considerable asymmetry raises possibility that this could represent surgical bone grafting. At L2-3, there is mild degenerative disc narrowing with vacuum formation. No significant disc bulge or protrusion. Facet arthrosis results in mild bilateral neural foraminal stenosis. At L3-4, there is mild degenerative disc narrowing. There is vacuum formation. There is posterior broad-based disc protrusion which, in combination with ligamentum flavum hypertrophy and facet arthrosis results in moderate central canal stenosis. There is mild bilateral neural foraminal stenosis due to the facet arthrosis. At L4-5, there is mild degenerative disc narrowing and vacuum formation. There is considerable circumferential annular bulge and posterior broad-based disc protrusion. This, in combination with ligament flavum hypertrophy and facet arthrosis results in at least moderate narrowing of the spinal canal at this level. There is moderate to severe bilateral neural foraminal stenosis At L5-S1, there is severe degenerative disc narrowing. No significant disc bulge or protrusion or spinal stenosis. There is moderate to severe bilateral neural foraminal stenosis. There is a large left inguinal hernia, best appreciated on the stone setter image but also seen on sagittal reconstructed images. This appears to contain a loop of sigmoid colon. This was also reported on abdomen and pelvis CT dated 05/09/2016 Impression: No acute bony trauma Multilevel degenerative changes, as detailed on a level by level basis above Unusual asymmetric posterior element proliferative change on the right, most likely degenerative in nature but could also indicate prior surgery. Correlate with clinical history Left inguinal hernia, also previously reported. This agrees with the preliminary interpretation provided overnight by [facility] telerad[facility] service. The CT scanner at [facility] is accredited by the [employer] and the scans are performed using protocols designed to limit radiation exposure to as low as reasonably achievable to attain images of sufficient resolution adequate for diagnostic evaluation.
--- NOTE | 2017-08-28 13:11 | Emergency Room Report ---
History of Present Illness General Chief Complaint: Lower Back Pain or Injury Source: Patient Present Illness HPI 86 yo M presents to ED for evaluation. patient is here for dressing changes of his lower extremities. patient has chronic venous ulcers to both extremities. [place] [facility] [place] has been here multiple times for dressing changes. denies any pain to legs. denies fever or chills. Patient also complaining of back pain. States he fell approximately 10 days ago. Pain is throbbing, 8 out of 10, nonradiating. Is able to walk with a walker which is his usual. Denies any bowel or bladder incontinence. Denies any leg or motor weakness. No other aggravating or relieving factors. Denies any other associated symptoms Allergies: Coded Allergies: No Known Allergies (Unverified , 08/20/17) Patient History Past Medical History: none Past Surgical History: none Pertinent Family History: none Social History: Denies: smoking, alcohol use, drug use Immunizations: UTD Reviewed Nursing Documentation: PMH: Agreed; PSxH: Agreed Nursing Documentation-PMH Hx Hypertension: No Hx Pacemaker: No Hx Asthma: No Hx COPD: No Hx Diabetes: No Hx Cancer: No Hx Dialysis: No Hx Cerebrovascular Accident: No Hx Seizures: No Review of Systems All Other Systems: negative except mentioned in HPI Physical Exam Vital Signs Date Time Temp Pulse Resp B/P (MAP) Pulse Ox O2 Delivery O2 Flow Rate FiO2 08/26/17 02:02 98.0 66 14 136/75 96 Room Air 98.1 Sp02 EP Interpretation: reviewed, normal General Appearance: no apparent distress, alert, GCS 15, non-toxic Head: normocephalic Eyes: bilateral eye normal inspection, bilateral eye PERRL ENT: normal ENT inspection Neck: normal inspection Respiratory: normal inspection Cardiovascular #1: normal inspection Gastrointestinal: normal inspection Rectal: deferred Genitourinary: no CVA tenderness, vertebral tenderness Musculoskeletal: back normal, gait/station normal, normal range of motion Neurologic: alert, oriented x3, responsive, motor strength/tone normal, sensory intact, speech normal Psychiatric: normal inspection Skin: other - chronic cutaneous ulcers to bilateral LEs Lymphatic: normal inspection Medical Decision Making Diagnostic Impression: Primary Impression: Back pain Qualified Codes: M54.5 - Low back pain 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 also here for dressing changes Differential diagnoses include: Fracture, dislocation, sprain, contusion Clinical course Patient placed on stretcher. After initial history and physical, I ordered pain medications and CT L spine CT L spine shows no acute fx, DJD shown. discussed findigns with patient Dressing changes on both legs. pain is improved. Diagnosis - back pain, chrnoic cutaneous venous stasis ulcers Stable and discharged to home with prescription for Tylenol. apply ice, keep elevated. weight bear as tolerated. Followup with PMD. Return to ED if symptoms recur or worsen CT/MRI/US Diagnostic Results CT/MRI/US Diagnostic Results : Imaging Test Ordered: CT L spine Impression no acute process Last Vital Signs Date Time Temp Pulse Resp B/P (MAP) Pulse Ox O2 Delivery O2 Flow Rate FiO2 08/26/17 05:25 98.0 67 16 141/84 95 Room Air 208.4 Status: improved Disposition: HOME, SELF-CARE Condition: Stable Scripts Acetaminophen* (TYLENOL EXTRA STRENGTH*) 500 Mg Tablet 500 MG ORAL Q8H PRN for Prn Headache/Temp > 101, #30 TAB 0 Refills Prov: MIKI SNOW M.D. 08/26/17 Patient Instructions: Back Pain, Adult MIKI SNOW M.D. Aug 28, 2017 13:11
== END 2017-08-26 05:25 | disposition home or self-care (01) ==
LOC: EMR 02:15
DX: M54.5 Low back pain (principal); I83.009 Varicose veins of unspecified lower extremity with ulcer of unspecified site; L97.919 Non-pressure chronic ulcer of unspecified part of right lower leg with unspecified severity; L97.929 Non-pressure chronic ulcer of unspecified part of left lower leg with unspecified severity; M51.36 Other intervertebral disc degeneration, lumbar region; K40.90 Unilateral inguinal hernia, without obstruction or gangrene, not specified as recurrent
CPT/HCPCS: 72131; 99282

== ENCOUNTER 2017-09-13 07:37 | Emergency (ER) | payer MEDICARE, OTHER ==
[~2017-09-13] VITALS: Ht 185.4 cm; Wt 79.4 kg
--- NOTE | 2017-09-13 07:47 | Emergency Room Report ---
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 Denies any pain. Denies any fevers or chills. No other aggravating or relieving factors. Denies any other associated symptoms Allergies: Coded Allergies: No Known Allergies (Unverified , 08/20/17) Patient History Past Medical History: see triage record Past Surgical History: none Pertinent Family History: none Social History: Denies: smoking, alcohol use, drug use Immunizations: UTD Reviewed Nursing Documentation: PMH: Agreed; PSxH: Agreed Nursing Documentation-PMH Hx Hypertension: No Hx Pacemaker: No Hx Asthma: No Hx COPD: No Hx Diabetes: No Hx Cancer: No Hx Dialysis: No Hx Cerebrovascular Accident: No Hx Seizures: No Review of Systems All Other Systems: negative except mentioned in HPI Physical Exam Sp02 EP Interpretation: reviewed, normal General Appearance: normal inspection, well appearing, no apparent distress, alert, GCS 15, non-toxic Head: normocephalic, atraumatic Eyes: bilateral eye PERRL, bilateral eye EOMI ENT: normal ENT inspection, hearing grossly normal, normal pharynx, no angioedema, normal voice, TMs + canals normal, uvula midline, moist mucus membranes Neck: normal inspection, full range of motion, supple, thyroid normal, no meningismus, no bony tend Respiratory: normal inspection, lungs clear, normal breath sounds, no rhonchi, no respiratory distress, no retraction, no accessory muscle use, no wheezing, speaking full sentences Cardiovascular #1: regular rate, rhythm, no edema, no JVD, normal capillary refill Gastrointestinal: normal inspection, normal bowel sounds, non tender, soft, no mass, no peritonitis, non-distended, no guarding, no hernia, no pulsatile mass Genitourinary: no CVA tenderness Musculoskeletal: normal inspection, back normal, normal range of motion, no calf tenderness, pelvis stable, Tasha's Sign negative, other - Lower extremities : shiny, hairless, hardened skin. No active bleeding, purulence. No erythema or rubor. Left lower extremity, well healing compared to previous visits. Right, also much improved: Dry exposed pink skin anterior shit with only small quarter- sized open wound without purulence. Neurologic: normal inspection, alert, oriented x3, responsive, kaitara taraka III-XII nml as tested, motor strength/tone normal, cerebellar normal, normal gait, speech normal Psychiatric: normal inspection, judgement/insight normal, mood/affect normal, no suicidal/homicidal ideation, no delusions Skin: normal inspection, normal color, no rash Lymphatic: normal inspection, no adenopathy Medical Decision Making Diagnostic Impression: Primary Impression: Encounter for dressing change or suture removal ER Course VSS, afebrile Atraumatic No active cellulitis No crepitus or concern for nec fasc Wounds redressed DC ER course: Patient has remained stable during ED stay. Disposition: Patient is to be discharged to home. Patient is instructed to follow up with their primary care doctor within 5 days. Strict return precautions discussed with patient such as fever, chills, worsening/severe pain, nausea, vomiting, which may indicate severe illness. Patient verbalizes understanding and agrees with plan. Please note that this Emergency Department Report was dictated using [employer] edge burnisher technology software, occasionally this can lead to erroneous entry secondary to interpretation by the dictation equipment Status: improved Disposition: HOME, SELF-CARE LUIS DEWITT M.D. Sep 13, 2017 07:47
[2017-09-13 07:48] VITALS: BP 158/65
== END 2017-09-13 08:10 | disposition home or self-care (01) ==
LOC: EMR 07:55
DX: Z48.01 Encounter for change or removal of surgical wound dressing (principal)
CPT/HCPCS: 99281

== ENCOUNTER 2017-09-19 06:09 | Emergency (ER) | payer MEDICARE ==
[~2017-09-19] VITALS: Ht 185.4 cm; Wt 95.3 kg
[2017-09-19 06:30] VITALS: BP 155/77
--- NOTE | 2017-09-19 07:28 | Emergency Room Report ---
History of Present Illness General Chief Complaint: Pain Source: Patient, Medical Record Present Illness HPI Patient is well-known to [facility]. The patient has chronic venous stasis dermatitis and has a ulcer on his right rain. He presents for a dressing change. He denies fever or chills. He denies nausea or vomiting. He denies pain. He has no other complaints. Allergies: Coded Allergies: No Known Allergies (Unverified , 08/20/17) Patient History Past Medical History: see triage record, other - venous stasis dermatitis. L. inguinal hernia Social History: Denies: smoking, alcohol use, drug use Reviewed Nursing Documentation: PMH: Agreed; PSxH: Agreed Nursing Documentation-PMH Hx Hypertension: No Hx Pacemaker: No Hx Asthma: No Hx COPD: No Hx Diabetes: No Hx Cancer: No Hx Dialysis: No Hx Cerebrovascular Accident: No Hx Seizures: No Review of Systems All Other Systems: negative except mentioned in HPI Physical Exam Vital Signs Date Time Temp Pulse Resp B/P (MAP) Pulse Ox O2 Delivery O2 Flow Rate FiO2 09/19/17 06:17 56 16 155/77 98 Room Air Sp02 EP Interpretation: reviewed, normal General Appearance: no apparent distress, alert, GCS 15, non-toxic Head: normocephalic, atraumatic Eyes: bilateral eye normal inspection, bilateral eye PERRL ENT: hearing grossly normal, normal pharynx, no angioedema, normal voice Neck: full range of motion, supple/symm/no masses Respiratory: chest non-tender, lungs clear, normal breath sounds, speaking full sentences Cardiovascular #1: regular rate, rhythm, no edema Gastrointestinal: normal bowel sounds, non tender, soft, non-distended, no guarding, no rebound Rectal: deferred Genitourinary: other - Large non-tender left inguinal hernia extending into the left scrotum. Musculoskeletal: back normal, gait/station normal, normal range of motion, non- tender Neurologic: alert, oriented x3, responsive, motor strength/tone normal, sensory intact, speech normal Psychiatric: judgement/insight normal, memory normal, mood/affect normal, no suicidal/homicidal ideation Skin: warm/dry, well hydrated, other - Bilateral lower extremity edema with thickened skin and dermatitis. There is a linear but irregular ulcer 3 cm x 2 cm on the anterior right rain. There is granulation tissue. No erythema or discharge. No fluctuance. Medical Decision Making Diagnostic Impression: Primary Impression: Lymphedema of both lower extremities Additional Impressions: Venous stasis ulcer Encounter for dressing change or suture removal ER Course This patient comes to this emergency department for his dressing changes. This is despite being set up at the wound care clinic just across the parking lot. The patient states that he cannot figure out how to set up appointment at the wound clinic. I think he is unable to make specific times and finds it easier to come to the emergency department for dressing changes. He is educated that he needs proper wound care. He indicates understanding. Of note, the patient also has a large left inguinal hernia. It is nontender. Further discussion with the patient notes that he has had this evaluated. He states that at 87 years old it is not bothering him and he has normal bowel movements and he does not want to get surgery. Does not appear strangulated and is nontender. The patient is nontoxic. He was educated on the symptoms of a strangulated or incarcerated hernia. He indicated understanding. The patient is given close return precautions and follow-up instructions. Last Vital Signs Date Time Temp Pulse Resp B/P (MAP) Pulse Ox O2 Delivery O2 Flow Rate FiO2 09/19/17 06:30 56 16 155/77 98 Room Air Status: improved Disposition: HOME, SELF-CARE Condition: Improved [facility] TATY SAMPSON D.O. Sep 19, 2017 07:28
[2017-09-19 08:45] VITALS: BP 148/72
== END 2017-09-19 08:48 | disposition home or self-care (01) ==
LOC: EMR 06:45
DX: I89.0 Lymphedema, not elsewhere classified (principal); I83.018 Varicose veins of right lower extremity with ulcer other part of lower leg
CPT/HCPCS: 99283

== ENCOUNTER 2017-09-27 05:46 | Emergency (ER) | payer MEDICARE, MEDICAID ==
[~2017-09-27] VITALS: Ht 185.4 cm; Wt 95.3 kg
--- NOTE | 2017-09-27 06:26 | Emergency Room Report ---
History of Present Illness General Chief Complaint: Wound Recheck/Suture Removal Source: Patient, Medical Record Present Illness HPI Patient with chronic stasis ulcers. Here to get dressing changed. Also complains of bilat foot pain and L inguinal hernia pain though he denies this to RN. Pain /, not radiate. He comes to get wound care from us frequently. No fevers, chills, NVD, dysuria. No depression. Psych in past with dx of delirium and functional impairment. He takes care of himself. Was admitted 01/2017 when infections were more severe and he had electrolyte abnormalities. 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 Reviewed Nursing Documentation: PMH: Agreed; PSxH: Agreed Nursing Documentation-PMH Past Medical History: No History, Except For Hx Hypertension: No Hx Pacemaker: No Hx Asthma: No Hx COPD: No Hx Diabetes: No Hx Cancer: No Hx Dialysis: No Hx Cerebrovascular Accident: No Hx Seizures: No Review of Systems Constitutional: Denies: fever ENT: Denies: throat pain Respiratory: Denies: shortness of breath Cardiovascular: Reports: see HPI Gastrointestinal: Denies: abdominal pain Genitourinary: Denies: discharge, dysuria Musculoskeletal: Reports: see HPI Skin: Reports: see HPI Psychiatric: Denies: depressed feelings Neurological: Reports: see HPI Endocrine: Denies: increased thirst, increased urine Physical Exam Vital Signs Date Time Temp Pulse Resp B/P (MAP) Pulse Ox O2 Delivery O2 Flow Rate FiO2 09/27/17 05:58 97.6 73 16 150/74 97 Room Air 97.5 Sp02 EP Interpretation: reviewed, normal General Appearance: well appearing, no apparent distress Head: normocephalic, atraumatic Eyes: bilateral eye normal inspection, bilateral eye PERRL ENT: hearing grossly normal, normal voice, moist mucus membranes Neck: full range of motion, supple Respiratory: no respiratory distress, speaking full sentences Gastrointestinal: normal inspection Musculoskeletal: gait/station normal, normal range of motion, no calf tenderness Neurologic: alert, normal gait, grossly normal Psychiatric: mood/affect normal - loquatious Skin: other - venous insufficiency lesions R>>L with some eschar formation, no erythema Medical Decision Making Diagnostic Impression: Primary Impression: Venous stasis ulcer Qualified Codes: I83.002 - Varicose veins of unspecified lower extremity with ulcer of calf; L97.201 - Non-pressure chronic ulcer of unspecified calf limited to breakdown of skin Additional Impression: Left inguinal hernia ER Course Patient presents with venous stasis ulcers. Exam is improved from last visits. Patient afeb and not toxic. Dressing change indicated. Hernia is tender but minimally so. Slides easily. Truss had been ordered in past, but patient doesn't have at this point. Improved with treatment. Patient stable for outpatient observation and treatment. Last Vital Signs Date Time Temp Pulse Resp B/P (MAP) Pulse Ox O2 Delivery O2 Flow Rate FiO2 09/27/17 07:54 97.6 80 16 150/74 97 Room Air 97.5 Status: improved Disposition: HOME, SELF-CARE Condition: Improved Scripts [hernia truss Left] No Conflict Check DAILY, #1 Prov: Basim Correa M.D. 09/27/17 Vitamin B Complex (B COMPLEX) 1 Each Tablet 1 TAB ORAL DAILY, #30 TAB 0 Refills Prov: Basim Correa M.D. 09/27/17 Acetaminophen (Tylenol) 325 Mg Tablet 650 MG ORAL Q6H PRN for Prn Pain/Headache/Temp > 101, #30 TAB 0 Refills Prov: Basim Correa M.D. 09/27/17 Bacitracin (Bacitracin) 28.4 Gm Oint...g. 1 APPLIC TOPIC BID, #60 GM Prov: Basim Correa M.D. 09/27/17 Referrals: [employer],REFERRING (PCP) Basim Correa M.D. Sep 27, 2017 06:26
[2017-09-27] MEDS ORDERED: Bacitracin Oint UD TOPIC ONE (06:30)
[2017-09-27] MEDS ORDERED: TYLENOL325 MG ORAL (06:44)
[2017-09-27] MEDS ORDERED: B COMPLEX1 EACH ORAL (06:44)
[2017-09-27] MEDS ORDERED: BACITRACIN15 GM TOPIC (06:44)
[2017-09-27] MEDS ORDERED: [UNRECOGNIZED DRUG - SUPPLY] (06:44)
[2017-09-27 07:54] VITALS: BP 150/74
== END 2017-09-27 07:59 | disposition home or self-care (01) ==
LOC: EMR 06:24
DX: I83.009 Varicose veins of unspecified lower extremity with ulcer of unspecified site (principal); L97.919 Non-pressure chronic ulcer of unspecified part of right lower leg with unspecified severity; L97.929 Non-pressure chronic ulcer of unspecified part of left lower leg with unspecified severity; K40.90 Unilateral inguinal hernia, without obstruction or gangrene, not specified as recurrent
CPT/HCPCS: 99284

== ENCOUNTER 2017-09-27 22:14 | Emergency (ER) | payer MEDICARE ==
[~2017-09-27] VITALS: Ht 182.9 cm; Wt 65.8 kg
[2017-09-27 22:14] VITALS: BP 147/78
[~2017-09-27 22:14] MED LIST changes: +B COMPLEX1 EACH ORAL; +TYLENOL325 MG ORAL; +[UNRECOGNIZED DRUG - SUPPLY]
[2017-09-27 23:15] VITALS: BP 126/56
[2017-09-28 01:15] VITALS: BP 118/60
--- NOTE | 2017-09-28 01:50 | Emergency Room Report ---
History of Present Illness General Chief Complaint: Multiple Trauma/Fall Source: Patient Present Illness HPI 87-year-old male presents ED for evaluation. Patient brought in by EMS. patient states he tripped and fell and hit his head. Denies LOC. States he normally walks with a walker but he tripped on the walker. Patient presents with laceration to head. Tetanus is up-to-date. Denies any pain. Denies any photophobia or blurry vision. Denies any headache. Denies any chest pain or shortness of breath. [place] [facility] [place] No other aggravating or relieving factors. Denies any other associated symptoms Allergies: Coded Allergies: No Known Allergies (Unverified , 08/20/17) Patient History Past Medical History: none Past Surgical History: none Pertinent Family History: none Social History: Denies: smoking, alcohol use, drug use Reviewed Nursing Documentation: PMH: Agreed; PSxH: Agreed Nursing Documentation-PMH Hx Hypertension: No Hx Pacemaker: No Hx Asthma: No Hx COPD: No Hx Diabetes: No Hx Cancer: No Hx Dialysis: No Hx Cerebrovascular Accident: No Hx Seizures: No Review of Systems All Other Systems: negative except mentioned in HPI Physical Exam Vital Signs Date Time Temp Pulse Resp B/P (MAP) Pulse Ox O2 Delivery O2 Flow Rate FiO2 09/27/17 22:07 208.0 91 18 98 97.9 09/27/17 22:07 167/91 Room Air Sp02 EP Interpretation: reviewed, normal General Appearance: no apparent distress, alert, GCS 15, non-toxic Head: normocephalic, other - 1cm laceration R scientologist Eyes: bilateral eye normal inspection, bilateral eye PERRL ENT: hearing grossly normal, normal pharynx, no angioedema, normal voice Neck: full range of motion, supple/symm/no masses Respiratory: chest non-tender, lungs clear, normal breath sounds, speaking full sentences Cardiovascular #1: regular rate, rhythm, no edema Cardiovascular #2: 2+ carotid (R), 2+ carotid (L), 2+ radial (R), 2+ radial (L) , 2+ dorsalis pedis (R), 2+ dorsalis pedis (L) Gastrointestinal: normal bowel sounds, non tender, soft, non-distended, no guarding, no rebound Rectal: deferred Genitourinary: normal inspection, no CVA tenderness Musculoskeletal: back normal, gait/station normal, normal range of motion, non- tender Neurologic: alert, oriented x3, responsive, motor strength/tone normal, sensory intact, speech normal Psychiatric: judgement/insight normal, memory normal, mood/affect normal, no suicidal/homicidal ideation Reflexes: 3+ bicep (R), 3+ bicep (L), 3+ tricep (R), 3+ tricep (L), 3+ knee (R) , 3+ knee (L) Skin: normal color, no rash, warm/dry, well hydrated Lymphatic: no adenopathy Procedures Laceration/Wound Repair Laceration/Wound Repair : Consent: Verbal Wound Location: head Wound's Depth, Shape: linear Wound Explored: clean Betadine Prep?: Yes Wound Debrided: minimal Wound Repaired With: Dermabond Sterile Dressing Applied?: No Splint Applied?: No Sling Applied?: No Patient Tolerated: Well Complications: None Medical Decision Making Diagnostic Impression: Primary Impression: head injury Additional Impression: facial laceration ER Course Hospital Course 87-year-old male presents ED with laceration to head status post trip and fall Differential diagnoses include: skull fx, intracranial injury, concussion Clinical course Patient placed on stretcher. After initial history and physical I ordered CT head CT head shows no acute process. Laceration repaired with Dermabond. Patient refused sutures Diagnosis - head injury, facial laceration Stable and discharged to home. wound care instructions given. Followup with PMD. Return to ED if symptoms recur or worsen CT/MRI/US Diagnostic Results CT/MRI/US Diagnostic Results : Imaging Test Ordered: CT head Impression no acute process Last Vital Signs Date Time Temp Pulse Resp B/P (MAP) Pulse Ox O2 Delivery O2 Flow Rate FiO2 09/27/17 23:15 98.4 83 14 126/56 100 Room Air 98.4 Status: improved Disposition: HOME, SELF-CARE Condition: Stable [facility] Kermit Verdugo MD Sep 28, 2017 01:50
[2017-09-28 03:15] VITALS: BP 121/66
[2017-09-28 05:15] VITALS: BP 126/63
[2017-09-28 06:14] VITALS: BP 126/63
--- NOTE | 2017-09-28 14:36 | Diagnostic Imaging Report ---
Indications: Pain, status post fall, laceration to head Technique: Spiral acquisitions obtained through the brain. Angled axial and coronal 5 x 5 mm slices were reconstructed. Total dose length product 389 mGycm. CTDI vol(s) 22 mGy. Dose reduction achieved using automated exposure control Comparison: 09/19/2016 Findings: Images are somewhat noisy. Again demonstrated is age-related enlargement of the ventricles and extra-axial CSF spaces. No acute intracranial hemorrhage or edema. No mass effect or midline shift. Normal paredes-white differentiation. Visualized orbits are unremarkable. Calvarium is intact. There is minimal ethmoid sinus mucosal thickening. There is minimal frontal scalp soft tissue thickening which appears similar to the previous exam. Impression: Age-related changes Negative for acute intracranial bleed or mass effect The CT scanner at [facility] is accredited by the [employer] and the scans are performed using protocols designed to limit radiation exposure to as low as reasonably achievable to attain images of sufficient resolution adequate for diagnostic evaluation.
== END 2017-09-28 06:15 | disposition home or self-care (01) ==
LOC: EDBD 22:14 → EMR 22:55
DX: S09.8XXA Other specified injuries of head, initial encounter (principal); S01.81XA Laceration without foreign body of other part of head, initial encounter; W01.0XXA Fall on same level from slipping, tripping and stumbling without subsequent striking against object, initial encounter; Y92.9 Unspecified place or not applicable
CPT/HCPCS: 70450; 99284

== ENCOUNTER 2017-09-30 17:28 | Emergency (ER) | payer MEDICARE ==
[~2017-09-30] VITALS: Ht 182.9 cm; Wt 81.6 kg
--- NOTE | 2017-09-30 17:50 | Emergency Room Report ---
History of Present Illness General Chief Complaint: Pain Source: Patient Present Illness HPI Patient is an 87-year-old male brought in by EMS after the continued lower extremity pain. Patient had prior history of chronic venostasis ulcers to both legs. The patient denied any recent trauma. He reports having the need for dressing change. Patient stated that he had been having any fever. Allergies: Coded Allergies: No Known Allergies (Unverified , 08/20/17) Patient History Past Medical History: see triage record Reviewed Nursing Documentation: PMH: Agreed; PSxH: Agreed Nursing Documentation-PMH Hx Hypertension: No Hx Pacemaker: No Hx Asthma: No Hx COPD: No Hx Diabetes: No Hx Cancer: No Hx Dialysis: No Hx Cerebrovascular Accident: No Hx Seizures: No Review of Systems All Other Systems: negative except mentioned in HPI Physical Exam Vital Signs Date Time Temp Pulse Resp B/P (MAP) Pulse Ox O2 Delivery O2 Flow Rate FiO2 09/30/17 17:23 98.3 71 19 114/56 96 Room Air 98.2 General Appearance: well appearing, no apparent distress, alert, GCS 15, Chronically Ill Head: normocephalic, atraumatic ENT: hearing grossly normal, normal voice Neck: full range of motion, supple Respiratory: no respiratory distress, speaking full sentences Musculoskeletal: no calf tenderness Neurologic: normal inspection, alert, oriented x3, responsive, normal gait Psychiatric: mood/affect normal Skin: other - bilateral chronic venous stasis changes, no ulcer noted, no erythema Medical Decision Making Diagnostic Impression: Primary Impression: Lymphedema of both lower extremities ER Course Patient presented for lower extremity pain. Differential diagnosis included but was not limited to fracture, contusion, renal stone, vascular insufficiency , aortic aneurysm, cellulitis. The patient's legs have chronic venous stasis changes. There does not appear to be any active infection. I've seen the patient multiple times previously and his legs actually appear somewhat improved from prior visits. The patient's legs are dressed with sterile gauze.The patient is advised to follow-up with his wound care doctor.The patient is left hernia was reduced with manual pressure. The patient was noted to have spilled beverage onto his abdominal area without any evidence of any erythema or signs of blistering. Patient was given prescription for a truss Last Vital Signs Date Time Temp Pulse Resp B/P (MAP) Pulse Ox O2 Delivery O2 Flow Rate FiO2 09/30/17 17:23 98.3 71 19 114/56 96 Room Air 98.2 Status: improved Disposition: HOME, SELF-CARE Condition: Stable Scripts [hernia truss Left] No Conflict Check DAILY, #1 Prov: Osvaldo Lutz 09/30/17 Osvaldo Lutz Sep 30, 2017 17:50
[2017-09-30] MEDS ORDERED: Bacitracin Oint UD TOPIC ONE (18:00)
[2017-09-30 19:20] VITALS: BP 108/65
[2017-09-30] MEDS ORDERED: [UNRECOGNIZED DRUG - SUPPLY] (19:49)
== END 2017-09-30 19:20 | disposition home or self-care (01) ==
LOC: EDBD 17:28 → EMR 18:10
DX: I89.0 Lymphedema, not elsewhere classified (principal); I87.8 Other specified disorders of veins
CPT/HCPCS: 99283

== ENCOUNTER 2017-10-02 20:24 | Emergency (ER) | payer MEDICARE, MEDICAID ==
[~2017-10-02] VITALS: Ht 170.2 cm; Wt 81.6 kg
[2017-10-02 21:15] VITALS: BP 165/56
[2017-10-02 23:30] VITALS: BP 158/62
[2017-10-03 02:29] VITALS: BP 145/81
[2017-10-03 03:17] VITALS: BP 145/81
--- NOTE | 2017-10-03 05:51 | Emergency Room Report ---
History of Present Illness General Chief Complaint: Wound Recheck/Suture Removal Source: Patient Present Illness HPI Patient 87-year-old male brought in by self for wound recheck. Patient had previous history of chronic venostasis and lymphedema changes. Patient been seen several days ago by me and was noted to have a similar presentation. The patient denies any fever. He states that he has been having gradual onset of symptoms. Patient is ambulatory with a walker. Allergies: Coded Allergies: No Known Allergies (Unverified , 08/20/17) Patient History Past Medical History: see triage record Reviewed Nursing Documentation: PMH: Agreed; PSxH: Agreed Nursing Documentation-PMH Past Medical History: No History, Except For Hx Hypertension: No Hx Pacemaker: No Hx Asthma: No Hx COPD: No Hx Diabetes: No Hx Cancer: No Hx Dialysis: No Hx Cerebrovascular Accident: No Hx Seizures: No Review of Systems All Other Systems: negative except mentioned in HPI Physical Exam Vital Signs Date Time Temp Pulse Resp B/P (MAP) Pulse Ox O2 Delivery O2 Flow Rate FiO2 10/02/17 21:00 97.6 87 16 165/56 94 Room Air 97.5 General Appearance: well appearing, no apparent distress, GCS 15, Chronically Ill Head: normocephalic, atraumatic ENT: hearing grossly normal, normal voice Neck: full range of motion, supple Respiratory: lungs clear, normal breath sounds, no respiratory distress, speaking full sentences Gastrointestinal: normal inspection, non tender, soft Musculoskeletal: no calf tenderness Neurologic: normal inspection, alert, oriented x3, responsive, slasher hand III-XII nml as tested, motor strength/tone normal Psychiatric: normal inspection, mood/affect normal Skin: other - chronic lymphedema without ulceration Medical Decision Making Diagnostic Impression: Primary Impression: Visit for wound check ER Course Patient presented for wound check. Differential diagnosis included was not limited to infected wound, nonhealed wound, neuroma, healed wound. The patient is advised to follow up with primary care doctor in 1-2 days. Patient is advised to return if any worsening condition or if any changes in status that are concerning. This report is dictated with See[employer] marketing sales representative software which may occasionally lead to discrepancies related to use of this software. Last Vital Signs Date Time Temp Pulse Resp B/P (MAP) Pulse Ox O2 Delivery O2 Flow Rate FiO2 10/03/17 03:17 98.3 83 14 145/81 96 Room Air 98.3 Status: improved Disposition: HOME, SELF-CARE Condition: Stable Patient Instructions: Wound Check Osvaldo Lutz Oct 03, 2017 05:51
== END 2017-10-03 03:18 | disposition home or self-care (01) ==
LOC: EMR 20:41
DX: Z48.00 Encounter for change or removal of nonsurgical wound dressing (principal); I89.0 Lymphedema, not elsewhere classified
CPT/HCPCS: 99281

== ENCOUNTER 2017-10-06 06:38 | Emergency (ER) | payer MEDICARE, MEDICAID ==
[~2017-10-06] VITALS: Ht 188 cm; Wt 95.3 kg
--- NOTE | 2017-10-06 07:16 | Emergency Room Report ---
History of Present Illness General Chief Complaint: General Complaint Source: Patient Present Illness HPI 87-year-old male history of chronic lymphedema multiple visits for wound check presenting with wound check. Patient states that he has tried to go see a wound clinic but states that he has been unable to. Just states that he wants his wound redressed. No fever no chills no purulent drainage. Has been ambulatory without issue Allergies: Coded Allergies: No Known Allergies (Unverified , 08/20/17) Patient History Past Medical History: see triage record Past Surgical History: none Pertinent Family History: none Reviewed Nursing Documentation: PMH: Agreed; PSxH: Agreed Nursing Documentation-PMH Hx Hypertension: No Hx Pacemaker: No Hx Asthma: No Hx COPD: No Hx Diabetes: No Hx Cancer: No Hx Dialysis: No Hx Cerebrovascular Accident: No Hx Seizures: No Review of Systems All Other Systems: negative except mentioned in HPI Physical Exam Vital Signs Date Time Temp Pulse Resp B/P (MAP) Pulse Ox O2 Delivery O2 Flow Rate FiO2 10/06/17 06:52 98.1 70 16 151/90 97 Room Air 98.1 Sp02 EP Interpretation: reviewed, normal General Appearance: normal inspection, well appearing, no apparent distress, alert, GCS 15, non-toxic Head: normocephalic, atraumatic Eyes: bilateral eye normal inspection, bilateral eye PERRL, bilateral eye EOMI ENT: normal ENT inspection Neck: normal inspection Respiratory: normal inspection Cardiovascular #1: normal inspection Gastrointestinal: normal inspection, non tender Musculoskeletal: other - Bilateral lower extremities chronic lymphedema and venous ulcerations, no purulent drainage, nontender, clean Neurologic: normal inspection, oriented x3 Psychiatric: normal inspection, judgement/insight normal Medical Decision Making Diagnostic Impression: Primary Impression: Venous stasis ulcer Additional Impression: Lymphedema of both lower extremities ER Course 87-year-old male with chronic lymphedema here for wound check DDX: Chronic lymphedema/venous stasis ulcers, does not appear to be infected at this time, no crepitus Plan: Wound redressed ER course: Patient has remained stable during ED stay. Wound was redressed without issue Disposition: Patient is to be discharged to home DC with PMD follow-up in 3-4 days without fail Please note that this Emergency Department Report was dictated using Calxedacorrectional officer sergeant technology software, occasionally this can lead to erroneous entry secondary to interpretation by the dictation equipment Last Vital Signs Date Time Temp Pulse Resp B/P (MAP) Pulse Ox O2 Delivery O2 Flow Rate FiO2 10/06/17 06:52 98.1 70 16 151/90 97 Room Air 98.1 Disposition: HOME, SELF-CARE Condition: Improved Uriel Clancy M.D. October 06, 2017 07:16
[2017-10-06 08:13] VITALS: BP 145/86
[2017-10-06 08:16] VITALS: BP 145/86
== END 2017-10-06 08:20 | disposition home or self-care (01) ==
LOC: EMR 07:33
DX: I83.009 Varicose veins of unspecified lower extremity with ulcer of unspecified site (principal); L97.919 Non-pressure chronic ulcer of unspecified part of right lower leg with unspecified severity; L97.929 Non-pressure chronic ulcer of unspecified part of left lower leg with unspecified severity; I89.0 Lymphedema, not elsewhere classified
CPT/HCPCS: 99281

== ENCOUNTER 2017-10-09 20:39 | Emergency (ER) | payer MEDICARE, MEDICAID ==
[~2017-10-09] VITALS: Ht 172.7 cm; Wt 117.9 kg
[2017-10-09 20:50] VITALS: BP 103/47
[2017-10-09] MEDS ORDERED: Ampicillin/Sulbactam Sod 3 GM in NS 110 ML IVPB ONE (22:45)
[2017-10-09 23:47] LABS: ANION GAP 8 mmol/L (5-15); BLOOD UREA NITROGEN 27 mg/dL (7-18); CALCIUM 8.8 MG/DL (8.5-10.1); CARBON DIOXIDE 26 MMOL/L (21-32); CHLORIDE 105 MMOL/L (98-107); CREATININE 1.7 MG/DL (0.55-1.30); SODIUM 138 MMOL/L (136-145)
[2017-10-09 23:54] LABS: BASOPHILS % (AUTO) 1.4 % (0.0-2.0); EOSINOPHILS % (AUTO) 0.7 % (0.0-3.0); HEMATOCRIT 27.6 % (42.0-52.0); HEMOGLOBIN 9.6 G/DL (14.2-18.0); LYMPHOCYTES % (AUTO) 27.9 % (20.0-45.0); MEAN CORPUSCULAR VOLUME 98 FL (80-99); MONOCYTES % (AUTO) 7.4 % (1.0-10.0); NEUTROPHILS % (AUTO) 62.6 % (45.0-75.0); PLATELET COUNT 209 K/UL (150-450); RED BLOOD COUNT 2.81 M/UL (4.70-6.10); RED CELL DISTRIBUTION WIDTH 12.8 % (11.6-14.8); WHITE BLOOD COUNT 6.6 K/UL (4.8-10.8)
[2017-10-09 23:56] LABS: INR 1.1 (0.9-1.1)
[2017-10-09 23:58] LABS: ALANINE AMINOTRANSFERASE 13 U/L (12-78); ALBUMIN 2.9 G/DL (3.4-5.0); ALBUMIN/GLOBULIN RATIO 0.6 (1.0-2.7); ALKALINE PHOSPHATASE 85 U/L (46-116); ASPARTATE AMINO TRANSFERASE 24 U/L (15-37); BILIRUBIN,TOTAL 0.5 MG/DL (0.2-1.0)
[2017-10-10 01:00] VITALS: BP 99/59
[2017-10-10] MEDS ORDERED: Sodium Chloride 500ML 500 ML IV ONE (02:30)
--- NOTE | 2017-10-10 02:51 | Emergency Room Report ---
History of Present Illness General Chief Complaint: Wound Recheck/Suture Removal Source: Patient, Medical Record, EMS Present Illness HPI Patient is a 87-year-old male who presented after increased the discomfort to his lower extremities. Patient had prior history of chronic lymphedema. He was noted to have increased discomfort to the feet bilaterally worse on the left side. Patient stated he was having increased difficulty with ambulation. Patient normally walks with a walker. The patient recently had been seen and evaluated in the hospital. Patient has intermittent alcohol abuse. He denies any fever. Allergies: Coded Allergies: No Known Allergies (Unverified , 08/20/17) Patient History Past Medical History: see triage record Reviewed Nursing Documentation: PMH: Agreed; PSxH: Agreed Nursing Documentation-PMH Past Medical History: No History, Except For Hx Hypertension: No Hx Pacemaker: No Hx Asthma: No Hx COPD: No Hx Diabetes: No Hx Cancer: No Hx Dialysis: No Hx Cerebrovascular Accident: No Hx Seizures: No Review of Systems All Other Systems: limited - by poor historian Physical Exam Vital Signs Date Time Temp Pulse Resp B/P (MAP) Pulse Ox O2 Delivery O2 Flow Rate FiO2 10/09/17 20:38 97.9 104 16 103/47 98 97.9 10/10/17 01:00 Room Air Sp02 EP Interpretation: reviewed, normal General Appearance: normal inspection, no apparent distress, alert, GCS 15, Chronically Ill Head: atraumatic ENT: normal ENT inspection, hearing grossly normal, normal voice Neck: normal inspection, full range of motion, supple, no bony tend Respiratory: normal inspection, lungs clear, normal breath sounds, no respiratory distress, no retraction, no wheezing Cardiovascular #1: regular rate, rhythm, no edema Gastrointestinal: normal inspection, normal bowel sounds, non tender, soft, no guarding, hernia - left inguinal hernia, reducible Genitourinary: no CVA tenderness Musculoskeletal: decreased range of motion, swelling - bilateral feet, worse than usual Neurologic: normal inspection, alert, responsive, slate roofer III-XII nml as tested, speech normal Psychiatric: normal inspection, mood/affect normal Skin: no rash, other - blistering to dorsum of left foot, right leg ulceration and drainage Medical Decision Making Diagnostic Impression: Primary Impression: Venous stasis ulcer Additional Impressions: Lymphedema of both lower extremities Abdominal hernia Inguinal hernia ER Course Patient presented for lower extremity pain. Differential diagnosis included was not limited to vascular insufficiency, necrotizing fasciitis, cellulitis among others.Because of complexity of patient's case laboratory testing and imaging studies were ordered. The patient was noted to have some the prior history of venous stasis changes. The patient's wounds appear more discolored and have a new blistering to the dorsum of his left foot which is not his usual. The laboratory testing was unremarkable.The patient was discussed with Dr. Lopez from [facility] for transfer Labs Test 10/09/17 23:16 10/09/17 23:37 10/10/17 02:30 White Blood Count 6.6 K/UL (4.8-10.8) Red Blood Count 2.81 M/UL (4.70-6.10) Hemoglobin 9.6 G/DL (14.2-18.0) Hematocrit 27.6 % (42.0-52.0) Mean Corpuscular Volume 98 FL (80-99) Mean Corpuscular Hemoglobin 34.3 PG (27.0-31.0) Mean Corpuscular Hemoglobin Concent 34.9 G/DL (32.0-36.0) Red Cell Distribution Width 12.8 % (11.6-14.8) Platelet Count 209 K/UL (150-450) Mean Platelet Volume 5.9 FL (6.5-10.1) Neutrophils (%) (Auto) 62.6 % (45.0-75.0) Lymphocytes (%) (Auto) 27.9 % (20.0-45.0) Monocytes (%) (Auto) 7.4 % (1.0-10.0) Eosinophils (%) (Auto) 0.7 % (0.0-3.0) Basophils (%) (Auto) 1.4 % (0.0-2.0) Sodium Level 138 MMOL/L (136-145) Potassium Level 4.0 MMOL/L (3.5-5.1) Chloride Level 105 MMOL/L (98-107) Carbon Dioxide Level 26 MMOL/L (21-32) Anion Gap 8 mmol/L (5-15) Blood Urea Nitrogen 27 mg/dL (7-18) Creatinine 1.7 MG/DL (0.55-1.30) Estimat Glomerular Filtration Rate mL/min (>60) Glucose Level 123 MG/DL (74-106) Calcium Level 8.8 MG/DL (8.5-10.1) Total Bilirubin 0.5 MG/DL (0.2-1.0) Aspartate Amino Transf (AST/SGOT) 24 U/L (15-37) Alanine Aminotransferase (ALT/SGPT) 13 U/L (12-78) Alkaline Phosphatase 85 U/L (46-116) Total Protein 7.5 G/DL (6.4-8.2) Albumin 2.9 G/DL (3.4-5.0) Globulin 4.6 g/dL Albumin/Globulin Ratio 0.6 (1.0-2.7) Prothrombin Time 11.1 SEC (9.30-11.50) Prothromb Time International Ratio 1.1 (0.9-1.1) Activated Partial Thromboplast Time 33 SEC (23-33) Last Vital Signs Date Time Temp Pulse Resp B/P (MAP) Pulse Ox O2 Delivery O2 Flow Rate FiO2 10/10/17 01:00 91 20 99/59 96 Room Air 10/09/17 20:50 97.9 97.9 Status: improved Disposition: XFER SHT-TRM HOSP Condition: Serious Referrals: [facility],REFERRING (PCP) Osvaldo Lutz October 10, 2017 02:51
[2017-10-10 05:00] VITALS: BP 125/65
[2017-10-10 06:42] VITALS: BP 121/72
[2017-10-10 07:21] VITALS: BP 121/72
== END 2017-10-10 07:45 | disposition short-term general hospital (02) ==
LOC: EDBD 20:39 → EMR 20:55
DX: I83.009 Varicose veins of unspecified lower extremity with ulcer of unspecified site (principal); L97.919 Non-pressure chronic ulcer of unspecified part of right lower leg with unspecified severity; L97.929 Non-pressure chronic ulcer of unspecified part of left lower leg with unspecified severity; I89.0 Lymphedema, not elsewhere classified; K40.90 Unilateral inguinal hernia, without obstruction or gangrene, not specified as recurrent
CPT/HCPCS: 36415; 80053; 83605; 85025; 85610; 85730; 99285; J0295

== ENCOUNTER 2017-10-13 06:22 | Emergency (ER) | payer MEDICARE, MEDICAID ==
[~2017-10-13] VITALS: Ht 180.3 cm; Wt 95.3 kg
[2017-10-13 06:54] VITALS: BP 150/80
--- NOTE | 2017-10-13 07:52 | Emergency Room Report ---
History of Present Illness General Chief Complaint: General Complaint Source: Patient, Medical Record Present Illness HPI Patient presents with complaints of leg swelling Patient was recently seen in transfer to [facility] He reports that he was discharged and is not sure who to follow up with Has continued discharge and discomfort to both of his legs Denies any chest pain or shortness of breath denies any pleurisy denies any fevers Allergies: Coded Allergies: No Known Allergies (Unverified , 08/20/17) Patient History Past Medical History: see triage record Pertinent Family History: none Reviewed Nursing Documentation: PMH: Agreed; PSxH: Agreed Nursing Documentation-PMH Hx Hypertension: No Hx Pacemaker: No Hx Asthma: No Hx COPD: No Hx Diabetes: No Hx Cancer: No Hx Dialysis: No Hx Cerebrovascular Accident: No Hx Seizures: No Review of Systems All Other Systems: negative except mentioned in HPI Physical Exam Vital Signs Date Time Temp Pulse Resp B/P (MAP) Pulse Ox O2 Delivery O2 Flow Rate FiO2 10/13/17 06:27 72 14 150/80 98 Room Air Sp02 EP Interpretation: reviewed, normal General Appearance: well appearing, no apparent distress Head: normocephalic, atraumatic Eyes: bilateral eye PERRL, bilateral eye EOMI ENT: hearing grossly normal, normal pharynx, uvula midline Neck: full range of motion, supple, no meningismus, no bony tend Respiratory: lungs clear, normal breath sounds, no rhonchi, no respiratory distress, no retraction, no accessory muscle use Cardiovascular #1: normal peripheral pulses, regular rate, rhythm, no gallop, no JVD, no murmur Gastrointestinal: normal bowel sounds, non tender, soft, no mass, no organomegaly, non-distended, no guarding, no hernia, no pulsatile mass, no rebound Genitourinary: no CVA tenderness Musculoskeletal: other - Significant amount of venous stasis bilaterally with serosanguineous discharge, some erythema as well noted diffusely, Neurologic: oriented x3, responsive, marketing specialist III-XII nml as tested, motor strength/ tone normal, sensory intact Psychiatric: mood/affect normal Skin: other - as above Lymphatic: other - lymphedema Medical Decision Making Diagnostic Impression: Primary Impression: Cellulitis Additional Impression: Lymphedema ER Course Patient's presentation shows some acute pathology overlying chronic issues as well Patient had recent hospitalization However verbalizes problems following up and taking care of himself Patient is a fairly complex requires more definitive disposition I spoke to [place] development coordinator who will accept the patient for further inpatient care and appropriate disposition Labs Test 10/13/17 10:30 White Blood Count 5.6 K/UL (4.8-10.8) Red Blood Count 3.36 M/UL (4.70-6.10) Hemoglobin 10.8 G/DL (14.2-18.0) Hematocrit 32.9 % (42.0-52.0) Mean Corpuscular Volume 98 FL (80-99) Mean Corpuscular Hemoglobin 32.1 PG (27.0-31.0) Mean Corpuscular Hemoglobin Concent 32.8 G/DL (32.0-36.0) Red Cell Distribution Width 12.7 % (11.6-14.8) Platelet Count 200 K/UL (150-450) Mean Platelet Volume 5.9 FL (6.5-10.1) Neutrophils (%) (Auto) 62.5 % (45.0-75.0) Lymphocytes (%) (Auto) 22.2 % (20.0-45.0) Monocytes (%) (Auto) 11.9 % (1.0-10.0) Eosinophils (%) (Auto) 2.3 % (0.0-3.0) Basophils (%) (Auto) 1.1 % (0.0-2.0) Sodium Level 136 MMOL/L (136-145) Potassium Level 4.5 MMOL/L (3.5-5.1) Chloride Level 103 MMOL/L (98-107) Carbon Dioxide Level 26 MMOL/L (21-32) Anion Gap 7 mmol/L (5-15) Blood Urea Nitrogen 21 mg/dL (7-18) Creatinine 1.1 MG/DL (0.55-1.30) Estimat Glomerular Filtration Rate mL/min (>60) Glucose Level 123 MG/DL (74-106) Calcium Level 8.8 MG/DL (8.5-10.1) Last Vital Signs Date Time Temp Pulse Resp B/P (MAP) Pulse Ox O2 Delivery O2 Flow Rate FiO2 10/13/17 06:54 72 14 150/80 98 Room Air Status: improved Disposition: XFER SHT-TRM HOSP Condition: Serious Referrals: [facility],REFERRING (PCP) Taniya Ocampo DO October 13, 2017 07:52
[2017-10-13 09:32] VITALS: BP 146/79
[2017-10-13] MEDS ORDERED: cefTRIAXone 1 GM in NS 55 ML IVPB ONE (10:00)
[2017-10-13 10:42] LABS: BASOPHILS % (AUTO) 1.1 % (0.0-2.0); EOSINOPHILS % (AUTO) 2.3 % (0.0-3.0); HEMATOCRIT 32.9 % (42.0-52.0); HEMOGLOBIN 10.8 G/DL (14.2-18.0); LYMPHOCYTES % (AUTO) 22.2 % (20.0-45.0); MEAN CORPUSCULAR VOLUME 98 FL (80-99); MONOCYTES % (AUTO) 11.9 % (1.0-10.0); NEUTROPHILS % (AUTO) 62.5 % (45.0-75.0); PLATELET COUNT 200 K/UL (150-450); RED BLOOD COUNT 3.36 M/UL (4.70-6.10); RED CELL DISTRIBUTION WIDTH 12.7 % (11.6-14.8); WHITE BLOOD COUNT 5.6 K/UL (4.8-10.8)
[2017-10-13 11:04] LABS: ANION GAP 7 mmol/L (5-15); BLOOD UREA NITROGEN 21 mg/dL (7-18); CALCIUM 8.8 MG/DL (8.5-10.1); CARBON DIOXIDE 26 MMOL/L (21-32); CHLORIDE 103 MMOL/L (98-107); CREATININE 1.1 MG/DL (0.55-1.30); POTASSIUM 4.5 MMOL/L (3.5-5.1); SODIUM 136 MMOL/L (136-145)
[2017-10-13 14:48] VITALS: BP 128/70
[2017-10-13 15:44] VITALS: BP 128/70
== END 2017-10-13 15:48 | disposition left against medical advice (07) ==
LOC: EMR 06:45
DX: L03.116 Cellulitis of left lower limb (principal); L03.115 Cellulitis of right lower limb; I89.0 Lymphedema, not elsewhere classified; I87.8 Other specified disorders of veins
CPT/HCPCS: 36415; 80048; 85025; 96374; 99285; J0696

== ENCOUNTER 2017-11-03 07:50 | Emergency (ER) | payer MEDICARE, MEDICAID ==
[~2017-11-03] VITALS: Ht 177.8 cm; Wt 95.3 kg
[2017-11-03 08:16] VITALS: BP 149/88
[2017-11-03 08:41] VITALS: BP 149/88
--- NOTE | 2017-11-03 09:02 | Emergency Room Report ---
History of Present Illness General Chief Complaint: General Complaint Source: Patient, Medical Record Present Illness HPI 87-year-old male presents ED for dressing changes on his legs. Patient is well- known to [facility] has been here multiple times for bilateral leg dressing changes. History of chronic cutaneous ulcers. Denies any pain. Denies any fevers or chills. States his legs are looking better than they have for years. No other aggravating or relieving factors. Denies any other associated symptoms Allergies: Coded Allergies: No Known Allergies (Unverified , 08/20/17) Patient History Past Surgical History: none Pertinent Family History: none Social History: Denies: smoking, alcohol use, drug use Immunizations: UTD Reviewed Nursing Documentation: PMH: Agreed; PSxH: Agreed Nursing Documentation-PMH Hx Hypertension: No Hx Pacemaker: No Hx Asthma: No Hx COPD: No Hx Diabetes: No Hx Cancer: No Hx Dialysis: No Hx Cerebrovascular Accident: No Hx Seizures: No Review of Systems All Other Systems: negative except mentioned in HPI Physical Exam Vital Signs Date Time Temp Pulse Resp B/P (MAP) Pulse Ox O2 Delivery O2 Flow Rate FiO2 11/03/17 07:54 97.5 30 17 149/88 97 Room Air 97.5 Sp02 EP Interpretation: reviewed, normal General Appearance: no apparent distress, alert, GCS 15, non-toxic Head: normocephalic, atraumatic Eyes: bilateral eye normal inspection, bilateral eye PERRL ENT: hearing grossly normal, normal pharynx, no angioedema, normal voice Neck: full range of motion, supple/symm/no masses Respiratory: chest non-tender, lungs clear, normal breath sounds, speaking full sentences Cardiovascular #1: regular rate, rhythm, no edema Cardiovascular #2: 2+ carotid (R), 2+ carotid (L), 2+ radial (R), 2+ radial (L) , 2+ dorsalis pedis (R), 2+ dorsalis pedis (L) Gastrointestinal: normal bowel sounds, non tender, soft, non-distended, no guarding, no rebound Rectal: deferred Genitourinary: normal inspection, no CVA tenderness Musculoskeletal: back normal, gait/station normal, normal range of motion, non- tender Neurologic: alert, oriented x3, responsive, motor strength/tone normal, sensory intact, speech normal Psychiatric: judgement/insight normal, memory normal, mood/affect normal, no suicidal/homicidal ideation Reflexes: 3+ bicep (R), 3+ bicep (L), 3+ tricep (R), 3+ tricep (L), 3+ knee (R) , 3+ knee (L) Skin: normal color, no rash, warm/dry, well hydrated, other - healing chronic cutaneous venous ulcers to bilateral LEs. no discharge. no induration or erythema Lymphatic: no adenopathy Medical Decision Making Diagnostic Impression: Primary Impression: Encounter for dressing change or suture removal ER Course Hospital Course 87-year-old M presents to ED for wound check. h/o chronic cutaneous ulcers to his legs Clinical course Patient placed on stretcher. There is evidence of healing chronic cutaneous venous stasis ulcers to his lower extremities. No induration or erythema. I'm known this patient for many years now. I can say that his legs do appear much improved compared to prior visits. Dressings changed. Patient safe for discharge Diagnosis - encounter for dressing change Stable and discharged to home. Followup with PMD. Return to ED if any signs of infection develop Last Vital Signs Date Time Temp Pulse Resp B/P (MAP) Pulse Ox O2 Delivery O2 Flow Rate FiO2 11/03/17 08:41 97.5 86 17 149/88 97 Room Air 97.5 Status: improved Disposition: HOME, SELF-CARE Condition: Stable Referrals: [facility],REFERRING (PCP) Patient Instructions: Dressing Change, Abne-vf-Tuck Kermit Verdugo MD November 03, 2017 09:02
== END 2017-11-03 09:04 | disposition home or self-care (01) ==
LOC: EMR 08:21
DX: L97.929 Non-pressure chronic ulcer of unspecified part of left lower leg with unspecified severity (principal); L97.919 Non-pressure chronic ulcer of unspecified part of right lower leg with unspecified severity; Z48.00 Encounter for change or removal of nonsurgical wound dressing
CPT/HCPCS: 99283

== ENCOUNTER 2017-11-18 09:06 | Emergency (ER) | payer MEDICARE, MEDICAID ==
[~2017-11-18] VITALS: Ht 185.4 cm; Wt 95.3 kg
[2017-11-18 09:24] VITALS: BP 145/48
--- NOTE | 2017-11-18 09:48 | Emergency Room Report ---
History of Present Illness General Chief Complaint: Wound Recheck/Suture Removal Source: Patient Present Illness HPI This patient is well-known to [facility]. He fails to see outpatient wound care as instructed multiple times for his chronic venous stasis dermatitis and ulcers. He presents for dressing changes. He has no new complaints. He has no other complaints. Allergies: Coded Allergies: No Known Allergies (Unverified , 08/20/17) Patient History Past Medical History: see triage record, other - BLE chronic unhealing wounds Reviewed Nursing Documentation: PMH: Agreed; PSxH: Agreed Nursing Documentation-PMH Hx Hypertension: No Hx Pacemaker: No Hx Asthma: No Hx COPD: No Hx Diabetes: No Hx Cancer: No Hx Dialysis: No Hx Cerebrovascular Accident: No Hx Seizures: No Review of Systems All Other Systems: negative except mentioned in HPI Physical Exam Vital Signs Date Time Temp Pulse Resp B/P (MAP) Pulse Ox O2 Delivery O2 Flow Rate FiO2 11/18/17 09:24 97.6 88 18 145/48 98 Room Air 97.6 Sp02 EP Interpretation: reviewed, normal General Appearance: no apparent distress, alert, GCS 15, non-toxic, other - Poor hygiene, foul odor to lower extremities. Head: normocephalic, atraumatic Eyes: bilateral eye normal inspection, bilateral eye PERRL ENT: hearing grossly normal, normal pharynx, no angioedema, normal voice Neck: full range of motion, supple/symm/no masses Respiratory: chest non-tender, lungs clear, normal breath sounds, no respiratory distress, no retraction, no accessory muscle use, speaking full sentences Cardiovascular #1: regular rate, rhythm, no edema Gastrointestinal: normal bowel sounds, non tender, soft, non-distended, no guarding, no rebound Rectal: deferred Neurologic: alert, oriented x3, responsive, motor strength/tone normal, sensory intact, speech normal Psychiatric: judgement/insight normal, memory normal, mood/affect normal, no suicidal/homicidal ideation Skin: other - 3+ pitting edema bilateral lower extremities with skin thickening and multiple chronic ulcerations of the skin. +foul odor, dirty dressings. Medical Decision Making Diagnostic Impression: Primary Impression: Lymphedema of both lower extremities Additional Impressions: Venous stasis ulcer Venous stasis dermatitis of both lower extremities Poor personal hygiene ER Course This patient is well-known to [facility]. He has venous stasis dermatitis and multiple chronic venous stasis ulcers of his bilateral lower extremities. He presents for dressing change. He was educated again on the importance of regular wound care and following up at the wound care clinic for which she has been set up. He states that he is 87 years old and will not be making any appointments and will come here to [facility] for his dressing changes. He was given return precautions and follow-up instructions. Last Vital Signs Date Time Temp Pulse Resp B/P (MAP) Pulse Ox O2 Delivery O2 Flow Rate FiO2 11/18/17 09:24 97.6 88 18 145/48 98 Room Air 97.5 Disposition: HOME, SELF-CARE Condition: Improved Celia Clifton DO Nov 18, 2017 09:48
[2017-11-18 10:07] VITALS: BP 134/59
== END 2017-11-18 10:07 | disposition home or self-care (01) ==
LOC: EMR 09:45
DX: I83.018 Varicose veins of right lower extremity with ulcer other part of lower leg (principal); I83.028 Varicose veins of left lower extremity with ulcer other part of lower leg; I89.0 Lymphedema, not elsewhere classified
CPT/HCPCS: 99282

== ENCOUNTER 2017-11-27 05:55 | Emergency (ER) | payer MEDICARE, MEDICAID ==
[~2017-11-27] VITALS: Ht 170.2 cm; Wt 68.0 kg
[2017-11-27 06:15] VITALS: BP 162/75
--- NOTE | 2017-11-27 06:55 | Emergency Room Report ---
History of Present Illness General Chief Complaint: Wound Recheck/Suture Removal Source: Patient, Medical Record Present Illness HPI Patient is an 87-year-old male who presented for wound check. Patient was noted to have prior history of chronic nonhealing wounds. Patient multiple visits emergency department for similar symptoms. Patient denies any fever. He had a recent hospitalization after the wound had become infected. Allergies: Coded Allergies: No Known Allergies (Unverified , 08/20/17) Patient History Reviewed Nursing Documentation: PMH: Agreed; PSxH: Agreed Nursing Documentation-PMH Past Medical History: No History, Except For Hx Hypertension: No Hx Pacemaker: No Hx Asthma: No Hx COPD: No Hx Diabetes: No Hx Cancer: No Hx Dialysis: No Hx Cerebrovascular Accident: No Hx Seizures: No Review of Systems All Other Systems: negative except mentioned in HPI Physical Exam Vital Signs Date Time Temp Pulse Resp B/P (MAP) Pulse Ox O2 Delivery O2 Flow Rate FiO2 11/27/17 06:13 97.8 62 16 162/75 95 Room Air 97.9 General Appearance: well appearing, no apparent distress, alert, GCS 15 Head: normocephalic, atraumatic ENT: hearing grossly normal, normal voice Neck: full range of motion, supple Respiratory: no respiratory distress, speaking full sentences Genitourinary: other - inguina hernia Musculoskeletal: no calf tenderness Neurologic: normal gait Psychiatric: mood/affect normal Skin: other - lymphedema, superficial ulceration without erythema or exudate Medical Decision Making Diagnostic Impression: Primary Impression: Visit for wound check ER Course Patient presented for wound check. Differential diagnosis included was not limited to infected wound, nonhealed wound, neuroma, healed wound. the patient wound appears to be noninfected. Patient's wound was dressed with Silvadene cream and sterile dressings were applied.The patient is advised to follow up with primary care doctor in 1-2 days. Patient is advised to return if any worsening condition or if any changes in status that are concerning. 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 Last Vital Signs Date Time Temp Pulse Resp B/P (MAP) Pulse Ox O2 Delivery O2 Flow Rate FiO2 11/27/17 06:15 97.9 66 16 162/75 95 Room Air 97.9 Status: improved Disposition: HOME, SELF-CARE Condition: Stable Patient Instructions: Wound Check Osvaldo Lutz MD Nov 27, 2017 06:55
[2017-11-27 07:15] VITALS: BP 162/75
== END 2017-11-27 07:58 | disposition home or self-care (01) ==
LOC: EMR 06:25
DX: Z48.00 Encounter for change or removal of nonsurgical wound dressing (principal); L97.929 Non-pressure chronic ulcer of unspecified part of left lower leg with unspecified severity; I89.0 Lymphedema, not elsewhere classified
CPT/HCPCS: 99283

== ENCOUNTER 2017-12-01 08:11 | Emergency (ER) | payer MEDICARE, MEDICAID ==
[~2017-12-01] VITALS: Ht 185.4 cm; Wt 95.3 kg
--- NOTE | 2017-12-01 09:05 | Emergency Room Report ---
History of Present Illness General Chief Complaint: Lower Extremity Injury Source: Patient Present Illness HPI Patient here with venous stasis ulcers here for wound check and dressing change. Last here 11/27. In the past he was [facility]. There is some drainage/seepage of serous liquid. No bleeding. No recent trauma. He was recently hospitalized for sepsis from cellulitis with the wounds. He denies any fevers or pain at this time. He is somewhat depressed at his condition. No SI or HI. In past DVT study negative. Denies posterior calf pain. No chest pain, cough, dyspnea. 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 Reviewed Nursing Documentation: PMH: Agreed; PSxH: Agreed Nursing Documentation-PMH Past Medical History: No History, Except For Hx Hypertension: No Hx Pacemaker: No Hx Asthma: No Hx COPD: No Hx Diabetes: No Hx Cancer: No Hx Dialysis: No Hx Cerebrovascular Accident: No Hx Seizures: No Review of Systems All Other Systems: negative except mentioned in HPI Physical Exam Vital Signs Date Time Temp Pulse Resp B/P (MAP) Pulse Ox O2 Delivery O2 Flow Rate FiO2 12/01/17 08:21 97.8 82 18 135/62 98 Room Air 97.9 Sp02 EP Interpretation: reviewed, normal General Appearance: no apparent distress, GCS 15, Chronically Ill Head: normocephalic, atraumatic Eyes: bilateral eye normal inspection, bilateral eye PERRL ENT: hearing grossly normal, normal voice, moist mucus membranes Neck: full range of motion, supple Respiratory: lungs clear, no respiratory distress, speaking full sentences Cardiovascular #1: regular rate, rhythm Gastrointestinal: normal inspection Musculoskeletal: no calf tenderness Neurologic: alert, normal gait, oriented - X2 Psychiatric: mood/affect normal, no suicidal/homicidal ideation, other - frustrated at condition Skin: no rash, other - venous stasis ulcers, worse on R with exchar and some drainage. Improved erythema from past. Medical Decision Making Diagnostic Impression: Primary Impression: Chronic cutaneous venous stasis ulcer Additional Impression: Renal insufficiency ER Course Wounds look slightly worsened last time I saw him, however, better than when admitted.. There is some dirt encrusted and some drainage. The wounds will be cleaned and irrigated and redressed. Also labs will be obtained with a CBC and a CMP. Patient declines pain medication. DDx: venous stasis ulcers, cellulitis , superficial chronic infection. No abscess. Doubt osteomyelitis. Dressings changed. Improved. Patient stable for outpatient observation and treatment. Last Vital Signs Date Time Temp Pulse Resp B/P (MAP) Pulse Ox O2 Delivery O2 Flow Rate FiO2 12/01/17 13:27 97.8 18 135/62 98 Room Air 97.9 12/01/17 08:21 82 Status: improved Disposition: HOME, SELF-CARE Condition: Improved Referrals: [facility],REFERRING (PCP) Basim Correa M.D. Dec 01, 2017 09:05
[2017-12-01] MEDS ORDERED: Bacitracin Oint UD TOPIC ONE ×2 (09:15→09:22)
[2017-12-01 09:50] LABS: BASOPHILS % (AUTO) 0.9 % (0.0-2.0); EOSINOPHILS % (AUTO) 2.3 % (0.0-3.0); HEMATOCRIT 31.7 % (42.0-52.0); HEMOGLOBIN 9.7 G/DL (14.2-18.0); LYMPHOCYTES % (AUTO) 28.8 % (20.0-45.0); MEAN CORPUSCULAR VOLUME 97 FL (80-99); MONOCYTES % (AUTO) 11.4 % (1.0-10.0); NEUTROPHILS % (AUTO) 56.5 % (45.0-75.0); PLATELET COUNT 229 K/UL (150-450); RED BLOOD COUNT 3.27 M/UL (4.70-6.10); RED CELL DISTRIBUTION WIDTH 13.4 % (11.6-14.8); WHITE BLOOD COUNT 5.5 K/UL (4.8-10.8)
[2017-12-01 09:52] LABS: ANION GAP 6 mmol/L (5-15); BLOOD UREA NITROGEN 25 mg/dL (7-18); CALCIUM 8.6 MG/DL (8.5-10.1); CARBON DIOXIDE 27 MMOL/L (21-32); CHLORIDE 102 MMOL/L (98-107); CREATININE 1.5 MG/DL (0.55-1.30); POTASSIUM 4.1 MMOL/L (3.5-5.1); SODIUM 134 MMOL/L (136-145)
[2017-12-01 09:57] LABS: ALANINE AMINOTRANSFERASE 15 U/L (12-78); ALBUMIN 2.9 G/DL (3.4-5.0); ALBUMIN/GLOBULIN RATIO 0.6 (1.0-2.7); ALKALINE PHOSPHATASE 90 U/L (46-116); ASPARTATE AMINO TRANSFERASE 22 U/L (15-37); BILIRUBIN,TOTAL 0.4 MG/DL (0.2-1.0)
[2017-12-01 13:27] VITALS: BP 135/62
== END 2017-12-01 10:50 | disposition home or self-care (01) ==
LOC: EMR 08:43
DX: I83.009 Varicose veins of unspecified lower extremity with ulcer of unspecified site (principal); L97.919 Non-pressure chronic ulcer of unspecified part of right lower leg with unspecified severity; L97.929 Non-pressure chronic ulcer of unspecified part of left lower leg with unspecified severity; N28.9 Disorder of kidney and ureter, unspecified
CPT/HCPCS: 36415; 80053; 85025; 99282

== ENCOUNTER 2017-12-11 06:33 | Emergency (ER) | payer MEDICARE, OTHER ==
[~2017-12-11] VITALS: Ht 172.7 cm; Wt 108.9 kg
[2017-12-11 07:00] VITALS: BP 133/63
[2017-12-11 08:30] VITALS: BP 133/63
--- NOTE | 2017-12-12 08:34 | Emergency Room Report ---
History of Present Illness General Chief Complaint: Wound Recheck/Suture Removal Source: Patient, Medical Record Present Illness HPI 87-year-old male presents ED for wound check. Patient is well-known to [facility] has been here many times for evaluation of this venous stasis ulcers. Chronic in nature. Is here for dressing change. Denies any pain. Denies any change or worsening of symptoms. Denies any fevers or chills. Denies any discharge. No other aggravating relieving factors. Denies any other associated symptoms Allergies: Coded Allergies: No Known Allergies (Unverified , 12/11/17) Patient History Past Medical History: none Past Surgical History: none Pertinent Family History: none Social History: Denies: smoking, alcohol use, drug use Immunizations: UTD Reviewed Nursing Documentation: PMH: Agreed; PSxH: Agreed Nursing Documentation-PMH Past Medical History: No History, Except For Hx Hypertension: No Hx Pacemaker: No Hx Asthma: No Hx COPD: No Hx Diabetes: No Hx Cancer: No Hx Dialysis: No Hx Cerebrovascular Accident: No Hx Seizures: No Review of Systems All Other Systems: negative except mentioned in HPI Physical Exam Vital Signs Date Time Temp Pulse Resp B/P (MAP) Pulse Ox O2 Delivery O2 Flow Rate FiO2 12/11/17 06:36 97.6 64 16 133/63 99 Room Air 97.5 Sp02 EP Interpretation: reviewed, normal General Appearance: no apparent distress, alert, GCS 15, non-toxic Head: normocephalic Eyes: bilateral eye normal inspection, bilateral eye PERRL ENT: normal ENT inspection Neck: normal inspection Respiratory: normal inspection Cardiovascular #1: normal inspection Gastrointestinal: normal inspection Rectal: deferred Genitourinary: no CVA tenderness Musculoskeletal: normal inspection Neurologic: alert, oriented x3, responsive, motor strength/tone normal, sensory intact, speech normal Psychiatric: judgement/insight normal, memory normal, mood/affect normal, no suicidal/homicidal ideation Skin: other - chronic cutaneous venous stasis ulcers on bilateral LEs Lymphatic: normal inspection Medical Decision Making Diagnostic Impression: Primary Impression: Encounter for dressing change or suture removal ER Course Hospital Course 87-year-old M presents to ED for wound check. here for dressing changes of his legs Clinical course Patient placed on stretcher. On exam there is evidence of chronic cutaneous venous stasis ulcers to bilateral lower extremities. Appears improved overall. We have seen this patient many times in the past for this similar presentation. No acute evidence of infection. Dressings changed. Patient safe for discharge Diagnosis - encounter for dressing change Stable and discharged to home. Followup with PMD. Return to ED if any signs of infection develop Last Vital Signs Date Time Temp Pulse Resp B/P (MAP) Pulse Ox O2 Delivery O2 Flow Rate FiO2 12/11/17 08:30 97.5 78 16 133/63 99 Room Air 97.5 Status: improved Disposition: HOME, SELF-CARE Condition: Stable Referrals: [facility],REFERRING Patient Instructions: Wound Check Kermit Verdugo MD Dec 12, 2017 08:34
== END 2017-12-11 08:30 | disposition home or self-care (01) ==
LOC: EMR 07:04
DX: Z48.00 Encounter for change or removal of nonsurgical wound dressing (principal); I83.009 Varicose veins of unspecified lower extremity with ulcer of unspecified site; L97.919 Non-pressure chronic ulcer of unspecified part of right lower leg with unspecified severity; L97.929 Non-pressure chronic ulcer of unspecified part of left lower leg with unspecified severity
CPT/HCPCS: 99282

== ENCOUNTER 2017-12-19 00:32 | Emergency (ER) | payer MEDICARE, OTHER ==
[~2017-12-19] VITALS: Ht 185.4 cm; Wt 95.3 kg
[2017-12-19 01:27] VITALS: BP 126/71
--- NOTE | 2017-12-19 02:39 | Emergency Room Report ---
History of Present Illness General Chief Complaint: General Complaint Source: Patient, Medical Record Present Illness HPI Is an 87-year-old male well-known to me. He has a history of lymphedema and high blood pressure. He has alteration to his legs with frequent infection. He usually goes to different hospital for dressing change. He came in here with chief complaint of dressing change. No injury. No fever chills but no nausea no vomiting. He refuse to go to a detention. He said he is not homeless but I see him on the street all the time. Allergies: Coded Allergies: No Known Allergies (Unverified , 12/11/17) Patient History Past Medical History: see triage record, old chart reviewed Past Surgical History: other Pertinent Family History: none Social History: Denies: smoking Immunizations: other Reviewed Nursing Documentation: PMH: Agreed; PSxH: Agreed Nursing Documentation-PMH Hx Hypertension: No Hx Pacemaker: No Hx Asthma: No Hx COPD: No Hx Diabetes: No Hx Cancer: No Hx Dialysis: No Hx Cerebrovascular Accident: No Hx Seizures: No Review of Systems Eye: Denies: eye pain, blurred vision ENT: Denies: ear pain, nose congestion, throat swelling Respiratory: Denies: cough, shortness of breath Cardiovascular: Denies: chest pain, palpitations Gastrointestinal: Denies: abdominal pain, diarrhea, nausea, vomiting Musculoskeletal: Denies: back pain, joint pain Skin: Denies: rash Neurological: Denies: headache, numbness Endocrine: Denies: increased thirst, increased urine Hematologic/Lymphatic: Denies: easy bruising All Other Systems: negative except mentioned in HPI Physical Exam Vital Signs Date Time Temp Pulse Resp B/P (MAP) Pulse Ox O2 Delivery O2 Flow Rate FiO2 12/19/17 01:10 98.8 65 18 126/71 97 Room Air 98.8 vitals unremarkable Sp02 EP Interpretation: reviewed, normal General Appearance: well appearing, no apparent distress, alert Head: normocephalic, atraumatic Eyes: bilateral eye PERRL, bilateral eye EOMI ENT: hearing grossly normal, normal pharynx Neck: full range of motion, supple, no meningismus Respiratory: chest non-tender, lungs clear, normal breath sounds Cardiovascular #1: regular rate, rhythm, no murmur Gastrointestinal: normal bowel sounds, non tender, no mass, no organomegaly, no bruit, non-distended Musculoskeletal: back normal, normal range of motion, other - Left lower extremity: There small ulceration to the lateral aspect of his lower leg. This actually looks better than before. No drainage. Neurologic: alert Psychiatric: mood/affect normal Skin: warm/dry Medical Decision Making Diagnostic Impression: Primary Impression: Lymphedema of both lower extremities ER Course Patient is here for dressing change him his chronic lymphedema with ulceration. Ideally, he should be in a detention. He claimed is not homeless. I did a new dressing change on patient. We'll discharge home. Last Vital Signs Date Time Temp Pulse Resp B/P (MAP) Pulse Ox O2 Delivery O2 Flow Rate FiO2 12/19/17 01:27 98.8 65 18 126/71 97 Room Air 98.8 Status: improved Disposition: HOME, SELF-CARE Condition: Stable Referrals: NOT CHOSEN [facility]/,REFERRING (PCP) Additional Instructions: Follow-up with your doctor in 7 days for recheck. Keep wound clean. Return if worse. RAFAEL PANCHAL M.D. Dec 19, 2017 02:39
[2017-12-19 06:31] VITALS: BP 129/74
== END 2017-12-19 06:25 | disposition home or self-care (01) ==
LOC: EMR 01:10
DX: I89.0 Lymphedema, not elsewhere classified (principal)
CPT/HCPCS: 99282

== ENCOUNTER 2017-12-30 06:39 | Emergency (ER) | payer MEDICARE, OTHER ==
[~2017-12-30] VITALS: Ht 185.4 cm; Wt 99.8 kg
--- NOTE | 2017-12-30 08:21 | Emergency Room Report ---
History of Present Illness General Chief Complaint: Lower Extremity Injury Source: Patient Present Illness HPI 87-year-old male with history of hypertension and chronic lymphedema as well as poorly healing right lower extremity wound Presents with evaluation requesting dressing change and coffee He reports sometimes wound edges, but this one has been there for many years, denies fevers, he denies pain, denies any changes in the room, and also denies being homeless, he actually tells me a story of being offended when someone asked him whether he was homeless or not. He reports that he comes here to get his wound checked and dressing changed. Allergies: Coded Allergies: No Known Allergies (Unverified , 12/11/17) Patient History Past Medical History: see triage record Reviewed Nursing Documentation: PMH: Agreed; PSxH: Agreed Nursing Documentation-PMH Past Medical History: No History, Except For Hx Hypertension: No Hx Pacemaker: No Hx Asthma: No Hx COPD: No Hx Diabetes: No Hx Cancer: No Hx Dialysis: No Hx Cerebrovascular Accident: No Hx Seizures: No Review of Systems All Other Systems: negative except mentioned in HPI Physical Exam Vital Signs Date Time Temp Pulse Resp B/P (MAP) Pulse Ox O2 Delivery O2 Flow Rate FiO2 12/30/17 07:07 97.8 57 20 183/88 97 Room Air 97.9 Sp02 EP Interpretation: reviewed, normal General Appearance: no apparent distress, alert, non-toxic Head: normocephalic Eyes: bilateral eye normal inspection, bilateral eye PERRL, bilateral eye EOMI ENT: normal ENT inspection, hearing grossly normal, normal pharynx, no angioedema, normal voice, moist mucus membranes Neck: normal inspection, full range of motion, supple, supple/symm/no masses Respiratory: lungs clear, normal breath sounds, chest symmetrical, palpation of chest normal Cardiovascular #1: normal peripheral pulses, regular rate, rhythm, systolic murmur, edema - 1+ B/L LE edema Cardiovascular #2: 2+ radial (R), 2+ radial (L) Gastrointestinal: normal inspection, non tender, soft, no mass, no guarding, no rebound Rectal: deferred Genitourinary: normal inspection, no CVA tenderness Musculoskeletal: back normal, gait/station normal, normal range of motion, non- tender, no calf tenderness Neurologic: alert, responsive, 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, motor strength/tone normal, sensory intact, speech normal Psychiatric: memory normal, mood/affect normal Skin: normal color, warm/dry, normal turgor, wd healing/no infection noted - RLE lateral aspect, poorly healing chronic wound, no foul odor, no surrounding erythema, no warmth, no purulent discharge Lymphatic: no adenopathy Medical Decision Making Diagnostic Impression: Primary Impression: Encounter for dressing change or suture removal Additional Impression: Chronic cutaneous venous stasis ulcer ER Course Patient 87, as well as hypertensive and has a chronic wound, he is not having headache, chest pain or having any neurologic deficits that make me concerned that there is anything new about his hypertension, he does report he lives at home alone, and I recommend he take his blood pressure meds, he does not really address this when I try to talk to him about it, but he reports that he will come back to have his wound addressed if he feels like there is any new problems with it which actually encouraged to do, at this time does not appear to be infected, he'll be discharged. He was given a cup of coffee as well as had his wound was rewrapped. Last Vital Signs Date Time Temp Pulse Resp B/P (MAP) Pulse Ox O2 Delivery O2 Flow Rate FiO2 12/30/17 07:07 97.8 57 20 183/88 97 Room Air 97.9 Disposition: HOME, SELF-CARE Condition: Stable Referrals: NOT CHOSEN [facility]/,REFERRING (PCP) Patient Instructions: Sterile Tape Wound Care RASHI GORMAN M.D Dec 30, 2017 08:21
[2017-12-30 08:26] VITALS: BP 180/85
== END 2017-12-30 08:28 | disposition home or self-care (01) ==
LOC: EMR 08:00
DX: I83.019 Varicose veins of right lower extremity with ulcer of unspecified site (principal); L97.919 Non-pressure chronic ulcer of unspecified part of right lower leg with unspecified severity; Z48.00 Encounter for change or removal of nonsurgical wound dressing
CPT/HCPCS: 99282

== ENCOUNTER 2018-01-09 01:05 | Emergency (ER) | payer MEDICARE, OTHER ==
[~2018-01-09] VITALS: Ht 185.4 cm; Wt 95.3 kg
[2018-01-09 01:36] VITALS: BP 123/66
--- NOTE | 2018-01-09 02:29 | Emergency Room Report ---
History of Present Illness General Chief Complaint: General Complaint Source: Patient, Medical Record Present Illness HPI Is an 87-year-old male with a history of chronic lymphedema and ulceration from venous stasis. He presents with dressing change. This is a chronic issue for him. He usually goes here or [facility] for this. He's been admitted for infection before. Usually sent [facility] the [facility] and left AMA. Denies any other trauma. No fever chills but no nausea no vomiting. No other complaint. Allergies: Coded Allergies: No Known Allergies (Unverified , 12/11/17) Patient History Past Medical History: see triage record, old chart reviewed Past Surgical History: other Pertinent Family History: none Social History: Denies: smoking Immunizations: other Reviewed Nursing Documentation: PMH: Agreed; PSxH: Agreed Nursing Documentation-PMH Hx Hypertension: No Hx Pacemaker: No Hx Asthma: No Hx COPD: No Hx Diabetes: No Hx Cancer: No Hx Dialysis: No Hx Cerebrovascular Accident: No Hx Seizures: No Review of Systems Eye: Denies: eye pain, blurred vision ENT: Denies: ear pain, nose congestion, throat swelling Respiratory: Denies: cough, shortness of breath Cardiovascular: Denies: chest pain, palpitations Gastrointestinal: Denies: abdominal pain, diarrhea, nausea, vomiting Musculoskeletal: Denies: back pain, joint pain Skin: Denies: rash Neurological: Denies: headache, numbness Endocrine: Denies: increased thirst, increased urine Hematologic/Lymphatic: Denies: easy bruising All Other Systems: negative except mentioned in HPI Physical Exam Vital Signs Date Time Temp Pulse Resp B/P (MAP) Pulse Ox O2 Delivery O2 Flow Rate FiO2 01/09/18 01:34 99.1 78 18 123/66 98 Room Air 99.1 vitals normal Sp02 EP Interpretation: reviewed, normal General Appearance: well appearing, no apparent distress, alert Head: normocephalic, atraumatic Eyes: bilateral eye PERRL, bilateral eye EOMI ENT: hearing grossly normal, normal pharynx Neck: full range of motion, supple, no meningismus Respiratory: chest non-tender, lungs clear, normal breath sounds Cardiovascular #1: regular rate, rhythm, no murmur Gastrointestinal: normal bowel sounds, non tender, no mass, no organomegaly, no bruit, non-distended Musculoskeletal: back normal, normal range of motion, other - Chronic lymphedema lower extremity. There is ulceration mostly on the right leg. This actually is healing and looks much better than last time I saw him. Neurologic: alert, oriented x3 Psychiatric: mood/affect normal Skin: warm/dry Medical Decision Making Diagnostic Impression: Primary Impression: Lymphedema of both lower extremities Additional Impression: Venous stasis ulcer Qualified Codes: I87.2 - Venous insufficiency (chronic) (peripheral); L97.801 - Non-pressure chronic ulcer of other part of unspecified lower leg limited to breakdown of skin ER Course Patient presents with dressing change. Wound is looking better than before. We will discharge in the morning. Last Vital Signs Date Time Temp Pulse Resp B/P (MAP) Pulse Ox O2 Delivery O2 Flow Rate FiO2 01/09/18 01:36 99.1 78 18 123/66 98 Room Air 99.1 Status: improved Disposition: HOME, SELF-CARE Condition: Stable Additional Instructions: Follow-up with your doctor in 7 days. Return if worse. RAFAEL PANCHAL M.D. Jan 09, 2018 02:29
[2018-01-09 04:05] VITALS: BP_SYST 118; BP_SYST 123; BP_DIAS 64; BP_DIAS 66
== END 2018-01-09 04:06 | disposition home or self-care (01) ==
LOC: EMR 03:00
DX: I89.0 Lymphedema, not elsewhere classified (principal); I83.018 Varicose veins of right lower extremity with ulcer other part of lower leg; L97.819 Non-pressure chronic ulcer of other part of right lower leg with unspecified severity
CPT/HCPCS: 99282

== ENCOUNTER 2018-01-20 00:18 | Emergency (ER) | payer MEDICARE ==
[~2018-01-20] VITALS: Ht 185.4 cm; Wt 95.3 kg
--- NOTE | 2018-01-20 02:20 | Emergency Room Report ---
History of Present Illness General Chief Complaint: Wound Recheck/Suture Removal Source: Patient Present Illness HPI 87yo M with multiple ED visits for wound check presents for the same. Denies fevers, chills, increasing drainage, increasing pain, or any new complaints. Allergies: Coded Allergies: No Known Allergies (Unverified , 12/11/17) Patient History Past Medical History: see triage record Reviewed Nursing Documentation: PMH: Agreed; PSxH: Agreed Nursing Documentation-PMH Hx Hypertension: No Hx Pacemaker: No Hx Asthma: No Hx COPD: No Hx Diabetes: No Hx Cancer: No Hx Dialysis: No Hx Cerebrovascular Accident: No Hx Seizures: No Review of Systems All Other Systems: negative except mentioned in HPI Physical Exam Vital Signs Date Time Temp Pulse Resp B/P (MAP) Pulse Ox O2 Delivery O2 Flow Rate FiO2 01/20/18 00:34 98.0 65 15 151/75 95 Room Air 98.1 Sp02 EP Interpretation: reviewed, normal General Appearance: no apparent distress, alert, non-toxic Head: normocephalic Eyes: bilateral eye normal inspection, bilateral eye PERRL, bilateral eye EOMI ENT: normal ENT inspection, hearing grossly normal, normal pharynx, no angioedema, normal voice, moist mucus membranes Neck: normal inspection, full range of motion, supple, supple/symm/no masses Respiratory: chest non-tender, lungs clear, normal breath sounds, chest symmetrical, palpation of chest normal Cardiovascular #1: normal peripheral pulses, regular rate, rhythm, systolic murmur Cardiovascular #2: 2+ radial (R), 2+ radial (L) Gastrointestinal: normal inspection, non tender, soft, no mass, no guarding, no rebound Rectal: deferred Genitourinary: normal inspection, no CVA tenderness Musculoskeletal: back normal, gait/station normal, normal range of motion, non- tender, no calf tenderness Neurologic: alert, responsive, 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-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 nml as tested, motor strength/tone normal, sensory intact, speech normal Psychiatric: judgement/insight normal, memory normal, mood/affect normal, no suicidal/homicidal ideation Skin: normal color, warm/dry, normal turgor, other - normal color, warm/dry, normal turgor, wd healing/no infection noted - RLE medial aspect, poorly healing chronic wound, no foul odor, no surrounding erythema, no warmth, no purulent discharge Lymphatic: no adenopathy Medical Decision Making Diagnostic Impression: Primary Impression: Encounter for wound re-check ER Course Patient with chronic wound, does not smell foul, does not have surrounding erythema, warmth or tenderness. Will re-wrap and dc. Last Vital Signs Date Time Temp Pulse Resp B/P (MAP) Pulse Ox O2 Delivery O2 Flow Rate FiO2 01/20/18 00:34 98.0 65 15 151/75 95 Room Air 98.1 Disposition: HOME, SELF-CARE Condition: Stable Referrals: NOT CHOSEN [facility]/,REFERRING (PCP) RASHI GROMAN M.D Jan 20, 2018 02:20
[2018-01-20 02:22] VITALS: BP 151/75
[2018-01-20 05:09] VITALS: BP 151/75
== END 2018-01-20 05:09 | disposition home or self-care (01) ==
LOC: EMR 00:51
DX: Z48.00 Encounter for change or removal of nonsurgical wound dressing (principal)
CPT/HCPCS: 99282

== ENCOUNTER 2018-02-01 07:33 | Emergency (ER) | payer MEDICARE ==
[~2018-02-01] VITALS: Ht 177.8 cm; Wt 81.6 kg
[2018-02-01 07:48] VITALS: BP 148/76
--- NOTE | 2018-02-01 08:42 | Emergency Room Report ---
History of Present Illness General Chief Complaint: General Complaint Source: Patient, Medical Record Present Illness HPI This patient is well-known to [facility]. He has a history of chronic venous stasis dermatitis and chronic venous stasis ulcers. He comes to [facility] emergency department regularly for dressing changes. No other complaints. Allergies: Coded Allergies: No Known Allergies (Unverified , 12/11/17) Patient History Past Medical History: see triage record Social History: Denies: smoking, alcohol use, drug use Reviewed Nursing Documentation: PMH: Agreed; PSxH: Agreed Nursing Documentation-PMH Past Medical History: No History, Except For Hx Hypertension: No Hx Pacemaker: No Hx Asthma: No Hx COPD: No Hx Diabetes: No Hx Cancer: No Hx Dialysis: No Hx Cerebrovascular Accident: No Hx Seizures: No Review of Systems All Other Systems: negative except mentioned in HPI Physical Exam Vital Signs Date Time Temp Pulse Resp B/P (MAP) Pulse Ox O2 Delivery O2 Flow Rate FiO2 02/01/18 07:48 97.6 61 18 148/76 97 Room Air 97.6 Sp02 EP Interpretation: reviewed, normal General Appearance: no apparent distress, alert, GCS 15, non-toxic Head: normocephalic, atraumatic Eyes: bilateral eye normal inspection, bilateral eye PERRL ENT: hearing grossly normal, normal pharynx, no angioedema, normal voice Respiratory: no respiratory distress, no retraction, no accessory muscle use, speaking full sentences Rectal: deferred Musculoskeletal: back normal, gait/station normal, normal range of motion, swelling, other - See below in skin Neurologic: alert, oriented x3, responsive, motor strength/tone normal, sensory intact, speech normal Psychiatric: judgement/insight normal, memory normal, mood/affect normal, no suicidal/homicidal ideation Skin: well hydrated, other - Bilateral LE edema w/ chronic mutiple venous stasis ulcers. Minimal erythema. Thick skin. Medical Decision Making Diagnostic Impression: Primary Impression: Encounter for dressing change or suture removal Additional Impression: Chronic cutaneous venous stasis ulcer ER Course This patient presents for dressing change. The patient is well-known to [facility]. He has been seen by social work and been set up by the manager social work to include our staff to go across the street to the wound care clinic for regular wound care. He refuses to do so. He states that he does not want to be on a schedule. There is no evidence of cellulitis at this time. The wounds were redressed. He was educated on the importance of regular wound care. He is given return precautions and follow-up instructions. Last Vital Signs Date Time Temp Pulse Resp B/P (MAP) Pulse Ox O2 Delivery O2 Flow Rate FiO2 02/01/18 07:48 97.6 61 18 148/76 97 Room Air 97.5 Status: improved Disposition: HOME, SELF-CARE Condition: Improved Referrals: NOT CHOSEN JORGE LUIS/,REFERRING (PCP) Celia Clifton DO Feb 01, 2018 08:42
[2018-02-01 09:05] VITALS: BP 137/78
== END 2018-02-01 09:06 | disposition home or self-care (01) ==
LOC: EMR 08:05
DX: Z48.00 Encounter for change or removal of nonsurgical wound dressing (principal); I87.2 Venous insufficiency (chronic) (peripheral)
CPT/HCPCS: 99282

== ENCOUNTER 2018-02-12 06:02 | Emergency (ER) | payer MEDICARE ==
[~2018-02-12] VITALS: Ht 188 cm; Wt 95.3 kg
--- NOTE | 2018-02-12 06:18 | Emergency Room Report ---
History of Present Illness General Chief Complaint: To Be Triaged Source: Patient, Medical Record Present Illness HPI Is an 87-year-old male who is well-known to me. He has chronic lymphedema and come in frequently for dressing change. He said he hasn't change of for a week. He's been using paper towel on it. Denies any fever chills. No nausea no vomiting. No fever chills. No discharge. Denies any other complaint. Allergies: Coded Allergies: No Known Allergies (Unverified , 12/11/17) Patient History Past Medical History: see triage record, old chart reviewed Past Surgical History: other Pertinent Family History: none Social History: Denies: smoking Immunizations: other Reviewed Nursing Documentation: PMH: Agreed; PSxH: Agreed Nursing Documentation-PMH Hx Hypertension: No Hx Pacemaker: No Hx Asthma: No Hx COPD: No Hx Diabetes: No Hx Cancer: No Hx Dialysis: No Hx Cerebrovascular Accident: No Hx Seizures: No Review of Systems Eye: Denies: eye pain, blurred vision ENT: Denies: ear pain, nose congestion, throat swelling Respiratory: Denies: cough, shortness of breath Cardiovascular: Denies: chest pain, palpitations Gastrointestinal: Denies: abdominal pain, diarrhea, nausea, vomiting Musculoskeletal: Denies: back pain, joint pain Skin: Denies: rash Neurological: Denies: headache, numbness Endocrine: Denies: increased thirst, increased urine Hematologic/Lymphatic: Denies: easy bruising All Other Systems: negative except mentioned in HPI Physical Exam Sp02 EP Interpretation: reviewed, normal General Appearance: well appearing, no apparent distress, alert Head: normocephalic, atraumatic Eyes: bilateral eye PERRL, bilateral eye EOMI ENT: hearing grossly normal, normal pharynx Neck: full range of motion, supple, no meningismus Respiratory: chest non-tender, lungs clear, normal breath sounds Cardiovascular #1: regular rate, rhythm, no murmur Gastrointestinal: normal bowel sounds, non tender, no mass, no organomegaly, no bruit, non-distended Musculoskeletal: back normal, normal range of motion, other - Patient has chronic lymphedema. Left lower leg with small ulcer laterally. No drainage. No infection. Looking well compared to previously. Neurologic: alert Psychiatric: mood/affect normal Skin: warm/dry Medical Decision Making Diagnostic Impression: Primary Impression: Chronic cutaneous venous stasis ulcer Additional Impressions: Lymphedema of both lower extremities Encounter for dressing change or suture removal ER Course John is here for dressing change. This is a chronic issue. He has chronic lymphedema with venous stasis ulcer. No obvious infection. We'll discharge home. He does not want to stay for more than just dressing change. I tried to admit him before for placement. He usually does not want to stay and signed out AMA. Status: improved Disposition: HOME, SELF-CARE Condition: Stable Additional Instructions: Follow-up with your doctor in 7 days. Return if symptom worsen. Keep wound clean. Do not use paper towel for a wound cover. RAFAEL PANCHAL M.D. Feb 12, 2018 06:18
[2018-02-12 06:26] VITALS: BP 161/81
[2018-02-12 06:48] VITALS: BP 161/81
== END 2018-02-12 07:00 | disposition home or self-care (01) ==
LOC: EMR 06:19
DX: Z48.00 Encounter for change or removal of nonsurgical wound dressing (principal); I89.0 Lymphedema, not elsewhere classified; I83.018 Varicose veins of right lower extremity with ulcer other part of lower leg; I83.028 Varicose veins of left lower extremity with ulcer other part of lower leg; L97.819 Non-pressure chronic ulcer of other part of right lower leg with unspecified severity; L97.829 Non-pressure chronic ulcer of other part of left lower leg with unspecified severity
CPT/HCPCS: 99282

== ENCOUNTER 2018-02-18 00:07 | Emergency (ER) | payer MEDICARE ==
[~2018-02-18] VITALS: Ht 188 cm; Wt 95.3 kg
[2018-02-18 02:00] VITALS: BP 93/60
[2018-02-18] MEDS ORDERED: [UNRECOGNIZED DRUG - OTHER] (02:33)
[2018-02-18 03:40] VITALS: BP 93/60
--- NOTE | 2018-02-18 05:00 | Emergency Room Report ---
History of Present Illness General Chief Complaint: Wound Recheck/Suture Removal Present Illness Allergies: Coded Allergies: No Known Allergies (Unverified , 12/11/17) Nursing Documentation-PMH Hx Hypertension: No Hx Pacemaker: No Hx Asthma: No Hx COPD: No Hx Diabetes: No Hx Cancer: No Hx Dialysis: No Hx Cerebrovascular Accident: No Hx Seizures: No Physical Exam Vital Signs Date Time Temp Pulse Resp B/P (MAP) Pulse Ox O2 Delivery O2 Flow Rate FiO2 02/18/18 01:49 98.2 68 16 93/60 100 Room Air 98.2 Medical Decision Making Diagnostic Impression: Primary Impression: Visit for wound check Additional Impressions: Lymph edema Left inguinal hernia Last Vital Signs Date Time Temp Pulse Resp B/P (MAP) Pulse Ox O2 Delivery O2 Flow Rate FiO2 02/18/18 03:40 98.2 77 16 93/60 100 Room Air 98.2 Status: improved Disposition: HOME, SELF-CARE Condition: Stable Scripts [Truss] No Conflict Check for hernia, #1 Prov: Osvaldo Lutz MD 02/18/18 Patient Instructions: Wound Check Osvaldo Lutz MD Feb 18, 2018 05:00
== END 2018-02-18 03:40 | disposition home or self-care (01) ==
LOC: EMR 01:48
DX: Z48.00 Encounter for change or removal of nonsurgical wound dressing (principal); I89.0 Lymphedema, not elsewhere classified; K40.90 Unilateral inguinal hernia, without obstruction or gangrene, not specified as recurrent
CPT/HCPCS: 99281

== ENCOUNTER 2018-02-28 23:01 | Emergency (ER) | payer MEDICARE ==
[~2018-02-28] VITALS: Ht 185.4 cm; Wt 95.3 kg
[~2018-02-28 23:01] MED LIST changes: +[UNRECOGNIZED DRUG - OTHER]
[2018-03-01 00:05] VITALS: BP 145/62
--- NOTE | 2018-03-01 00:51 | Emergency Room Report ---
History of Present Illness General Chief Complaint: Lower Extremity Injury Source: Patient Present Illness HPI 87-year-old male presents ED for evaluation. Patient is here for dressing changes on his legs. Has history of venous stasis ulcers on both legs. Patient is well-known to [facility] has been here multiple times for similar presentation. Patient denies any fevers or chills. States his legs are overall doing well and are healing. Patient is complaining of some left big toe pain. States that he removed his left big toe recently because of a "ingrown toenail". States that it is still causing pain. Pain is dull, 7 out of 10, nonradiating. No other aggravating relieving factors. Denies any other associated symptoms Allergies: Coded Allergies: No Known Allergies (Unverified , 12/11/17) Patient History Past Medical History: none Past Surgical History: none Pertinent Family History: none Social History: Denies: smoking, alcohol use, drug use Immunizations: UTD Reviewed Nursing Documentation: PMH: Agreed; PSxH: Agreed Nursing Documentation-PMH Hx Hypertension: No Hx Pacemaker: No Hx Asthma: No Hx COPD: No Hx Diabetes: No Hx Cancer: No Hx Dialysis: No Hx Cerebrovascular Accident: No Hx Seizures: No Review of Systems All Other Systems: negative except mentioned in HPI Physical Exam Vital Signs Date Time Temp Pulse Resp B/P (MAP) Pulse Ox O2 Delivery O2 Flow Rate FiO2 02/28/18 23:10 98.3 58 18 145/62 97 Room Air 98.2 Sp02 EP Interpretation: reviewed, normal General Appearance: no apparent distress, alert, GCS 15, non-toxic Head: normocephalic, atraumatic Eyes: bilateral eye normal inspection, bilateral eye PERRL ENT: hearing grossly normal, normal pharynx, no angioedema, normal voice Neck: full range of motion, supple/symm/no masses Respiratory: chest non-tender, lungs clear, normal breath sounds, speaking full sentences Cardiovascular #1: regular rate, rhythm, no edema Cardiovascular #2: 2+ carotid (R), 2+ carotid (L), 2+ radial (R), 2+ radial (L) , 2+ dorsalis pedis (R), 2+ dorsalis pedis (L) Gastrointestinal: normal bowel sounds, non tender, soft, non-distended, no guarding, no rebound Rectal: deferred Genitourinary: normal inspection, no CVA tenderness Musculoskeletal: other - L big toe without toenail. indentation on L big toe from 2nd toe overlapping Neurologic: alert, oriented x3, responsive, motor strength/tone normal, sensory intact, speech normal Psychiatric: judgement/insight normal, memory normal, mood/affect normal, no suicidal/homicidal ideation Reflexes: 3+ bicep (R), 3+ bicep (L), 3+ tricep (R), 3+ tricep (L), 3+ knee (R) , 3+ knee (L) Skin: other - chronic venous stasis ulcers to bilateral lower extremities. Lymphatic: no adenopathy Medical Decision Making Diagnostic Impression: Primary Impression: Chronic cutaneous venous stasis ulcer Additional Impression: Dressing change ER Course Hospital Course 87 yo M presents to ED for wound check, dressing changes to lower extremities Clinical course Patient placed on stretcher. After initial history physical exam reveals elderly male in no acute distress. There are chronic venous stasis ulcers on bilateral lower extremities. Unchanged from previous visits. No erythema or induration or discharge. The toenail on the left big toe is subsequently removed. The left second toe is overlapping causing a significant indentation on the left big toe. This is causing discomfort for the patient I discussed the findings with the patient. Dressings changed, including some padding between the toes for comfort. We will provide podiatry referral to the patient Diagnosis - chronic cutanous venous stasis ulcer, dressing change Stable and discharged to home. Followup with podiatry. Return to ED if any signs of infection develop Last Vital Signs Date Time Temp Pulse Resp B/P (MAP) Pulse Ox O2 Delivery O2 Flow Rate FiO2 03/01/18 00:05 98.3 18 145/62 97 Room Air 98.2 02/28/18 23:10 58 Status: improved Disposition: HOME, SELF-CARE Condition: Stable Referrals: WALTER WHITE M.D. Patient Instructions: Venous Stasis or Chronic Venous Insufficiency Kermit Verdugo MD Mar 01, 2018 00:51
== END 2018-03-01 00:25 | disposition home or self-care (01) ==
LOC: EMR 23:19
DX: I83.009 Varicose veins of unspecified lower extremity with ulcer of unspecified site (principal); L97.919 Non-pressure chronic ulcer of unspecified part of right lower leg with unspecified severity; L97.929 Non-pressure chronic ulcer of unspecified part of left lower leg with unspecified severity; Z48.00 Encounter for change or removal of nonsurgical wound dressing; I87.8 Other specified disorders of veins
CPT/HCPCS: 99282

== ENCOUNTER 2018-03-07 23:57 | Emergency (ER) | payer MEDICARE ==
[~2018-03-07] VITALS: Ht 172.7 cm; Wt 59.0 kg
[2018-03-08 00:46] VITALS: BP 130/80
[2018-03-08 01:58] VITALS: BP 130/80
--- NOTE | 2018-03-08 06:29 | Emergency Room Report ---
History of Present Illness General Chief Complaint: General Complaint Source: Patient Present Illness HPI Patient presents for request of dressing changes and his lower extremities Patient has had multiple visits to the emergency room Denies any fevers Denies any pain Denies any recent fall or trauma Allergies: Coded Allergies: No Known Allergies (Unverified , 12/11/17) Patient History Past Medical History: see triage record Pertinent Family History: none Reviewed Nursing Documentation: PMH: Agreed; PSxH: Agreed Nursing Documentation-PMH Hx Hypertension: No Hx Pacemaker: No Hx Asthma: No Hx COPD: No Hx Diabetes: No Hx Cancer: No Hx Dialysis: No Hx Cerebrovascular Accident: No Hx Seizures: No Review of Systems All Other Systems: negative except mentioned in HPI Physical Exam Vital Signs Date Time Temp Pulse Resp B/P (MAP) Pulse Ox O2 Delivery O2 Flow Rate FiO2 03/08/18 00:40 98.0 78 18 130/80 98 98.1 03/08/18 01:58 Room Air Sp02 EP Interpretation: reviewed, normal General Appearance: well appearing, no apparent distress Head: normocephalic, atraumatic Eyes: bilateral eye PERRL, bilateral eye EOMI ENT: hearing grossly normal, normal pharynx Neck: full range of motion Respiratory: lungs clear Cardiovascular #1: regular rate, rhythm Gastrointestinal: normal bowel sounds, non tender Musculoskeletal: swelling - Both lower legs Neurologic: alert, oriented x3, responsive Skin: other - Patient has several venous stasis ulcers, also mild erythema and swelling to both legs Lymphatic: other - Edema to both legs Medical Decision Making Diagnostic Impression: Primary Impression: wound dressing change ER Course I have had multiple discussions with the patient myself Other providers of also had discussions with the patient Patient has been admitted previously has had multiple social service evaluations patient essentially refuses any further assistance However continues to return to the emergency room for wound care Patient had dressings changed at this time requires improved outpatient follow- up Last Vital Signs Date Time Temp Pulse Resp B/P (MAP) Pulse Ox O2 Delivery O2 Flow Rate FiO2 03/08/18 01:58 97.5 76 16 130/80 98 Room Air Status: improved Disposition: HOME, SELF-CARE Condition: Improved Referrals: NOT CHOSEN [facility]/MD,REFERRING (PCP) Patient Instructions: Dressing Change Additional Instructions: Patient is provided with the discharge instructions notified to follow up with primary doctor in the next 2-3 days otherwise return to the er with any worsening symptoms. Please note that this report is being documented using DRAGON technology. This can lead to erroneous entry secondary to incorrect interpretation by the dictating instrument. Taniya Ocampo DO Mar 08, 2018 06:29
== END 2018-03-08 07:30 | disposition home or self-care (01) ==
LOC: EMR 03-08 00:52
DX: Z48.00 Encounter for change or removal of nonsurgical wound dressing (principal)
CPT/HCPCS: 99282

== ENCOUNTER 2018-03-20 14:38 | Inpatient (IN) | payer MEDICARE ==
[~2018-03-20] VITALS: Ht 185.4 cm; Wt 95.3 kg
[2018-03-20 14:40] VITALS: BP 186/86
--- NOTE | 2018-03-20 15:12 | Emergency Room Report ---
History of Present Illness General Chief Complaint: General Complaint Source: Patient Present Illness HPI Patient presents with complaints of general weakness Denies any chest pain denies any short of breath Patient reports that he was in the rain all night Denies any vomiting however not able to eat Denies any diarrhea Denies any fevers or chills Denies any cough Patient has chronic lower extremity wounds increased discharge Denies any other rash Allergies: Coded Allergies: No Known Allergies (Unverified , 12/11/17) Patient History Past Medical History: see triage record Pertinent Family History: none Reviewed Nursing Documentation: PMH: Agreed; PSxH: Agreed Nursing Documentation-PMH Hx Hypertension: No Hx Pacemaker: No Hx Asthma: No Hx COPD: No Hx Diabetes: No Hx Cancer: No Hx Dialysis: No Hx Cerebrovascular Accident: No Hx Seizures: No Review of Systems All Other Systems: negative except mentioned in HPI Physical Exam Vital Signs Date Time Temp Pulse Resp B/P (MAP) Pulse Ox O2 Delivery O2 Flow Rate FiO2 03/20/18 14:31 97.3 57 18 186/78 97 97.3 03/20/18 14:40 Room Air Sp02 EP Interpretation: reviewed, normal General Appearance: mild distress - Weak Head: normocephalic, atraumatic Eyes: bilateral eye PERRL, bilateral eye EOMI ENT: hearing grossly normal, normal pharynx, TMs + canals normal, uvula midline Neck: full range of motion, supple, no meningismus, no bony tend Respiratory: lungs clear, normal breath sounds, no rhonchi, no respiratory distress, no retraction, no accessory muscle use Cardiovascular #1: normal peripheral pulses, regular rate, rhythm, no edema, no gallop, no JVD, no murmur Gastrointestinal: normal bowel sounds, non tender, soft, no mass, no organomegaly, non-distended, no guarding, no hernia, no pulsatile mass, no rebound Genitourinary: no CVA tenderness Musculoskeletal: other - Bilateral lower extremity erythema chronic wounds Neurologic: oriented x3, responsive, section 8 property manager III-XII nml as tested, motor strength/ tone normal, sensory intact Psychiatric: mood/affect normal Skin: other - Extensive bilateral erythema Lymphatic: normal inspection, no adenopathy Medical Decision Making Diagnostic Impression: Primary Impression: Lymphedema of both lower extremities Additional Impressions: Dehydration Cellulitis Chronic cutaneous venous stasis ulcer ER Course Patient has had several presentations to the emergency room At this time appears to be homeless Worsening signs of breakdown of skin on both lower extremities Patient has very poor disposition Antibiotic coverage has not been initiated given some of the chronicity and will be deferred to inpatient specialty referral Patient admitted for further care Labs Test 03/20/18 15:46 White Blood Count 7.3 K/UL (4.8-10.8) Red Blood Count 3.72 M/UL (4.70-6.10) Hemoglobin 12.1 G/DL (14.2-18.0) Hematocrit 36.6 % (42.0-52.0) Mean Corpuscular Volume 98 FL (80-99) Mean Corpuscular Hemoglobin 32.5 PG (27.0-31.0) Mean Corpuscular Hemoglobin Concent 33.1 G/DL (32.0-36.0) Red Cell Distribution Width 13.2 % (11.6-14.8) Platelet Count 223 K/UL (150-450) Mean Platelet Volume 5.8 FL (6.5-10.1) Neutrophils (%) (Auto) 72.9 % (45.0-75.0) Lymphocytes (%) (Auto) 18.4 % (20.0-45.0) Monocytes (%) (Auto) 6.1 % (1.0-10.0) Eosinophils (%) (Auto) 2.1 % (0.0-3.0) Basophils (%) (Auto) 0.6 % (0.0-2.0) Sodium Level 138 MMOL/L (136-145) Potassium Level 4.7 MMOL/L (3.5-5.1) Chloride Level 103 MMOL/L (98-107) Carbon Dioxide Level 28 MMOL/L (21-32) Anion Gap 7 mmol/L (5-15) Blood Urea Nitrogen 14 mg/dL (7-18) Creatinine 1.0 MG/DL (0.55-1.30) Estimat Glomerular Filtration Rate mL/min (>60) Glucose Level 85 MG/DL (74-106) Calcium Level 9.6 MG/DL (8.5-10.1) Total Bilirubin 0.7 MG/DL (0.2-1.0) Aspartate Amino Transf (AST/SGOT) 25 U/L (15-37) Alanine Aminotransferase (ALT/SGPT) 14 U/L (12-78) Alkaline Phosphatase 90 U/L (46-116) Total Creatine Kinase 225 U/L (26-308) Creatine Kinase MB 2.1 NG/ML (0.0-3.6) Creatine Kinase MB Relative Index 0.9 Total Protein 8.7 G/DL (6.4-8.2) Albumin 3.1 G/DL (3.4-5.0) Globulin 5.6 g/dL Albumin/Globulin Ratio 0.6 (1.0-2.7) Last Vital Signs Date Time Temp Pulse Resp B/P (MAP) Pulse Ox O2 Delivery O2 Flow Rate FiO2 03/20/18 14:40 97.3 57 18 186/86 97 Room Air 97.3 Status: improved Disposition: ADMITTED INPATIENT Condition: Serious Referrals: NOT CHOSEN [facility]/,REFERRING (PCP) Taniya Ocampo DO Mar 20, 2018 15:12
[2018-03-20 16:34] LABS: BASOPHILS % (AUTO) 0.6 % (0.0-2.0); EOSINOPHILS % (AUTO) 2.1 % (0.0-3.0); HEMATOCRIT 36.6 % (42.0-52.0); HEMOGLOBIN 12.1 G/DL (14.2-18.0); LYMPHOCYTES % (AUTO) 18.4 % (20.0-45.0); MEAN CORPUSCULAR VOLUME 98 FL (80-99); MONOCYTES % (AUTO) 6.1 % (1.0-10.0); NEUTROPHILS % (AUTO) 72.9 % (45.0-75.0); PLATELET COUNT 223 K/UL (150-450); RED BLOOD COUNT 3.72 M/UL (4.70-6.10); RED CELL DISTRIBUTION WIDTH 13.2 % (11.6-14.8); WHITE BLOOD COUNT 7.3 K/UL (4.8-10.8)
[2018-03-20] MEDS ORDERED: Zolpidem 5mg tab ORAL PRN (16:45)
[2018-03-20 16:48] VITALS: BP 156/56
--- NOTE | 2018-03-20 16:55 | History & Physical ---
History and Physical History & Physicial HP dictated # [id number] Jed Alvarado MD Mar 20, 2018 16:55
[2018-03-20] MEDS ORDERED: ceFAZolin 1gm in D5W 55ml IVP SCH (17:00)
[2018-03-20 17:15] LABS: ANION GAP 7 mmol/L (5-15); BLOOD UREA NITROGEN 14 mg/dL (7-18); CALCIUM 9.6 MG/DL (8.5-10.1); CARBON DIOXIDE 28 MMOL/L (21-32); CHLORIDE 103 MMOL/L (98-107); POTASSIUM 4.7 MMOL/L (3.5-5.1); SODIUM 138 MMOL/L (136-145)
[2018-03-20 17:30] LABS: ALANINE AMINOTRANSFERASE 14 U/L (12-78); ALBUMIN 3.1 G/DL (3.4-5.0); ALBUMIN/GLOBULIN RATIO 0.6 (1.0-2.7); ALKALINE PHOSPHATASE 90 U/L (46-116); ASPARTATE AMINO TRANSFERASE 25 U/L (15-37); BILIRUBIN,TOTAL 0.7 MG/DL (0.2-1.0); CKMB 2.1 NG/ML (0.0-3.6); CREATINE KINASE 225 U/L (26-308)
[2018-03-20] MEDS: ceFAZolin 1gm in D5W 55ml IVP SCH (18:30)
[2018-03-20] MEDS: Bactrim-DS 1 tab ORAL SCH (18:41)
[2018-03-20 20:00] VITALS: BP_SYST 132; BP_SYST 146; BP_DIAS 70; BP_DIAS 94
--- NOTE | 2018-03-20 20:02 | History and Physical Report ---
DATE OF ADMISSION: 03/20/2018 CHIEF COMPLAINT: Weakness. The patient has ulcers over lower extremities. HISTORY OF PRESENT ILLNESS: This is an 87-year-old male who presented to the emergency room with generalized weakness. He has nonhealing ulcer in the lower extremities with discharges. The patient was seen in the emergency room and was admitted with cellulitis of lower extremities. PAST MEDICAL HISTORY: The patient is a poor historian, but apparently the patient has had high blood pressure. MEDICATIONS: He is not taking any medications. ALLERGIES: No known drug allergies. SOCIAL HISTORY: Reported the patient is homeless, but he denies history of smoking or alcohol abuse. REVIEW OF SYSTEMS: As above. PHYSICAL EXAMINATION: GENERAL: The patient is an elderly male, in no acute distress. VITAL SIGNS: Blood pressure is 186/78, pulse 57, temperature 97.3 degrees and respirations 18. HEENT: Some pale conjunctivae. Anicteric sclerae. NECK: Supple. LUNGS: Clear to auscultation. HEART: S1 and S2 without murmurs or rubs. ABDOMEN: Soft and nontender. EXTREMITIES: Bilateral pedal edema. The patient has ulcers with foul smelling odor. LABORATORY FINDINGS: The CBC shows WBC of 7.3, hematocrit is 36.6, hemoglobin is 12.1, and platelet is 223,000. ASSESSMENT: This is an 87-year-old male who is admitted with ulcer in lower extremities, which looks infected. The patient has also high blood pressure. PLAN: The patient will be on antibiotics. Infectious Disease consultation and Podiatry consultation will be obtained. The patient will be started on blood pressure medications and dose will be adjusted. Jed Alvarado M.D. DR: Wilber JOB#: [id number] CC:
[2018-03-20] MEDS: Heparin 5000 units/ml inj SUBQ SCH (21:00)
[2018-03-21] VITALS: BP 129/64
[2018-03-21 04:00] VITALS: BP 119/67
[2018-03-21] MEDS: ceFAZolin 1gm in D5W 55ml IVP SCH ×3 (05:45→22:19)
[2018-03-21 08:00] VITALS: BP 89/44
[2018-03-21] MEDS: Bactrim-DS 1 tab ORAL SCH ×2 (08:41→18:21)
[2018-03-21] MEDS: Heparin 5000 units/ml inj SUBQ SCH ×2 (08:41→21:00)
[2018-03-21 12:00] VITALS: BP 125/51
--- NOTE | 2018-03-21 13:15 | General Progress Note ---
Assessment/Plan Problem List: (1) Cellulitis ICD Codes: L03.90 - Cellulitis, unspecified SNOMED: 333014796 (2) Venous stasis ulcer ICD Codes: I83.009 - Varicose veins of unsp lower extremity w ulcer of unsp site SNOMED: 645512155 (3) HTN (hypertension) ICD Codes: I10 - Essential (primary) hypertension SNOMED: 13716594 Assessment/Plan abxs watch BP Advised pt compliance with meds ID and podiatry consult Subjective Allergies: Coded Allergies: No Known Allergies (Unverified , 12/11/17) Subjective refuses meds Objective Last 24 Hour Vital Signs Date Time Temp Pulse Resp B/P (MAP) Pulse Ox O2 Delivery O2 Flow Rate FiO2 03/21/18 12:00 98.2 60 20 125/51 (75) 95 98.2 03/21/18 10:51 Room Air 03/21/18 08:00 98.1 72 22 89/44 (59) 95 98.1 03/21/18 04:00 98.5 64 20 119/67 (84) 98 98.5 03/21/18 00:00 98.1 65 20 129/64 (85) 98 98.1 03/20/18 20:00 97.4 66 20 146/70 (95) 98 97.4 03/20/18 18:06 Room Air 03/20/18 17:40 98.5 66 16 156/56 100 Room Air 98.5 03/20/18 16:48 98.5 66 16 156/56 100 Room Air 98.5 03/20/18 14:40 97.3 57 18 186/86 97 Room Air 97.3 03/20/18 14:31 97.3 57 18 186/78 97 97.3 Intake and Output 03/20/18 03/21/18 19:00 07:00 # Voids 1 Laboratory Tests 03/20/18 15:46: White Blood Count 7.3, Red Blood Count 3.72L, Hemoglobin 12.1L, Hematocrit 36.6L , Mean Corpuscular Volume 98, Mean Corpuscular Hemoglobin 32.5H, Mean Corpuscular Hemoglobin Concent 33.1, Red Cell Distribution Width 13.2, Platelet Count 223, Mean Platelet Volume 5.8L, Neutrophils (%) (Auto) 72.9, Lymphocytes ( %) (Auto) 18.4L, Monocytes (%) (Auto) 6.1, Eosinophils (%) (Auto) 2.1, Basophils (%) (Auto) 0.6, Sodium Level 138, Potassium Level 4.7, Chloride Level 103, Carbon Dioxide Level 28, Anion Gap 7, Blood Urea Nitrogen 14, Creatinine 1.0, Estimat Glomerular Filtration Rate , Glucose Level 85, Calcium Level 9.6, Total Bilirubin 0.7, Aspartate Amino Transf (AST/SGOT) 25, Alanine Aminotransferase (ALT/SGPT) 14, Alkaline Phosphatase 90, Total Creatine Kinase 225, Creatine Kinase MB 2.1, Creatine Kinase MB Relative Index 0.9, Total Protein 8.7H, Albumin 3.1L, Globulin 5.6, Albumin/Globulin Ratio 0.6L Height (Feet): 6 Height (Inches): 1.00 Weight (Pounds): 210 Cardiovascular: normal rate Respiratory/Chest: lungs clear Abdomen: soft Edema: 1+ Generalized Jed Alvarado MD Mar 21, 2018 13:15
--- NOTE | 2018-03-21 15:45 | General Progress Note ---
Progress Note Progress Note All noted Wound care orders placed Dictated Thank you Atilio Gupta DPM Mar 21, 2018 15:45
[2018-03-21 16:00] VITALS: BP 117/67
--- NOTE | 2018-03-21 18:15 | Consultation ---
DATE OF CONSULTATION: 03/21/2018 INFECTIOUS DISEASE CONSULTATION CONSULTING PHYSICIAN: Dwight Alvarado M.D. PRIMARY ATTENDING PHYSICIAN: Jed Alvarado M.D. REASON FOR CONSULT: Cellulitis of legs. HISTORY OF PRESENT ILLNESS: This is an 87-year-old male admitted on 03/20/2018 complaining of weakness and also has chronic wound in the lower extremity. The patient currently comes to the ER for dressing change and have noticed that increase in discharge from the wound of lower extremities. PAST MEDICAL HISTORY: Likely hypertension, stasis ulcers and lymphedema of the legs. MEDICATIONS: Prior to admission, the patient was on no medication. He is now getting heparin, cefazolin, Bactrim, Tylenol, clonidine, Zofran, and Ambien. SOCIAL HISTORY: Single. No history of alcohol, drug abuse, or smoking. REVIEW OF SYSTEMS: Except pain in legs, he does not have any complaint. No fever. No chills. No coughing. No shortness of breath. No problem passing urine. PHYSICAL EXAMINATION: VITAL SIGNS: Temperature 98.2, pulse 60, and blood pressure 125/51. GENERAL APPEARANCE: No acute distress. Awake and alert. HEAD AND NECK: Poor dentition. No oral lesion. HEART: Regular. He seems to have systolic murmur. LUNGS: Clear. ABDOMEN: Soft and nontender. EXTREMITIES: He has edema of his bilateral legs. He has ulcers in the right internal part of lower leg with discharge. He has ulcer in the lateral lower left ankle and rain again with discharge. LABORATORY DATA: Sodium 138, potassium 4.7, chloride 103, bicarbonate 28, BUN 14, creatinine 1, and albumin was low. WBC 7.3, hemoglobin 12.1, hematocrit 36.6, and platelet 223,000. IMPRESSION: Cellulitis of legs bilaterally. The patient seems to have lymphedema, stasis dermatitis, and stasis ulcer that is going on for more than a year. He has also hypertension. RECOMMENDATION: We will continue with Ancef and Bactrim. We will order wound culture. We will follow up other cultures. At the end of my exam, I thank Dr. Jed Alvarado for involving me in the care of this patient. Dwight Alvarado M.D. DR: ELLA JOB#: [id number] CC: BELINDA
[2018-03-21 20:00] VITALS: BP 118/61
[2018-03-22] VITALS: BP 115/63
[2018-03-22 04:00] VITALS: BP 125/72
[2018-03-22] MEDS: ceFAZolin 1gm in D5W 55ml IVP SCH ×3 (05:11→23:15)
[2018-03-22 08:56] VITALS: BP 127/57
[2018-03-22] MEDS: Heparin 5000 units/ml inj SUBQ SCH ×2 (09:00→20:29)
[2018-03-22] MEDS: Bactrim-DS 1 tab ORAL SCH ×2 (09:02→20:28)
--- NOTE | 2018-03-22 12:14 | General Progress Note ---
Assessment/Plan Problem List: (1) Cellulitis ICD Codes: L03.90 - Cellulitis, unspecified SNOMED: 241352606 (2) Venous stasis ulcer ICD Codes: I83.009 - Varicose veins of unsp lower extremity w ulcer of unsp site SNOMED: 299195654 (3) HTN (hypertension) ICD Codes: I10 - Essential (primary) hypertension SNOMED: 55589253 Assessment/Plan abxs watch BP Advised pt compliance with meds ID and podiatry F/U Subjective Allergies: Coded Allergies: No Known Allergies (Unverified , 12/11/17) Subjective ok Objective Last 24 Hour Vital Signs Date Time Temp Pulse Resp B/P (MAP) Pulse Ox O2 Delivery O2 Flow Rate FiO2 03/22/18 09:00 Room Air 03/22/18 08:56 97.3 62 16 127/57 (80) 97 97.3 03/22/18 04:00 98.6 81 20 125/72 (89) 99 98.6 03/22/18 00:00 98.1 79 18 115/63 (80) 99 98.1 03/21/18 21:00 Room Air 03/21/18 20:00 99.2 74 18 118/61 (80) 98 99.2 03/21/18 16:00 98.1 63 21 117/67 (84) 99 98.1 Intake and Output 03/21/18 03/22/18 19:00 07:00 Intake Total 1180 ml 1100 ml Output Total 1250 ml Balance 1180 ml -150 ml Intake Oral 960 ml 1100 ml IV Total 220 ml Output Urine Total 1250 ml Height (Feet): 6 Height (Inches): 1.00 Weight (Pounds): 210 Cardiovascular: normal rate Respiratory/Chest: lungs clear Edema: 2+ Generalized Jed Alvarado MD Mar 22, 2018 12:14
--- NOTE | 2018-03-22 13:04 | Infectious Diseases Prog Note ---
Assessment/Plan Assessment/Plan A; Legs cellulitis Stasis ulcerss HPN Stasis dermatitis of legs P; Continue Cefazolin & Bactrim will f/u cultures Subjective ROS Limited/Unobtainable: No Constitutional: Reports: no symptoms Respiratory: Reports: no symptoms Cardiovascular: Reports: no symptoms Gastrointestinal/Abdominal: Reports: no symptoms Genitourinary: Reports: no symptoms Skin: Reports: ulcer Allergies: Coded Allergies: No Known Allergies (Unverified , 12/11/17) Objective Vital Signs Last 24 Hour Vital Signs Date Time Temp Pulse Resp B/P (MAP) Pulse Ox O2 Delivery O2 Flow Rate FiO2 03/22/18 09:00 Room Air 03/22/18 08:56 97.3 62 16 127/57 (80) 97 97.3 03/22/18 04:00 98.6 81 20 125/72 (89) 99 98.6 03/22/18 00:00 98.1 79 18 115/63 (80) 99 98.1 03/21/18 21:00 Room Air 03/21/18 20:00 99.2 74 18 118/61 (80) 98 99.2 03/21/18 16:00 98.1 63 21 117/67 (84) 99 98.1 Height (Feet): 6 Height (Inches): 1.00 Weight (Pounds): 210 General Appearance: no acute distress HEENT: mucous membranes moist Respiratory/Chest: lungs clear Cardiovascular: normal rate Abdomen: soft, non tender Extremities: other - edema of legs Skin: other - stasis ulcers of legs, stasis dermatitis Neurologic/Psychiatric: alert, oriented x 3, responsive Microbiology Date/Time Source Procedure Growth Status 03/20/18 15:50 Blood Blood Culture - Preliminary NO GROWTH AFTER 24 HOURS Resulted 03/20/18 15:40 Blood Blood Culture - Preliminary NO GROWTH AFTER 24 HOURS Resulted 03/21/18 14:15 Leg Right Gram Stain Pending Resulted 03/21/18 14:15 Wound Culture - Preliminary Staphylococcus Aureus Resulted 03/21/18 14:15 Leg Left Gram Stain Pending Resulted 03/21/18 14:15 Wound Culture - Preliminary Staphylococcus Aureus Resulted 03/20/18 20:10 Rectum VRE Culture Pending Resulted 03/20/18 20:10 Rectum - Preliminary Resulted Current Medications Medications (Trade) Dose Ordered Sig/Shannon Route PRN Reason Start Time Stop Time Status Last Admin Dose Admin Acetaminophen (Tylenol) 650 mg Q4H PRN ORAL Mild Pain (Pain Scale 1-3) 03/20/18 17:00 04/19/18 16:59 Cefazolin Sodium 1 gm/Dextrose 55 ml @ 110 mls/hr Q8HR IVP 03/20/18 18:30 03/27/18 18:29 03/22/18 05:11 Clonidine HCl (Catapres Tab) 0.1 mg Q4H PRN ORAL SBP > OR = 170mmHg 03/20/18 17:00 04/19/18 16:59 Dextrose (Dextrose 50%) 25 ml Q30M PRN IV Hypoglycemia 03/20/18 17:00 04/19/18 16:59 Dextrose (Dextrose 50%) 50 ml Q30M PRN IV Hypoglycemia 03/20/18 17:00 04/19/18 16:59 Heparin Sodium (Porcine) (Heparin 5000 units/ml) 5,000 units EVERY 12 HOURS SUBQ 03/20/18 21:00 04/19/18 20:59 Ondansetron HCl (Zofran) 4 mg Q6H PRN IVP Nausea & Vomiting 03/20/18 17:00 04/19/18 16:59 Trimethoprim/ Sulfamethoxazole (Bactrim-DS) 1 tab TWICE A DAY ORAL 03/20/18 18:00 03/27/18 17:59 03/22/18 09:02 Zolpidem Tartrate (Ambien) 5 mg HSPRN PRN ORAL Insomnia 03/20/18 16:45 03/27/18 16:44 Dwight Alvarado MD Mar 22, 2018 13:04
[2018-03-22 20:00] VITALS: BP 111/50
[2018-03-23 04:00] VITALS: BP 119/57
[2018-03-23] MEDS: ceFAZolin 1gm in D5W 55ml IVP SCH ×2 (05:28→13:06)
[2018-03-23 08:00] VITALS: BP 103/54
--- NOTE | 2018-03-23 08:45 | Consultation ---
DATE OF CONSULTATION: 03/22/2018 CONSULTING PHYSICIAN: Atilio Mireles D.P.M. REQUESTING PHYSICIAN: Jed Alvarado M.D. REASON FOR CONSULTATION: Chronic bilateral lower extremity wounds infected. HISTORY OF PRESENT ILLNESS: The patient is an 87-year-old male, who was admitted to [facility] on March 20, 2018 for dehydration and cellulitis. The patient states that he has got these lower extremity wounds for many, many months, has been seen by several physicians without any resolution of his wounds or improvement of the wounds. Denies any pain, fevers, chills, nausea, or vomiting. I would like some clarity into his diagnosis and prognosis and is recommended to follow ups to achieve a favorable outcome. PAST MEDICAL HISTORY: Significant for hypertension. MEDICATIONS: Per MAR and currently include heparin for DVT prophylaxis, cefazolin, and Bactrim. ALLERGIES: He has no known drug allergies. FAMILY HISTORY: Noncontributory. SOCIAL HISTORY: The patient is homeless. REVIEW OF SYSTEMS: HEENT: The patient denies any headaches, blurred vision, or ringing in the ears. CARDIORESPIRATORY: The patient denies any chest pain or shortness of breath. GENITOURINARY: The patient denies any urgency, frequency, burning upon urination, or hematuria. GASTROINTESTINAL: The patient denies any constipation, diarrhea, or blood in the stool. PHYSICAL EXAMINATION: VITAL SIGNS: Temperature is 97.3, pulse is 62, respiration rate is 16, blood pressure is 127/57, and saturating 97% on room air. EXTREMITIES: Lower extremity physical exam, vascular, weakly palpable pedal pulses noted bilaterally. Feet are equally warm. There is 2+ pitting edema noted in bilateral lower extremities. No cyanosis is noted. DERMATOLOGICAL: There is a full-thickness ulcerations noted on bilateral legs. Left leg, is noted on the lateral aspect a smaller wound, to muscle. No tendon or bone is exposed. No malodor is noted from the site. Mild serous drainage is noted. The periwound skin is within normal limits, noninflamed. Right medial leg wound is larger of the two, again with serous drainage. No bone or tendon exposed. down to muscle. No undermining or tracking noted. No malodor is noted. The periwound skin is noninflamed and nonpainful. MUSCULOSKELETAL: The patient has a 4/5 muscle strength noted in anterior, lateral, and posterior muscle groups of bilateral lower extremities. Bunion deformities are noted bilaterally. NEUROLOGICAL: Protective thresholds intact. LABORATORY DATA: No lower extremity imaging is noted. White blood cell count is 7.3, hemoglobin and hematocrit is 12.1 and 36.6, and platelet count is 223. Sodium is 138, potassium is 4.8, BUN is 14, creatinine is 1.0. Albumin is 3.1 and glucose is 85. ASSESSMENT: 1. Non-pressure ulcers, bilateral lower extremities to the level of muscle. 2. Venous insufficiency. PLAN: 1. Continue antibiotics per ID. 2. Venous ultrasound is pending. 3. Orders were amended to include compression of the lower extremities. We will continue to follow upon discharge either at SNF or as an outpatient at the wound center. Thank you for the courtesy of this consultation, Dr. Alvarado. Kelechi MooneyPYu ROJAS: KRISTEN/VINOD JOB#: [id number] CC:
[2018-03-23] MEDS: Heparin 5000 units/ml inj SUBQ SCH (09:00)
[2018-03-23 12:00] VITALS: BP 102/54
[2018-03-23] MEDS: Bactrim-DS 1 tab ORAL SCH (12:06)
--- NOTE | 2018-03-23 12:23 | Infectious Diseases Prog Note ---
Assessment/Plan Assessment/Plan A; Legs cellulitis with MRSA & gram negatives Stasis ulcerss HPN Stasis dermatitis of legs P; Continue Cefazolin & Bactrim will f/u cultures Subjective ROS Limited/Unobtainable: No Constitutional: Reports: no symptoms Respiratory: Reports: no symptoms Cardiovascular: Reports: no symptoms Gastrointestinal/Abdominal: Reports: no symptoms Genitourinary: Reports: no symptoms Allergies: Coded Allergies: No Known Allergies (Unverified , 12/11/17) Objective Vital Signs Last 24 Hour Vital Signs Date Time Temp Pulse Resp B/P (MAP) Pulse Ox O2 Delivery O2 Flow Rate FiO2 03/23/18 09:00 Room Air 03/23/18 08:00 97.9 60 20 103/54 (70) 97 97.9 03/23/18 04:00 98.2 62 17 119/57 (77) 97 98.2 03/22/18 21:00 Room Air 03/22/18 20:00 98.9 76 19 111/50 (70) 97 98.9 Height (Feet): 6 Height (Inches): 1.00 Weight (Pounds): 210 General Appearance: no acute distress HEENT: mucous membranes moist Respiratory/Chest: lungs clear Cardiovascular: normal rate Abdomen: soft, non tender Extremities: other - edema of legs Skin: ulcers Neurologic/Psychiatric: alert, oriented x 3, responsive Microbiology Date/Time Source Procedure Growth Status 03/20/18 15:50 Blood Blood Culture - Preliminary NO GROWTH AFTER 48 HOURS Resulted 03/20/18 15:40 Blood Blood Culture - Preliminary NO GROWTH AFTER 48 HOURS Resulted 03/21/18 14:15 Leg Right Gram Stain - Final Resulted 03/21/18 14:15 Wound Culture - Preliminary Staphylococcus Aureus Gram Negative Bacillus 2 Gram Negative Bacillus 3 Gram Negative Bacillus 4 Resulted 03/21/18 14:15 Leg Left Gram Stain - Final Resulted 03/21/18 14:15 Wound Culture - Preliminary Staphylococcus Aureus - Mrsa Resulted 03/20/18 20:10 Rectum VRE Culture - Final NO VANCOMYCIN RESISTANT ENTEROCOCCUS ... Complete 03/20/18 20:10 Rectum - Final NO CARBAPENEM-RESISTANT ENTEROBACTERI... Complete Current Medications Medications (Trade) Dose Ordered Sig/Shannon Route PRN Reason Start Time Stop Time Status Last Admin Dose Admin Acetaminophen (Tylenol) 650 mg Q4H PRN ORAL Mild Pain (Pain Scale 1-3) 03/20/18 17:00 04/19/18 16:59 Cefazolin Sodium 1 gm/Dextrose 55 ml @ 110 mls/hr Q8HR IVP 03/20/18 18:30 03/27/18 18:29 03/23/18 05:28 Clonidine HCl (Catapres Tab) 0.1 mg Q4H PRN ORAL SBP > OR = 170mmHg 03/20/18 17:00 04/19/18 16:59 Dextrose (Dextrose 50%) 25 ml Q30M PRN IV Hypoglycemia 03/20/18 17:00 04/19/18 16:59 Dextrose (Dextrose 50%) 50 ml Q30M PRN IV Hypoglycemia 03/20/18 17:00 04/19/18 16:59 Heparin Sodium (Porcine) (Heparin 5000 units/ml) 5,000 units EVERY 12 HOURS SUBQ 03/20/18 21:00 04/19/18 20:59 Ondansetron HCl (Zofran) 4 mg Q6H PRN IVP Nausea & Vomiting 03/20/18 17:00 04/19/18 16:59 Trimethoprim/ Sulfamethoxazole (Bactrim-DS) 1 tab Q12HR ORAL 03/22/18 21:00 03/27/18 17:59 03/23/18 12:06 Zolpidem Tartrate (Ambien) 5 mg HSPRN PRN ORAL Insomnia 03/20/18 16:45 03/27/18 16:44 Dwight Alvarado MD Mar 23, 2018 12:23
[2018-03-23] MEDS ORDERED: BACTRIM-DS1 EA ORAL (14:30)
[2018-03-23] MEDS ORDERED: HEPARIN SO5000 UNIT2 SUBQ (14:30)
--- NOTE | 2018-03-23 14:32 | General Progress Note ---
Assessment/Plan Problem List: (1) Cellulitis ICD Codes: L03.90 - Cellulitis, unspecified SNOMED: 203141952 (2) Venous stasis ulcer ICD Codes: I83.009 - Varicose veins of unsp lower extremity w ulcer of unsp site SNOMED: 127965795 (3) HTN (hypertension) ICD Codes: I10 - Essential (primary) hypertension SNOMED: 54858494 Assessment/Plan abxs Dc today Subjective Allergies: Coded Allergies: No Known Allergies (Unverified , 12/11/17) Subjective ok Objective Last 24 Hour Vital Signs Date Time Temp Pulse Resp B/P (MAP) Pulse Ox O2 Delivery O2 Flow Rate FiO2 03/23/18 12:00 95.0 60 22 102/54 (70) 99 95.0 03/23/18 09:00 Room Air 03/23/18 08:00 97.9 60 20 103/54 (70) 97 97.9 03/23/18 04:00 98.2 62 17 119/57 (77) 97 98.2 03/22/18 21:00 Room Air 03/22/18 20:00 98.9 76 19 111/50 (70) 97 98.9 Intake and Output 03/22/18 03/23/18 19:00 07:00 Intake Total 1430 ml 590 ml Output Total 2100 ml 1400 ml Balance -670 ml -810 ml Intake Oral 1320 ml 480 ml IV Total 110 ml 110 ml Output Urine Total 2100 ml 1400 ml # Voids 1 # Bowel Movements 1 Height (Feet): 6 Height (Inches): 1.00 Weight (Pounds): 210 Cardiovascular: normal rate Respiratory/Chest: lungs clear Edema: 1+ Generalized Jed Alvarado MD Mar 23, 2018 14:32
--- NOTE | 2018-03-24 09:42 | Discharge Summary ---
Discharge Summary Discharge Summary _ DATE OF ADMISSION: 03/20/2018 DATE OF DISCHARGE: 03/23/2018 REASON FOR ADMISSION: 87 male with past medical history of hypertension , presented to emergency department with generalized weakness. Patient reported nonhealing bilateral lower extremity ulcers , getting progressively worse. Patient noted some discharge. Patient denied chest pain or shortness of breath. Upon evaluation vital signs revealed high blood pressure 186/78. Laboratory workup revealed no leukocytosis, hemoglobin 12.1 ,hematocrit 36.6. Stable renal parameters and electrolytes. Patient admitted with diagnoses of cellulitis bilateral lower extremity, chronic venous stasis ulcers, hypertension. CONSULTANTS: ID specialist Dr Alvarado Mohs Surgeon/General Dermatologist Dr Benjamin [place] [facility] [employer] [facility] COURSE: Patient admitted and started on empiric antibiotics . ID specialist and survey statistician consults were requested. Blood culture were negative, wound culture revealed MRSA and gram-negative bacilli. Patient was on IV antibiotics while in the hospital and was discharged on oral antibiotics to complete the course , as per ID specialist recommendations. Mohs Surgeon/General Dermatologist seen and evaluated patient. Wound care provided as per survey statistician recommendations. Venous duplex bilateral lower extremity revealed no evidence of acute DVT. Mohs Surgeon/General Dermatologist will follow patient as outpatient at the facility. Pain management was addressed and controlled. DVT prophylaxis provided. Blood pressure was closely monitored and managed, and remained stable. patient was working with physical therapist. Fall precautions maintained. Patient was stable for discharge to [facility] for continuation of care FINAL DIAGNOSES: Bilateral leg cellulitis with MRSA and gram-negative bacilli Non-pressure ulcers bilateral lower extremities Venous insufficiency with chronic venous stasis ulcers Hypertension DISCHARGE MEDICATIONS: See Medication Reconciliation list. DISCHARGE INSTRUCTIONS: Patient was discharged to the [facility]. Follow up with medical doctor at the facility. I have been assigned to dictate discharge summary for this account. I was not involved in the patient's management. Larissa Mace NP Mar 24, 2018 09:42
== END 2018-03-23 17:00 | DRG 603 ==
LOC: EDBD 14:38 → EMR 15:00 → EDBEDREQ 15:04 → 4E 16:58
DX: L03.116 Cellulitis of left lower limb (principal); L97.929 Non-pressure chronic ulcer of unspecified part of left lower leg with unspecified severity; L97.919 Non-pressure chronic ulcer of unspecified part of right lower leg with unspecified severity; L03.115 Cellulitis of right lower limb; I87.2 Venous insufficiency (chronic) (peripheral); I10 Essential (primary) hypertension; B95.62 Methicillin resistant Staphylococcus aureus infection as the cause of diseases classified elsewhere; B96.89 Other specified bacterial agents as the cause of diseases classified elsewhere; I89.0 Lymphedema, not elsewhere classified; Z59.0 Homelessness
CPT/HCPCS: 36415; 80053; 82550; 82553; 85025; 87040; 87070; 87081; 87181; 87205; 93970; 99285

== ENCOUNTER 2018-04-05 07:22 | Emergency (ER) | payer MEDICARE ==
[~2018-04-05] VITALS: Ht 185.4 cm; Wt 95.3 kg
[~2018-04-05 07:22] MED LIST changes: +BACTRIM-DS1 EA ORAL; +HEPARIN SO5000 UNIT2 SUBQ
[2018-04-05 08:00] VITALS: BP 123/65
[2018-04-05 08:18] VITALS: BP 123/65
--- NOTE | 2018-04-05 12:52 | Emergency Room Report ---
History of Present Illness General Chief Complaint: Wound Recheck/Suture Removal Source: Patient Present Illness HPI Patient presents for evaluation and assistance with his leg dressings Patient has been to this facility multiple times Asking the patient myself as well Patient has had recent hospitalization For improved social work/case management and more appropriate outpatient disposition Patient denies any fevers Denies any leg swelling or cramps He feels that the area in his legs have improved Allergies: Coded Allergies: No Known Allergies (Unverified , 12/11/17) Patient History Past Medical History: see triage record Pertinent Family History: none Reviewed Nursing Documentation: PMH: Agreed; PSxH: Agreed Nursing Documentation-PMH Hx Hypertension: Yes Hx Pacemaker: No Hx Asthma: No Hx COPD: No Hx Diabetes: No Hx Cancer: No Hx Dialysis: No Hx Cerebrovascular Accident: No Hx Seizures: No Review of Systems All Other Systems: negative except mentioned in HPI Physical Exam Vital Signs Date Time Temp Pulse Resp B/P (MAP) Pulse Ox O2 Delivery O2 Flow Rate FiO2 04/05/18 07:53 98.1 70 18 123/65 95 Room Air Sp02 EP Interpretation: reviewed, normal General Appearance: well appearing, no apparent distress Head: normocephalic, atraumatic Eyes: bilateral eye PERRL, bilateral eye EOMI ENT: hearing grossly normal, normal pharynx Neck: supple Respiratory: lungs clear Cardiovascular #1: regular rate, rhythm Gastrointestinal: non tender, soft Musculoskeletal: normal inspection Neurologic: alert, oriented x3 Skin: other - Similar findings to previous with bilateral venous stasis, no obvious open wounds, chronic stasis and venous insufficiency, Lymphatic: no adenopathy Medical Decision Making Diagnostic Impression: Primary Impression: Encounter for wound re-check Additional Impression: Encounter for dressing change or suture removal ER Course Patient's dressing was changed as requested Patient remains hemodynamic stable The areas appear improved from previous Patient has been discussed with regarding appropriate outpatient follow-up On multiple occasions Also provided with inpatient disposition and appropriate outpatient follow-up Last Vital Signs Date Time Temp Pulse Resp B/P (MAP) Pulse Ox O2 Delivery O2 Flow Rate FiO2 04/05/18 08:18 98.1 18 123/65 95 Room Air 04/05/18 07:53 70 Status: improved Disposition: HOME, SELF-CARE Condition: Improved Referrals: NOT CHOSEN IPA/MD,REFERRING (PCP) Patient Instructions: Dressing Change, [id number], Wound Check Additional Instructions: Patient is provided with the discharge instructions notified to follow up with primary doctor in the next 2-3 days otherwise return to the er with any worsening symptoms. Please note that this report is being documented using ShopReply technology. This can lead to erroneous entry secondary to incorrect interpretation by the dictating instrument. Taniya Ocampo DO Apr 05, 2018 12:52
== END 2018-04-05 08:18 | disposition home or self-care (01) ==
LOC: EMR 08:17
DX: Z48.02 Encounter for removal of sutures (principal); I10 Essential (primary) hypertension; I87.8 Other specified disorders of veins
CPT/HCPCS: 99282

== ENCOUNTER 2018-04-11 11:51 | Emergency (ER) | payer MEDICARE ==
[~2018-04-11] VITALS: Ht 185.4 cm; Wt 95.3 kg
[2018-04-11 12:18] VITALS: BP 120/67
--- NOTE | 2018-04-11 12:42 | Emergency Room Report ---
History of Present Illness General Chief Complaint: Wound Recheck/Suture Removal Source: Patient Present Illness HPI 87-year-old male with history of bilateral lower extremity wound for follow-up and wound dressing. pt is currently on bactrim Ds, compliant with medication denies fever/chills, sob, cp, palpitation. denies pain in lower extremities. . He appears disheveled. Indicating that he ll follow up with his primary care provider as he has to establish one. Denies lack of sensation in bilateral lower. extremities. PT denies chest pain, SOB, other associated symptoms Allergies: Coded Allergies: No Known Allergies (Unverified , 12/11/17) Patient History Past Medical History: see triage record Pertinent Family History: none Immunizations: UTD Reviewed Nursing Documentation: PMH: Agreed; PSxH: Agreed Nursing Documentation-PMH Hx Hypertension: Yes Hx Pacemaker: No Hx Asthma: No Hx COPD: No Hx Diabetes: No Hx Cancer: No Hx Dialysis: No Hx Cerebrovascular Accident: No Hx Seizures: No Review of Systems All Other Systems: negative except mentioned in HPI Physical Exam Vital Signs Date Time Temp Pulse Resp B/P (MAP) Pulse Ox O2 Delivery O2 Flow Rate FiO2 04/11/18 11:55 97.3 68 18 120/67 98 Room Air Sp02 EP Interpretation: reviewed, normal General Appearance: normal inspection, well appearing, no apparent distress Head: normocephalic Eyes: bilateral eye normal inspection, bilateral eye PERRL ENT: normal ENT inspection Neck: normal inspection, supple Respiratory: normal inspection, lungs clear, no rhonchi Cardiovascular #1: normal inspection, normal peripheral pulses, no edema, no murmur Cardiovascular #2: 2+ dorsalis pedis (R), 2+ dorsalis pedis (L) Gastrointestinal: normal inspection, soft Rectal: deferred Genitourinary: deferred Musculoskeletal: back normal, normal range of motion, non-tender, no calf tenderness, other - multiple healing ulcers on bilateral lower extremities Neurologic: normal inspection, alert, oriented x3 Psychiatric: normal inspection, judgement/insight normal Skin: warm/dry, well hydrated, other - Multiple healing ulcers on bilateral lower extremities and excoriation over the healing ulcers Lymphatic: normal inspection, no adenopathy Procedures Laceration/Wound Repair Laceration/Wound Repair : Consent: Verbal Wound Location: lower extremity Wound's Depth, Shape: superficial Wound Explored: contaminated Betadine Prep?: Yes Sterile Dressing Applied?: No Splint Applied?: No Patient Tolerated: Well Medical Decision Making PA Attestation all diagnoses and treatment plans were reviewed and discussed with my supervising physician Dr. Correa Diagnostic Impression: Primary Impression: Encounter for wound re-check ER Course 87-year-old male with history of bilateral lower extremity wound for follow-up and wound dressing. pt is currently on bactrim Ds, compliant with medication denies fever/chills, sob, cp, palpitation. denies pain in lower extremities. . He appears disheveled. Indicating that he ll follow up with his primary care provider as he has to establish one. Denies lack of sensation in bilateral lower. extremities. PT denies chest pain, SOB, other associated symptoms Ddx considered but are not limited to [place] for non infected wound check, wound infection Vital signs: are WNL, pt. is afebrile H&PE are most consistent with encounter for non infected wound check ORDERS:wound clean and dressing ED INTERVENTIONS: wound clean and dressing DISCHARGE: At this time pt. is stable for d/c to home. Will provide printed patient care instructions, and any necessary prescriptions. Care plan and follow up instructions have been discussed with the patient prior to discharge. Last Vital Signs Date Time Temp Pulse Resp B/P (MAP) Pulse Ox O2 Delivery O2 Flow Rate FiO2 04/11/18 12:18 97.3 18 120/67 98 Room Air 04/11/18 11:55 68 Disposition: HOME, SELF-CARE Condition: Stable Patient Instructions: Wound Check Additional Instructions: keep dressing on ones finish antibiotics followed with primary care provider Boyd Reina Apr 11, 2018 12:42
[2018-04-11 13:15] VITALS: BP 120/67
== END 2018-04-11 13:15 | disposition home or self-care (01) ==
LOC: EMR 12:05
DX: Z48.00 Encounter for change or removal of nonsurgical wound dressing (principal); L97.929 Non-pressure chronic ulcer of unspecified part of left lower leg with unspecified severity; L97.919 Non-pressure chronic ulcer of unspecified part of right lower leg with unspecified severity; I10 Essential (primary) hypertension
CPT/HCPCS: 99283

== ENCOUNTER 2018-04-16 05:17 | Emergency (ER) | payer MEDICARE ==
[~2018-04-16] VITALS: Ht 185.4 cm; Wt 95.3 kg
[2018-04-16 05:33] VITALS: BP 170/83
[2018-04-16 06:14] VITALS: BP 161/83
--- NOTE | 2018-04-16 06:14 | Emergency Room Report ---
History of Present Illness General Chief Complaint: General Complaint Source: Patient Present Illness HPI Patient presents with request of changing his dressing on his legs Denies any change in condition denies any fevers or chills Patient continues to ignore multiple requests for the patient to obtain improved outpatient follow-up Patient has been contacted with our social work/case management Patient has been admitted to the hospital previously However upon presentation reports that he feels treated well here And presents for further dressing changes Allergies: Coded Allergies: No Known Allergies (Unverified , 12/11/17) Patient History Past Medical History: see triage record Pertinent Family History: none Reviewed Nursing Documentation: PMH: Agreed; PSxH: Agreed Nursing Documentation-PMH Hx Hypertension: Yes Hx Pacemaker: No Hx Asthma: No Hx COPD: No Hx Diabetes: No Hx Cancer: No Hx Dialysis: No Hx Cerebrovascular Accident: No Hx Seizures: No Review of Systems All Other Systems: negative except mentioned in HPI Physical Exam Vital Signs Date Time Temp Pulse Resp B/P (MAP) Pulse Ox O2 Delivery O2 Flow Rate FiO2 04/16/18 05:18 97.0 53 16 181/77 97 Room Air Sp02 EP Interpretation: reviewed, normal General Appearance: well appearing, no apparent distress Head: normocephalic, atraumatic Eyes: bilateral eye PERRL, bilateral eye EOMI ENT: normal pharynx Neck: full range of motion, supple Respiratory: lungs clear Cardiovascular #1: regular rate, rhythm Gastrointestinal: non tender, soft Musculoskeletal: normal inspection Neurologic: alert, oriented x3, responsive, sensory intact Skin: other - Continued evidence of previous venous stasis ulcers, no obvious erythema no fluctuance Medical Decision Making Diagnostic Impression: Primary Impression: Encounter for wound re-check ER Course Patient has recheck as noted above The wounds are healing and staying appropriate patient continues to disregard request for outpatient follow-up and stable for close disposition Last Vital Signs Date Time Temp Pulse Resp B/P (MAP) Pulse Ox O2 Delivery O2 Flow Rate FiO2 04/16/18 05:33 98.0 61 18 170/83 Room Air 04/16/18 05:18 97 Status: improved Disposition: HOME, SELF-CARE Condition: Improved Referrals: NOT CHOSEN IPA/MD,REFERRING (PCP) Patient Instructions: Dressing Change Additional Instructions: Patient is provided with the discharge instructions notified to follow up with primary doctor in the next 2-3 days otherwise return to the er with any worsening symptoms. Please note that this report is being documented using DRAGON technology. This can lead to erroneous entry secondary to incorrect interpretation by the dictating instrument. Taniya Ocampo DO Apr 16, 2018 06:14
[2018-04-16 06:15] VITALS: BP 150/83
== END 2018-04-16 06:20 | disposition home or self-care (01) ==
LOC: EMR 05:52
DX: Z48.00 Encounter for change or removal of nonsurgical wound dressing (principal); I83.009 Varicose veins of unspecified lower extremity with ulcer of unspecified site; L97.919 Non-pressure chronic ulcer of unspecified part of right lower leg with unspecified severity; L97.929 Non-pressure chronic ulcer of unspecified part of left lower leg with unspecified severity; I10 Essential (primary) hypertension
CPT/HCPCS: 99282

== ENCOUNTER 2018-04-18 05:53 | Emergency (ER) | payer MEDICARE ==
[~2018-04-18] VITALS: Ht 185.4 cm; Wt 95.3 kg
[2018-04-18 06:13] VITALS: BP 131/67
[2018-04-18 08:03] VITALS: BP 131/67
--- NOTE | 2018-04-18 08:05 | Emergency Room Report ---
History of Present Illness General Chief Complaint: Skin Rash/Abscess Source: Patient Present Illness HPI Patient present back for itching of his lower extremity wounds Requesting dressing change Denies any fevers or chills denies any chest pain or shortness of breath denies any recent fall or trauma Allergies: Coded Allergies: No Known Allergies (Unverified , 11/25/16) Patient History Past Medical History: see triage record Pertinent Family History: none Reviewed Nursing Documentation: PMH: Agreed; PSxH: Agreed Nursing Documentation-PMH Past Medical History: No Stated History Review of Systems All Other Systems: negative except mentioned in HPI Physical Exam Vital Signs Date Time Temp Pulse Resp B/P (MAP) Pulse Ox O2 Delivery O2 Flow Rate FiO2 04/18/18 06:09 97.2 60 18 131/67 98 Room Air Sp02 EP Interpretation: reviewed, normal General Appearance: well appearing, no apparent distress Head: normocephalic, atraumatic Eyes: bilateral eye PERRL, bilateral eye EOMI ENT: hearing grossly normal, normal pharynx Neck: supple Respiratory: lungs clear Cardiovascular #1: regular rate, rhythm Gastrointestinal: non tender Neurologic: alert, oriented x3, responsive Skin: other - Dressing changes in place Lymphatic: no adenopathy Medical Decision Making Diagnostic Impression: Primary Impression: lower leg wounds ER Course Patient was evaluated yesterday Further redressing of the wound was not performed today Patient is discussed regarding appropriate wound management and changes And stable for close outpatient follow-up Last Vital Signs Date Time Temp Pulse Resp B/P (MAP) Pulse Ox O2 Delivery O2 Flow Rate FiO2 04/18/18 06:13 97.2 65 18 131/67 98 Room Air Status: improved Disposition: HOME, SELF-CARE Condition: Stable Referrals: NOT CHOSEN IPA/MD,REFERRING (PCP) Patient Instructions: Wound Care Additional Instructions: Patient is provided with the discharge instructions notified to follow up with primary doctor in the next 2-3 days otherwise return to the er with any worsening symptoms. Please note that this report is being documented using [employer] technology. This can lead to erroneous entry secondary to incorrect interpretation by the dictating instrument. Taniya Ocampo DO Apr 18, 2018 08:05
== END 2018-04-18 08:00 | disposition home or self-care (01) ==
LOC: MERGE 06:25 → EMR 06:25
DX: Z48.00 Encounter for change or removal of nonsurgical wound dressing (principal)
CPT/HCPCS: 99281

== ENCOUNTER 2018-04-20 01:17 | Emergency (ER) | payer MEDICARE ==
[~2018-04-20] VITALS: Ht 182.9 cm; Wt 95.3 kg
[2018-04-20 01:45] VITALS: BP 138/71
--- NOTE | 2018-04-20 04:31 | Emergency Room Report ---
History of Present Illness General Chief Complaint: Wound Recheck/Suture Removal Source: Patient Present Illness HPI Patient presents with reports that it has been increasingly cold outside Patient presents regularly for wound check and dressing changes Denies any change at this time Patient had presented recently with complaints of itching however reports that that does feel better Denies any fevers denies any chest pain or short of breath Patient also was inquiring regarding changing the dressings Allergies: Coded Allergies: No Known Allergies (Unverified , 12/11/17) Patient History Past Medical History: see triage record Pertinent Family History: none Reviewed Nursing Documentation: PMH: Agreed; PSxH: Agreed Nursing Documentation-PM Past Medical History: No History, Except For Hx Hypertension: Yes Hx Pacemaker: No Hx Asthma: No Hx COPD: No Hx Diabetes: No Hx Cancer: No Hx Dialysis: No Hx Cerebrovascular Accident: No Hx Seizures: No Review of Systems All Other Systems: negative except mentioned in HPI Physical Exam Vital Signs Date Time Temp Pulse Resp B/P (MAP) Pulse Ox O2 Delivery O2 Flow Rate FiO2 04/20/18 01:40 98.1 62 16 138/71 99 Room Air Sp02 EP Interpretation: reviewed, normal General Appearance: well appearing, no apparent distress Head: normocephalic, atraumatic Eyes: bilateral eye PERRL, bilateral eye EOMI ENT: hearing grossly normal Neck: full range of motion Respiratory: lungs clear Gastrointestinal: non tender Musculoskeletal: other - Patient amylase with a walker, has chronic edema and venous stasis both legs Neurologic: alert, oriented x3, responsive Skin: other - As above Lymphatic: other Medical Decision Making Diagnostic Impression: Primary Impression: Encounter for wound re-check ER Course As noted previously patient has had multiple presentations Has had previous admission Patient has refused recent request for admission and further inpatient intervention with possibly improved disposition however patient reports that he lives at home with his daughter and does not want any further care At this time dressing changes were not repeated given the recent change However the patient requesting a new walker Feels that his previous walker is not the right size and therefore the patient was fitted for appropriate height walker And is stable for close follow-up Last Vital Signs Date Time Temp Pulse Resp B/P (MAP) Pulse Ox O2 Delivery O2 Flow Rate FiO2 04/20/18 01:45 98.1 62 16 138/71 99 Room Air Status: improved Disposition: HOME, SELF-CARE Condition: Improved Referrals: NOT CHOSEN IPA/MD,REFERRING (PCP) Additional Instructions: Patient is provided with the discharge instructions notified to follow up with primary doctor in the next 2-3 days otherwise return to the er with any worsening symptoms. Please note that this report is being documented using [employer] technology. This can lead to erroneous entry secondary to incorrect interpretation by the dictating instrument. Taniya Ocampo DO Apr 20, 2018 04:31
[2018-04-20 04:35] VITALS: BP 128/62
== END 2018-04-20 04:35 | disposition home or self-care (01) ==
LOC: EMR 01:30
DX: Z48.00 Encounter for change or removal of nonsurgical wound dressing (principal); I87.8 Other specified disorders of veins; R60.0 Localized edema; I10 Essential (primary) hypertension
CPT/HCPCS: 99282

== ENCOUNTER 2018-04-26 00:41 | Emergency (ER) | payer MEDICARE ==
[~2018-04-26] VITALS: Ht 185.4 cm; Wt 95.3 kg
--- NOTE | 2018-04-26 01:03 | Emergency Room Report ---
History of Present Illness General Chief Complaint: To Be Triaged Source: Patient Present Illness HPI This is an 87-year-old male with a history of chronic lymphedema in very slow healing ulcers. He is well-known to me. He presents with chief complaint of dressing change and wound check. Denies any drainage or fever. Denies any nausea vomiting. Similar symptom in the past. Nothing made it better. Nothing made it worse. Allergies: Coded Allergies: No Known Allergies (Unverified , 12/11/17) Patient History Past Medical History: see triage record, old chart reviewed Past Surgical History: other Pertinent Family History: none Social History: Denies: smoking Immunizations: other Reviewed Nursing Documentation: PMH: Agreed; PSxH: Agreed Nursing Documentation-PMH Hx Hypertension: Yes Hx Pacemaker: No Hx Asthma: No Hx COPD: No Hx Diabetes: No Hx Cancer: No Hx Dialysis: No Hx Cerebrovascular Accident: No Hx Seizures: No Review of Systems Eye: Denies: eye pain, blurred vision ENT: Denies: ear pain, nose congestion, throat swelling Respiratory: Denies: cough, shortness of breath Cardiovascular: Denies: chest pain, palpitations Gastrointestinal: Denies: abdominal pain, diarrhea, nausea, vomiting Musculoskeletal: Denies: back pain, joint pain Skin: Denies: rash Neurological: Denies: headache, numbness Endocrine: Denies: increased thirst, increased urine Hematologic/Lymphatic: Denies: easy bruising All Other Systems: negative except mentioned in HPI Physical Exam vitals with high blood pressure Sp02 EP Interpretation: reviewed, normal General Appearance: well appearing, no apparent distress, alert Head: normocephalic, atraumatic Eyes: bilateral eye PERRL, bilateral eye EOMI ENT: hearing grossly normal, normal pharynx Neck: full range of motion, supple, no meningismus Respiratory: chest non-tender, lungs clear, normal breath sounds Cardiovascular #1: regular rate, rhythm, no murmur Gastrointestinal: normal bowel sounds, non tender, no mass, no organomegaly, no bruit, non-distended Musculoskeletal: back normal, normal range of motion, other - Both lower extremities with ulceration from venous stasis. Right greater than left. Minimal drainage. No crepitance. His wounds are actually looking much better than before. Psychiatric: mood/affect normal Skin: warm/dry Medical Decision Making Diagnostic Impression: Primary Impression: Chronic cutaneous venous stasis ulcer Additional Impression: Lymphedema of both lower extremities ER Course Patient here for dressing change. No evidence of acute infection any antibiotics. His ulcers are actually healing slowly but looked much better than before. I see no need for admission. Patient will be sleeping here to the morning. He will be discharged then. Status: improved Disposition: HOME, SELF-CARE Condition: Stable Additional Instructions: Keep wound clean. Follow-up with your doctor in 7 days. Return if worse. Yusuf Howard MD Apr 26, 2018 01:03
[2018-04-26 01:06] VITALS: BP 118/78
[2018-04-26 05:50] VITALS: BP 109/74
[2018-04-26 06:03] VITALS: BP 118/78
== END 2018-04-26 06:04 | disposition home or self-care (01) ==
LOC: EMR 01:26
DX: Z48.00 Encounter for change or removal of nonsurgical wound dressing (principal); I83.018 Varicose veins of right lower extremity with ulcer other part of lower leg; I83.028 Varicose veins of left lower extremity with ulcer other part of lower leg; I89.0 Lymphedema, not elsewhere classified; M79.675 Pain in left toe(s); I10 Essential (primary) hypertension; Z59.0 Homelessness
CPT/HCPCS: 99282

== ENCOUNTER 2018-04-30 05:28 | Emergency (ER) | payer MEDICARE ==
[~2018-04-30] VITALS: Ht 185.4 cm; Wt 108.9 kg
[2018-04-30 05:35] VITALS: BP 143/74
--- NOTE | 2018-04-30 05:37 | Emergency Room Report ---
History of Present Illness General Chief Complaint: To Be Triaged Source: Patient, Medical Record Present Illness HPI This is an 87-year-old male with a history lymphedema. He is well-known to me. He presents with chief complaint of dressing change. He was just here couple days ago for the same thing. Dressing was changed. It rain the next day now his wound is wet. He is here for dressing change. Denies any fever chills. Denies any nausea vomiting per no fever chills. No other complaint. Allergies: Coded Allergies: No Known Allergies (Unverified , 12/11/17) Patient History Past Medical History: see triage record, old chart reviewed Past Surgical History: other Pertinent Family History: none Social History: Denies: smoking Immunizations: other Reviewed Nursing Documentation: PMH: Agreed; PSxH: Agreed Nursing Documentation-PMH Hx Hypertension: Yes Hx Pacemaker: No Hx Asthma: No Hx COPD: No Hx Diabetes: No Hx Cancer: No Hx Dialysis: No Hx Cerebrovascular Accident: No Hx Seizures: No Review of Systems Eye: Denies: eye pain, blurred vision ENT: Denies: ear pain, nose congestion, throat swelling Respiratory: Denies: cough, shortness of breath Cardiovascular: Denies: chest pain, palpitations Gastrointestinal: Denies: abdominal pain, diarrhea, nausea, vomiting Musculoskeletal: Denies: back pain, joint pain Skin: Denies: rash Neurological: Denies: headache, numbness Endocrine: Denies: increased thirst, increased urine Hematologic/Lymphatic: Denies: easy bruising All Other Systems: negative except mentioned in HPI Physical Exam vitals with high blood pressure Sp02 EP Interpretation: reviewed, normal General Appearance: well appearing, no apparent distress, alert Head: normocephalic, atraumatic Eyes: bilateral eye PERRL, bilateral eye EOMI ENT: hearing grossly normal, normal pharynx Neck: full range of motion, supple, no meningismus Respiratory: chest non-tender, lungs clear, normal breath sounds Cardiovascular #1: regular rate, rhythm, no murmur Gastrointestinal: normal bowel sounds, non tender, no mass, no organomegaly, no bruit, non-distended Musculoskeletal: back normal, normal range of motion, other - Patient with chronic lymphedema. He has slow healing ulcer to both legs. Right greater than left. No purulent discharge. Psychiatric: mood/affect normal Skin: warm/dry Medical Decision Making Diagnostic Impression: Primary Impression: Lymphedema of both lower extremities Additional Impression: Venous stasis ulcer Qualified Codes: I87.2 - Venous insufficiency (chronic) (peripheral); L97.801 - Non-pressure chronic ulcer of other part of unspecified lower leg limited to breakdown of skin ER Course Patient with lymphedema with stasis ulcer. No evidence of infection. We'll discharge home after dressing change. Status: improved Disposition: HOME, SELF-CARE Condition: Stable Additional Instructions: Follow-up with your doctor in 7 days. Return if worse. Yusuf Howard MD Apr 30, 2018 05:37
[2018-04-30 05:58] VITALS: BP 143/74
== END 2018-04-30 05:59 | disposition home or self-care (01) ==
LOC: EMR 05:36
DX: I89.0 Lymphedema, not elsewhere classified (principal); I83.009 Varicose veins of unspecified lower extremity with ulcer of unspecified site; L97.919 Non-pressure chronic ulcer of unspecified part of right lower leg with unspecified severity; L97.929 Non-pressure chronic ulcer of unspecified part of left lower leg with unspecified severity; I10 Essential (primary) hypertension
CPT/HCPCS: 99282

== ENCOUNTER 2018-05-06 05:14 | Emergency (ER) | payer MEDICARE ==
[~2018-05-06] VITALS: Ht 185.4 cm; Wt 95.3 kg
[2018-05-06] MEDS ORDERED: NKM (05:22)
[2018-05-06 05:41] VITALS: BP 142/74
[2018-05-06 06:15] VITALS: BP 142/74
--- NOTE | 2018-05-06 23:03 | Emergency Room Report ---
History of Present Illness General Chief Complaint: Wound Recheck/Suture Removal Source: Patient Present Illness HPI 87-year-old male presents ED for evaluation. He is here for dressing change and wound check. Well-known to [facility] is here multiple times for dressing changes. Has chronic cutaneous venous ulcers to both extremities. Denies pain. Denies fevers or chills. He is able to walk without difficulty. No other aggravating relieving factors. Denies any other associated symptoms Allergies: Coded Allergies: No Known Allergies (Unverified , 12/11/17) Patient History Past Medical History: HTN Past Surgical History: none Pertinent Family History: none Social History: Denies: smoking, alcohol use, drug use Immunizations: UTD Reviewed Nursing Documentation: PMH: Agreed; PSxH: Agreed Nursing Documentation-PMH Hx Hypertension: Yes Hx Pacemaker: No Hx Asthma: No Hx COPD: No Hx Diabetes: No Hx Cancer: No Hx Dialysis: No Hx Cerebrovascular Accident: No Hx Seizures: No Review of Systems All Other Systems: negative except mentioned in HPI Physical Exam Vital Signs Date Time Temp Pulse Resp B/P (MAP) Pulse Ox O2 Delivery O2 Flow Rate FiO2 05/06/18 05:20 97.9 66 16 157/68 96 Room Air Sp02 EP Interpretation: reviewed, normal General Appearance: no apparent distress, alert, GCS 15, non-toxic Head: normocephalic Eyes: bilateral eye normal inspection, bilateral eye PERRL ENT: normal ENT inspection Neck: normal inspection Respiratory: normal inspection Cardiovascular #1: normal inspection Gastrointestinal: normal inspection Rectal: deferred Genitourinary: no CVA tenderness Musculoskeletal: back normal, gait/station normal, normal range of motion, non- tender, swelling Neurologic: alert, oriented x3, responsive, motor strength/tone normal, sensory intact, speech normal Psychiatric: judgement/insight normal, memory normal, mood/affect normal, no suicidal/homicidal ideation Skin: other - chronic cutaneous venous stasis ulcers. Lymphatic: normal inspection Medical Decision Making Diagnostic Impression: Primary Impression: Encounter for wound re-check ER Course Hospital Course 87-year-old M presents to ED for wound check/dressing changes of bilateral LEs Clinical course Patient placed on stretcher. Patient has chronic cutaneous venous stasis ulcers which appear unchanged from prior exams. I've seen this patient multiple times myself and appears to be no exacerbation of symptoms. Wound irrigated and dressings applied. Patient is safe for discharge at this time Diagnosis - encounter for wound re-check Stable and discharged to home. wound care instructions given. Followup with PMD. Return to ED if any signs of infection develop Last Vital Signs Date Time Temp Pulse Resp B/P (MAP) Pulse Ox O2 Delivery O2 Flow Rate FiO2 05/06/18 06:15 98.4 87 17 142/74 96 Room Air Status: improved Disposition: HOME, SELF-CARE Condition: Stable Referrals: NOT CHOSEN IPA/,REFERRING (PCP) Patient Instructions: Wound Check Kermit Verdugo MD May 06, 2018 23:03
== END 2018-05-06 06:15 | disposition home or self-care (01) ==
LOC: EMR 05:26
DX: I10 Essential (primary) hypertension (principal); I87.2 Venous insufficiency (chronic) (peripheral); L97.829 Non-pressure chronic ulcer of other part of left lower leg with unspecified severity; L97.819 Non-pressure chronic ulcer of other part of right lower leg with unspecified severity
CPT/HCPCS: 99282

== ENCOUNTER 2018-05-16 20:59 | Emergency (ER) | payer MEDICARE ==
[~2018-05-16] VITALS: Ht 188 cm; Wt 95.3 kg
[2018-05-16 21:15] VITALS: BP 107/57
--- NOTE | 2018-05-16 21:25 | Emergency Room Report ---
History of Present Illness General Chief Complaint: Wound Recheck/Suture Removal Present Illness HPI Mr. Ames is a very pleasant gentleman who is 87 years old. According to EMR, he has hx of BPH, lymphedema, chronic venous stasis ulcer, HTN, recurrent cellulitis and hx of sepsis. He came to the hospital by bus. He wants his wounds dressed. He also desires something wrong to drink. He does not have any other concerns or requests. Allergies: Coded Allergies: No Known Allergies (Unverified , 12/11/17) Nursing Documentation-H Hx Hypertension: Yes Hx Pacemaker: No Hx Asthma: No Hx COPD: No Hx Diabetes: No Hx Cancer: No Hx Dialysis: No Hx Cerebrovascular Accident: No Hx Seizures: No Review of Systems All Other Systems: limited - due to patient cooperation Physical Exam Vital Signs Date Time Temp Pulse Resp B/P (MAP) Pulse Ox O2 Delivery O2 Flow Rate FiO2 05/16/18 21:05 97.9 79 18 107/57 96 Room Air Sp02 EP Interpretation: reviewed, normal General Appearance: normal inspection, well appearing, no apparent distress, alert, non-toxic Eyes: bilateral eye normal inspection ENT: normal pharynx, no angioedema, normal voice Neck: normal inspection, full range of motion, supple Respiratory: lungs clear, normal breath sounds, no rhonchi, no respiratory distress, no retraction, no accessory muscle use Cardiovascular #1: normal inspection, regular rate, rhythm, no murmur Neurologic: alert, other - ambulates with walker, oriented - to name and place Skin: other - large ulcer healing on lower right leg, no cellulitis, left leg small area of ulceration without infection Medical Decision Making Diagnostic Impression: Primary Impression: Visit for wound check Additional Impressions: Encounter for dressing change or suture removal Chronic cutaneous venous stasis ulcer Lymphedema of both lower extremities ER Course Mr. Ames is a very pleasant gentlemen who requested wound dressing. He did not have dressing on his wounds upon arrival. No signs of overt infection. Patient appears well especially considering his age. I have asked staff to apply nonstick pad including kerlex and yuly bandage. Dc'd home Last Vital Signs Date Time Temp Pulse Resp B/P (MAP) Pulse Ox O2 Delivery O2 Flow Rate FiO2 05/16/18 21:05 97.9 79 18 107/57 96 Room Air Disposition: HOME, SELF-CARE Condition: Stable Ethel Bustamante MD May 16, 2018 21:25
[2018-05-16 21:30] VITALS: BP 110/60
== END 2018-05-16 21:30 | disposition home or self-care (01) ==
LOC: EMR 21:29
DX: I83.009 Varicose veins of unspecified lower extremity with ulcer of unspecified site (principal); I89.0 Lymphedema, not elsewhere classified; I10 Essential (primary) hypertension
CPT/HCPCS: 99282

== ENCOUNTER 2018-05-23 05:51 | Emergency (ER) | payer MEDICARE ==
[~2018-05-23] VITALS: Ht 185.4 cm; Wt 95.3 kg
[2018-05-23 06:15] VITALS: BP 156/74
--- NOTE | 2018-05-23 06:36 | Emergency Room Report ---
History of Present Illness General Chief Complaint: General Complaint Source: Patient Present Illness HPI Patient is an 87-year-old male who presented for wound check. The patient had chronic nonhealing wounds. The patient denies any fever or increased discharge. The patient has been changing dressings regularly. He denies any recent fever or increased pain. Patient has a chronic left inguinal hernia which had become more prominent. The patient denies any vomiting or abdominal pain. Patient states he been eating normally. Allergies: Coded Allergies: No Known Allergies (Unverified , 12/11/17) Patient History Past Medical History: see triage record Reviewed Nursing Documentation: PMH: Agreed; PSxH: Agreed Nursing Documentation-PMH Past Medical History: No Stated History Hx Hypertension: Yes Hx Pacemaker: No Hx Asthma: No Hx COPD: No Hx Diabetes: No Hx Cancer: No Hx Dialysis: No Hx Cerebrovascular Accident: No Hx Seizures: No Review of Systems All Other Systems: negative except mentioned in HPI Physical Exam Vital Signs Date Time Temp Pulse Resp B/P (MAP) Pulse Ox O2 Delivery O2 Flow Rate FiO2 05/23/18 05:57 97.9 75 18 156/74 99 Room Air General Appearance: well appearing, no apparent distress, alert, GCS 15 Head: normocephalic, atraumatic ENT: hearing grossly normal, normal voice Neck: full range of motion, supple Respiratory: no respiratory distress, speaking full sentences Cardiovascular #1: normal peripheral pulses, no edema Gastrointestinal: normal inspection, non tender Genitourinary: other - left inguinal hernia, easily reducible Musculoskeletal: normal inspection Neurologic: normal inspection, alert, oriented x3, normal gait Psychiatric: mood/affect normal Skin: other - no erythema , no discharge Medical Decision Making Diagnostic Impression: Primary Impression: Visit for wound check Additional Impression: Left inguinal hernia ER Course Patient presented for wound check. Differential diagnosis included was not limited to infected wound, nonhealed wound, neuroma, healed wound. Patient has a benign exam and does not appear to require any further imaging or laboratory testing at this time. The patient was again advised follow-up with a general surgery if he decides to have elective hernia repair. The patient is advised to follow up with primary care doctor in 1-2 days. Patient is advised to return if any worsening condition or if any changes in status that are concerning. This report is dictated with [employer] sleeve tailor software which may occasionally lead to discrepancies related to use of this software. Last Vital Signs Date Time Temp Pulse Resp B/P (MAP) Pulse Ox O2 Delivery O2 Flow Rate FiO2 05/23/18 06:15 75 18 Room Air 05/23/18 06:15 97.9 156/74 99 Status: improved Disposition: HOME, SELF-CARE Condition: Stable Osvaldo Lutz MD May 23, 2018 06:36
[2018-05-23 06:54] VITALS: BP 156/74
[2018-05-23] MEDS ORDERED: [UNRECOGNIZED DRUG - OTHER] (07:00)
== END 2018-05-23 06:57 | disposition home or self-care (01) ==
LOC: EMR 06:18
DX: Z48.00 Encounter for change or removal of nonsurgical wound dressing (principal); K40.90 Unilateral inguinal hernia, without obstruction or gangrene, not specified as recurrent
CPT/HCPCS: 99282

== ENCOUNTER 2018-05-25 23:17 | Emergency (ER) | payer MEDICARE ==
[~2018-05-25] VITALS: Ht 185.4 cm; Wt 95.3 kg
[2018-05-25 23:40] VITALS: BP 133/70
[2018-05-26 00:15] VITALS: BP 130/85
--- NOTE | 2018-05-26 22:08 | Emergency Room Report ---
History of Present Illness General Chief Complaint: Wound Recheck/Suture Removal Source: Patient Present Illness HPI 87-year-old male presents ED for evaluation. Patient is here for wound check and dressing changes. Is well-known to [facility]. 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 Patient comes in frequently for wound check and dressing changes. Denies any pain. Denies any worsening of ulcers. Denies any fevers or chills. Denies any discharge. No other aggravating or relieving factors. Denies any other associated symptoms Allergies: Coded Allergies: No Known Allergies (Unverified , 12/11/17) Patient History Past Medical History: HTN Past Surgical History: none Pertinent Family History: none Social History: Denies: smoking, alcohol use, drug use Immunizations: UTD Reviewed Nursing Documentation: PMH: Agreed; PSxH: Agreed Nursing Documentation-PMH Hx Hypertension: Yes Hx Pacemaker: No Hx Asthma: No Hx COPD: No Hx Diabetes: No Hx Cancer: No Hx Dialysis: No Hx Cerebrovascular Accident: No Hx Seizures: No Review of Systems All Other Systems: negative except mentioned in HPI Physical Exam Vital Signs Date Time Temp Pulse Resp B/P (MAP) Pulse Ox O2 Delivery O2 Flow Rate FiO2 05/25/18 23:40 97.9 60 16 133/70 95 Room Air Sp02 EP Interpretation: reviewed, normal General Appearance: no apparent distress, alert, GCS 15, non-toxic Head: normocephalic Eyes: bilateral eye normal inspection, bilateral eye PERRL ENT: normal ENT inspection Neck: normal inspection Respiratory: normal inspection Cardiovascular #1: normal inspection Gastrointestinal: normal inspection Rectal: deferred Genitourinary: no CVA tenderness Musculoskeletal: swelling Neurologic: alert, oriented x3, responsive, motor strength/tone normal, sensory intact, speech normal Psychiatric: judgement/insight normal, memory normal, mood/affect normal, no suicidal/homicidal ideation Skin: other - chronic cutaneous venous stasis ulcers bilaterally. no weeping wounds. no discharge Lymphatic: normal inspection Medical Decision Making Diagnostic Impression: Primary Impression: Chronic cutaneous venous stasis ulcer Additional Impression: Visit for wound check ER Course Hospital Course 87-year-old M presents to ED for wound check. History of chronic venous cutaneous stasis ulcers Clinical course Patient placed on stretcher. After initial history, physical exam reveals elderly male in no acute distress. Dressings removed. His chronic cutaneous venous stasis ulcers appear to be healing well, unchanged from prior visits. No worsening of symptoms. patient is afebrile, nontoxic. Due dressings applied. Patient safe for discharge for close outpatient follow-up Diagnosis - chronic cutaneous venous stasis ulcers, visit for wound check Stable and discharged to home. followup with PMD. Return to ED if any signs of infection develop Last Vital Signs Date Time Temp Pulse Resp B/P (MAP) Pulse Ox O2 Delivery O2 Flow Rate FiO2 05/26/18 00:15 97.0 60 18 130/85 96 Room Air Status: improved Disposition: HOME, SELF-CARE Condition: Stable Referrals: NOT CHOSEN IPA/,REFERRING (PCP) Patient Instructions: Wound Check Kermit Verdugo MD May 26, 2018 22:08
== END 2018-05-26 00:15 | disposition home or self-care (01) ==
LOC: EMR 23:44
DX: Z48.00 Encounter for change or removal of nonsurgical wound dressing (principal); I10 Essential (primary) hypertension; I83.009 Varicose veins of unspecified lower extremity with ulcer of unspecified site
CPT/HCPCS: 99282

== ENCOUNTER 2018-06-01 03:24 | Emergency (ER) | payer MEDICARE ==
[~2018-06-01] VITALS: Ht 185.4 cm; Wt 95.3 kg
[2018-06-01 04:53] VITALS: BP 169/83
--- NOTE | 2018-06-01 05:02 | Emergency Room Report ---
History of Present Illness General Chief Complaint: Wound Recheck/Suture Removal Source: Patient Present Illness HPI Patient here to have leg wounds re-dressed. Denies fever, chills, increased pain, NVD, dysuria, headache, chest pain, cough , abdominal pain. Was here 05/25 for similar request. No depression. Has been admitted for sepsis in the past. Insists on living on the streets. 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 Has family in [place] Nursing Documentation-[facility] Past Medical History: No History, Except For Hx Hypertension: Yes Hx Pacemaker: No Hx Asthma: No Hx COPD: No Hx Diabetes: No Hx Cancer: No Hx Dialysis: No Hx Cerebrovascular Accident: No Hx Seizures: No Review of Systems All Other Systems: negative except mentioned in HPI Physical Exam Vital Signs Date Time Temp Pulse Resp B/P (MAP) Pulse Ox O2 Delivery O2 Flow Rate FiO2 06/01/18 04:50 97.7 63 16 169/83 97 Sp02 EP Interpretation: reviewed, normal General Appearance: well appearing, no apparent distress Head: normocephalic, atraumatic ENT: hearing grossly normal, normal voice, moist mucus membranes - poorly fitting plates with sparse teeth Neck: full range of motion, supple Respiratory: chest non-tender, lungs clear, normal breath sounds, no respiratory distress, speaking full sentences Cardiovascular #1: regular rate, rhythm, edema Cardiovascular #2: 2+ radial (L), 2+ dorsalis pedis (R), 2+ dorsalis pedis (L) Gastrointestinal: normal inspection, normal bowel sounds Genitourinary: no CVA tenderness Musculoskeletal: gait/station normal - shuffling, no calf tenderness Neurologic: alert, normal gait, grossly normal Psychiatric: mood/affect normal, no suicidal/homicidal ideation Skin: other - venous stasis ulcers, worse on R, no erythema (improved from last time I saw the patient) Medical Decision Making Diagnostic Impression: Primary Impression: Venous stasis ulcer Qualified Codes: I83.002 - 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 No evidence of active infection at this time. No evidence of DVT. Wounds have improved since last evaluation by me. Wounds re-dressed. Patient stable for outpatient observation and treatment. Last Vital Signs Date Time Temp Pulse Resp B/P (MAP) Pulse Ox O2 Delivery O2 Flow Rate FiO2 06/01/18 05:47 97.7 63 16 169/83 97 Status: improved Disposition: HOME, SELF-CARE Condition: Improved Basim Correa MD Jun 01, 2018 05:02
[2018-06-01] MEDS ORDERED: Bacitracin Oint UD TOPIC ONE (05:15)
[2018-06-01 05:47] VITALS: BP 169/83
== END 2018-06-01 05:50 | disposition home or self-care (01) ==
LOC: EMR 05:08
DX: I83.012 Varicose veins of right lower extremity with ulcer of calf (principal); I83.022 Varicose veins of left lower extremity with ulcer of calf; L97.219 Non-pressure chronic ulcer of right calf with unspecified severity; I10 Essential (primary) hypertension
CPT/HCPCS: 99282

== ENCOUNTER 2018-06-03 01:50 | Emergency (ER) | payer MEDICARE ==
[~2018-06-03] VITALS: Ht 185.4 cm; Wt 95.3 kg
--- NOTE | 2018-06-03 02:16 | Emergency Room Report ---
History of Present Illness General Chief Complaint: General Complaint Source: Patient Present Illness HPI This is an 87-year-old homeless male with a history of hypertension who is well- known to me in this department. He presents with chief complaint of dressing change. He has chronic lymphedema and comes here frequently for dressing change. He is not taking any blood pressure medication. Refuse to go to a senior living. No fever chills but no nausea no vomiting. No drainage. No other complaint. Allergies: Coded Allergies: No Known Allergies (Unverified , 06/03/18) Patient History Past Medical History: see triage record, old chart reviewed, HTN Past Surgical History: other Pertinent Family History: none Social History: Denies: smoking Immunizations: other Reviewed Nursing Documentation: PMH: Agreed; PSxH: Agreed Nursing Documentation-PMH Past Medical History: No History, Except For Hx Hypertension: Yes Hx Pacemaker: No Hx Asthma: No Hx COPD: No Hx Diabetes: No Hx Cancer: No Hx Dialysis: No Hx Cerebrovascular Accident: No Hx Seizures: No Review of Systems Eye: Denies: eye pain, blurred vision ENT: Denies: ear pain, nose congestion, throat swelling Respiratory: Denies: cough, shortness of breath Cardiovascular: Denies: chest pain, palpitations Gastrointestinal: Denies: abdominal pain, diarrhea, nausea, vomiting Musculoskeletal: Denies: back pain, joint pain Skin: Denies: rash Neurological: Denies: headache, numbness Endocrine: Denies: increased thirst, increased urine Hematologic/Lymphatic: Denies: easy bruising All Other Systems: negative except mentioned in HPI Physical Exam Vital Signs Date Time Temp Pulse Resp B/P (MAP) Pulse Ox O2 Delivery O2 Flow Rate FiO2 06/03/18 01:54 98.2 67 16 148/67 95 Room Air vitals with high blood pressure Sp02 EP Interpretation: reviewed, normal General Appearance: well appearing, no apparent distress, alert Head: normocephalic, atraumatic Eyes: bilateral eye PERRL, bilateral eye EOMI ENT: hearing grossly normal, normal pharynx Neck: full range of motion, supple, no meningismus Respiratory: chest non-tender, lungs clear, normal breath sounds Cardiovascular #1: regular rate, rhythm, no murmur Gastrointestinal: normal bowel sounds, non tender, no mass, no organomegaly, no bruit, non-distended Musculoskeletal: back normal, normal range of motion, other - Extremities with chronic lymphedema. He has chronic stasis ulcer. No evidence of warmth or erythema. Psychiatric: mood/affect normal Skin: warm/dry Medical Decision Making Diagnostic Impression: Primary Impression: Lymphedema of both lower extremities Additional Impressions: Venous stasis ulcer Qualified Codes: I87.2 - Venous insufficiency (chronic) (peripheral); L97.801 - Non-pressure chronic ulcer of other part of unspecified lower leg limited to breakdown of skin Visit for wound check ER Course Patient with chronic lymphedema and ulcer. Patient does not want to stay in hospital. No evidence of acute infection. We'll discharge home after dressing change. Last Vital Signs Date Time Temp Pulse Resp B/P (MAP) Pulse Ox O2 Delivery O2 Flow Rate FiO2 06/03/18 01:54 98.2 67 16 148/67 95 Room Air Status: improved Disposition: HOME, SELF-CARE Condition: Stable Additional Instructions: Follow-up with your doctor in 7 days. Return if worse. Yusuf Howard MD Jun 03, 2018 02:16
[2018-06-03 02:35] VITALS: BP 142/64
[2018-06-03 03:26] VITALS: BP 142/64
== END 2018-06-03 03:26 | disposition home or self-care (01) ==
LOC: EMR 02:10
DX: I89.0 Lymphedema, not elsewhere classified (principal); I87.8 Other specified disorders of veins; L97.819 Non-pressure chronic ulcer of other part of right lower leg with unspecified severity; L97.829 Non-pressure chronic ulcer of other part of left lower leg with unspecified severity; I10 Essential (primary) hypertension
CPT/HCPCS: 99282

== ENCOUNTER 2018-06-06 00:33 | Emergency (ER) | payer MEDICARE ==
[~2018-06-06] VITALS: Ht 185.4 cm; Wt 95.3 kg
--- NOTE | 2018-06-06 01:13 | Emergency Room Report ---
History of Present Illness General Chief Complaint: wound check Source: Patient Present Illness HPI Patient is an 87-year-old male presented for wound check. Patient had prior history of chronic nonhealing wounds to his lower extremities. Patient presented for dressing changes. Patient has had multiple similar visits in the past. Patient denies any abdominal pain. He denies any recent fever or increased pain. Patient not currently taking antibiotics. Patient is presented multiple times for dressing changes in the past. Allergies: Coded Allergies: No Known Allergies (Unverified , 06/03/18) Patient History Reviewed Nursing Documentation: PMH: Agreed; PSxH: Agreed Nursing Documentation-PMH Hx Hypertension: Yes Hx Pacemaker: No Hx Asthma: No Hx COPD: No Hx Diabetes: No Hx Cancer: No Hx Dialysis: No Hx Cerebrovascular Accident: No Hx Seizures: No Review of Systems All Other Systems: negative except mentioned in HPI Physical Exam General Appearance: well appearing, no apparent distress, alert, GCS 15, non- toxic Head: normocephalic, atraumatic ENT: hearing grossly normal, normal voice Neck: full range of motion, supple Respiratory: normal inspection, lungs clear, no respiratory distress, speaking full sentences Cardiovascular #1: normal inspection, regular rate, rhythm Gastrointestinal: normal inspection, normal bowel sounds, non tender, soft Musculoskeletal: no calf tenderness Neurologic: normal inspection, alert, oriented x3, responsive, corporate health consultant III-XII nml as tested, normal gait Psychiatric: mood/affect normal Skin: warm/dry, other - healing chronic leg ulcer, no erythema. Medical Decision Making Diagnostic Impression: Primary Impression: Encounter for wound re-check ER Course . Patient presented for wound check. Differential diagnosis included was not limited to infected wound, nonhealed wound, neuroma, healed wound. Patient has a benign exam and does not appear to require any further imaging or laboratory testing at this time. The patient is advised to follow up with primary care doctor in 1-2 days. Patient is advised to return if any worsening condition or if any changes in status that are concerning. 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 Status: improved Disposition: HOME, SELF-CARE Condition: Stable Osvaldo Lutz MD Jun 06, 2018 01:13
[2018-06-06 01:46] VITALS: BP 144/76
--- NOTE | 2018-06-06 01:47 | NUR ---
ED Nurse Note: Pt walked into ER stating he wants his "leg wrapped". pt is able to ambulate with a walker. pt denies pain.
[2018-06-06] MEDS ORDERED: Bacitracin Oint UD TOPIC ONE ×2 (02:39→02:45)
[2018-06-06 03:46] VITALS: BP 140/71
[2018-06-06 04:17] VITALS: BP 135/75
--- NOTE | 2018-06-06 04:17 | NUR ---
ED Nurse Note PT left per ERMD order. PT ID band removed. pt is alert and orietned times 4. pt is able to ambulate. pt vital signs are stable. pt has left with all belongings. pt is instructed to follow up with primary MD prior to DC. no skin issues noted in ED. pt vital signs, status and condition reported to ERMD prior to DC. pt has left with all DC notes. 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
== END 2018-06-06 04:17 | disposition home or self-care (01) ==
LOC: EMR 01:26
DX: Z48.00 Encounter for change or removal of nonsurgical wound dressing (principal); L97.909 Non-pressure chronic ulcer of unspecified part of unspecified lower leg with unspecified severity; I10 Essential (primary) hypertension
CPT/HCPCS: 99283

== ENCOUNTER 2018-06-08 03:27 | Emergency (ER) | payer MEDICARE ==
[~2018-06-08] VITALS: Ht 175.3 cm; Wt 90.7 kg
[2018-06-08 03:30] VITALS: BP 132/78
--- NOTE | 2018-06-08 05:01 | Emergency Room Report ---
History of Present Illness General Chief Complaint: Wound Recheck/Suture Removal Source: Patient Present Illness HPI This is an 87-year-old male well-known to me. He has a history of chronic lymphedema. He called 911 for leg pain and dressing change. Usually he walks and but since his New Year's, he said he wanted it free taxi ride. Denies any fever chills but denies any nausea vomiting. Denies any drainage. He was just here couple days ago for the same thing. Allergies: Coded Allergies: No Known Allergies (Unverified , 06/03/18) Patient History Past Medical History: see triage record, old chart reviewed Past Surgical History: other Pertinent Family History: none Social History: Denies: smoking Immunizations: other Reviewed Nursing Documentation: PMH: Agreed; PSxH: Agreed Nursing Documentation-PMH Past Medical History: No History, Except For Hx Hypertension: Yes Hx Pacemaker: No Hx Asthma: No Hx COPD: No Hx Diabetes: No Hx Cancer: No Hx Dialysis: No Hx Cerebrovascular Accident: No Hx Seizures: No Review of Systems Eye: Denies: eye pain, blurred vision ENT: Denies: ear pain, nose congestion, throat swelling Respiratory: Denies: cough, shortness of breath Cardiovascular: Denies: chest pain, palpitations Gastrointestinal: Denies: abdominal pain, diarrhea, nausea, vomiting Musculoskeletal: Reports: muscle pain; Denies: back pain, joint pain Skin: Denies: rash Neurological: Denies: headache, numbness Endocrine: Denies: increased thirst, increased urine Hematologic/Lymphatic: Denies: easy bruising All Other Systems: negative except mentioned in HPI Physical Exam Vital Signs Date Time Temp Pulse Resp B/P (MAP) Pulse Ox O2 Delivery O2 Flow Rate FiO2 06/08/18 03:28 98.2 60 18 120/53 98 Room Air vitals unremarkable Sp02 EP Interpretation: reviewed, normal General Appearance: well appearing, no apparent distress, alert Head: normocephalic, atraumatic Eyes: bilateral eye PERRL, bilateral eye EOMI ENT: hearing grossly normal, normal pharynx Neck: full range of motion, supple, no meningismus Respiratory: chest non-tender, lungs clear, normal breath sounds Cardiovascular #1: regular rate, rhythm, no murmur Gastrointestinal: normal bowel sounds, non tender, no mass, no organomegaly, no bruit, non-distended Musculoskeletal: back normal, normal range of motion, other - Bilateral lower extremity with lymphedema. There is chronic changes of stasis ulcer. No drainage. No infection. Neurologic: alert, oriented x3 Psychiatric: mood/affect normal Skin: warm/dry Medical Decision Making Diagnostic Impression: Primary Impression: Encounter for dressing change or suture removal Additional Impressions: Lymphedema of both lower extremities Venous stasis ulcer Qualified Codes: I87.2 - Venous insufficiency (chronic) (peripheral); L97.801 - Non-pressure chronic ulcer of other part of unspecified lower leg limited to breakdown of skin ER Course Patient with chronic lymphedema here for dressing change. No evidence of new infection. Wound looking well. We'll discharge home. Last Vital Signs Date Time Temp Pulse Resp B/P (MAP) Pulse Ox O2 Delivery O2 Flow Rate FiO2 06/08/18 03:30 98.1 87 18 132/78 98 Room Air Status: improved Disposition: HOME, SELF-CARE Condition: Stable Referrals: NOT CHOSEN IPA/MD,REFERRING (PCP) Patient Instructions: Wound Check Additional Instructions: Follow-up with your doctor in 7 days. Return if symptom worsen. Yusuf Howard MD Jun 08, 2018 05:01
[2018-06-08 05:38] VITALS: BP 135/87
== END 2018-06-08 05:40 | disposition home or self-care (01) ==
LOC: EDBD 03:27 → EDUNIT# 03:27 → EMR 03:38
DX: Z48.00 Encounter for change or removal of nonsurgical wound dressing (principal); I87.8 Other specified disorders of veins; L97.829 Non-pressure chronic ulcer of other part of left lower leg with unspecified severity; L97.819 Non-pressure chronic ulcer of other part of right lower leg with unspecified severity; I10 Essential (primary) hypertension
CPT/HCPCS: 99281

== ENCOUNTER → 2018-06-15 | Emergency (ER) | payer MEDICARE ==
[~2018-06-15] VITALS: Ht 185.4 cm; Wt 95.3 kg
[2018-06-15 10:38] VITALS: BP 142/66
--- NOTE | 2018-06-15 12:21 | NUR ---
ED Nurse Note: PT CALLED. PT NOT IN WAITING AREA.
--- NOTE | 2018-06-15 12:45 | NUR ---
called no answer
--- NOTE | 2018-06-15 22:58 | Emergency Room Report ---
History of Present Illness General Chief Complaint: Wound Recheck/Suture Removal Source: Patient Present Illness HPI This patient left prior to full evaluation by medical provider. This pt. was signed out to me by supervising physician. Pt. left prior to physical exam. Allergies: Coded Allergies: No Known Allergies (Unverified , 06/03/18) Nursing Documentation-[facility] Past Medical History: No History, Except For Hx Hypertension: Yes Hx Pacemaker: No Hx Asthma: No Hx COPD: No Hx Diabetes: No Hx Cancer: No Hx Dialysis: No Hx Cerebrovascular Accident: No Hx Seizures: No Physical Exam Vital Signs Date Time Temp Pulse Resp B/P (MAP) Pulse Ox O2 Delivery O2 Flow Rate FiO2 06/15/18 10:38 97.9 54 20 142/66 97 Room Air Medical Decision Making PA Attestation Dr. Clifton is my supervising Physician whom patient management has been discussed with. Diagnostic Impression: Primary Impression: dressing change ER Course This patient left prior to full evaluation by medical provider. This pt. was signed out to me by supervising physician. Pt. left prior to physical exam. Last Vital Signs Date Time Temp Pulse Resp B/P (MAP) Pulse Ox O2 Delivery O2 Flow Rate FiO2 06/15/18 10:38 97.9 54 20 142/66 97 Room Air Disposition: LEFT W/OUT BEING SEEN Condition: Unknown Referrals: NOT CHOSEN IPA/,REFERRING (PCP) Meron Ross Jun 15, 2018 22:58
== END | disposition left against medical advice (07) ==
LOC: EMR 11:16
DX: Z48.02 Encounter for removal of sutures (principal); Z53.21 Procedure and treatment not carried out due to patient leaving prior to being seen by health care provider

== ENCOUNTER 2018-06-21 19:20 | Emergency (ER) | payer MEDICARE ==
[~2018-06-21] VITALS: Ht 185.4 cm; Wt 95.3 kg
--- NOTE | 2018-06-22 00:46 | Emergency Room Report ---
History of Present Illness General Chief Complaint: Wound Recheck/Suture Removal Source: Patient Present Illness HPI Patient presents for evaluation of his leg wounds Please note that there was some delay with the patient's presentation to the emergency room patient had initially checked in however was not in the waiting room And was put into a bed approximately 1 hour and 20 minutes after the initial triage Currently denies any chest pain Reports that he feels great He also reports that it was raining outside and was ruining his bandages Patient asking for a sandwich otherwise denies any fevers Denies any chills Allergies: Coded Allergies: No Known Allergies (Unverified , 06/03/18) Patient History Past Medical History: see triage record Pertinent Family History: none Reviewed Nursing Documentation: PMH: Agreed; PSxH: Agreed Nursing Documentation-PMH Hx Hypertension: Yes Hx Pacemaker: No Hx Asthma: No Hx COPD: No Hx Diabetes: No Hx Cancer: No Hx Dialysis: No Hx Cerebrovascular Accident: No Hx Seizures: No Review of Systems All Other Systems: negative except mentioned in HPI Physical Exam Vital Signs Date Time Temp Pulse Resp B/P (MAP) Pulse Ox O2 Delivery O2 Flow Rate FiO2 06/21/18 20:30 97.7 68 14 150/82 99 Sp02 EP Interpretation: reviewed, normal General Appearance: no apparent distress - However appears disheveled Head: normocephalic, atraumatic Eyes: bilateral eye PERRL, bilateral eye EOMI ENT: normal pharynx Neck: supple Respiratory: lungs clear, no retraction Cardiovascular #1: regular rate, rhythm Gastrointestinal: non tender Musculoskeletal: normal inspection Neurologic: alert, oriented x3, responsive Skin: other - Chronic venous stasis wounds appear improved from my last examination Lymphatic: other - Bilateral edema Medical Decision Making Diagnostic Impression: Primary Impression: Encounter for wound re-check Additional Impression: Lymphedema of both lower extremities ER Course Patient has had multiple evaluations I have also admitted the patient previously and have recommended further assisted living facility and improved disposition on multiple occasions however patient continues to refuse this I have had previous social work case management also speak with the patient/ Patient is extremely coherent, 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 Please note that this report is being documented using DRAGON technology. This can lead to erroneous entry secondary to incorrect interpretation by the dictating instrument. Taniya Ocampo DO Jun 22, 2018 00:46
--- NOTE | 2018-06-22 03:30 | NUR ---
ED Nurse Note: Received report from Brent. Pt is asleep. Dressings were changed at 2100 with xeroform and kerlix; LLE with wet to dry over tibia.
[2018-06-22 04:00] VITALS: BP 141/79
[2018-06-22 05:24] VITALS: BP 141/79
== END 2018-06-22 05:57 | disposition home or self-care (01) ==
LOC: EMR 21:00
DX: Z48.00 Encounter for change or removal of nonsurgical wound dressing (principal); I89.0 Lymphedema, not elsewhere classified; I87.8 Other specified disorders of veins; I10 Essential (primary) hypertension
CPT/HCPCS: 99282

== ENCOUNTER 2018-07-02 13:34 | Inpatient (IN) | payer MEDICARE ==
[~2018-07-02] VITALS: Ht 185.4 cm; Wt 86.3 kg
[2018-07-02 13:37] VITALS: BP 102/57
[2018-07-02] MEDS ORDERED: LORazepam Inj 2mg/ml 1ml IM ONE (14:00)
[2018-07-02] MEDS ORDERED: DiphenhydrAMINE 50mg/ml Inj IM ONE (14:00)
[2018-07-02] MEDS ORDERED: Haloperidol 5mg/ml Inj IM ONE (14:00)
--- NOTE | 2018-07-02 14:42 | Diagnostic Imaging Report ---
Indication: Chest pain Technique: One view of the chest Comparison: 06/19/2016 Findings: There is thoracic scoliotic deformity. The heart size is normal. The aorta is tortuous and calcified. There is minimal atelectasis at the left lung base. Lungs and pleural spaces are otherwise clear. There is no significant interim change. Impression: No acute process
[2018-07-02 14:57] LABS: HEMATOCRIT 29.3 % (42.0-52.0); HEMOGLOBIN 9.3 G/DL (14.2-18.0); MEAN CORPUSCULAR VOLUME 98 FL (80-99); PLATELET COUNT 213 K/UL (150-450); RED CELL DISTRIBUTION WIDTH 14.6 % (11.6-14.8); WHITE BLOOD COUNT 2.9 K/UL (4.8-10.8)
[2018-07-02 15:02] LABS: ANION GAP 9 mmol/L (5-15); BLOOD UREA NITROGEN 25 mg/dL (7-18); CALCIUM 8.5 MG/DL (8.5-10.1); CARBON DIOXIDE 27 MMOL/L (21-32); CHLORIDE 107 MMOL/L (98-107); CREATININE 1.6 MG/DL (0.55-1.30); INR 1.1 (0.9-1.1); POTASSIUM 4.3 MMOL/L (3.5-5.1); SODIUM 143 MMOL/L (136-145)
--- NOTE | 2018-07-02 15:12 | Emergency Room Report ---
History of Present Illness General Chief Complaint: Pain Source: EMS Present Illness HPI Patient was brought in by EMS. Apparently a concerned citizen called. The patient is well known to us here and comes in for dressing changes. Usually he is ambulatory and able to converse. At this time he is unable to answer questions and is combative. Addition to that paramedics found him to be hypotensive. Chronic venous stasis ulcers. In the past he has been admitted for sepsis. He has had multiple psychiatric evaluations. He insists on staying on the streets. The patient was last admitted March 2018 for cellulitis. Discharge diagnoses: Bilateral leg cellulitis with MRSA and gram-negative bacilli Non-pressure ulcers bilateral lower extremities Venous insufficiency with chronic venous stasis ulcers Hypertension Allergies: Coded Allergies: No Known Allergies (Unverified , 06/03/18) Patient History Limited by: medical condition Past Medical History: see triage record, old chart reviewed Social History: Denies: smoking, alcohol use, drug use Social History Narrative Played [employer] with [employer] - chooses to live on the streets Reviewed Nursing Documentation: PMH: Agreed; PSxH: Agreed Nursing Documentation-PMH Hx Hypertension: Yes Hx Pacemaker: No Hx Asthma: No Hx COPD: No Hx Diabetes: No Hx Cancer: No Hx Dialysis: No Hx Cerebrovascular Accident: No Hx Seizures: No Review of Systems All Other Systems: limited Physical Exam Vital Signs Date Time Temp Pulse Resp B/P (MAP) Pulse Ox O2 Delivery O2 Flow Rate FiO2 07/02/18 13:24 98.2 73 69/36 99 Room Air Sp02 EP Interpretation: reviewed, normal General Appearance: alert, other - [facility], Chronically Ill Eyes: bilateral eye normal inspection, bilateral eye PERRL ENT: moist mucus membranes Neck: full range of motion, no meningismus, no bony tend Respiratory: chest non-tender, lungs clear, normal breath sounds Cardiovascular #1: regular rate, rhythm, systolic murmur, edema - Brawny edema bilaterally Cardiovascular #2: 2+ dorsalis pedis (R), 2+ dorsalis pedis (L) Gastrointestinal: normal bowel sounds, non tender, soft, hernia - L inguinal Genitourinary: no CVA tenderness Musculoskeletal: no calf tenderness, decreased range of motion, Tasha's Sign negative Neurologic: alert, sensory intact, motor weakness - Lower extremities Reflexes: 1+ knee (R), 1+ knee (L) Skin: other - open lesions legs Medical Decision Making Medical: Other - Sepsis Reaction to Intervention: No change Restraint Reassesment I, Basim Correa MD, have personally evaluated this patient. Laboratory tests have been reviewed and addressed accordingly. The patient is deemed to present a danger to themselves and/or others. This is based on the exam, history ( provided by patient, EMS and staff) and observed or reported behavior. Attempts for non-invasive measures have been considered and/or attempted, however, have been futile. It is in the best interest of the nursing staff, the patient, and others involved in this patient's care that non-behavioral restraints be applied. Patient evaluation reveals the following: Delirious, combative and not understanding intended treatment plan. Diagnostic Impression: Primary Impression: Sepsis Qualified Codes: A41.9 - Sepsis, unspecified organism Additional Impressions: Renal failure Qualified Codes: N17.9 - Acute kidney failure, unspecified Toxic encephalopathy Venous stasis ulcers Qualified Codes: I83.008 - Varicose veins of unspecified lower extremity with ulcer other part of lower leg; L97.802 - Non-pressure chronic ulcer of other part of unspecified lower leg with fat layer exposed ER Course Patient presents with altered mentation and hypotension. Differential includes dehydration, toxic ingestion, sepsis, UTI, wound infections amongst others. The patient will be evaluated with EKG, chest x-ray and labs. In addition he' ll receive fluid hydration and most likely will need antibiotic coverage. The patient is combative here and did not understanding of the seriousness of his condition. The patient is restrained temporarily and sedated. Patient is removed from restraints as he is more compliant after sedation. BP better, pulse 76, slighly improve mentation and good capillary fill - documented 15:12. Patient ate here. White count low.Anemia. CMP with no renal dysfunction. Urinalysis clear. EKG no acute injury. Chest x-ray clear. The source of the patient's sepsis is most likely his legs as urine and chest x- ray are clear. At this point his illness seems to affect his judgment and he does not comprehend the seriousness. He will be admitted to telemetry floor for continued IV antibiotics and reassessment. Patient admitted to Dr. Alvarado Laboratory Tests Test 07/02/18 14:20 07/02/18 15:30 White Blood Count 2.9 K/UL (4.8-10.8) L Red Blood Count 3.00 M/UL (4.70-6.10) L Hemoglobin 9.3 G/DL (14.2-18.0) L Hematocrit 29.3 % (42.0-52.0) L Mean Corpuscular Volume 98 FL (80-99) Mean Corpuscular Hemoglobin 31.2 PG (27.0-31.0) H Mean Corpuscular Hemoglobin Concent 31.9 G/DL (32.0-36.0) L Red Cell Distribution Width 14.6 % (11.6-14.8) Platelet Count 213 K/UL (150-450) Mean Platelet Volume 5.9 FL (6.5-10.1) L Neutrophils (%) (Auto) % (45.0-75.0) Lymphocytes (%) (Auto) % (20.0-45.0) Monocytes (%) (Auto) % (1.0-10.0) Eosinophils (%) (Auto) % (0.0-3.0) Basophils (%) (Auto) % (0.0-2.0) Differential Total Cells Counted 100 Neutrophils % (Manual) 71 % (45-75) Lymphocytes % (Manual) 19 % (20-45) L Monocytes % (Manual) 9 % (1-10) Eosinophils % (Manual) 1 % (0-3) Basophils % (Manual) 0 % (0-2) Band Neutrophils 0 % (0-8) Platelet Estimate Adequate Platelet Morphology Normal Polychromasia 1+ Anisocytosis 1+ Macrocytosis 1+ Prothrombin Time 11.3 SEC (9.30-11.50) Prothrombin Time INR 1.1 (0.9-1.1) PTT 35 SEC (23-33) H Sodium Level 143 MMOL/L (136-145) Potassium Level 4.3 MMOL/L (3.5-5.1) Chloride Level 107 MMOL/L (98-107) Carbon Dioxide Level 27 MMOL/L (21-32) Anion Gap 9 mmol/L (5-15) Blood Urea Nitrogen 25 mg/dL (7-18) H Creatinine 1.6 MG/DL (0.55-1.30) H Estimate Glomerular Filtration Rate mL/min (>60) Glucose Level 78 MG/DL (74-106) Lactic Acid Level 1.30 mmol/L (0.4-2.0) Calcium Level 8.5 MG/DL (8.5-10.1) Magnesium Level 1.9 MG/DL (1.8-2.4) Total Bilirubin 0.5 MG/DL (0.2-1.0) Aspartate Amino Transferase (AST) 29 U/L (15-37) Alanine Aminotransferase (ALT) 21 U/L (12-78) Alkaline Phosphatase 83 U/L (46-116) Total Creatine Kinase 186 U/L (26-308) Troponin I 0.052 ng/mL (0.000-0.056) Pro-B-Type Natriuretic Peptide 1347 pg/mL (0-125) H Total Protein 6.9 G/DL (6.4-8.2) Albumin 2.7 G/DL (3.4-5.0) L Globulin 4.2 g/dL Albumin/Globulin Ratio 0.6 (1.0-2.7) L Lipase 89 U/L (73-393) Urine Color Yellow Urine Appearance Slightly cloudy Urine pH 5 (4.5-8.0) Urine Specific [place]ow 1.015 (1.005-1.035) Urine Protein 2+ (NEGATIVE) H Urine Glucose (UA) Negative (NEGATIVE) Urine Ketones Negative (NEGATIVE) Urine Blood Negative (NEGATIVE) Urine Nitrite Negative (NEGATIVE) Urine Bilirubin Negative (NEGATIVE) Urine Urobilinogen 4 MG/DL (0.0-1.0) H Urine Leukocyte Esterase 1+ (NEGATIVE) H Urine RBC 0-2 /HPF (0 - 0) H Urine WBC 0-2 /HPF (0 - 0) Urine Squamous Epithelial Cells Few /LPF (NONE/OCC) Urine Amorphous Sediment Few /LPF (NONE) H Urine Bacteria Occasional /HPF (NONE) Microbiology Date/Time Source Procedure Growth Status 07/02/18 14:30 Nasal Nares Influenza Types A,B Antigen (NAT) - Final Complete EKG Diagnostic Results Rate: normal Rhythm: NSR ST Segments: no acute changes - LVH Rhythm Strip Diag. Results EP Interpretation: yes Rhythm: NSR, no PVC's, no ectopy Chest X-Ray Diagnostic Results Chest X-Ray Diagnostic Results : Chest X-Ray Ordered: Yes # of Views/Limited/Complete: 1 View Indication: Other EP Interpretation: Yes Interpretation: no consolidation, no effusion, no pneumothorax, other - copd Impression: Other Electronically Signed by: Electronically signed by Basim Correa MD Last Vital Signs Date Time Temp Pulse Resp B/P (MAP) Pulse Ox O2 Delivery O2 Flow Rate FiO2 07/02/18 17:42 Room Air 07/02/18 17:40 97.8 82 20 138/72 (94) 96 Status: improved Disposition: ADMITTED INPATIENT Condition: Serious Referrals: NOT CHOSEN IPA/,REFERRING (PCP) Basim Correa MD Jul 02, 2018 15:12
[2018-07-02 15:13] LABS: ALANINE AMINOTRANSFERASE 21 U/L (12-78); ALBUMIN 2.7 G/DL (3.4-5.0); ALBUMIN/GLOBULIN RATIO 0.6 (1.0-2.7); ALKALINE PHOSPHATASE 83 U/L (46-116); ASPARTATE AMINO TRANSFERASE 29 U/L (15-37); BILIRUBIN,TOTAL 0.5 MG/DL (0.2-1.0); CREATINE KINASE 186 U/L (26-308)
[2018-07-02 15:30] VITALS: BP 111/53
[2018-07-02] MEDS ORDERED: Cefepime HCl 1 GM in D5W 55 ML IVPB ONE (15:45)
[2018-07-02 15:49] LABS: APPEARANCE,URINE SLIGHTLY CLOUDY; BILIRUBIN, URINE NEGATIVE (NEGATIVE); COLOR,URINE YELLOW; GLUCOSE, URINE (UA) NEGATIVE (NEGATIVE); KETONES,URINE NEGATIVE (NEGATIVE); LEUKOCYTE ESTERASE ,URINE 1+ (NEGATIVE); NITRITE,URINE NEGATIVE (NEGATIVE); PH,URINE 5 (4.5-8.0); PROTEIN,URINE 2+ (NEGATIVE); UROBILINOGEN,URINE 4 MG/DL (0.0-1.0)
[2018-07-02] MEDS ORDERED: NKM (16:22)
[2018-07-02 17:40] VITALS: BP 138/72
[2018-07-02] MEDS: Aspirin Baby 81mg ORAL SCH (18:47)
[2018-07-02 20:00] VITALS: BP_SYST 113; BP_SYST 124; BP_DIAS 51; BP_DIAS 89
[2018-07-02] MEDS ORDERED: Milk of Magnesia 30ml Ud ORAL PRN (21:00)
[2018-07-02] MEDS: Vancomycin 750mg/NS 250ml IVPB SCH (21:10)
[2018-07-03] VITALS: BP 118/64
[2018-07-03 04:00] VITALS: BP 125/68
[2018-07-03 08:00] VITALS: BP 117/65
[2018-07-03] MEDS: Aspirin Baby 81mg ORAL SCH (08:44)
[2018-07-03 12:00] VITALS: BP 122/64
--- NOTE | 2018-07-03 12:30 | Consultation ---
DATE OF CONSULTATION: 07/03/2018 INFECTIOUS DISEASES CONSULTATION CONSULTING PHYSICIAN: Clarence Christianson M.D. REFERRING PHYSICIAN: Jed Alvarado M.D. This consultation has been done on behalf of Dr. Dwight Alvarado. REASON FOR CONSULTATION: Leg cellulitis. HISTORY OF PRESENTING ILLNESS: . An Infectious Diseases consultation has been obtained for antibiotics. PAST MEDICAL HISTORY: 1. History of hypertension. 2. Venous insufficiency with chronic venous stasis ulcers. SOCIAL HISTORY: He does not smoke, drink, or use drugs. FAMILY HISTORY: Unknown. REVIEW OF SYSTEMS: Unable to obtain currently. MEDICATIONS: As an inpatient, he is on cefepime, milk of magnesia, Restoril, vancomycin, aspirin, and Tylenol. ALLERGIES: No known drug allergies. PHYSICAL EXAMINATION: VITAL SIGNS: Temperature of 97, T-max of 98.5, pulse of 62, respiratory rate 19, blood pressure 117/65, and O2 saturation of 99%. HEENT: Pupils equally reactive to light and accommodation. Mouth appears clean without thrush. NECK: Supple. No adenopathy. No JVD. CARDIOVASCULAR: Regular rate and rhythm. No murmurs. LUNGS: Clear to auscultation bilaterally. No crackles. No wheezes. ABDOMEN: Soft and nontender. No organomegaly. EXTREMITIES: No cyanosis. No clubbing. Bilateral leg erythema with ulcers noted. There is also on both his legs. LABORATORY AND DIAGNOSTIC DATA: White count 2.9, hemoglobin 9.3, hematocrit 29.3, MCA 98, platelet count of 213, neutrophils of 71%. Sodium 143, potassium 4.3, chloride 107, bicarb 27, BUN 25, creatinine 1.6, glucose 78, calcium 8.5. Total bilirubin 0.5. AST 29, ALT 21, and alkaline phosphatase 83. CK 186. Troponin 0.052. Total protein 6.9. Albumin 2.7. Lipase of 89. UA showing 0 to 2 white cells. Nasal swab was negative for influenza A and B. Chest x-ray showing no acute process. ASSESSMENT: This is an 87-year-old gentleman with history of hypertension, bilateral venous stasis ulcers, who comes in with: 1. Bilateral leg cellulitis. 2. Hypertension. PLAN: 1. Continue IV vancomycin and cefepime. 2. Local wound care. I would like to thank, Dr. Jed Alvarado, for this consultation. Clarence Christianson M.D. DR: LAWRENCE JOB#: [id number] CC: Jed Alvarado M.D.; Fax#: [phone]
[2018-07-03] MEDS ORDERED: Cefepime HCl 1 GM in D5W 55 ML IVPB SCH (14:00)
[2018-07-03 16:00] VITALS: BP 130/89
--- NOTE | 2018-07-03 17:34 | History & Physical ---
History and Physical History & Physicial [facility] [id number] Jed Alvarado MD Jul 03, 2018 17:34
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
[2018-07-03 20:00] VITALS: BP 132/87
[2018-07-03] MEDS: Vancomycin 750mg/NS 250ml IVPB SCH (20:33)
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
--- NOTE | 2018-07-03 22:30 | History and Physical Report ---
DATE OF ADMISSION: 07/02/2018 CHIEF COMPLAINT: Lower extremity wounds. HISTORY OF PRESENT ILLNESS: This is an 87-year-old male, who is known to me from a previous admission in March of last year. At that time, he presented to the ER for generalized weakness and bilateral lower extremity cellulitis, which was getting worse. He was treated with antibiotics and also seen by frame sample and pattern supervisor. He presents now again with lower extremity ulcers however. At this time, paramedics were called because he was altered. When he was in the ER, he was unable to answer questions and was combative. The patient was also hypotensive per paramedics, so he was admitted and diagnosed with sepsis. PAST MEDICAL HISTORY: The patient has history of hypertension. He has been somewhat noncompliant with medications when he was in the hospital. He has also history of venous insufficiency of the lower extremities and ulcers and cellulitis with MRSA and gram-negative bacilli. MEDICATIONS: Reviewed in the EMR. ALLERGIES: No known drug allergies. SOCIAL HISTORY: Apparently, the [place] [address] No reported history of smoking or alcohol abuse. REVIEW OF SYSTEMS: Noncontributory. PHYSICAL EXAMINATION: GENERAL: The patient is an elderly male, in no acute distress. VITAL SIGNS: Blood pressure 122/64, pulse 51, temperature 97, and respiratory rate is 20. HEENT: Pale conjunctivae. Anicteric sclerae. NECK: Supple. LUNGS: Clear to auscultation. HEART: S1, S2 without murmurs or rubs. ABDOMEN: Soft and nontender. EXTREMITIES: Bilateral pedal edema. The patient has dressing to both lower extremities. He has ulcers on the lower extremities, which were looked at by the pictures. LABORATORY FINDINGS: The CBC shows a WBC of 2900, hematocrit is 29.3, hemoglobin 9.3, and platelets 213,000. Chemistry panel shows a serum sodium 143, potassium 4.3, chloride 107, CO2 27, BUN is 25, creatinine 1.6, and blood sugar 78. Calcium is 8.5. Albumin is 2.7. ASSESSMENT: This is an 87-year-old male, who is admitted with change in mental status possibly as a result of sepsis. Source is lower extremity cellulitis. The patient has also renal failure now and some proteinuria likely some chronic kidney disease, but acute kidney injury could not be ruled out especially with the presence of hypotension and the possibility of acute tubular necrosis. He is also anemic. Iron deficiency anemia to be ruled out as well as anemia of chronic disease. PLAN: The patient will be on antibiotics. ID consultation was obtained. Wound care will be done. The patient will be seen by Dr. Duque in surgical consultation. Chemistry panel will be followed and further adjustments will be made in the patient's regimen. Jed Alvarado M.D. DR: YOSELIN JOB#: [id number] CC: BELINDA
[2018-07-04] VITALS: BP 115/79
[2018-07-04 04:00] VITALS: BP 129/77
[2018-07-04 08:00] VITALS: BP 117/75
[2018-07-04] MEDS: Aspirin Baby 81mg ORAL SCH (08:16)
--- NOTE | 2018-07-04 11:43 | Infectious Diseases Prog Note ---
Assessment/Plan Assessment/Plan A: 1. Bilateral leg cellulitis. 2. Hypertension. 3. Stasis dermatitis 4. Altered mental status 5. Anemia & Leukopenia PLAN: 1. Continue IV vancomycin and cefepime 2. F/U CBC Subjective ROS Limited/Unobtainable: No Constitutional: Reports: no symptoms Respiratory: Reports: no symptoms Cardiovascular: Reports: no symptoms Gastrointestinal/Abdominal: Reports: no symptoms Musculoskeletal: Reports: pain, other - on & off tingling pain in legs Allergies: Coded Allergies: No Known Allergies (Unverified , 06/03/18) Objective Vital Signs Last 24 Hour Vital Signs Date Time Temp Pulse Resp B/P (MAP) Pulse Ox O2 Delivery O2 Flow Rate FiO2 07/04/18 09:00 Room Air 07/04/18 08:00 97.5 60 21 117/75 (89) 100 07/04/18 07:44 74 07/04/18 04:00 98.3 71 18 129/77 (94) 99 07/04/18 04:00 64 07/04/18 00:00 68 07/04/18 00:00 98.4 71 18 115/79 (91) 97 07/03/18 21:00 Room Air 07/03/18 20:00 97.4 68 19 132/87 (102) 98 07/03/18 20:00 74 07/03/18 16:00 97.6 67 20 130/89 (103) 99 07/03/18 16:00 72 07/03/18 12:00 97.0 51 20 122/64 (83) 100 07/03/18 11:52 54 Height (Feet): 6 Height (Inches): 1.00 Weight (Pounds): 184 General Appearance: no acute distress HEENT: mucous membranes moist Respiratory/Chest: lungs clear Cardiovascular: normal rate Abdomen: soft, non tender Extremities: other - edema R>L Skin: other - stasis dematitis & ulcers of legs Neurologic/Psychiatric: alert, oriented x 3, responsive Microbiology Date/Time Source Procedure Growth Status 07/02/18 14:29 Blood Blood Culture - Preliminary NO GROWTH AFTER 24 HOURS Resulted 07/02/18 14:20 Blood Blood Culture - Preliminary NO GROWTH AFTER 24 HOURS Resulted 07/02/18 14:30 Nasal Nares Influenza Types A,B Antigen (NAT) - Final Complete 07/03/18 06:00 Rectum Received Current Medications Medications (Trade) Dose Ordered Sig/Shannon Route PRN Reason Start Time Stop Time Status Last Admin Dose Admin Acetaminophen (Tylenol) 650 mg Q4H PRN ORAL Mild Pain (Pain Scale 1-3) 07/04/18 11:00 08/01/18 10:59 Aspirin (ASA) 162 mg DAILY ORAL 07/05/18 09:00 08/01/18 17:59 Cefepime HCl 1 gm/ Dextrose 55 ml @ 110 mls/hr Q24H IVPB 07/04/18 14:00 07/10/18 13:59 Dextrose (Dextrose 50%) 25 ml Q30M PRN IV Hypoglycemia 07/04/18 11:00 08/01/18 17:59 Dextrose (Dextrose 50%) 50 ml Q30M PRN IV Hypoglycemia 07/04/18 11:00 08/01/18 17:59 Magnesium Hydroxide (Mom) 30 ml HSPRN PRN ORAL Constipation 07/04/18 21:00 08/01/18 20:59 Risperidone (RisperDAL) 1 mg Q6H PRN ORAL agitation 07/04/18 11:00 08/02/18 10:59 Sodium Chloride 1,000 ml @ 75 mls/hr [id number] IVLG 07/04/18 11:00 08/01/18 18:48 Temazepam (Restoril) 15 mg HSPRN PRN ORAL Insomnia 07/04/18 21:00 07/09/18 20:59 Vancomycin HCl (Vanco rx to dose) 1 ea DAILY PRN MISC Per rx protocol 07/04/18 11:30 08/03/18 11:29 Vancomycin/Sodium Chloride 250 ml @ 166.667 mls/hr Q24H IVPB 07/04/18 20:30 07/07/18 20:29 Dwight Alvarado MD Jul 04, 2018 11:43
[2018-07-04 12:00] VITALS: BP 119/72
[2018-07-04] MEDS: Cefepime HCl 1 GM in D5W 55 ML IVPB SCH (14:41)
--- NOTE | 2018-07-04 15:09 | General Progress Note ---
Assessment/Plan Problem List: (1) Cellulitis ICD Codes: L03.90 - Cellulitis, unspecified SNOMED: 572374224 Qualifiers: (2) Chronic cutaneous venous stasis ulcer ICD Codes: I83.009 - Varicose veins of unspecified lower extremity with ulcer of unspecified site SNOMED: 52951919 (3) Toxic encephalopathy ICD Codes: G92 - Toxic encephalopathy SNOMED: 79028261 (4) Sepsis ICD Codes: A41.9 - Sepsis, unspecified organism SNOMED: 45626752 Qualifiers: Qualified Codes: A41.9 - Sepsis, unspecified organism (5) HTN (hypertension) ICD Codes: I10 - Essential (primary) hypertension SNOMED: 25333666 Assessment/Plan abxs wound care follow labs Watch BP Subjective Allergies: Coded Allergies: No Known Allergies (Unverified , 06/03/18) Subjective feels ok Objective Last 24 Hour Vital Signs Date Time Temp Pulse Resp B/P (MAP) Pulse Ox O2 Delivery O2 Flow Rate FiO2 07/04/18 12:00 97.3 69 19 119/72 (88) 97 07/04/18 09:00 Room Air 07/04/18 08:00 97.5 60 21 117/75 (89) 100 07/04/18 07:44 74 07/04/18 04:00 98.3 71 18 129/77 (94) 99 07/04/18 04:00 64 07/04/18 00:00 68 07/04/18 00:00 98.4 71 18 115/79 (91) 97 07/03/18 21:00 Room Air 07/03/18 20:00 97.4 68 19 132/87 (102) 98 07/03/18 20:00 74 07/03/18 16:00 97.6 67 20 130/89 (103) 99 07/03/18 16:00 72 Intake and Output 07/03/18 07/04/18 18:59 06:59 Output Total 450 ml 800 ml Balance -450 ml -800 ml Output Urine Total 450 ml 800 ml Height (Feet): 6 Height (Inches): 1.00 Weight (Pounds): 184 Cardiovascular: normal rate Respiratory/Chest: lungs clear Edema: no edema noted Generalized Jed Alvarado MD Jul 04, 2018 15:09
[2018-07-04 16:00] VITALS: BP 122/75
[2018-07-04] MEDS ORDERED: Tubing IV Secondary IV ONE (17:24)
[2018-07-04 20:00] VITALS: BP 106/66
--- NOTE | 2018-07-04 20:22 | General Progress Note ---
Assessment/Plan Problem List: (1) schizophrenia (2) Cognitive impairment ICD Codes: R41.89 - Other symptoms and signs involving cognitive functions and awareness SNOMED: 577695235 Status: unchanged Assessment/Plan risperdal 1mg po qhs risperdal 1mg q 6hr prn the pt lacks capacity to leave [facility]a Subjective Neurologic/Psychiatric: Reports: anxiety, depressed Allergies: Coded Allergies: No Known Allergies (Unverified , 06/03/18) Subjective the pt c/o not sleeping due to roommate being noisy. Objective Last 24 Hour Vital Signs Date Time Temp Pulse Resp B/P (MAP) Pulse Ox O2 Delivery O2 Flow Rate FiO2 07/04/18 16:00 97.0 72 20 122/75 (91) 98 07/04/18 12:00 97.3 69 19 119/72 (88) 97 07/04/18 09:00 Room Air 07/04/18 08:00 97.5 60 21 117/75 (89) 100 07/04/18 07:44 74 07/04/18 04:00 98.3 71 18 129/77 (94) 99 07/04/18 04:00 64 07/04/18 00:00 68 07/04/18 00:00 98.4 71 18 115/79 (91) 97 07/03/18 21:00 Room Air Intake and Output 07/03/18 07/04/18 19:00 07:00 Output Total 450 ml 800 ml Balance -450 ml -800 ml Output Urine Total 450 ml 800 ml Height (Feet): 6 Height (Inches): 1.00 Weight (Pounds): 184 General Appearance: alert, confused, agitated Jovana Pantoja MD Jul 04, 2018 20:22
[2018-07-04] MEDS: Vancomycin 750mg/NS 275ml 250 ML IVPB SCH (20:25)
[2018-07-04] MEDS ORDERED: Milk of Magnesia 30ml Ud ORAL PRN (21:00)
[2018-07-05] VITALS: BP 114/55
[2018-07-05 04:00] VITALS: BP 135/74
[2018-07-05] MEDS: Aspirin Baby 81mg ORAL SCH (08:45)
--- NOTE | 2018-07-05 10:34 | General Progress Note ---
Assessment/Plan Problem List: (1) Cognitive impairment ICD Codes: R41.89 - Other symptoms and signs involving cognitive functions and awareness SNOMED: 887771031 (2) schizophrenia Assessment/Plan risperdal 1mg po qhs risperdal 1mg q 6hr prn the pt lacks capacity to leave ama provided ro/st Subjective Neurologic/Psychiatric: Reports: anxiety, depressed, emotional problems Allergies: Coded Allergies: No Known Allergies (Unverified , 06/03/18) Subjective the pt stated that his roommate was yelling all night. his appetite is good. he cont to be disorganized and disoriented to date. Objective Last 24 Hour Vital Signs Date Time Temp Pulse Resp B/P (MAP) Pulse Ox O2 Delivery O2 Flow Rate FiO2 07/05/18 09:00 Room Air 07/05/18 04:00 97.6 70 19 135/74 (94) 99 07/05/18 00:00 97.8 80 17 114/55 (74) 96 07/04/18 21:00 Room Air 07/04/18 20:00 98.7 81 18 106/66 (79) 94 07/04/18 16:00 97.0 72 20 122/75 (91) 98 07/04/18 12:00 97.3 69 19 119/72 (88) 97 Intake and Output 07/04/18 07/05/18 19:00 07:00 Intake Total 1030 ml 1950.000 ml Output Total 800 ml 2000 ml Balance 230 ml -50.000 ml Intake Oral 600 ml 950 ml IV Total 430 ml 1000.000 ml Output Urine Total 800 ml 2000 ml Height (Feet): 6 Height (Inches): 1.00 Weight (Pounds): 184 General Appearance: no apparent distress, alert Neurologic: alert, responsive, depressed affect Jovana Pantoja MD Jul 05, 2018 10:33
[2018-07-05 12:00] VITALS: BP 123/67
--- NOTE | 2018-07-05 12:27 | Surgery Progress Note ---
Surgery Progress Note Subjective Additional Comments no acute events. doing well. dressings clean. wound stable. Objective Last 24 Hour Vital Signs Date Time Temp Pulse Resp B/P (MAP) Pulse Ox O2 Delivery O2 Flow Rate FiO2 07/05/18 12:00 98.7 62 19 123/67 (85) 96 07/05/18 09:00 Room Air 07/05/18 04:00 97.6 70 19 135/74 (94) 99 07/05/18 00:00 97.8 80 17 114/55 (74) 96 07/04/18 21:00 Room Air 07/04/18 20:00 98.7 81 18 106/66 (79) 94 07/04/18 16:00 97.0 72 20 122/75 (91) 98 I&O Intake and Output 07/04/18 07/05/18 19:00 07:00 Intake Total 1030 ml 1950.000 ml Output Total 800 ml 2000 ml Balance 230 ml -50.000 ml Intake Oral 600 ml 950 ml IV Total 430 ml 1000.000 ml Output Urine Total 800 ml 2000 ml Dressing: dry Wound: clean Drains: none Cardiovascular: RSR Respiratory: clear Abdomen: soft, present bowel sounds, non-distended Extremities: other Plan Problems: (1) Cellulitis Assessment & Plan: 87 year old male presents with cellulitis of bilateral lower extremities right > left. long history of venous insufficiency prior ulcerations and wounds in multiple stages of healing left leg with multiple areas of partial thickness ulcerations as noted in pictures. areas of sloth that is easily debrided with non excisional debridement performed at bedside. underneath viable bleeding dermis. right leg with multiple areas of partial thickness ulcerations as noted in pictures. area of eschar with sloth noted, bleeding with non excisional debridement to identify viable dermis. Tx Plan: -wash bilateral lower extremities daily -apply skin protectant / lotion to dry areas -apply Xeroform over areas of partial thickness wounds, apply ABD / Gauze, wrap with Kerlix Daily -keep legs elevated to help with venous flow -heel protectors -air mattress -ID input appreciated for Abx -will follow with recs thank you Uvaldo Duque Jul 05, 2018 12:27
--- NOTE | 2018-07-05 12:32 | Infectious Diseases Prog Note ---
Assessment/Plan Assessment/Plan A: 1. Bilateral leg cellulitis. 2. Hypertension. 3. Stasis dermatitis 4. Altered mental status 5. Anemia & Leukopenia PLAN: 1. Continue IV vancomycin and cefepime 2. F/U CBC Subjective ROS Limited/Unobtainable: No Constitutional: Reports: no symptoms, other - feels better Respiratory: Reports: no symptoms Cardiovascular: Reports: no symptoms Gastrointestinal/Abdominal: Reports: no symptoms Musculoskeletal: Reports: pain, other - in legs Allergies: Coded Allergies: No Known Allergies (Unverified , 06/03/18) Objective Vital Signs Last 24 Hour Vital Signs Date Time Temp Pulse Resp B/P (MAP) Pulse Ox O2 Delivery O2 Flow Rate FiO2 07/05/18 12:00 98.7 62 19 123/67 (85) 96 07/05/18 09:00 Room Air 07/05/18 04:00 97.6 70 19 135/74 (94) 99 07/05/18 00:00 97.8 80 17 114/55 (74) 96 07/04/18 21:00 Room Air 07/04/18 20:00 98.7 81 18 106/66 (79) 94 07/04/18 16:00 97.0 72 20 122/75 (91) 98 Height (Feet): 6 Height (Inches): 1.00 Weight (Pounds): 184 General Appearance: no acute distress HEENT: mucous membranes moist Respiratory/Chest: lungs clear Cardiovascular: normal rate Abdomen: soft, non tender Extremities: other - edema of legs Skin: ulcers, other - legs Neurologic/Psychiatric: alert, oriented x 3, responsive Microbiology Date/Time Source Procedure Growth Status 07/02/18 14:29 Blood Blood Culture - Preliminary NO GROWTH AFTER 48 HOURS Resulted 07/02/18 14:20 Blood Blood Culture - Preliminary NO GROWTH AFTER 48 HOURS Resulted 07/03/18 06:00 Nasal Nares MRSA Culture - Final NO METHICILLIN RESISTANT STAPH AUREUS... Complete 07/02/18 14:30 Nasal Nares Influenza Types A,B Antigen (NAT) - Final Complete 07/03/18 06:00 Rectum - Final NO CARBAPENEM-RESISTANT ENTEROBACTERI... Complete 07/03/18 06:00 Rectum VRE Culture - Final NO VANCOMYCIN RESISTANT ENTEROCOCCUS ... Complete Current Medications Medications (Trade) Dose Ordered Sig/Shannon Route PRN Reason Start Time Stop Time Status Last Admin Dose Admin Acetaminophen (Tylenol) 650 mg Q4H PRN ORAL Mild Pain (Pain Scale 1-3) 07/04/18 11:00 08/01/18 10:59 Aspirin (ASA) 162 mg DAILY ORAL 07/05/18 09:00 08/01/18 17:59 Cefepime HCl 1 gm/ Dextrose 55 ml @ 110 mls/hr Q24H IVPB 07/04/18 14:00 07/10/18 13:59 07/04/18 14:41 Dextrose (Dextrose 50%) 25 ml Q30M PRN IV Hypoglycemia 07/04/18 11:00 08/01/18 17:59 Dextrose (Dextrose 50%) 50 ml Q30M PRN IV Hypoglycemia 07/04/18 11:00 08/01/18 17:59 Magnesium Hydroxide (Mom) 30 ml HSPRN PRN ORAL Constipation 07/04/18 21:00 08/01/18 20:59 Risperidone (RisperDAL) 1 mg BEDTIME ORAL 07/05/18 21:00 08/04/18 20:59 Risperidone (RisperDAL) 1 mg Q6H PRN ORAL agitation 07/04/18 11:00 08/02/18 10:59 Sodium Chloride 1,000 ml @ 75 mls/hr [id number] IVLG 07/04/18 11:00 08/01/18 18:48 07/05/18 00:34 Temazepam (Restoril) 15 mg HSPRN PRN ORAL Insomnia 07/04/18 21:00 07/09/18 20:59 Vancomycin HCl (Vanco rx to dose) 1 ea DAILY PRN MISC Per rx protocol 07/04/18 11:30 08/03/18 11:29 Vancomycin/Sodium Chloride 250 ml @ 166.667 mls/hr Q24H IVPB 07/04/18 20:30 07/07/18 20:29 07/04/18 20:25 Dwight Alvarado MD Jul 05, 2018 12:32
[2018-07-05] MEDS: Cefepime HCl 1 GM in D5W 55 ML IVPB SCH (14:00)
--- NOTE | 2018-07-05 14:43 | General Progress Note ---
Assessment/Plan Problem List: (1) Cellulitis ICD Codes: L03.90 - Cellulitis, unspecified SNOMED: 516614949 Qualifiers: (2) Chronic cutaneous venous stasis ulcer ICD Codes: I83.009 - Varicose veins of unspecified lower extremity with ulcer of unspecified site SNOMED: 28919490 (3) Toxic encephalopathy ICD Codes: G92 - Toxic encephalopathy SNOMED: 23472208 (4) Sepsis ICD Codes: A41.9 - Sepsis, unspecified organism SNOMED: 00614633 Qualifiers: Qualified Codes: A41.9 - Sepsis, unspecified organism (5) HTN (hypertension) ICD Codes: I10 - Essential (primary) hypertension SNOMED: 69422128 Assessment/Plan abxs wound care Refuses to go to [place]. Patient will be referred to a different residential facility. Subjective Allergies: Coded Allergies: No Known Allergies (Unverified , 06/03/18) Subjective feels ok Objective Last 24 Hour Vital Signs Date Time Temp Pulse Resp B/P (MAP) Pulse Ox O2 Delivery O2 Flow Rate FiO2 07/05/18 12:00 98.7 62 19 123/67 (85) 96 07/05/18 09:00 Room Air 07/05/18 04:00 97.6 70 19 135/74 (94) 99 07/05/18 00:00 97.8 80 17 114/55 (74) 96 07/04/18 21:00 Room Air 07/04/18 20:00 98.7 81 18 106/66 (79) 94 07/04/18 16:00 97.0 72 20 122/75 (91) 98 Intake and Output 07/04/18 07/05/18 18:59 06:59 Intake Total 1030 ml 1950.000 ml Output Total 800 ml 2000 ml Balance 230 ml -50.000 ml Intake Oral 600 ml 950 ml IV Total 430 ml 1000.000 ml Output Urine Total 800 ml 2000 ml Height (Feet): 6 Height (Inches): 1.00 Weight (Pounds): 184 Cardiovascular: normal rate Respiratory/Chest: lungs clear Edema: no edema noted Generalized Jed Alvarado MD Jul 05, 2018 14:43
[2018-07-05 16:00] VITALS: BP 128/72
[2018-07-05 20:00] VITALS: BP 140/82
[2018-07-05] MEDS: Vancomycin 750mg/NS 275ml 250 ML IVPB SCH (20:30)
[2018-07-06 04:00] VITALS: BP 148/77
[2018-07-06 08:00] VITALS: BP 149/75
[2018-07-06] MEDS: Aspirin Baby 81mg ORAL SCH (08:48)
--- NOTE | 2018-07-06 11:43 | Surgery Progress Note ---
Surgery Progress Note Objective Last 24 Hour Vital Signs Date Time Temp Pulse Resp B/P (MAP) Pulse Ox O2 Delivery O2 Flow Rate FiO2 07/06/18 09:00 Room Air 07/06/18 08:00 98.0 67 20 149/75 (99) 95 07/06/18 04:00 98.2 77 20 148/77 (100) 99 07/05/18 21:00 Room Air 07/05/18 20:00 98.2 71 21 140/82 (101) 96 07/05/18 16:00 98.1 65 20 128/72 (90) 99 07/05/18 12:00 98.7 62 19 123/67 (85) 96 I&O Intake and Output 07/05/18 07/06/18 19:00 07:00 Intake Total 1000 ml 450 ml Output Total 1500 ml 600 ml Balance -500 ml -150 ml Intake Oral 1000 ml 450 ml Output Urine Total 1500 ml 600 ml # Voids 3 Plan Problems: (1) Cellulitis Assessment & Plan: 87 year old male presents with cellulitis of bilateral lower extremities right > left. long history of venous insufficiency prior ulcerations and wounds in multiple stages of healing left leg with multiple areas of partial thickness ulcerations as noted in pictures. areas of sloth that is easily debrided with non excisional debridement performed at bedside. underneath viable bleeding dermis. right leg with multiple areas of full thickness ulcerations as noted in pictures. area of eschar with sloth noted, bleeding with non excisional debridement to identify viable dermis. Tx Plan: -wash bilateral lower extremities daily -apply skin protectant / lotion to dry areas -apply Xeroform over areas of partial thickness wounds, apply ABD / Gauze, wrap with Kerlix Daily. okay for alginate -keep legs elevated to help with venous flow -heel protectors -air mattress -Venous duplex studies -arterial duplex studies -ID input appreciated for Abx -will follow with recs thank you Uvaldo Duque Jul 06, 2018 11:43
[2018-07-06 12:00] VITALS: BP 147/80
--- NOTE | 2018-07-06 12:06 | General Progress Note ---
Assessment/Plan Problem List: (1) Cognitive impairment ICD Codes: R41.89 - Other symptoms and signs involving cognitive functions and awareness SNOMED: 086114455 (2) schizophrenia Status: stable Assessment/Plan risperdal 1mg po qhs risperdal 1mg q 6hr prn the pt lacks capacity to leave ama provided ro/st Subjective Allergies: Coded Allergies: No Known Allergies (Unverified , 06/03/18) All Systems: reviewed and negative except above Subjective the pt was able to sleep better roommate calmer. forgetful Objective Last 24 Hour Vital Signs Date Time Temp Pulse Resp B/P (MAP) Pulse Ox O2 Delivery O2 Flow Rate FiO2 07/06/18 09:00 Room Air 07/06/18 08:00 98.0 67 20 149/75 (99) 95 07/06/18 04:00 98.2 77 20 148/77 (100) 99 07/05/18 21:00 Room Air 07/05/18 20:00 98.2 71 21 140/82 (101) 96 07/05/18 16:00 98.1 65 20 128/72 (90) 99 Intake and Output 07/05/18 07/06/18 19:00 07:00 Intake Total 1000 ml 450 ml Output Total 1500 ml 600 ml Balance -500 ml -150 ml Intake Oral 1000 ml 450 ml Output Urine Total 1500 ml 600 ml # Voids 3 Height (Feet): 6 Height (Inches): 1.00 Weight (Pounds): 184 General Appearance: alert, confused Neurologic: depressed affect Jovana Pantoja MD Jul 06, 2018 12:06
--- NOTE | 2018-07-06 13:46 | Infectious Diseases Prog Note ---
Assessment/Plan Assessment/Plan A: 1. Bilateral leg cellulitis. 2. Hypertension. 3. Stasis dermatitis 4. Altered mental status 5. Anemia & Leukopenia PLAN: 1. Discontinue IV vancomycin and cefepime 2. start on PO Keflex & Doxycycline 3. Case was D/W pharmacy & primary MD Subjective ROS Limited/Unobtainable: No Constitutional: Reports: no symptoms Respiratory: Reports: no symptoms Gastrointestinal/Abdominal: Reports: no symptoms Genitourinary: Reports: no symptoms Musculoskeletal: Reports: no symptoms Allergies: Coded Allergies: No Known Allergies (Unverified , 06/03/18) Objective Vital Signs Last 24 Hour Vital Signs Date Time Temp Pulse Resp B/P (MAP) Pulse Ox O2 Delivery O2 Flow Rate FiO2 07/06/18 09:00 Room Air 07/06/18 08:00 98.0 67 20 149/75 (99) 95 07/06/18 04:00 98.2 77 20 148/77 (100) 99 07/05/18 21:00 Room Air 07/05/18 20:00 98.2 71 21 140/82 (101) 96 07/05/18 16:00 98.1 65 20 128/72 (90) 99 Height (Feet): 6 Height (Inches): 1.00 Weight (Pounds): 184 General Appearance: no acute distress HEENT: mucous membranes moist Respiratory/Chest: lungs clear Cardiovascular: normal rate Abdomen: soft, non tender Extremities: other - legs edema Skin: ulcers, other - stasis ulcers both legs Neurologic/Psychiatric: alert, oriented x 3, responsive Current Medications Medications (Trade) Dose Ordered Sig/Shannon Route PRN Reason Start Time Stop Time Status Last Admin Dose Admin Acetaminophen (Tylenol) 650 mg Q4H PRN ORAL Mild Pain (Pain Scale 1-3) 07/04/18 11:00 08/01/18 10:59 Aspirin (ASA) 162 mg DAILY ORAL 07/05/18 09:00 08/01/18 17:59 Cefepime HCl 1 gm/ Dextrose 55 ml @ 110 mls/hr Q24H IVPB 07/04/18 14:00 07/10/18 13:59 07/04/18 14:41 Dextrose (Dextrose 50%) 25 ml Q30M PRN IV Hypoglycemia 07/04/18 11:00 08/01/18 17:59 Dextrose (Dextrose 50%) 50 ml Q30M PRN IV Hypoglycemia 07/04/18 11:00 08/01/18 17:59 Magnesium Hydroxide (Mom) 30 ml HSPRN PRN ORAL Constipation 07/04/18 21:00 08/01/18 20:59 Risperidone (RisperDAL) 1 mg BEDTIME ORAL 07/05/18 21:00 08/04/18 20:59 Risperidone (RisperDAL) 1 mg Q6H PRN ORAL agitation 07/04/18 11:00 08/02/18 10:59 Sodium Chloride 1,000 ml @ 75 mls/hr [id number] IVLG 07/04/18 11:00 08/01/18 18:48 07/05/18 00:34 Temazepam (Restoril) 15 mg HSPRN PRN ORAL Insomnia 07/04/18 21:00 07/09/18 20:59 Dwight Alvardao MD Jul 06, 2018 13:46
[2018-07-06] MEDS: Cephalexin 500mg cap ORAL SCH ×2 (14:00→21:18)
[2018-07-06 16:00] VITALS: BP 125/69
--- NOTE | 2018-07-06 16:29 | General Progress Note ---
Assessment/Plan Problem List: (1) Cellulitis ICD Codes: L03.90 - Cellulitis, unspecified SNOMED: 368988135 Qualifiers: (2) Chronic cutaneous venous stasis ulcer ICD Codes: I83.009 - Varicose veins of unspecified lower extremity with ulcer of unspecified site SNOMED: 74352626 (3) Toxic encephalopathy ICD Codes: G92 - Toxic encephalopathy SNOMED: 78289804 (4) Sepsis ICD Codes: A41.9 - Sepsis, unspecified organism SNOMED: 43232374 Qualifiers: Qualified Codes: A41.9 - Sepsis, unspecified organism (5) HTN (hypertension) ICD Codes: I10 - Essential (primary) hypertension SNOMED: 89550935 Assessment/Plan wound care I discussed the case with infectious disease organizational consultant. Patient will be started on p.o. antibiotics because he refuses drug levels. He will need placement in a retirement facility. Subjective Allergies: Coded Allergies: No Known Allergies (Unverified , 06/03/18) Subjective Patient is resting. Objective Last 24 Hour Vital Signs Date Time Temp Pulse Resp B/P (MAP) Pulse Ox O2 Delivery O2 Flow Rate FiO2 07/06/18 12:00 97.7 67 19 147/80 (102) 96 07/06/18 09:00 Room Air 07/06/18 08:00 98.0 67 20 149/75 (99) 95 07/06/18 04:00 98.2 77 20 148/77 (100) 99 07/05/18 21:00 Room Air 07/05/18 20:00 98.2 71 21 140/82 (101) 96 Intake and Output 07/05/18 07/06/18 19:00 07:00 Intake Total 1000 ml 450 ml Output Total 1500 ml 600 ml Balance -500 ml -150 ml Intake Oral 1000 ml 450 ml Output Urine Total 1500 ml 600 ml # Voids 3 Height (Feet): 6 Height (Inches): 1.00 Weight (Pounds): 184 Cardiovascular: normal rate Respiratory/Chest: lungs clear Genitourinary/Rectal: other - No edema Jed Alvarado MD Jul 06, 2018 16:29
[2018-07-06 20:00] VITALS: BP 154/88
[2018-07-07] VITALS: BP 152/90
[2018-07-07 04:00] VITALS: BP 119/58
[2018-07-07] MEDS: Cephalexin 500mg cap ORAL SCH ×2 (05:53→14:00)
[2018-07-07 08:00] VITALS: BP 126/67
[2018-07-07] MEDS: Aspirin Baby 81mg ORAL SCH (08:57)
[2018-07-07 12:00] VITALS: BP 145/75
--- NOTE | 2018-07-07 14:01 | Infectious Diseases Prog Note ---
Assessment/Plan Assessment/Plan A: 1. Bilateral leg cellulitis. 2. Hypertension. 3. Stasis dermatitis 4. Altered mental status 5. Anemia & Leukopenia PLAN: 1. continue PO Keflex & Doxycycline X 3 days Subjective ROS Limited/Unobtainable: No HEENT: Reports: no symptoms Respiratory: Reports: no symptoms Cardiovascular: Reports: no symptoms Gastrointestinal/Abdominal: Reports: no symptoms Genitourinary: Reports: no symptoms Psychiatric: Reports: other - noncoplaint with medications Allergies: Coded Allergies: No Known Allergies (Unverified , 06/03/18) Objective Vital Signs Last 24 Hour Vital Signs Date Time Temp Pulse Resp B/P (MAP) Pulse Ox O2 Delivery O2 Flow Rate FiO2 07/07/18 12:00 97.9 60 17 145/75 (98) 98 07/07/18 09:00 Room Air 07/07/18 08:00 97.9 73 20 126/67 (86) 98 07/07/18 04:00 98.4 61 20 119/58 (78) 96 07/07/18 00:00 99.0 75 20 152/90 (110) 93 07/06/18 21:00 Room Air 07/06/18 20:00 98.4 87 20 154/88 (110) 95 07/06/18 16:00 97.9 64 20 125/69 (87) 98 Height (Feet): 6 Height (Inches): 1.00 Weight (Pounds): 190 General Appearance: no acute distress HEENT: mucous membranes moist Respiratory/Chest: lungs clear Cardiovascular: normal rate Abdomen: soft, non tender Extremities: other - left bunion Skin: ulcers, other - in both legs Neurologic/Psychiatric: alert, responsive Current Medications Medications (Trade) Dose Ordered Sig/Shannon Route PRN Reason Start Time Stop Time Status Last Admin Dose Admin Acetaminophen (Tylenol) 650 mg Q4H PRN ORAL Mild Pain (Pain Scale 1-3) 07/04/18 11:00 08/01/18 10:59 Aspirin (ASA) 162 mg DAILY ORAL 07/05/18 09:00 08/01/18 17:59 Cephalexin (Keflex) 500 mg Q8HR ORAL 07/06/18 14:00 07/13/18 13:59 Dextrose (Dextrose 50%) 25 ml Q30M PRN IV Hypoglycemia 07/04/18 11:00 08/01/18 17:59 Dextrose (Dextrose 50%) 50 ml Q30M PRN IV Hypoglycemia 07/04/18 11:00 08/01/18 17:59 Doxycycline Monohydrate (Vibramycin) 100 mg EVERY 12 HOURS ORAL 07/06/18 14:00 07/13/18 13:59 Magnesium Hydroxide (Mom) 30 ml HSPRN PRN ORAL Constipation 07/04/18 21:00 08/01/18 20:59 Risperidone (RisperDAL) 1 mg BEDTIME ORAL 07/05/18 21:00 08/04/18 20:59 Risperidone (RisperDAL) 1 mg Q6H PRN ORAL agitation 07/04/18 11:00 08/02/18 10:59 Sodium Chloride 1,000 ml @ 75 mls/hr [id number] IVLG 07/04/18 11:00 08/01/18 18:48 07/06/18 16:20 Temazepam (Restoril) 15 mg HSPRN PRN ORAL Insomnia 07/04/18 21:00 07/09/18 20:59 Dwight Alvarado MD Jul 07, 2018 14:01
[2018-07-07] MEDS ORDERED: KEFLEX500 M1 ORAL (15:09)
[2018-07-07] MEDS ORDERED: DOXYCYCLINE MO100 M2 PO (15:28)
[2018-07-07] MEDS ORDERED: VIBRAMYCIN100 MG ORAL (15:29)
[2018-07-07 16:00] VITALS: BP 130/78
--- NOTE | 2018-07-07 16:02 | General Progress Note ---
Assessment/Plan Problem List: (1) Cellulitis ICD Codes: L03.90 - Cellulitis, unspecified SNOMED: 399972413 Qualifiers: (2) Chronic cutaneous venous stasis ulcer ICD Codes: I83.009 - Varicose veins of unspecified lower extremity with ulcer of unspecified site SNOMED: 12513136 (3) Toxic encephalopathy ICD Codes: G92 - Toxic encephalopathy SNOMED: 47979111 (4) Sepsis ICD Codes: A41.9 - Sepsis, unspecified organism SNOMED: 23907380 Qualifiers: Qualified Codes: A41.9 - Sepsis, unspecified organism (5) HTN (hypertension) ICD Codes: I10 - Essential (primary) hypertension SNOMED: 81840773 Assessment/Plan po abxs DC today Subjective Allergies: Coded Allergies: No Known Allergies (Unverified , 06/03/18) Subjective feels ok Objective Last 24 Hour Vital Signs Date Time Temp Pulse Resp B/P (MAP) Pulse Ox O2 Delivery O2 Flow Rate FiO2 07/07/18 12:00 97.9 60 17 145/75 (98) 98 07/07/18 09:00 Room Air 07/07/18 08:00 97.9 73 20 126/67 (86) 98 07/07/18 04:00 98.4 61 20 119/58 (78) 96 07/07/18 00:00 99.0 75 20 152/90 (110) 93 07/06/18 21:00 Room Air 07/06/18 20:00 98.4 87 20 154/88 (110) 95 Intake and Output 07/06/18 07/07/18 19:00 07:00 Intake Total 1525 ml Output Total 900 ml 1300 ml Balance 625 ml -1300 ml Intake Oral 850 ml IV Total 675 ml Output Urine Total 900 ml 1300 ml Height (Feet): 6 Height (Inches): 1.00 Weight (Pounds): 190 Jed Alvarado MD Jul 07, 2018 16:02
--- NOTE | 2018-07-07 16:06 | Surgery Progress Note ---
Surgery Progress Note Subjective Additional Comments doing better. wound dressings changed today and wound improving. Objective Last 24 Hour Vital Signs Date Time Temp Pulse Resp B/P (MAP) Pulse Ox O2 Delivery O2 Flow Rate FiO2 07/07/18 12:00 97.9 60 17 145/75 (98) 98 07/07/18 09:00 Room Air 07/07/18 08:00 97.9 73 20 126/67 (86) 98 07/07/18 04:00 98.4 61 20 119/58 (78) 96 07/07/18 00:00 99.0 75 20 152/90 (110) 93 07/06/18 21:00 Room Air 07/06/18 20:00 98.4 87 20 154/88 (110) 95 I&O Intake and Output 07/06/18 07/07/18 19:00 07:00 Intake Total 1525 ml Output Total 900 ml 1300 ml Balance 625 ml -1300 ml Intake Oral 850 ml IV Total 675 ml Output Urine Total 900 ml 1300 ml Dressing: saturated Wound: clean Drains: none Cardiovascular: RSR Respiratory: clear Abdomen: soft, non-tender, present bowel sounds Extremities: other Plan Problems: (1) Cellulitis Assessment & Plan: 87 year old male presents with cellulitis of bilateral lower extremities right > left. long history of venous insufficiency prior ulcerations and wounds in multiple stages of healing left leg with multiple areas of partial thickness ulcerations as noted in pictures. areas of sloth that is easily debrided with non excisional debridement performed at bedside. underneath viable bleeding dermis. right leg with multiple areas of full thickness ulcerations as noted in pictures. area of eschar with sloth noted, bleeding with non excisional debridement to identify viable dermis. Tx Plan: -wash bilateral lower extremities daily -apply skin protectant / lotion to dry areas -apply Xeroform over areas of partial thickness wounds, apply ABD / Gauze, wrap with Kerlix Daily. okay for alginate -keep legs elevated to help with venous flow -heel protectors -air mattress -Venous duplex studies noted -arterial duplex studies noted -okay to d/c from surgical standpoint -f/u with wound care center for continued care. -will follow with recs thank you Uvaldo Duque Jul 07, 2018 16:06
--- NOTE | 2018-07-07 19:18 | General Progress Note ---
Assessment/Plan Problem List: (1) Cognitive impairment ICD Codes: R41.89 - Other symptoms and signs involving cognitive functions and awareness SNOMED: 689229976 (2) schizophrenia Assessment/Plan risperdal 2mg po qhs risperdal 1mg q 6hr prn the pt lacks capacity to leave ama provided ro/st Subjective Neurologic/Psychiatric: Reports: anxiety, depressed, emotional problems Allergies: Coded Allergies: No Known Allergies (Unverified , 06/03/18) Subjective the pt is delusional he was upset today about food. complain to us president Objective Last 24 Hour Vital Signs Date Time Temp Pulse Resp B/P (MAP) Pulse Ox O2 Delivery O2 Flow Rate FiO2 07/07/18 16:00 97.8 70 18 130/78 (95) 99 07/07/18 12:00 97.9 60 17 145/75 (98) 98 07/07/18 09:00 Room Air 07/07/18 08:00 97.9 73 20 126/67 (86) 98 07/07/18 04:00 98.4 61 20 119/58 (78) 96 07/07/18 00:00 99.0 75 20 152/90 (110) 93 07/06/18 21:00 Room Air 07/06/18 20:00 98.4 87 20 154/88 (110) 95 Intake and Output 07/06/18 07/07/18 19:00 07:00 Intake Total 1525 ml Output Total 900 ml 1300 ml Balance 625 ml -1300 ml Intake Oral 850 ml IV Total 675 ml Output Urine Total 900 ml 1300 ml Height (Feet): 6 Height (Inches): 1.00 Weight (Pounds): 190 General Appearance: alert, confused Jovana Pantoja MD Jul 07, 2018 19:18
--- NOTE | 2018-07-08 13:20 | Discharge Summary ---
Discharge Summary Discharge Summary _ DATE OF ADMISSION: 07/02/2018 DATE OF DISCHARGE: 07/07/2018 DISCHARGED BY: Dr. Jed Alvarado CONSULTANTS: Dr. Jovana Alvarado BRIEF HOSPITAL COURSE: Patient is an 87-year-old -[place] male, who presented to ER on March of last year, for generalized weakness and bilateral lower extremity cellulitis which was getting worse. By antibiotics and was also seen by javascript engineer. He again presented to ED for evaluation of lower extremity ulcers. Apparently, a concerned citizen called the EMS. He was found to be hypotensive by paramedics. Retention. He had been noncompliant with medications even while he was in the hospital. He also has history of venous insufficiency of the lower extremities ulcers and cellulitis with MRSA and gram-negative bacilli. On evaluation at the ED, blood pressure was 69/36, pulse 73. Patient was delirious and combative. He was placed on behavioral restraints. He was given sedation. Restraints were removed after patient was more compliant after sedation. Blood work showed 9, hemoglobin 9.3, hematocrit 29.. Lactic acid 1.3. ProBNP was 1347. Urinalysis showed 2+ urine protein, negative nitrite, 1 + leukocyte esterase, 0-20/HPF RBC C, 0-2/hpf WBC. EKG was in normal sinus rhythm with no acute changes. Chest x-ray showed no acute process he was admitted for evaluation of alteration in mental status, possibly as a result of sepsis. Source possibly due to lower extremity cellulitis. Patient had acute renal failure with evidence of proteinuria. Kidney function was monitored. ID was consulted. He was started on IV vancomycin and cefepime. He was given local wound care. He was seen by his surgeon. Was advised to keep legs elevated to help with venous flow. He was placed on air mattress with heel protectors. He was seen by psychiatrist. Patient was confused and disoriented and unable to have rational conversation in regards to his medical condition and placement. Patient was disorganized. In the past he had refused placement and stated he wanted to be discharged. Patient is forgetful and unable to process the information given to him. He was diagnosed with schizophrenia and cognitive impairment. He was given Risperdal 1 mg p.o. nightly and every 6 hours as needed. He was assessed to lack the capacity to leave AGAINST MEDICAL ADVICE. On 07/06/2018, surgeon performed a non-excisional debridement at bedside. Underneath the wound, has viable bleeding dermis. Venous duplex of the lower extremity showed normal spontaneous flow within the femoral, popliteal and tibial segments. There was no evidence of thrombus within. Color flow duplex sonography revealed patency of the superficial femoral and popliteal arteries. Tibial arteries were minimally calcified. There was no evidence of stenosis or occlusion within the segments. Doppler tibial artery waveform was within normal limits bilaterally. Blood culture did not isolate any growth. Influenza screen was negative. Patient refused to have antibiotic drug levels checked. IV vancomycin and cefepime were discontinued. Patient was started on p.o. Keflex and doxycycline. Patient was referred to a senior living facility, however refused. Patient refused any kind of placement, i.e., intermediate, board and care. He was then referred to [facility]. He was eventually discharged, prescriptions were filled through [facility] pharmacy. FINAL DIAGNOSES: Sepsis Bilateral lower extremity cellulitis Bilateral venous stasis ulcer, present on admission Acute toxic encephalopathy Hypertension Status post non-excisional debridement bilateral lower extremity Schizophrenia Cognitive impairment Stasis dermatitis Anemia Leukopenia DISPOSITION: Homeless discharge. DISCHARGE MEDICATIONS: Refer to Discharge Medication List. DISCHARGE INSTRUCTIONS: Follow-up in a week at [facility]. I have been assigned to complete a discharge summary on this account, I was not involved with the patient's management. Althea Medellin NP Jul 08, 2018 13:20
[2018-07-08] MEDS ORDERED: NKM (15:01)
[2018-07-08] MEDS ORDERED: BACITRACIN-P28.35 GM TP (16:32)
== END 2018-07-07 19:40 | disposition home or self-care (01) | DRG 871 ==
LOC: EDBD 13:34 → EMR 14:10 → 2E 14:19 → EDBEDREQ 15:26 → 4E 07-04 11:01
DX: A41.9 Sepsis, unspecified organism (principal); G92 Toxic encephalopathy; N17.9 Acute kidney failure, unspecified; L03.119 Cellulitis of unspecified part of limb; I87.8 Other specified disorders of veins; Z59.0 Homelessness; I10 Essential (primary) hypertension; F20.9 Schizophrenia, unspecified; D64.9 Anemia, unspecified; I83.009 Varicose veins of unspecified lower extremity with ulcer of unspecified site; R41.89 Other symptoms and signs involving cognitive functions and awareness
CPT/HCPCS: 36415; 71045; 80053; 81003; 82550; 82962; 83605; 83690; 83735; 83880; 84484; 85007; 85025; 85610; 85730; 86710; 87040; 87081; 93925; 93970; 96361; 96365; 96368; 96372; 99285

== ENCOUNTER 2018-07-08 14:47 | Emergency (ER) | payer MEDICARE ==
[~2018-07-08] VITALS: Ht 175.3 cm; Wt 81.6 kg
[~2018-07-08 14:47] MED LIST changes: +KEFLEX500 M1 ORAL; +VIBRAMYCIN100 MG ORAL
[2018-07-08] MEDS ORDERED: NKM (15:01)
--- NOTE | 2018-07-08 16:31 | Emergency Room Report ---
History of Present Illness General Chief Complaint: Wound Recheck/Suture Removal Source: Medical Record Present Illness HPI 87-year-old male presents to the emergency department for wound evaluation and care of chronic lower extremity ulcers bilaterally. Patient is well-known to the emergency department and frequently has dressing changes here. Patient was admitted on his last visit and he signed AMA. Pt. reports his dressing became wet in the rain. denies trauma or fall. denies new symptoms. Denies aggravating or relieving factors Allergies: Coded Allergies: No Known Allergies (Unverified , 06/03/18) Patient History Past Medical History: see triage record Past Surgical History: none Pertinent Family History: none Reviewed Nursing Documentation: PMH: Agreed; PSxH: Agreed Nursing Documentation-PMH Past Medical History: No History, Except For Hx Cardiac Problems: Yes Hx Hypertension: Yes Hx Pacemaker: No Hx Asthma: No Hx COPD: No Hx Diabetes: No Hx Cancer: No Hx Gastrointestinal Problems: No Hx Dialysis: No Hx Neurological Problems: Yes Hx Cerebrovascular Accident: No Hx Dementia: Yes Hx Seizures: No Review of Systems All Other Systems: negative except mentioned in HPI Physical Exam Vital Signs Date Time Temp Pulse Resp B/P (MAP) Pulse Ox O2 Delivery O2 Flow Rate FiO2 07/08/18 14:59 97.5 72 18 170/88 98 Room Air Sp02 EP Interpretation: reviewed, normal General Appearance: no apparent distress, alert, GCS 15, non-toxic Head: normocephalic, atraumatic Eyes: bilateral eye normal inspection, bilateral eye PERRL ENT: hearing grossly normal, normal voice Neck: full range of motion Respiratory: chest non-tender, lungs clear, normal breath sounds, speaking full sentences Cardiovascular #1: regular rate, rhythm, normal capillary refill Musculoskeletal: back normal, normal range of motion, tender - TTP to the anterior shins Neurologic: alert, oriented x3, responsive, motor strength/tone normal, sensory intact, speech normal, grossly normal Psychiatric: judgement/insight normal Skin: normal color, no rash, warm/dry, well hydrated, other - Chronic venous stasis ulcers, no surrounding warmth or erythema Lymphatic: no adenopathy Medical Decision Making PA Attestation Dr. tyson is my supervising Physician whom patient management has been discussed with. Diagnostic Impression: Primary Impression: Encounter for wound re-check ER Course 87-year-old male presents to the emergency department for wound evaluation and care of chronic lower extremity ulcers bilaterally. Patient is well-known to the emergency department and frequently has dressing changes here. Patient was admitted on his last visit and he signed AMA. Pt. reports his dressing became wet in the rain. denies trauma or fall. denies new symptoms. Denies aggravating or relieving factors. Ddx considered but are not limited to cellulitis, abscess, venous stasis, edema just to name a few. Vital signs: are WNL, pt. is afebrile H&PE are most consistent with healing previously repaired laceration ORDERS: none required at this time, the diagnosis is clinical ED INTERVENTIONS: -wound examined -Sterile dressing applied. d/w pt. to continue taking po abx and to look for signs of infection . DISCHARGE: At this time pt. is stable for d/c to home. Will provide printed patient care instructions, and any necessary prescriptions. Care plan and follow up instructions have been discussed with the patient prior to discharge. Last Vital Signs Date Time Temp Pulse Resp B/P (MAP) Pulse Ox O2 Delivery O2 Flow Rate FiO2 07/08/18 14:59 97.5 72 18 170/88 98 Room Air Disposition: HOME, SELF-CARE Condition: Stable Scripts Bacitracin/Polymyxin B Sulfate (BACITRACIN-POLYMYXIN OINTMENT) 28.35 Gm Oint...g. 1 APPLIC TP BID, #28.3 GM Prov: Meron Ross 07/08/18 Referrals: NOT CHOSEN IPA/MD,REFERRING (PCP) Patient Instructions: Wound Check Additional Instructions: Take medications as directed. Follow up with a Primary Care Provider in 3-5 days, even if your symptoms have resolved. --Please review list of primary care clinics, if you do not already have a primary care provider Return sooner to ED if new symptoms occur, or current symptoms become worse. - Please note that this Emergency Department Report was dictated using [employer] writer technology software, occasionally this can lead to erroneous entry secondary to interpretation by the dictation equipment. Meron Ross Jul 08, 2018 16:31
[2018-07-08] MEDS ORDERED: BACITRACIN-P28.35 GM TP (16:32)
--- NOTE | 2018-07-08 16:40 | NUR ---
Homeless Discharge: Patient is being discharged from medical care. Awake, alert and oriented x4. After care instructions, including referral to community resources were given. Patient verbalized understanding of After care instructions; at this time patient does not request medications, equipment or placement. Patient signed patient consent in the medical record for patient destination upon discharge. All medical devices such as ID band was removed. Patient ambulated out with all personal belongings with steady gait.
[2018-07-08 16:47] VITALS: BP 157/75
== END 2018-07-08 17:06 | disposition home or self-care (01) ==
LOC: EMR 15:30
DX: Z48.00 Encounter for change or removal of nonsurgical wound dressing (principal); I83.009 Varicose veins of unspecified lower extremity with ulcer of unspecified site; L97.919 Non-pressure chronic ulcer of unspecified part of right lower leg with unspecified severity; L97.929 Non-pressure chronic ulcer of unspecified part of left lower leg with unspecified severity; I10 Essential (primary) hypertension
CPT/HCPCS: 99281